=== PATIENT | male | born 1945 | race Caucasian/White ===

== ENCOUNTER 2017-10-22 19:25 | Emergency (ER) | payer OTHER ==
--- NOTE | 2017-10-22 19:44 | ER ---
Nurse's Notes [facility] Name: London Lewis Age: 72 yrs Sex: Male : 1945 Arrival Date: 10/22/2017 Time: 19:26 Bed 30 Private MD: Azar Chan R Diagnosis: Laceration without foreign body of lip-Upper Presentation: 10/22 19:37 Presenting complaint: Patient states: he ran into glass door earlier and received bb laceration to inside upper lip denies LOC. Transition of care: patient was not received from another setting of care. Complicating Factors: There are no complicating factors for this patient. Onset of symptoms was October 22, 2017. Care prior to arrival: None. 19:37 Method Of Arrival: Ambulatory bb 19:37 Acuity: ROBERT 5 bb Triage Assessment: 19:45 General: Appears in no apparent distress. rk2 19:45 General: Behavior is calm, cooperative. Pain: Complains of pain in above lip. Neuro: rk2 Level of Consciousness is alert, obeys commands, Oriented to person, place, time, situation. Respiratory: Airway is patent Respiratory effort is even, unlabored, Respiratory pattern is regular, symmetrical. Injury Description: Laceration sustained to above right side of lip. Historical: - Allergies: 19:38 PENICILLINS; bb - Home Meds: 19:38 aspirin 81 mg Oral TbEC 1 tab once daily [Active]; Fish Oil Oral [Active]; lisinopril 5 bb mg Oral tab 1 tab once daily [Active]; metoprolol tartrate 25 mg Oral tab 2 tabs 2 times per day [Active]; pantoprazole 40 mg Oral TbEC 1 tab once daily [Active]; Prilosec Oral [Active]; Xanax Oral [Active]; - PMHx: 19:38 Anxiety; GERD; Hypertension; Myocardial infarction; bb - PSHx: 19:38 Triple bypass; bb - Immunization history:: Adult Immunizations up to date, Last tetanus immunization: unknown. - Social history:: Smoking status: unknown. Screenin:45 Abuse screen: Denies threats or abuse. rk2 19:45 Nutritional screening: No deficits noted. Tuberculosis screening: No symptoms or risk rk2 factors identified. Fall Risk None identified. Assessment: 19:45 Musculoskeletal: bleeding controlled. Injury Description: Laceration is. rk2 Vital Signs: 19:38 BP 189 / 91; Pulse 91; Resp 20 S; Temp 99.1(O); Pulse Ox 97% on R/A; Weight 99.79 kg bb (R); Height 5 ft. 10 in. (177.80 cm) (R); Pain 0/10; 19:38 Body Mass Index 31.57 (99.79 kg, 177.80 cm) ED Course: 19:26 Patient arrived in ED. es 19:27 Azar Chan MD is Private Physician. es 19:29 Kale Bronson PA is PHCP. cp 19:29 Kale Thomas MD is Attending Physician. cp 19:37 Lona Samaniego RN is Primary Nurse. rk2 19:38 Triage completed. bb 19:38 Arm band placed on Patient placed in an exam room, on a stretcher, on pulse oximetry. bb Family accompanied patient. 19:45 Patient has correct armband on for positive identification. Bed in low position. rk2 19:55 No provider procedures requiring assistance completed. rk2 19:55 Patient did not have IV access during this emergency room visit. rk2 Administered Medications: No medications were administered Outcome: 19:43 Discharge ordered by MD. cp 19:55 Discharged to home ambulatory. rk2 19:55 Condition: good 19:55 Discharge instructions given to patient, Prescriptions given X 1. 20:09 Patient left the ED. rk2 Signatures: Varsha Calhoun Brenda, RN RN bb Kale Bronson PA PA cp Kidder, Rhonda, RN RN rk2
--- NOTE | 2017-10-22 19:44 | EDPHYS ---
Physician Documentation [facility] Name: London Lewis Age: 72 yrs Sex: Male : 1945 Arrival Date: 10/22/2017 Time: 19:26 Bed 30 Private MD: Azar Chan R ED Physician Kale Thomas HPI: 10/22 19:34 This 72 yrs old Male presents to ER via Unassigned with complaints of cp Laceration To Lip. 19:34 The patient has a laceration occurred at home, and there are no complicating factors. cp The laceration(s) is(are) located on the inside upper lip. Onset: The symptoms/episode began/occurred just prior to arrival. Associated signs and symptoms: Pertinent negatives: heavy bleeding, loss of consciousness. Historical: - Allergies: 19:38 PENICILLINS; bb - Home Meds: 19:38 aspirin 81 mg Oral TbEC 1 tab once daily [Active]; Fish Oil Oral [Active]; lisinopril 5 bb mg Oral tab 1 tab once daily [Active]; metoprolol tartrate 25 mg Oral tab 2 tabs 2 times per day [Active]; pantoprazole 40 mg Oral TbEC 1 tab once daily [Active]; Prilosec Oral [Active]; Xanax Oral [Active]; - PMHx: 19:38 Anxiety; GERD; Hypertension; Myocardial infarction; bb - PSHx: 19:38 Triple bypass; bb - Immunization history:: Adult Immunizations up to date, Last tetanus immunization: unknown. - Social history:: Smoking status: unknown. ROS: 19:35 Constitutional: Negative for body aches, chills, fever, poor PO intake. cp 19:35 Cardiovascular: Negative for chest pain, edema, palpitations. 19:35 Respiratory: Negative for cough, shortness of breath, wheezing. 19:35 Abdomen/GI: Negative for abdominal pain, vomiting, diarrhea, constipation. 19:35 Skin: Positive for laceration(s), of the inside upper lip, Negative for rash. 19:35 Neuro: Negative for altered mental status, loss of consciousness, weakness. 19:35 All other systems are negative. Exam: 19:37 Eyes: Pupils equal round and reactive to light, extra-ocular motions intact. Lids and cp lashes normal. Conjunctiva and sclera are non-icteric and not injected. Cornea within normal limits. Periorbital areas with no swelling, redness, or edema. 19:37 Constitutional: The patient appears in no acute distress, alert, awake, well developed, well nourished. 19:37 Head/face: Noted is swelling, that is mild, of the upper lip. 19:37 ENT: External ear(s): are unremarkable, Nose: is normal, Mouth: Lips: lacerated, approximately 1 cm(s), innner upper lip, Tongue: is normal, Posterior pharynx: Airway: no evidence of obstruction, patent, Uvula: midline, swelling, is not appreciated, erythema, is not appreciated, exudate, is not appreciated, Dental exam: fractured teeth are noted, not appreciated, missing teeth, not appreciated. 19:37 Neck: C-spine: vertebral tenderness, is not appreciated, crepitus, is not appreciated, ROM/movement: is normal, is supple, without pain, no range of motions limitations, no nuchal rigidity. 19:37 Chest/axilla: Inspection: normal. 19:37 Cardiovascular: Rate: normal. 19:37 Respiratory: the patient does not display signs of respiratory distress, Respirations: normal, no use of accessory muscles, no retractions, no splinting, no tachypnea. 19:37 Abdomen/GI: Exam negative for discomfort, distension, guarding, Inspection: abdomen appears normal. 19:37 Neuro: Orientation: to person, place \T\ time. Mentation: lucid, able to follow commands, Cerebellar function: is grossly normal, Motor: moves all fours, strength is normal, Sensation: no obvious gross deficits, Gait: is steady, at a normal pace, without difficulty. Vital Signs: 19:38 BP 189 / 91; Pulse 91; Resp 20 S; Temp 99.1(O); Pulse Ox 97% on R/A; Weight 99.79 kg bb (R); Height 5 ft. 10 in. (177.80 cm) (R); Pain 0/10; 19:38 Body Mass Index 31.57 (99.79 kg, 177.80 cm) bb MDM: 19:43 Patient medically screened. cp 19:43 Data reviewed: vital signs, nurses notes, and as a result, I will discharge patient. cp 19:43 Counseling: I had a detailed discussion with the patient and/or guardian regarding: the cp historical points, exam findings, and any diagnostic results supporting the discharge/admit diagnosis, to return to the emergency department if symptoms worsen or persist or if there are any questions or concerns that arise at home. Administered Medications: No medications were administered Disposition: 20:15 Chart complete. cp 10/23 15:54 Co-signature as Attending Physician, Kale Thomas MD I agree with the assessment and anoop plan of care. Disposition: 10/22/17 19:43 Discharged to Home. Impression: Laceration without foreign body of lip - Upper. - Condition is Stable. - Discharge Instructions: Facial Laceration. - Prescriptions for Clindamycin HCl 300 mg Oral Capsule - take 1 capsule by ORAL route every 8 hours for 7 days; 21 capsule. - Medication Reconciliation Form, Thank You Letter, Antibiotic Education, Prescription Opioid Use form. - Follow up: Private Physician; When: 1 - 2 days; Reason: Wound Recheck. - Problem is new. - Symptoms are unchanged. Signatures: Kale Thomas MD MD cha Ballard, Brenda, RN RN Kale Clay PA PA cp Kidder, Rhonda, RN RN rk2
[2017-10-22 20:14] VITALS: BP 189/91; TEMP 99.1; O2SAT 97
== END 2017-10-22 20:09 | disposition home or self-care (01) ==
LOC: ER 19:25
DX: S01.511A Laceration without foreign body of lip, initial encounter (principal); X58.XXXA Exposure to other specified factors, initial encounter; Y93.9 Activity, unspecified; Y92.009 Unspecified place in unspecified non-institutional (private) residence as the place of occurrence of the external cause; I10 Essential (primary) hypertension; F41.9 Anxiety disorder, unspecified; I25.2 Old myocardial infarction; Z79.82 Long term (current) use of aspirin; Z88.0 Allergy status to penicillin
CPT/HCPCS: 99283

== ENCOUNTER 2018-01-18 00:01 | Emergency (ER) | payer OTHER ==
[2018-01-18] MEDS ORDERED: NITROGLYCERIN 0.4 MG/TAB SL ONE (00:22)
[2018-01-18 00:54] LABS: Absolute Lymphocytes (CBC) 3.1 K/uL (0.7-4.9); Absolute Monocytes 0.8 K/uL (0.1-1.3); Absolute Neutrophil 6.1 K/uL (1.8-8.0); Basophils % 1.4 % (0-1.3); Hematocrit 46.6 % (39.6-49.0); Lymphocytes % 30.1 % (15.3-44.8); MCV 90.7 fL (80-100); MPV 8.3 fL (7.6-11.3); Monocytes % 7.6 % (3.3-12.3); RBC Red Blood Cell Count 5.14 M/uL (4.33-5.43)
[2018-01-18 01:02] LABS: Protime INR 1.02
[2018-01-18 01:10] LABS: ALT/SGPT 28 U/L (12-78); AST/SGOT 21 U/L (15-37); Albumin 3.7 g/dL (3.4-5.0); Alkaline Phosphatase 60 U/L (45-117); BUN Blood Urea Nitrogen 14 mg/dL (7-18); Bicarbonate 30 mmol/L (21-32); Bilirubin Direct < 0.1 mg/dL (0-0.2); Bilirubin Total 0.5 mg/dL (0.2-1.0); Glucose Level 138 mg/dL (74-106); Lipase 150 U/L (73-393); NT PRO-BNP 181 pg/mL (<125); Potassium 3.8 mmol/L (3.5-5.1); Protein, Total 7.9 g/dL (6.4-8.2); Sodium Level 138 mmol/L (136-145)
[2018-01-18 01:45] LABS: Urine Blood NEGATIVE (NEG); Urine Glucose NEGATIVE (NEG); Urine Protein NEGATIVE (NEG)
[2018-01-18] MEDS ORDERED: ASPIRIN 81 MG CHEWABLE TABLET ONE (02:53)
[2018-01-18] MEDS ORDERED: ENOXAPARIN 100 MG/ML SYR SQ ONE (02:53)
[2018-01-18] MEDS ORDERED: LISINOPRIL 10 MG TAB ONE (02:56)
--- NOTE | 2018-01-18 03:53 | ER ---
Nurse's Notes [facility] Name: London Lewis Age: 72 yrs Sex: Male : 1945 Arrival Date: 01/18/2018 Time: 00:03 Bed 4 Private MD: Azar Chan R Diagnosis: Chest Pain Presentation: 01/18 00:21 Presenting complaint: Patient states: Patient clutching chest, states pain to center of lp1 chest radiating to back, feeling short of breath; Hx of previous PA 3 years ago, open heart surgery. Transition of care: patient was not received from another setting of care. Onset of symptoms was January 18, 2018 at 00:00. Risk Assessment: Do you want to hurt yourself or someone else? Patient reports no desire to harm self or others. Initial Sepsis Screen: Does the patient meet any 2 criteria? No. Patient's initial sepsis screen is negative. Does the patient have a suspected source of infection? No. Patient's initial sepsis screen is negative. Care prior to arrival: None. 00:21 Method Of Arrival: Wheelchair lp1 00:21 Acuity: ROBERT 2 lp1 Historical: - Allergies: 00:20 PENICILLINS; wa - Home Meds: 00:27 aspirin 81 mg Oral TbEC 1 tab once daily [Active]; metoprolol tartrate 50 mg Oral tab 1 lp1 tab 2 times per day [Active]; pantoprazole 40 mg oral TbEC 1 tab once daily [Active]; lisinopril 5 mg Oral tab 1 tab once daily [Active]; Xanax 0.25 mg Oral tab [Active]; Flonase 50 mcg/actuation Nasal spsn [Active]; - PMHx: 00:30 Anxiety; GERD; PA; Hypertension; lp1 - PSHx: 00:30 Triple Bypass; lp1 - Immunization history:: Adult Immunizations up to date. - Family history:: not pertinent. - Social history:: Smoking status: Patient/guardian denies using tobacco. - Ebola Screening: : No symptoms or risks identified at this time. - Hospitalizations: : No recent hospitalization is reported. Screenin:22 Abuse screen: Denies threats or abuse. Nutritional screening: No deficits noted. jd3 Tuberculosis screening: No symptoms or risk factors identified. Fall Risk IV access (20 points). Ambulatory Aid- None/Bed Rest/Nurse Assist (0 pts). Gait- Normal/Bed Rest/Wheelchair (0 pts) Mental Status- Oriented to own ability (0 pts). Total Baez Fall Scale indicates No Risk (0-24 pts). Assessment: 00:30 General: Appears uncomfortable, Behavior is anxious. Pain: Complains of pain in chest lp1 Pain radiates to back Pain currently is 10 out of 10 on a pain scale. Quality of pain is described as pressure, sharp, Pain began 30 min ago. Is continuous. Neuro: Level of Consciousness is awake, alert, obeys commands, Oriented to person, place, situation. Cardiovascular: Capillary refill < 3 seconds in bilateral fingers toes Patient's skin is warm and dry. Rhythm is sinus rhythm. Respiratory: Airway is patent Respiratory effort is even, Respiratory pattern is regular, Breath sounds are clear bilaterally. GI: Abdomen is non-distended. : No signs and/or symptoms were reported regarding the genitourinary system. EENT: No signs and/or symptoms were reported regarding the EENT system. Derm: Skin is intact, Skin is dry, Skin is normal. Musculoskeletal: Circulation, motion, and sensation intact. 01:45 Reassessment: Patient appears in no apparent distress at this time. Patient is alert, lp1 oriented x 3, equal unlabored respirations, skin warm/dry/pink. Patient returned from CT at this time; assisted to bathroom via wheelchair Patient denies pain at this time. 03:00 Reassessment: Dr. Ryan at bedside to discuss results with patient and . lp1 04:01 Reassessment: Patient appears in no apparent distress at this time. Patient is alert, lp1 oriented x 3, equal unlabored respirations, skin warm/dry/pink. Patient denies pain at this time. Patient states feeling better. Vital Signs: 00:00 BP 208 / 106; Pulse 92; Resp 16; Temp 98.0(O); Pulse Ox 96% on R/A; Weight 97.52 kg; lp1 Height 5 ft. 10 in. (177.80 cm); Pain 10/10; 00:05 BP 184 / 92; Pulse 90; Resp 20; Pulse Ox 98% on R/A; lp1 00:15 BP 185 / 105; Pulse 84; Resp 20; Pulse Ox 96% on 1 lpm NC; lp1 00:30 BP 168 / 105; Pulse 82; Resp 13; Pulse Ox 93% on R/A; lp1 00:45 BP 175 / 111; Pulse 73; Resp 14; Pulse Ox 94% on R/A; lp1 01:45 BP 162 / 88; Pulse 69; Resp 18; Pulse Ox 96% ; Pain 0/10; lp1 02:13 BP 157 / 81; Pulse 67; Resp 12; Pulse Ox 97% on R/A; lp1 04:00 BP 143 / 85; Pulse 65; Resp 20 S; Pulse Ox 96% on R/A; Pain 0/10; jd3 00:00 Body Mass Index 30.85 (97.52 kg, 177.80 cm) lp1 ED Course: 00:03 Patient arrived in ED. ds1 00:08 Golden Ryan MD is Attending Physician. wa 00:12 Inserted saline lock: 20 gauge in right antecubital area, using aseptic technique. jd3 Blood collected. 00:18 Brii Dee, MARKO is Primary Nurse. lp1 00:21 Arm band placed on. EKG completed in triage. Results shown to MD. jd3 00:22 Oxygen administration via nasal cannula \T\ 1L/min. jd3 00:22 Patient has correct armband on for positive identification. Placed in gown. Bed in low jd3 position. Call light in reach. Side rails up X2. Adult w/ patient. monitoring specialist on. Pulse ox on. NIBP on. 00:23 Triage completed. lp1 00:28 X-ray completed. Portable x-ray completed in exam room. Patient tolerated procedure kw well. 01:[address] via stretcher. cw1 01:26 Azar Chan MD is Private Physician. ds1 01:37 CT completed. Patient tolerated procedure well. Patient moved back from CT. kw1 01:41 CT Aorta for Dissection In Process Unspecified. EDMS 01:53 XRAY Chest (1 view) In Process Unspecified. EDMS 03:50 Golden Beaver MD is Referral Physician. wa 03:51 Azar Chan MD is Referral Physician. wa 03:51 Juan Jose Spaulding MD is Referral Physician. wa 04:01 No provider procedures requiring assistance completed. IV discontinued, No lp1 redness/swelling at site. Pressure dressing applied. Administered Medications: 00:21 Drug: Nitroglycerin 0.4 mg Route: Sublingual; lp1 00:56 Follow up: Response: Pain is decreased lp1 03:08 Not Given (Physician Discretion): Lovenox 100 mg Sub-Q once jd3 03:09 Drug: Aspirin Chewable Tablet 324 mg Route: PO; jd3 04:02 Follow up: Response: No adverse reaction lp1 03:09 Drug: Lisinopril 10 mg Route: PO; jd3 04:03 Follow up: Response: Marked relief of symptoms lp1 Outcome: 03:52 Discharge ordered by . jessica 04:02 Discharged to home ambulatory, with significant other. lp1 04:02 Condition: stable 04:02 Discharge instructions given to patient, significant other, Instructed on discharge instructions, follow up and referral plans. Demonstrated understanding of instructions, follow-up care. 04:03 Patient left the ED. lp1 Signatures: Dispatcher [employer] EDMT Wendy Sandhu dsMiriam Leyva Kimberlee kw Pena, Laura, RN RN lp1 Golden Ryan MD MD wa Davies, Jonathon, RN RN Sarah Dukes kw1 Corrections: (The following items were deleted from the chart) 00:30 00:27 PSHx: CABG; lp1 lp1 00:47 00:38 Patient moved to [place] via wheelchair. kw1 kw1
--- NOTE | 2018-01-18 03:53 | EDPHYS ---
Physician Documentation [facility] Name: London Lewis Age: 72 yrs Sex: Male : 1945 Arrival Date: 01/18/2018 Time: 00:03 Bed 4 Private MD: Azar Chan R ED Physician Golden Ryan HPI: 01/18 00:16 This 72 yrs old Male presents to ER via Unassigned with complaints of Chest wa Pain. 00:16 The patient or guardian reports chest pain that is located primarily in the substernal wa area. Onset: 45 minute(s) ago. The pain radiates to back. Associated signs and symptoms: Pertinent positives: abdominal pain, shortness of breath, Pertinent negatives: cough, dizziness, palpitations, syncope, vomiting. The chest pain is described as aching. Duration: The patient or guardian reports a single episode, that is still ongoing, but improving. Modifying factors: The symptoms are alleviated by nothing. the symptoms are aggravated by nothing. Severity of pain: At its worst the pain was a 8 / 10 in the emergency department the pain has improved mildly, is a 6 / 10. The patient has experienced a previous episode, h/o triple bypass. The patient has not recently seen a physician, PMD Dr. Murrieta. coil former: Dr. arellano. Historical: - Allergies: 00:20 PENICILLINS; wa - Home Meds: 00:27 aspirin 81 mg Oral TbEC 1 tab once daily [Active]; metoprolol tartrate 50 mg Oral tab 1 lp1 tab 2 times per day [Active]; pantoprazole 40 mg oral TbEC 1 tab once daily [Active]; lisinopril 5 mg Oral tab 1 tab once daily [Active]; Xanax 0.25 mg Oral tab [Active]; Flonase 50 mcg/actuation Nasal spsn [Active]; - PMHx: 00:30 Anxiety; GERD; RI; Hypertension; lp1 - PSHx: 00:30 Triple Bypass; lp1 - Immunization history:: Adult Immunizations up to date. - Family history:: not pertinent. - Social history:: Smoking status: Patient/guardian denies using tobacco. - Ebola Screening: : No symptoms or risks identified at this time. - Hospitalizations: : No recent hospitalization is reported. ROS: 00:20 Constitutional: Negative for fever, chills, and weight loss, Eyes: Negative for injury, wa pain, redness, and discharge, ENT: Negative for injury, pain, and discharge, Neck: Negative for injury, pain, and swelling, Back: Negative for injury and pain, : Negative for injury, bleeding, discharge, and swelling, MS/Extremity: Negative for injury and deformity, Skin: Negative for injury, rash, and discoloration, Neuro: Negative for headache, weakness, numbness, tingling, and seizure. 00:20 Cardiovascular: Positive for chest pain, Negative for edema, orthopnea, palpitations, paroxysmal nocturnal dyspnea. 00:20 Respiratory: Positive for shortness of breath, Negative for cough, hemoptysis, wheezing. 00:20 Abdomen/GI: Positive for abdominal pain, Negative for nausea, vomiting, and diarrhea. 00:20 All other systems are negative. Exam: 00:21 Constitutional: This is a well developed, well nourished patient who is awake, alert, wa and in no acute distress. Head/Face: Normocephalic, atraumatic. Eyes: Pupils equal round and reactive to light, extra-ocular motions intact. Lids and lashes normal. Conjunctiva and sclera are non-icteric and not injected. Cornea within normal limits. Periorbital areas with no swelling, redness, or edema. ENT: Nares patent. No nasal discharge, no septal abnormalities noted. Tympanic membranes are normal and external auditory canals are clear. Oropharynx with no redness, swelling, or masses, exudates, or evidence of obstruction, uvula midline. Mucous membranes moist. Neck: Trachea midline, no thyromegaly or masses palpated, and no cervical lymphadenopathy. Supple, full range of motion without nuchal rigidity, or vertebral point tenderness. No Meningismus. Back: No spinal tenderness. No costovertebral tenderness. Full range of motion. Skin: Warm, dry with normal turgor. Normal color with no rashes, no lesions, and no evidence of cellulitis. MS/ Extremity: Pulses equal, no cyanosis. Neurovascular intact. Full, normal range of motion. Neuro: Awake and alert, GCS 15, oriented to person, place, time, and situation. Cranial nerves II-XII grossly intact. Motor strength 5/5 in all extremities. Sensory grossly intact. Cerebellar exam normal. Normal gait. Psych: Awake, alert, with orientation to person, place and time. Behavior, mood, and affect are within normal limits. 00:21 Cardiovascular: Rate: normal, Rhythm: regular, Pulses: no pulse deficits are appreciated, Heart sounds: normal, Edema: is not appreciated, JVD: is not appreciated. 00:21 Respiratory: the patient does not display signs of respiratory distress, Respirations: normal, Breath sounds: are clear throughout, Respiratory rate: nml Vital Signs: 00:00 BP 208 / 106; Pulse 92; Resp 16; Temp 98.0(O); Pulse Ox 96% on R/A; Weight 97.52 kg; lp1 Height 5 ft. 10 in. (177.80 cm); Pain 10/10; 00:05 BP 184 / 92; Pulse 90; Resp 20; Pulse Ox 98% on R/A; lp1 00:15 BP 185 / 105; Pulse 84; Resp 20; Pulse Ox 96% on 1 lpm NC; lp1 00:30 BP 168 / 105; Pulse 82; Resp 13; Pulse Ox 93% on R/A; lp1 00:45 BP 175 / 111; Pulse 73; Resp 14; Pulse Ox 94% on R/A; lp1 01:45 BP 162 / 88; Pulse 69; Resp 18; Pulse Ox 96% ; Pain 0/10; lp1 02:13 BP 157 / 81; Pulse 67; Resp 12; Pulse Ox 97% on R/A; lp1 04:00 BP 143 / 85; Pulse 65; Resp 20 S; Pulse Ox 96% on R/A; Pain 0/10; jd3 00:00 Body Mass Index 30.85 (97.52 kg, 177.80 cm) lp1 MDM: 00:08 Patient medically screened. ny 00:22 Differential diagnosis: chest pain in a man s/p CABG, drinks ETOH. pain radiated to wa back. BP elevated. r/o ACS, dissection of aorta, ruptured AAA. pancreatitis. eval, treat and reassess. 00:52 Test interpretation: by ED physician or midlevel provider: EKG: HR 90. non-specific wa ST-T changes. . 01:28 ED course: 0100 hrs: chest pain-free. ny 03:47 Data reviewed: vital signs, nurses notes, lab test result(s), EKG. Response to ny treatment: the patient's symptoms have resolved after treatment. ED course: spoke with pt's PMD. advised him would like to obs pt due to presentation with concern for ACS. advised to d/c home and will see pt today at his office as pt recently had a cardiac eval wnl. discussed with pt. pt will follow plan and see PMD at office in AM. advised return for reoccurrence of pain and or SOB. will also give f/u to see GI for gallbladder eval to r/o gallbladder colic. 01/18 00:14 Order name: Basic Metabolic Panel ny 01/18 00:14 Order name: CBC with Diff; Complete Time: ny 01/18 00:14 Order name: LFT's; Complete Time: ny 01/18 00:14 Order name: Magnesium; Complete Time: ny 01/18 00:14 Order name: PT-INR; Complete Time: ny 01/18 00:14 Order name: Ptt, Activated; Complete Time: ny 01/18 00:14 Order name: Troponin (emerg Dept Use Only); Complete Time: ny 01/18 00:14 Order name: XRAY Chest (1 view) ny 01/18 00:14 Order name: BNP; Complete Time: ny 01/18 00:14 Order name: Lipase; Complete Time: ny 01/18 00:15 Order name: Basic Metabolic Panel; Complete Time: 01:38 EDMS 01/18 00:15 Order name: CT Aorta for Dissection ny 01/18 01:33 Order name: Urine Dipstick--Ancillary (enter results) 2 01/18 00:14 Order name: EKG; Complete Time: 00:15 ny 01/18 00:14 Order name: Cardiac monitoring; Complete Time: 00:18 ny 01/18 00:14 Order name: EKG - Nurse/Tech; Complete Time: 00:18 ny 01/18 00:14 Order name: IV Saline Lock; Complete Time: 00:18 ny 01/18 00:14 Order name: Labs collected and sent; Complete Time: 00:19 ny 01/18 00:14 Order name: O2 Per Protocol; Complete Time: 00:18 ny 01/18 00:14 Order name: O2 Sat Monitoring; Complete Time: 00: ny 01/18 00:14 Order name: Urine Dipstick-Ancillary (obtain specimen); Complete Time: :28 ny Administered Medications: 00:21 Drug: Nitroglycerin 0.4 mg Route: Sublingual; lp1 00:56 Follow up: Response: Pain is decreased lp1 03:08 Not Given (Physician Discretion): Lovenox 100 mg Sub-Q once jd3 03:09 Drug: Aspirin Chewable Tablet 324 mg Route: PO; jd3 04:02 Follow up: Response: No adverse reaction lp1 03:09 Drug: Lisinopril 10 mg Route: PO; jd3 04:03 Follow up: Response: Marked relief of symptoms lp1 Disposition: 01/18/18 03:52 Discharged to Home. Impression: Chest Pain. - Condition is Stable. - Discharge Instructions: Nonspecific Chest Pain. - Medication Reconciliation Form, Thank You Letter, Antibiotic Education, Prescription Opioid Use form. - Follow up: Golden Beaver MD; Reason: see Dr. Beaver for potential gallbladder evaluation. IT needs to be checked to see if it is related to your symptoms. Follow up: Azar Chan MD; When: Today; Reason: Recheck today's complaints, Re-evaluation by your physician. Follow up: Juan Jose Spaulding MD; When: 1 - 2 days; Reason: Re-evaluation by your physician. - Notes: see your doctor today as discussed. also see Dr. Spaulding and Dr. Beaver per ourt discussion. return here immediately if symptoms occur again Signatures: Dispatcher [employer] EDMA Brii Dee RN RN lp1 Golden Ryan MD MD wa Davies, Jonathon, RN RN jd3 Corrections: (The following items were deleted from the chart) 00:30 00:27 PSHx: CABG; lp1 lp1 04:03 03:52 01/18/2018 03:52 Discharged to Home. Impression: Chest Pain. Condition is Stable. lp1 Forms are Medication Reconciliation Form, Thank You Letter, Antibiotic Education, Prescription Opioid Use. Follow up: Golden Beaver; Reason: see Dr. Beaver for potential gallbladder evaluation. IT needs to be checked to see if it is related to your symptoms. Follow up: Azar Chan; When: Today; Reason: Recheck today's complaints, Re-evaluation by your physician. Follow up: Juan Jose Spaulding; When: 1 - 2 days; Reason: Re-evaluation by your physician. jessica
[2018-01-18 04:16] VITALS: BP 143/85; O2SAT 96
--- NOTE | 2018-01-18 06:51 | EKG ---
Test Date: 2018-01-18 Test Time: 00:04:26 Sfdc Architect: LISA MEASUREMENT RESULTS: Intervals: Rate: 90 NC: 170 QRSD: 96 QT: 400 QTc: 489 [place]: P: 55 NC: 170 QRS: 47 T: 65 INTERPRETIVE STATEMENTS: Normal sinus rhythm Nonspecific ST and T wave abnormality Prolonged QT Abnormal ECG Compared to ECG 04/25/2017 09:58:09 Prolonged QT interval now present ST (T wave) deviation still present Electronically Signed On 01-18-18 06:51:11 CDT by Mark Russ
--- NOTE | 2018-01-18 08:22 | RAD REPORT ---
EXAM DESCRIPTION: CT - Angio Aorta For Dissection - 01/18/2018 2:41 am CLINICAL HISTORY: . Chest pain COMPARISON: August, TECHNIQUE: Computed tomography angiography of the chest, abdomen pelvis were obtained. 100 cc Isovue 370 was administered intravenously. Coronal and sagittal reconstruction were performed. A preliminary report was generated by [employer] and reviewed prior to this dictation MIP 3D reconstruction was performed All CT scans are performed using dose optimization technique as appropriate and may include automated exposure control or mA/KV adjustment according to patient size. FINDINGS: An aortic dissection is not seen. An aortic aneurysm is not displayed. A bovine aorta is seen. 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 The celiac, SMA and MARK are patent . A lung consolidation is not present. A pericardial effusion is not seen. A pleural effusion is not n oted. The liver,spleen, pancreas adrenals kidneys demonstrate no significant abnormality. The appendix is normal. There no evidence diverticulitis. Spondylosis involves the lumbar spine resulting in spinal stenosis. The prostate gland is mildly to moderately enlarged. Inguinal hernias contain fat. IMPRESSION: Negative for an aortic dissection. 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
--- NOTE | 2018-01-18 08:23 | RAD REPORT ---
EXAM DESCRIPTION: Eli Single View01/18/2018 1:54 am CLINICAL HISTORY: Chest pain COMPARISON: November 2017 FINDINGS: The lungs appear clear of acute infiltrate. The heart is mildly enlarged. Postsurgical changes involve the chest. IMPRESSION: No acute abnormalities displayed
== END 2018-01-18 04:03 | disposition home or self-care (01) ==
LOC: ER 00:01
DX: R07.9 Chest pain, unspecified (principal); I10 Essential (primary) hypertension; I25.2 Old myocardial infarction; F41.9 Anxiety disorder, unspecified; Z88.0 Allergy status to penicillin; Z79.82 Long term (current) use of aspirin
CPT/HCPCS: 36415; 71045; 71275; 74175; 80048; 80076; 81003; 83690; 83735; 83880; 84484; 85025; 85610; 85730; 93005; 99285; Q9967; 76700; J1650

== ENCOUNTER 2018-02-28 02:04 | Emergency (ER) | payer OTHER ==
--- OUTSIDE RECORDS SUMMARY | 2018-02-28 02:07 | XMS REPORT | Continuity of Care Document ---
:1945 Author Organization Interface Problems Problem Status Onset Classification Date Comments Source Date Reported Asthma Resolved Problem 02/04/2018 [facility] Group Glaucoma Resolved Problem 02/04/2018 Medical Group History of Resolved Problem 02/04/2018 gastroesophageal Medical reflux (<span Group ID="[id number]">C onfirmed</span>) High blood pressure Resolved Problem 02/04/2018 Medical Group Heart attack Resolved Problem 02/04/2018 Medical Group Simple obesity Active Problem 02/04/2018 Medical [facility] Medications Medication Details Route Status Patient Ordering Order Source Instructions Provider Date metoprolol 50 mg 50 mg=1 Active oral tablet, tab, PO, 018 Medical extended release BID, 0 Group Refill(s) Aspirin 81 MG 81 mg=1 Active Enteric Coated tab, PO, 018 Medical Tablet Daily, # Group 90 tab, 3 Refill(s) Alprazolam 0.25 0.25 mg=1 Active MH MG Oral Tablet tab, PO, 018 Medical [Xanax] TID, PRN Group Anxiety, # 30 tab, 0 Refill(s) Fish Oil PO, 0 Active MH Refill(s) 018 Medical Group lisinopril 5 mg 5 mg=1 Active MH oral tablet tab, PO, 018 Medical Daily, # Group 30 tab, 0 Refill(s) pantoprazole 40 40 mg=1 Active MH mg oral enteric tab, PO, 018 Medical coated tablet Daily, # Group 30 tab, 0 Refill(s) hydrocortisone 25 mg=1 Active acetate 25 MG supp, DC, 018 Medical Rectal BID, # 20 Group Suppository supp, 0 [Proctosol] Refill(s) Allergies, Adverse Reactions, Alerts Substance Category Reaction Severity Reaction Status Date Comments Source type Reported penicillins Assertion Drug Active allergy Medical Group Immunizations Immunization Date Given Site Status Last Updated Comments Source Results Order Results Value Reference Date Interpretation Comments Source Name Range Vital Signs Vital Sign Value Date Comments Source BMI Calculated 30.9 10/29/2017 Medical Group Weight 100.5 10/29/2017 Medical Group Systolic (mm Hg) 148 10/29/2017 Medical Group Diastolic (mm Hg) 81 10/29/2017 Medical Group Temperature Oral (F) 97.4 F 10/29/2017 Medical Group Heart Rate 65 10/29/2017 Medical Group Height 180.34 cm 10/29/2017 Medical Group Weight 101.773 10/09/2017 Medical Group BMI Calculated 31.29 10/09/2017 Medical Group Height 180.34 cm 10/09/2017 Medical Group Temperature Oral (F) 98.3 F 10/09/2017 Medical Group Systolic (mm Hg) 150 10/09/2017 Medical Group Diastolic (mm Hg) 89 10/09/2017 Medical Group Respitory Rate 18 10/09/2017 Medical Group Heart Rate 65 10/09/2017 Medical Group Height 180.34 cm 09/29/2017 Medical Group BMI Calculated 31.17 09/29/2017 Medical Group Weight 101.364 09/29/2017 Medical Group Temperature Oral (F) 97.7 F 09/29/2017 Medical Group Heart Rate 63 09/29/2017 Medical Group Respitory Rate 18 09/29/2017 Medical Group Systolic (mm Hg) 158 09/29/2017 Medical Group Diastolic (mm Hg) 99 09/29/2017 Medical Group BMI Calculated 31.74 09/22/2017 Medical Group Weight 103.227 09/22/2017 Medical Group Height 180.34 cm 09/22/2017 Medical Group Systolic (mm Hg) 116 09/22/2017 Medical Group Diastolic (mm Hg) 89 09/22/2017 Medical Group Respitory Rate 18 09/22/2017 Medical Group Temperature Oral (F) 98.5 F 09/22/2017 Medical Group Heart Rate 66 09/22/2017 Medical Group Systolic (mm Hg) 155 09/15/2017 Medical Group Diastolic (mm Hg) 94 09/15/2017 Medical Group Heart Rate 64 09/15/2017 Medical Group Respitory Rate 18 09/15/2017 Medical Group Temperature Oral (F) 98.4 F 09/15/2017 Medical Group Encounters Location Location Encounter Encounter Reason Attending ADM DC Status Source Details Type Number For Provider Date Date Visit Outpatient [id number] [facility] 09/15 [facility] [id number] [facility] 09/15 09/16 [facility] [place] Out[facility] [id number] [facility] 09/22 [facility] [place] [facility] [id number] [facility] 09/22 09/23 [facility] [place] Outpatient [id number] [facility] 09/29 [facility] [facility] [id number] [facility] 09/29 09[facility]30 [id number] MH General Message /2017 [facility] Phone [id number] 10/05 10/07 MH General Message /2017 [facility] [place] Outpatient [id number] [facility] 10/09 [facility] [facility] [id number] [facility] 10/09 10/10 [facility] [place] Outpatient [id number] [facility] 10/29 [facility] [id number] [facility] 10/29 10/30 [facility] [place] Outpatient [id number] [facility] 11/11 [facility] [id number] [facility] 11/11 11/11 [facility] [place] Outpatient [id number] [facility] 12/31 [facility] [id number] [facility] 12/31 01/01 [facility] [place] Outpatient [id number] [facility] 01/21 [facility] [id number] [facility] 01/21 01/21 General [facility] [place] Outpatient [id number] [facility] 02/25 [facility] [id number] [facility] 03/10 [facility] Procedures Procedure Code Date Perfomer Comments Source Anoscopy; 89016 10/29/2017 Medical diagnostic, Group including collection of specimen(s) by brushing or washing, when performed (separate procedure) Hemorrhoidectomy, 56020 09/29/2017 Medical internal, by Group rubber band ligation(s) Anoscopy; 24054 09/16/2017 Medical diagnostic, Group including collection of specimen(s) by brushing or washing, when performed (separate procedure) Open heart [id number] Medical surgery Group
--- OUTSIDE RECORDS SUMMARY | 2018-02-28 02:07 | XMS REPORT | Summary of Care ---
:1945 Author Organization [facility] General Surgery [place] Address [address] [place] [address]- Encounter HQ Encntr_alias(FIN) [id number] Date(s): 10/02/17 - 10/03/17 [facility] General Surgery [place] [address] [address] [place] [address]- [phone] Vital Signs No data available for this section Problem List Condition Effective Dates Status Health Status Informant Asthma(Confirmed) Resolved Glaucoma(Confirmed) Resolved History of gastroesophageal reflux Resolved (GERD)(Confirmed) High blood pressure(Confirmed) Resolved Heart attack(Confirmed) Resolved Simple obesity(Confirmed) Active Allergies, Adverse Reactions, Alerts Substance Reaction Severity Status penicillins Active Medications No data available for this section Results No data available for this section Immunizations No data available for this section Procedures Procedure Date Related Diagnosis Body Site Status Open heart surgery Completed Social History Social History Type Response Smoking Status Never smoker; Exposure to Tobacco Smoke None; Cigarette Smoking Last 365 Days No; Reg Smoking Cessation Counseling No entered on: 10/29/17 Assessment and Plan No data available for this section
--- OUTSIDE RECORDS SUMMARY | 2018-02-28 02:07 | XMS REPORT | Summary of Care ---
:1945 Author Organization [facility] General Surgery [place] Address [address] [place] [address]- Encounter HQ Encntr_alias(FIN) [id number] Date(s): 10/05/17 - 10/06/17 [facility] General Surgery [place] [address] [address] [place] [address]- [phone] Vital Signs No data available for this [...]
--- OUTSIDE RECORDS SUMMARY | 2018-02-28 02:07 | XMS REPORT | Summary of Care ---
:1945 Author Organization [facility] General Surgery [place] Address [address] [address] [place] [address]- Encounter HQ Encntr_alias(FIN) [id number] Date(s): 11/11/17 - 11/11/17 [facility] General Surgery [place] [address] [address] [place] [address]- [phone] Attending Physician: Chepe Aguilera MD Vital Signs No data available for this [...]
--- OUTSIDE RECORDS SUMMARY | 2018-02-28 02:07 | XMS REPORT | Summary of Care ---
:1945 Author Organization [facility] General Surgery [place] Address [address] [place] [address]- Encounter HQ Eliasr_shayla(FIN) [id number] Date(s): 09/29/17 - 09/29/17 [facility] [address] Surgery [address] [place] [address]- [phone] Discharge Disposition: Home or Self Care Attending Physician: Chepe Aguilera MD Vital Signs Most recent to oldest [Reference Range]: 1 Height 180.34 cm (09/29/17 10:07 AM) Temperature Oral [96.4-99.1 DegF] 97.7 DegF (09/29/17 10:07 AM) Blood Pressure [90-140/60-90 mmHg] 158/99 mmHg *HI* (09/29/17 10:07 AM) Respiratory Rate [14-20 BRMIN] 18 BRMIN (09/29/17 10:07 AM) Peripheral Pulse Rate [60-100 bpm] 63 bpm (09/29/17 10:07 AM) Weight 101.364 kg (09/29/17 10:07 AM) Body Mass Index 31.17 m2 (09/29/17 10:07 AM) Problem List Condition Effective Dates Status Health Status Informant Asthma(Confirmed) Resolved Glaucoma(Confirmed) Resolved History of gastroesophageal reflux Resolved (GERD)(Confirmed) High blood pressure(Confirmed) Resolved Heart attack(Confirmed) Resolved Simple obesity(Confirmed) Active Allergies, Adverse Reactions, Alerts Substance Reaction Severity Status penicillins Active Medications No Known Medications Results No data available for this section Immunizations No data available for this section Procedures Procedure Date Related Diagnosis Body Site Status Hemorrhoidectomy, internal, by rubber 09/29/17 Completed band ligation(s) Open heart surgery Completed Social History Social History Type Response Smoking Status Never smoker; Exposure to Tobacco Smoke None; Cigarette Smoking Last 365 Days No; Reg Smoking Cessation Counseling No entered on: 10/29/17 Assessment and Plan No data available for this section
--- OUTSIDE RECORDS SUMMARY | 2018-02-28 02:07 | XMS REPORT | Summary of Care ---
:1945 Author Organization [facility] General Surgery [place] Address [address] [place] [address]- Encounter HQ Encntr_alias(FIN) [id number] Date(s): 01/21/18 - 01/21/18 [facility] General Surgery [place] [address] [address] [place] [address]- [phone] Attending Physician: Chepe Aguilera MD Vital Signs [...]
--- OUTSIDE RECORDS SUMMARY | 2018-02-28 02:07 | XMS REPORT | Summary of Care ---
:1945 Author Organization [facility] General Surgery [place] Address [address] [place] [address]- Encounter HQ Encntr_alias(FIN) [id number] Date(s): 12/31/17 - 12/31/17 [facility] General Surgery [place] [address] [address] [place] [address]- [phone] Discharge Disposition: Home or Self Care Attending [...]
--- OUTSIDE RECORDS SUMMARY | 2018-02-28 02:07 | XMS REPORT | Summary of Care ---
:1945 Author Organization [facility] General Surgery [place] Address [address] [place] [address]- Encounter HQ Eliasr_shayla(FIN) [id number] Date(s): 09/29/17 - 09/29/17 [facility] General Surgery [place] [address] [address] [place] [address]- [phone] Discharge Disposition: Home or Self Care Attending [...]
--- OUTSIDE RECORDS SUMMARY | 2018-02-28 02:07 | XMS REPORT | Summary of Care ---
:1945 Author Organization [facility] General Surgery [place] Address [address] [place] [address]- Encounter HQ Felipa(FIN) [phone] Date(s): 09/15/17 - 09/15/17 [facility] General Surgery [place] [address] [place] [address]- [phone] Discharge Disposition: Home or Self Care Attending Physician: Chepe Aguilera MD Vital Signs Most recent to oldest [Reference Range]: 1 Temperature Oral [96.4-99.1 DegF] 98.4 DegF (09/15/17 10:40 AM) Blood Pressure [90-140/60-90 mmHg] 155/94 mmHg *HI* (09/15/17 10:40 AM) Respiratory Rate [14-20 BRMIN] 18 BRMIN (09/15/17 10:40 AM) Peripheral Pulse Rate [60-100 bpm] 64 bpm (09/15/17 10:40 AM) Problem List Condition Effective Dates Status Health Status Informant Asthma(Confirmed) Resolved Glaucoma(Confirmed) Resolved History of gastroesophageal reflux Resolved (GERD)(Confirmed) High blood pressure(Confirmed) Resolved Heart attack(Confirmed) Resolved Simple obesity(Confirmed) Active Allergies, Adverse Reactions, Alerts Substance Reaction Severity Status penicillins Active Medications aspirin 81 mg tablet, enteric coated 81 mg=1 tab, PO, Daily, # 90 tab, 3 Refill(s) Start Date: 09/15/17 Status: OrderedFish Oil PO, 0 Refill(s) Start Date: 09/15/17 Status: Orderedlisinopril 5 mg oral tablet 5 mg=1 tab, PO, Daily, # 30 tab, 0 Refill(s) Start Date: 09/15/17 Status: Orderedmetoprolol 50 mg oral tablet, extended release 50 mg=1 tab, PO, BID, 0 Refill(s) Start Date: 09/15/17 Status: Orderedpantoprazole 40 mg oral enteric coated tablet 40 mg=1 tab, PO, Daily, # 30 tab, 0 Refill(s) Start Date: 09/15/17 Status: OrderedProctosol-HC 25 mg rectal suppository 25 mg=1 supp, KS, BID, # 20 supp, 0 Refill(s) Start Date: 09/15/17 Stop Date: 09/25/17 Status: OrderedXanax 0.25 mg oral tablet 0.25 mg=1 tab, PO, TID, PRN Anxiety, # 30 tab, 0 Refill(s) Start Date: 09/15/17 Stop Date: 09/25/17 Status: Ordered Results No data available for this section [...]
--- OUTSIDE RECORDS SUMMARY | 2018-02-28 02:07 | XMS REPORT | Summary of Care ---
:1945 Author Organization [facility] General Surgery [place] Address [address] [place] [address]- Encounter HQ Eliasr_shayla(FIN) [phone] Date(s): 09/22/17 - 09/22/17 [facility] General Surgery [address] [place] [address]- [phone] Discharge Disposition: Home or Self Care Attending Physician: Chepe Aguilera MD Vital Signs Most recent to oldest [Reference Range]: 1 Height 180.34 cm (09/22/17 11:23 AM) Temperature Oral [96.4-99.1 DegF] 98.5 DegF (09/22/17 11:23 AM) Blood Pressure [90-140/60-90 mmHg] 116/89 mmHg (09/22/17 11:23 AM) Respiratory Rate [14-20 BRMIN] 18 BRMIN (09/22/17 11:23 AM) Peripheral Pulse Rate [60-100 bpm] 66 bpm (09/22/17 11:23 AM) Weight 103.227 kg (09/22/17 11:23 AM) Body Mass Index 31.74 m2 (09/22/17 11:23 AM) Problem List Condition Effective Dates Status [...] Procedure Date Related Diagnosis Body Site Status Anoscopy; diagnostic, including 09/15/17 Completed collection of specimen(s) by brushing or washing, when performed (separate procedure) Open heart surgery Completed Social History Social History Type Response Smoking Status Never smoker; Exposure to Tobacco Smoke None; Cigarette Smoking Last 365 Days No; Reg Smoking Cessation Counseling No entered on: 10/29/17 Assessment and Plan No data available for this section
--- OUTSIDE RECORDS SUMMARY | 2018-02-28 02:07 | XMS REPORT | Summary of Care ---
:1945 Author Organization [facility] General Surgery [place] Address [address] [place] [address]- Encounter HQ Eliasr_shayla(FIN) [phone] Date(s): 10/09/17 - 10/09/17 [facility] General Surgery [address] [place] [address]- [phone] Discharge Disposition: Home or Self Care Attending Physician: Chepe Aguilera MD Vital Signs Most recent to oldest [Reference Range]: 1 Height 180.34 cm (10/09/17 10:04 AM) Temperature Oral [96.4-99.1 DegF] 98.3 DegF (10/09/17 10:04 AM) Blood Pressure [90-140/60-90 mmHg] 150/89 mmHg *HI* (10/09/17 10:04 AM) Respiratory Rate [14-20 BRMIN] 18 BRMIN (10/09/17 10:04 AM) Peripheral Pulse Rate [60-100 bpm] 65 bpm (10/09/17 10:04 AM) Weight 101.773 kg (10/09/17 10:04 AM) Body Mass Index 31.29 m2 (10/09/17 10:04 AM) Problem List Condition Effective Dates Status [...]
--- OUTSIDE RECORDS SUMMARY | 2018-02-28 02:08 | XMS REPORT | Summary of Care ---
:1945 Author Organization [facility] General Surgery [place] Address [address] [place] [address]- Encounter HQ Catrachitontr_shayla(FIN) [phone] Date(s): 10/29/17 - 10/29/17 [facility] [address] Surgery [address] [place] [address]- [phone] Discharge Disposition: Home or Self Care Attending Physician: Chepe Aguilera MD Vital Signs Most recent to oldest [Reference Range]: 1 Height 180.34 cm (10/29/17 10:30 AM) Temperature Oral [96.4-99.1 DegF] 97.4 DegF (10/29/17 10:30 AM) Blood Pressure [90-140/60-90 mmHg] 148/81 mmHg *HI* (10/29/17 10:30 AM) Peripheral Pulse Rate [60-100 bpm] 65 bpm (10/29/17 10:30 AM) Weight 100.5 kg (10/29/17 10:30 AM) Body Mass Index 30.9 m2 (10/29/17 10:30 AM) Problem List Condition Effective Dates Status [...] Diagnosis Body Site Status Anoscopy; diagnostic, including 10/29/17 Completed collection of specimen(s) by brushing or washing, when performed (separate procedure) Open heart surgery Completed Social History Social History Type Response Smoking Status Never smoker; Exposure to Tobacco Smoke None; Cigarette Smoking Last 365 Days No; Reg Smoking Cessation Counseling No entered on: 10/29/17 Assessment and Plan No data available for this section
--- NOTE | 2018-02-28 03:14 | ER ---
Nurse's Notes [facility] Name: London Lewis Age: 73 yrs Sex: Male : 1945 Arrival Date: 02/28/2018 Time: 02:05 Bed 7 Private MD: Azar Chan R Diagnosis: Pain in left ankle and joints of left foot Presentation: 02/28 02:18 Presenting complaint: Patient states: "I have pain in my left ankle that started about jd3 0130.". Transition of care: patient was not received from another setting of care. Onset of symptoms was February 28, 2018. Risk Assessment: Do you want to hurt yourself or someone else? Patient reports no desire to harm self or others. Initial Sepsis Screen: Does the patient meet any 2 criteria? No. Patient's initial sepsis screen is negative. Does the patient have a suspected source of infection? No. Patient's initial sepsis screen is negative. Care prior to arrival: None. 02:18 Method Of Arrival: Ambulatory jd3 02:18 Acuity: ROBERT 4 jd3 Triage Assessment: 02:22 General: Appears in no apparent distress. uncomfortable, Behavior is calm, cooperative, jd3 appropriate for age. Pain: Complains of pain in left ankle Quality of pain is described as sharp. Neuro: Gait is steady. Historical: - Allergies: 02:22 PENICILLINS; jd3 - Home Meds: 02:22 aspirin 81 mg Oral TbEC 1 tab once daily [Active]; lisinopril 5 mg Oral tab 1 tab once jd3 daily [Active]; metoprolol tartrate 50 mg Oral tab 1 tab 2 times per day [Active]; pantoprazole 40 mg Oral TbEC 1 tab once daily [Active]; - PMHx: 02:22 Anxiety; GERD; Hypertension; [place]; jd3 - PSHx: 02:22 Triple Bypass; jd3 - Immunization history:: Adult Immunizations up to date. - Social history:: Smoking status: Patient/guardian denies using tobacco, the patient reports quitting approximately 40 years ago. - Ebola Screening: : Patient negative for fever greater than or equal to 101.5 degrees Fahrenheit, and additional compatible Ebola Virus Disease symptoms. - Family history:: not pertinent. - Hospitalizations: : No recent hospitalization is reported. Screenin:23 Abuse screen: Denies threats or abuse. Nutritional screening: No deficits noted. jd3 Tuberculosis screening: No symptoms or risk factors identified. Fall Risk Ambulatory Aid- None/Bed Rest/Nurse Assist (0 pts). Gait- Normal/Bed Rest/Wheelchair (0 pts) Mental Status- Oriented to own ability (0 pts). Total Baez Fall Scale indicates No Risk (0-24 pts). Assessment: 02:15 General: Appears in no apparent distress. comfortable, Behavior is calm, cooperative, aa1 appropriate for age. Pain: Complains of pain in anterior aspect of left ankle Quality of pain is described as throbbing, Pain began 1 hour ago. Neuro: Level of Consciousness is awake, alert, obeys commands, Oriented to person, place, time, situation, Moves all extremities. Full function Gait is steady. Cardiovascular: Denies chest pain, diaphoresis, fatigue, lightheadedness, nausea, palpitations, shortness of breath, Heart tones S1 S2 present Capillary refill < 3 seconds Patient's skin is warm and dry. Rhythm is regular. Respiratory: Airway is patent Respiratory effort is even, unlabored, Respiratory pattern is regular, symmetrical. GI: No signs and/or symptoms were reported involving the gastrointestinal system. : No signs and/or symptoms were reported regarding the genitourinary system. EENT: No signs and/or symptoms were reported regarding the EENT system. Derm: Skin is intact, is healthy with good turgor, Skin is pink, warm \\T\\ dry. Musculoskeletal: Circulation, motion, and sensation intact. Capillary refill < 3 seconds, Range of motion: intact in all extremities. 03:18 Reassessment: Patient appears in no apparent distress at this time. Patient is alert, aa1 oriented x 3, equal unlabored respirations, skin warm/dry/pink. Discussed d/c \\T\\ f/u instructions with pt \\T\\ spouse; denies questions or concerns at this time. Vital Signs: 02:14 BP 173 / 83; Pulse 88; Resp 18; Temp 98(TE); Pulse Ox 96% on R/A; Pain 7/10; ea 03:09 BP 130 / 74; Pulse 78; Resp 18; Pulse Ox 97% on R/A; aa1 ED Course: 02:05 Patient arrived in ED. ds1 02:06 Azar Chan MD is Private Physician. ds1 02:10 Marlon Fofana MD is Attending Physician. rn 02:20 Triage completed. jd3 02:22 Arm band placed on. jd3 02:23 Patient has correct armband on for positive identification. Bed in low position. Call jd3 light in reach. Side rails up X 1. Adult w/ patient. 02:44 XRAY Tib Fib LEFT In Process Unspecified. EDMS 03:08 Juliet Sheikh, RN is Primary Nurse. ea 03:13 Azar Chan MD is Referral Physician. rn 03:18 No provider procedures requiring assistance completed. Patient did not have IV access aa1 during this emergency room visit. Administered Medications: No medications were administered Outcome: 03:13 Discharge ordered by MD. rn 03:18 Discharged to home ambulatory. aa1 03:18 Condition: good 03:18 Discharge instructions given to patient, significant other, Instructed on discharge instructions, follow up and referral plans. Demonstrated understanding of instructions, follow-up care. 03:19 Patient left the ED. aa1 Signatures: Dispatcher [employer] EDGA Berenice Du, RN RN aa1 Wendy Sandhu ds1 Marlon Fofana MD MD rn Antunez, Elena, RN RN ea Davies, Jonathon, RN RN jd3
--- NOTE | 2018-02-28 03:14 | EDPHYS ---
Physician Documentation [facility] Name: London Lewis Age: 73 yrs Sex: Male : 1945 Arrival Date: 02/28/2018 Time: 02:05 Bed 7 Private MD: Azar Chan R ED Physician Marlon Fofana HPI: 02/28 02:25 This 73 yrs old Male presents to ER via Ambulatory with complaints of Ankle rn Pain. 02:25 The patient presents with pain. The complaints affect the left ankle. Onset: The rn symptoms/episode began/occurred just prior to arrival. Associated signs and symptoms: Pertinent positives: swelling, Pertinent negatives: calf tenderness, fever, numbness, warmth, weakness. Severity of symptoms: At their worst the symptoms were moderate, in the emergency department the symptoms have improved. The patient has not experienced similar symptoms in the past. The patient has not recently seen a physician. Reports left ankle/leg pain, got up to use bathroom, had been feeling fine, felt shooting sensation in left lower leg/ankle, intermittent, denies injury, able to walk on it, lasts for seconds, states has never happened before. Swelling not worse than normally is following bypass surgery. No fever. Demands xray be done and needs an answer.. Historical: - Allergies: 02:22 PENICILLINS; jd3 - Home Meds: 02:22 aspirin 81 mg Oral TbEC 1 tab once daily [Active]; lisinopril 5 mg Oral tab 1 tab once jd3 daily [Active]; metoprolol tartrate 50 mg Oral tab 1 tab 2 times per day [Active]; pantoprazole 40 mg Oral TbEC 1 tab once daily [Active]; - PMHx: 02:22 Anxiety; GERD; Hypertension; [place]; jd3 - PSHx: 02:22 Triple Bypass; jd3 - Immunization history:: Adult Immunizations up to date. - Social history:: Smoking status: Patient/guardian denies using tobacco, the patient reports quitting approximately 40 years ago. - Ebola Screening: : Patient negative for fever greater than or equal to 101.5 degrees Fahrenheit, and additional compatible Ebola Virus Disease symptoms. - Family history:: not pertinent. - Hospitalizations: : No recent hospitalization is reported. ROS: 02:25 Constitutional: Negative for fever, chills, and weight loss, Neck: Negative for injury, rn pain, and swelling, Cardiovascular: Negative for chest pain, palpitations Respiratory: Negative for shortness of breath, cough, wheezing, and pleuritic chest pain, Abdomen/GI: Negative for abdominal pain, nausea, vomiting, diarrhea, and constipation, MS/Extremity: Negative for injury and deformity, Skin: Negative for injury, rash, and discoloration, Neuro: Negative for headache, weakness, numbness, tingling, and seizure. Exam: 02:25 Constitutional: This is a well developed, well nourished patient who is awake, alert, rn and in no acute distress. MS/ Extremity: Pulses equal, no cyanosis. Neurovascular intact. Full, normal range of motion. Mild non-pitting edema of ankle and foot, no signs of cellulitis, + multiple fire ant bites without evidence of infection. No fluctuance. No warmth. Mild tenderness along distal anterior tibia and medial distal tibia. No crepitus. Vital Signs: 02:14 BP 173 / 83; Pulse 88; Resp 18; Temp 98(TE); Pulse Ox 96% on R/A; Pain 7/10; ea 03:09 BP 130 / 74; Pulse 78; Resp 18; Pulse Ox 97% on R/A; aa1 MDM: 02:10 Patient medically screened. rn 02:35 ED course: Pt ambulatory without difficulty to room.. ED course: I politely informed rn patient that without injury or deformity xray not likely to given answer to his pain and is more likely due to chronic swelling and neuropathic pain as is intermittent and shooting. Pt not happy with this answer, demands that an exact answer is given to him, became upset and argumentative. Pt states plans on f/u with Dr. chan, catholic, and [facility]. I told him that was a good idea.. 03:12 Differential diagnosis: sprain, arthritis, nerve pain, edema. Data reviewed: vital rn signs, nurses notes, radiologic studies, ultrasound, and as a result, I will discharge patient. Counseling: I had a detailed discussion with the patient and/or guardian regarding: the historical points, exam findings, and any diagnostic results supporting the discharge/admit diagnosis, radiology results, the need for outpatient follow up, to return to the emergency department if symptoms worsen or persist or if there are any questions or concerns that arise at home. Special discussion: I discussed with the patient/guardian in detail that at this point there is no indication for admission to the hospital. It is understood, however, that if the symptoms persist or worsen the patient needs to return immediately for re-evaluation. 02/28 02:25 Order name: OLAMIDE Garcia Fib LEFT rn Administered Medications: No medications were administered Disposition: 02/28/18 03:13 Discharged to Home. Impression: Pain in left ankle and joints of left foot. - Condition is Stable. - Discharge Instructions: Joint Pain, Musculoskeletal Pain, Pain Without a Known Cause, Ankle Pain. - Medication Reconciliation Form, Thank You Letter, Antibiotic Education, Prescription Opioid Use form. - Follow up: Azar Chan MD; When: As needed; Reason: Recheck today's complaints, Re-evaluation by your physician. - Problem is new. - Symptoms have improved. Signatures: Dispatcher [employer] EDMS Berenice Du RN RN aa1 Marlon Fofana MD MD rn Davies, Jonathon, RN RN jd3 Corrections: (The following items were deleted from the chart) 03:19 03:13 02/28/2018 03:13 Discharged to Home. Impression: Pain in left ankle and joints of aa1 left foot. Condition is Stable. Forms are Medication Reconciliation Form, Thank You Letter, Antibiotic Education, Prescription Opioid Use. Follow up: Azar Chan; When: As needed; Reason: Recheck today's complaints, Re-evaluation by your physician. Problem is new. Symptoms have improved. rn
[2018-02-28 03:26] VITALS: TEMP 98
[2018-02-28 03:28] VITALS: BP 130/74; O2SAT 97
--- NOTE | 2018-02-28 09:24 | RAD REPORT ---
EXAM DESCRIPTION: Berkley Zhu Left02/28/2018 2:43 am CLINICAL HISTORY: Left leg pain FINDINGS: No fracture is seen. Diffuse edema is present the subcutaneous tissues which could be related to venous stasis or cellulit is
== END 2018-02-28 03:19 | disposition home or self-care (01) ==
LOC: ER 02:04
DX: M25.572 Pain in left ankle and joints of left foot (principal); Z88.0 Allergy status to penicillin; I10 Essential (primary) hypertension; I25.2 Old myocardial infarction; Z87.891 Personal history of nicotine dependence
CPT/HCPCS: 99283

== ENCOUNTER 2018-06-29 02:02 | Emergency (ER) | payer OTHER ==
--- OUTSIDE RECORDS SUMMARY | 2018-06-29 02:04 | XMS REPORT | Continuity of Care Document ---
:1945 Author Organization [facility] Problems Problem Status Onset Classification Date Comments Source Date Reported Asthma Resolved Problem 02/04/2018 Medical Group Glaucoma Resolved Problem 02/04/2018 Medical Group History of Resolved Problem 02/04/2018 gastroesophageal Medical reflux (<span Group ID="[id number]">C onfirmed</span>) High blood pressure Resolved Problem 02/04/2018 Medical Group Heart attack Resolved Problem 02/04/2018 Medical Group Simple obesity Active Problem 02/04/2018 Medical [facility] Medications Medication Details Route Status [...] 25 mg=1 Active acetate 25 MG supp, AL, 018 Medical Rectal BID, # 20 Group [...] Number For Provider Date Date Visit Outpatient [id number] [facility]15 [facility] [id number] [facility] 09/15 09/16 [facility] [place] [facility] [id number] [facility] 09/22 [facility] [id number] [facility] 09/22 09/23 [facility] [place] Out[facility] [id number] [facility] 09/29 [facility] [place] [facility] [id number] [facility] 09/29 09/30 [phone] 10/04 MH General Message /2017 [facility] Phone [phone] 10/05 10/07 MH General Message /2017 [facility] [place] Outpatient [id number] [facility] 10/09 [facility] [place] [facility] [id number] [facility] 10/09 10/10 [facility] [place] Outpatient [id number] [facility] 10/29 [facility] [place] [facility] [id number] [facility] 10/29 10/30 [facility] [place] Outpatient [id number] [facility] 11/11 [facility] [id number] [facility] 11/11 11/11 General [facility] [place] Outpatient [id number] [facility] 12/31 [facility] [place] [facility] [id number] [facility] 12/31 01/01 [facility] [place] Outpatient [id number] [facility] 01/21 [facility] [place] [facility] [id number] [facility] 01/21 01/21 General [facility] [place] Outpatient [id number] [facility] 02/25 [facility] [id number] [facility] 03/10 Active [facility] Outpatient [id number] [facility] 04/21 [facility] Outpatient [id number] [facility] 04/22 Active [facility] Outpatient [id number] [facility] 10/20 [facility] [place] Procedures Procedure Code Date Perfomer Comments Source Anoscopy; 95718 10/29/2017 Medical diagnostic, Group including collection of specimen(s) by brushing or washing, when performed (separate procedure) Hemorrhoidectomy, 42997 09/29/2017 Medical internal, by Group rubber band ligation(s) Anoscopy; 87027 09/16/2017 Medical diagnostic, Group including collection of specimen(s) by brushing or washing, when performed (separate procedure) Open heart [id number] Medical surgery Group
[2018-06-29] MEDS ORDERED: ACETAMINOPHEN 500 MG TAB ONE (03:06)
--- NOTE | 2018-06-29 05:17 | EDPHYS ---
Physician Documentation [facility] Name: London Lewis Age: 73 yrs Sex: Male : 1945 Arrival Date: 06/29/2018 Time: 02:03 Bed 5 Private MD: Azar Chan R ED Physician Golden Ryan HPI: 06/29 04:05 This 73 yrs old Male presents to ER via Ambulatory with complaints of Back wa Pain. 04:05 The patient presents with pain that is acute, with no known mechanism of injury. The wa symptoms are located in the left scapular area, right scapular area, left subscapular area and right subscapular area. Onset: The symptoms/episode began/occurred just prior to arrival, states awoke with upper back pain. denies dizziness, SOB or palpitations. states pain improve since onset. denies known injury. The pain does not radiate. Associated signs and symptoms: The patient has no apparent associated signs or symptoms. The problem was sustained denies injury. Modifying factors: The patient symptoms are alleviated by nothing, the patient symptoms are aggravated by movement. Severity of symptoms: At their worst the symptoms were moderate, in the emergency department the symptoms have improved, moderately. The patient has experienced similar episodes in the past. The patient has not recently seen a physician. Historical: - Allergies: 02:21 PENICILLINS; lp1 - Home Meds: 02:21 aspirin 81 mg Oral TbEC 1 tab once daily [Active]; Flonase 50 mcg/actuation Nasal spsn lp1 [Active]; lisinopril 5 mg Oral tab 1 tab once daily [Active]; metoprolol tartrate 25 mg oral tab [Active]; metoprolol tartrate 25 mg oral tab 2 tabs nightly [Active]; pantoprazole 40 mg Oral TbEC 1 tab once daily [Active]; - PMHx: 02:21 Anxiety; GERD; Hypertension; IN; Bulging discs; lp1 - PSHx: 02:21 cataract surgery; CABG; lp1 - Immunization history:: Adult Immunizations up to date. - Social history:: Smoking status: Patient/guardian denies using tobacco. - Ebola Screening: : No symptoms or risks identified at this time. - Family history:: not pertinent. - Hospitalizations: : No recent hospitalization is reported. ROS: 04:13 Constitutional: Negative for fever, chills, and weight loss, Eyes: Negative for injury, wa pain, redness, and discharge, ENT: Negative for injury, pain, and discharge, Neck: Negative for injury, pain, and swelling, Cardiovascular: Negative for chest pain, palpitations, and edema, Respiratory: Negative for shortness of breath, cough, wheezing, and pleuritic chest pain, Abdomen/GI: Negative for abdominal pain, nausea, vomiting, diarrhea, and constipation, : Negative for injury, bleeding, discharge, and swelling, MS/Extremity: Negative for injury and deformity, Skin: Negative for injury, rash, and discoloration, Neuro: Negative for headache, weakness, numbness, tingling, and seizure, Psych: Negative for depression, anxiety, suicide ideation, homicidal ideation, and hallucinations. 04:13 Back: Positive for pain at rest, pain with movement, of the left scapular area, right scapular area, left subscapular area and right subscapular area. Exam: 04:14 Constitutional: This is a well developed, well nourished patient who is awake, alert, wa and in no acute distress. Head/Face: Normocephalic, atraumatic. Eyes: Pupils equal round and reactive to light, extra-ocular motions intact. Lids and lashes normal. Conjunctiva and sclera are non-icteric and not injected. Cornea within normal limits. Periorbital areas with no swelling, redness, or edema. ENT: Nares patent. No nasal discharge, no septal abnormalities noted. Tympanic membranes are normal and external auditory canals are clear. Oropharynx with no redness, swelling, or masses, exudates, or evidence of obstruction, uvula midline. Mucous membranes moist. Neck: Trachea midline, no thyromegaly or masses palpated, and no cervical lymphadenopathy. Supple, full range of motion without nuchal rigidity, or vertebral point tenderness. No Meningismus. Chest/axilla: Normal chest wall appearance and motion. Nontender with no deformity. No lesions are appreciated. Cardiovascular: Regular rate and rhythm with a normal S1 and S2. No gallops, murmurs, or rubs. Normal PMI, no JVD. No pulse deficits. Respiratory: Lungs have equal breath sounds bilaterally, clear to auscultation and percussion. No rales, rhonchi or wheezes noted. No increased work of breathing, no retractions or nasal flaring. Abdomen/GI: Soft, non-tender, with normal bowel sounds. No distension or tympany. No guarding or rebound. No evidence of tenderness throughout. Skin: Warm, dry with normal turgor. Normal color with no rashes, no lesions, and no evidence of cellulitis. MS/ Extremity: Pulses equal, no cyanosis. Neurovascular intact. Full, normal range of motion. Neuro: Awake and alert, GCS 15, oriented to person, place, time, and situation. Cranial nerves II-XII grossly intact. Motor strength 5/5 in all extremities. Sensory grossly intact. Cerebellar exam normal. Normal gait. Psych: Awake, alert, with orientation to person, place and time. Behavior, mood, and affect are within normal limits. 04:14 Back: pain, that is mild, of the left scapular area, right scapular area, left subscapular area and right subscapular area, ROM is normal, vertebral tenderness, is not appreciated. Vital Signs: 02:21 Temp 97.9; rr5 02:21 BP 167 / 77; Pulse 71; Resp 18; Temp 97.9(O); Pulse Ox 96% on R/A; Weight 95.25 kg; lp1 Height 5 ft. 10 in. (177.80 cm); Pain 8/10; 03:20 BP 151 / 80; Pulse 59; Resp 17; Pulse Ox 98% on R/A; rr5 03:56 BP 154 / 85; Pulse 58; Resp 18; Pulse Ox 98% on R/A; rr5 04:53 BP 144 / 75; Pulse 57; Resp 18; Pulse Ox 99% ; ea 05:30 BP 158 / 83; Pulse 60; Resp 18; Pulse Ox 98% on R/A; ea 02:21 Body Mass Index 30.13 (95.25 kg, 177.80 cm) lp1 MDM: 02:28 Patient medically screened. wa 04:14 Differential diagnosis: will check EKG due h/o CAD. CXR. tylenol po. reassess. Data ms reviewed: vital signs, nurses notes. Test interpretation: by ED physician or midlevel provider: EKG: noted within nml limits. nml CXR. Response to treatment: the patient's symptoms have markedly improved after treatment. 05:15 ED course: observed several hours. pain resolved. vitals wnl. will d/c with close f/u. ms 06/29 02:42 Order name: Chest Pa And Lat (2 Views) XRAY ms 06/29 02:42 Order name: EKG - Nurse/Tech; Complete Time: 02:49 ms Administered Medications: 03:07 Drug: Tylenol 1000 mg Route: PO; rr5 05:34 Follow up: Response: No adverse reaction; Marked relief of symptoms rr5 Disposition: 06/29/18 05:16 Discharged to Home. Impression: Back Pain. - Condition is Stable. - Discharge Instructions: Back Pain, Adult, [id number]. - Medication Reconciliation Form, Thank You Letter, Antibiotic Education, Prescription Opioid Use form. - Follow up: Azar Chan MD; When: 1 - 2 days; Reason: Recheck today's complaints. - Problem is new. - Symptoms have improved. - Notes: take tylenol for pain as needed as discussed. see your doctor within 1-2 days for further assessment but return here immediately for any further worrisome concerns Signatures: Dispatcher [employer] EDMS Brii Dee, RN RN lp1 uJliet Sheikh RN RN ea Golden Ryan MD MD wa Roque, Raymond, RN RN rr5 Corrections: (The following items were deleted from the chart) 05:35 05:16 06/29/2018 05:16 Discharged to Home. Impression: Back Pain. Condition is Stable. ea Forms are Medication Reconciliation Form, Thank You Letter, Antibiotic Education, Prescription Opioid Use. Follow up: Azar Chan; When: 1 - 2 days; Reason: Recheck today's complaints. Problem is new. Symptoms have improved. ms
--- NOTE | 2018-06-29 05:17 | ER ---
Nurse's Notes [facility] Name: London Lewis Age: 73 yrs Sex: Male : 1945 Arrival Date: 06/29/2018 Time: 02:03 Bed 5 Private MD: Azar Chan R Diagnosis: Back Pain Presentation: 06/29 02:17 Presenting complaint: Patient states: Upper back pain that woke him from sleep, x 1 lp1 hour; states increased on movement; Denies any trauma. Transition of care: patient was not received from another setting of care. Onset of symptoms was June 29, 2018 at 01:00. Risk Assessment: Do you want to hurt yourself or someone else? Patient reports no desire to harm self or others. Initial Sepsis Screen: Does the patient meet any 2 criteria? No. Patient's initial sepsis screen is negative. Does the patient have a suspected source of infection? No. Patient's initial sepsis screen is negative. Care prior to arrival: None. 02:17 Method Of Arrival: Ambulatory lp1 02:17 Acuity: ROBERT 4 lp1 Historical: - Allergies: 02:21 PENICILLINS; lp1 - Home Meds: 02:21 aspirin 81 mg Oral TbEC 1 tab once daily [Active]; Flonase 50 mcg/actuation Nasal spsn lp1 [Active]; lisinopril 5 mg Oral tab 1 tab once daily [Active]; metoprolol tartrate 25 mg oral tab [Active]; metoprolol tartrate 25 mg oral tab 2 tabs nightly [Active]; pantoprazole 40 mg Oral TbEC 1 tab once daily [Active]; - PMHx: 02:21 Anxiety; GERD; Hypertension; [place]; Bulging discs; lp1 - PSHx: 02:21 cataract surgery; CABG; lp1 - Immunization history:: Adult Immunizations up to date. - Social history:: Smoking status: Patient/guardian denies using tobacco. - Ebola Screening: : No symptoms or risks identified at this time. - Family history:: not pertinent. - Hospitalizations: : No recent hospitalization is reported. Screenin:22 Abuse screen: Denies threats or abuse. Denies injuries from another. Nutritional lp1 screening: No deficits noted. Tuberculosis screening: No symptoms or risk factors identified. Fall Risk None identified. Assessment: 02:49 General: Appears in no apparent distress. Behavior is calm, cooperative, appropriate ea for age. Pain: Complains of pain in back. Neuro: Level of Consciousness is awake, alert, obeys commands, Oriented to person, place, time, situation. Cardiovascular: Heart tones S1 S2 present Patient's skin is warm and dry. Respiratory: Airway is patent Respiratory effort is even, unlabored, Respiratory pattern is regular, symmetrical. GI: Abdomen is round non-distended. Derm: Skin is pink, warm \T\ dry. Musculoskeletal: Circulation, motion, and sensation intact. 03:58 Reassessment: Patient appears in no apparent distress at this time. Patient is alert, rr5 oriented x 3, equal unlabored respirations, skin warm/dry/pink. no complaints made. 04:50 Reassessment: Patient and/or family updated on plan of care and expected duration. Pain ea level reassessed. Patient is alert, oriented x 3, equal unlabored respirations, skin warm/dry/pink. Vital Signs: 02:21 Temp 97.9; rr5 02:21 BP 167 / 77; Pulse 71; Resp 18; Temp 97.9(O); Pulse Ox 96% on R/A; Weight 95.25 kg; lp1 Height 5 ft. 10 in. (177.80 cm); Pain 8/10; 03:20 BP 151 / 80; Pulse 59; Resp 17; Pulse Ox 98% on R/A; rr5 03:56 BP 154 / 85; Pulse 58; Resp 18; Pulse Ox 98% on R/A; rr5 04:53 BP 144 / 75; Pulse 57; Resp 18; Pulse Ox 99% ; ea 05:30 BP 158 / 83; Pulse 60; Resp 18; Pulse Ox 98% on R/A; ea 02:21 Body Mass Index 30.13 (95.25 kg, 177.80 cm) lp1 ED Course: 02:03 Patient arrived in ED. am2 02:03 Azar Chan MD is Private Physician. am2 02:18 Triage completed. lp1 02:21 Arm band placed on left wrist. lp1 02:25 Jose Gaston RN is Primary Nurse. rr5 02:28 Golden Ryan MD is Attending Physician. wa 02:49 Patient has correct armband on for positive identification. Bed in low position. Call ea light in reach. Side rails up X2. 03:00 Patient moved to radiology via wheelchair. kw 03:00 X-ray completed. Patient tolerated procedure well. kw 03:00 Patient moved back from radiology. kw 03:01 Chest Pa And Lat (2 Views) XRAY In Process Unspecified. EDMS 05:16 Azar Chan MD is Referral Physician. wa 05:31 No provider procedures requiring assistance completed. ea 05:34 Patient did not have IV access during this emergency room visit. ea Administered Medications: 03:07 Drug: Tylenol 1000 mg Route: PO; rr5 05:34 Follow up: Response: No adverse reaction; Marked relief of symptoms rr5 Outcome: 05:16 Discharge ordered by . wa 05:32 Condition: improved ea 05:33 Discharged to home ambulatory, with family. ea 05:33 Discharge instructions given to patient, Instructed on discharge instructions, follow up and referral plans. Demonstrated understanding of instructions, follow-up care. 05:35 Patient left the ED. ea Signatures: Dispatcher [employer] EDAL Leslye Salgado Laura, RN RN lp1 Sadie Zabala am2 Juliet Sheikh RN RN Golden Kraus MD MD wa Roque, Raymond, RN RN rr5 Corrections: (The following items were deleted from the chart) 02:26 02:21 BP 167 / 77; Pulse 71bpm; Resp 18bpm; Pulse Ox 96% RA; 95.25 kg; Height 5 ft. 10 lp1 in.; BMI: 30.1; Pain 8/10; lp1 04:16 02:17 Acuity: ROBERT 4 lp1 lp1 04:17 02:17 Acuity: ROBERT 3 lp1 lp1
[2018-06-29 05:40] VITALS: TEMP 97.9
[2018-06-29 05:46] VITALS: BP 158/83; O2SAT 98
--- NOTE | 2018-06-29 07:09 | RAD REPORT ---
EXAM DESCRIPTION: RAD - Chest Pa And Lat (2 Views) - 06/29/2018 3:02 am CLINICAL HISTORY: Chest pain, back pain COMPARISON: Portable December 2017, two view November 2017 TECHNIQUE: PA and lateral views of the chest were obtained. FINDINGS: The lungs are clear. Sternotomy wires are in place. Lung markings are similar to comparis on. Heart size is normal and central vasculature is within normal limits. No pleural effusion or pne umothorax seen. No acute bony finding noted. No aortic abnormality. No significant changes from co mparison. IMPRESSION: No acute cardiopulmonary process.
--- NOTE | 2018-06-29 12:01 | EKG ---
Test Date: 2018-06-29 Test Time: 02:45:18 Spd Manager: RR MEASUREMENT RESULTS: Intervals: Rate: 69 MS: 156 QRSD: 100 QT: 430 QTc: 460 [place]: P: 57 MS: 156 QRS: 40 T: 65 INTERPRETIVE STATEMENTS: Normal sinus rhythm Normal ECG Compared to ECG 01/18/2018 00:04:26 ST (T wave) deviation no longer present Prolonged QT interval no longer present Electronically Signed On 06-29-18 12:00:21 SPECIAL EFFECTS MAKEUP ARTIST by Juan Jose Spaulding
== END 2018-06-29 05:35 | disposition home or self-care (01) ==
LOC: ER 02:02
DX: M54.9 Dorsalgia, unspecified (principal); I25.10 Atherosclerotic heart disease of native coronary artery without angina pectoris; I10 Essential (primary) hypertension; I25.2 Old myocardial infarction; K21.9 Gastro-esophageal reflux disease without esophagitis; Z79.82 Long term (current) use of aspirin; Z79.899 Other long term (current) drug therapy; Z95.1 Presence of aortocoronary bypass graft
CPT/HCPCS: 71046; 93005; 99283

== ENCOUNTER 2018-09-09 10:20 | Emergency (ER) | payer OTHER ==
--- OUTSIDE RECORDS SUMMARY | 2018-09-09 10:22 | XMS REPORT | Continuity of Care Document ---
:1945 Author Organization Interface Problems Problem Status Onset Classification Date Comments Source Date Reported Asthma Resolved Problem 02/04/2018 Medical Group Glaucoma Resolved Problem 02/04/2018 Medical Group History of Resolved Problem 02/04/2018 gastroesophageal Medical reflux (<span Group ID="[id number]">C onfirmed</span>) High blood pressure Resolved Problem 02/04/2018 Medical Group Heart attack Resolved Problem 02/04/2018 Medical Group Simple obesity Active Problem 02/04/2018 Medical [facility] Medications Medication Details Route Status Patient Ordering [...] 25 mg=1 Active acetate 25 MG supp, ME, 018 Medical Rectal BID, # 20 Group [...] Number For Provider Date Date Visit Outpatient [id number] [facility] 09/15 [facility] [id number] [facility] 09/15 09/16 [facility] [place] Out[facility] [id number] [facility] 09/22 [facility] [id number] [facility] 09/22 09/23 [facility] [place] Out[facility] [id number] [facility] 09/29 [facility] [place] [facility] [id number] [facility] 09/29 09/30 [phone] 10/04 MH General Message /[address] [facility] Phone [phone] 10/05 10/07 MH General Message /2017 [facility] [place] Outpatient [id number] [facility] 10/09 [facility] [place] [facility] Outpatient [id number] [facility] 10/09 10/10 [facility] [place] Outpatient [id number] [facility]UM[facility] 10/29 [facility] [place] [facility] Out[facility] [id number] [facility] 10/29 10/30 [facility] [place] Outpatient [id number] [facility] 11/11 [facility] [id number] [facility] 11/11 11/11 General [facility] [place] Outpatient [id number] [facility] 12/31 [facility] [place] [facility] Out[facility] [id number] [facility] 12/31 01/01 [facility] [place] Outpatient [id number] [facility] 01/21 [facility] [place] [facility] Amb[facility] [id number] [facility] 01/21 01/21 General [facility] [place] Outpatient [id number] [facility] 02/25 [facility] [id number] [facility] 03/10 Active [facility] Outpatient [id number] [facility] 04/21 Active [facility] Outpatient [id number] [facility] 04/22 Active [facility] Outpatient [id number] [facility] 10/13 [facility] [place] Procedures Procedure Code Date Perfomer Comments Source Anoscopy; 12893 10/29/2017 Medical diagnostic, Group including collection of specimen(s) by brushing or washing, when performed (separate procedure) Hemorrhoidectomy, 98007 09/29/2017 Medical internal, by Group rubber band ligation(s) Anoscopy; 14322 09/16/2017 Medical diagnostic, Group including collection of specimen(s) by brushing or washing, when performed (separate procedure) Open heart [id number] Medical surgery Group
--- NOTE | 2018-09-09 11:34 | RAD REPORT ---
EXAM DESCRIPTION: CT - [id number] - 09/09/2018 11:05 am CLINICAL HISTORY: Weakness, dizziness, fall, head and neck injury, headache and neck pain COMPARISON: None. TECHNIQUE: Axial 5 mm thick images of the head were obtained. Axial 2 mm thick images of the cervic al spine were obtained with sagittal and coronal reconstruction images generated and reviewed. All CT scans are performed using dose optimization technique as appropriate and may include automated exposure control or mA/KV adjustment according to patient size. FINDINGS: No intracranial hemorrhage, mass, edema or acute intracranial finding. No suspicion for acute infarct ion. Moderate atrophy and chronic ischemic changes are present. Ventricles are in proportion to volum e loss. Arterial and physiologic calcifications are present. Mastoid air cells and paranasal sinuses are clear. No globe or orbit abnormality seen. Cervical body height and alignment are normal. C4-5, C5-6 and C6-7 disc space narrowing. No fracture or acute bony abnormality. Significant facet joint degenerative changes are present. There is bony fo raminal encroachment on the right at C3-4 and bilateral at C4-5. Bilateral C5-6 and C6-7 foraminal en croachment present. Central canal is stenotic at C4-5, C5-6 and C6-7. Disc bulge changes are evident at these 3 levels as well but central canal detail is inherently limited. No paraspinal mass or hematoma. IMPRESSION: Moderate severity atrophy and chronic ischemic change with no acute intracranial finding . Advanced cervical spine degenerative change with multilevel central spinal stenosis and foraminal indra nosis. Central canal detail is inherently limited. No fracture or acute cervical finding.
--- NOTE | 2018-09-09 11:43 | RAD REPORT ---
EXAM DESCRIPTION: RAD - Chest Single View - 09/09/2018 11:30 am CLINICAL HISTORY: Fall, chest pain COMPARISON: June 2018 TECHNIQUE: AP portable chest image was obtained 1111 hours . FINDINGS: Lungs are slightly underinflated. Right lung field is clear. Mid and upper left lung field is clear. Retrocardiac left base is more limited in detail but not clearly different from the compar rose. No acute failure or volume overload. Heart size is larger than June 2018 but no vascular en gorgement. Sternotomy wires are in place. No measurable pleural effusion and no pneumothorax. No acut e bony abnormality seen. No acute aortic findings suspected. IMPRESSION: No acute lung parenchymal process seen. Retrocardiac left base is limited. Cardiac silhouette has enlarged since June 2018. No vascular engorgement or other findings for fa ilure/ volume overload.
[2018-09-09 11:48] LABS: Absolute Lymphocytes (CBC) 1.7 K/uL (0.7-4.9); Absolute Monocytes 0.9 K/uL (0.1-1.3); Absolute Neutrophil 5.8 K/uL (1.8-8.0); Basophils % 0.8 % (0-1.3); Eosinophils % 1.5 % (0-4.4); Hematocrit 43.8 % (39.6-49.0); Lymphocytes % 20.1 % (15.3-44.8); MPV 7.7 fL (7.6-11.3); Monocytes % 10.2 % (3.3-12.3); RBC Red Blood Cell Count 4.87 M/uL (4.33-5.43)
[2018-09-09 11:49] LABS: Protime INR 1.04
--- NOTE | 2018-09-09 11:49 | RAD REPORT ---
EXAM DESCRIPTION: RAD - Elbow Left 3 View - 09/09/2018 11:30 am CLINICAL HISTORY: Left elbow pain status post trauma FINDINGS: Several bony densities lie adjacent to the medial aspect of the left humerus which are all likely chronic. Osteoarthritis involves the elbow. No dislocation noted. No fracture is suspected. If patient continues have symptoms to suggest an occult fracture follow-up x-ray in 7 days would be recommended
[2018-09-09 12:11] LABS: ALT/SGPT 27 U/L (12-78); AST/SGOT 16 U/L (15-37); Albumin 3.5 g/dL (3.4-5.0); Alkaline Phosphatase 56 U/L (45-117); BUN Blood Urea Nitrogen 20 mg/dL (7-18); Bicarbonate 31 mmol/L (21-32); Bilirubin Direct < 0.1 mg/dL (0-0.2); Bilirubin Total 0.5 mg/dL (0.2-1.0); Glucose Level 119 mg/dL (74-106); Magnesium 2.1 mg/dL (1.8-2.4); NT PRO-BNP 109 pg/mL (<450); Potassium 4.3 mmol/L (3.5-5.1); Protein, Total 7.1 g/dL (6.4-8.2); Sodium Level 139 mmol/L (136-145); Troponin (Emerg Dept Use Only) < 0.02 ng/mL (0.0-0.045)
--- NOTE | 2018-09-09 12:36 | EKG ---
Test Date: 2018-09-09 Test Time: 11:28:16 Tile Picker: HEIKE MEASUREMENT RESULTS: Intervals: Rate: 64 WA: 164 QRSD: 106 QT: 416 QTc: 429 [place]: P: 36 WA: 164 QRS: 39 T: 59 INTERPRETIVE STATEMENTS: Normal sinus rhythm ST abnormality, possible digitalis effect Abnormal ECG Compared to ECG 06/29/2018 02:45:18 ST (T wave) deviation now present Electronically Signed On 09-09-18 12:35:[address] LIGHT by Mark Russ
[2018-09-09] MEDS ORDERED: MECLIZINE HCL 12.5 MG TAB ONE (13:51)
--- NOTE | 2018-09-09 15:34 | RAD REPORT ---
EXAM DESCRIPTION: Mayra Angio09/09/2018 3:17 pm CLINICAL HISTORY: Syncope / ataxia COMPARISON: None TECHNIQUE: 50 cc Isovue 370 was administered intravenously. 3D MIP reconstruction performed All CT scans are performed using dose optimization technique as appropriate and may include automated exposure control or mA/KV adjustment according to patient size. FINDINGS: Mild to moderate calcified plaque is present within the distal left common carotid artery . Mild calcified plaque is present within the left carotid bulb. Mild to moderate plaque is present within the distal left common carotid artery. Mild calcified plaqu e is present within the left carotid bulb. External carotid arteries are unremarkable The vertebral arteries are codominant without visualization of an abnormality. IMPRESSION: Mild to moderate calcified plaque within the common carotid arteries. Mild plaque within the carotid bulbs NASCET criteria used. Mild 0-49% stenosis Moderate 50-69% stenosis Severe 70-99% stenosis
--- NOTE | 2018-09-09 15:42 | RAD REPORT ---
EXAM DESCRIPTION: CTHead angio09/09/2018 3:14 pm CLINICAL HISTORY: Syncope and ataxia COMPARISON: None TECHNIQUE: CT angiogram of the head was obtained. 3D MIPS reconstruction performed. All CT scans are performed using dose optimization technique as appropriate and may include automated exposure control or mA/KV adjustment according to patient size. FINDINGS: The basilar, internal carotid, anterior cerebral, middle cerebral and posterior cerebral a rteries are normal caliber. An aneurysm is not seen. A significant stenosis is not noted. IMPRESSION: Unremarkable CT angiogram head.
--- NOTE | 2018-09-09 15:56 | ER ---
Nurse's Notes [facility] Name: London Lewis Age: 73 yrs Sex: Male : 1945 Arrival Date: 09/09/2018 Time: 10:29 Bed 7 Private MD: Diagnosis: Dizziness and giddiness Presentation: 09/09 10:35 Presenting complaint: EMS states: Pt c/o dizziness that began this morning, states that ph he lost his balance and fell against bed, denies syncope, c/o pain to L elbow and back of R side of head, VSS, orthostatics normal, BGL 217. Transition of care: patient was not received from another setting of care. Onset of symptoms was September 09, 2018. Risk Assessment: Do you want to hurt yourself or someone else? Patient reports no desire to harm self or others. Initial Sepsis Screen: Does the patient meet any 2 criteria? No. Patient's initial sepsis screen is negative. Does the patient have a suspected source of infection? No. Patient's initial sepsis screen is negative. Care prior to arrival: IV initiated. 22 GA, in the right forearm, Glucose check: 217. 10:35 Method Of Arrival: EMS: [facility] ph 10:35 Acuity: ROBERT 3 ph Historical: - Allergies: 10:41 PENICILLINS; ph - Home Meds: 10:41 aspirin 81 mg Oral TbEC 1 tab once daily (Last Dose: 09/09/2018 07:30) [Active]; ph Flonase 50 mcg/actuation Nasal spsn [Active]; lisinopril 5 mg Oral tab 1 tab once daily (Last Dose: 09/09/2018 07:30) [Active]; metoprolol tartrate 50 mg oral tab 1 tab 2 times per day [Active]; pantoprazole 40 mg Oral TbEC 1 tab once daily (Last Dose: 09/09/2018 07:30) [Active]; Xanax 0.25 mg Oral tab as needed (Last Dose: 09/09/2018 07:30) [Active]; - PMHx: 10:41 Anxiety; bulging discs; GERD; Hypertension; MS; ph - PSHx: 10:41 cataract surgery; CABG; ph - Immunization history:: Adult Immunizations unknown. - Social history:: Smoking status: Patient/guardian denies using tobacco. - Ebola Screening: : No symptoms or risks identified at this time. Screenin:41 Abuse screen: Denies threats or abuse. Denies injuries from another. Nutritional ph screening: No deficits noted. Tuberculosis screening: No symptoms or risk factors identified. Fall Risk None identified. Assessment: 10:40 General: Appears in no apparent distress. comfortable, well groomed, well developed, sg well nourished, Behavior is calm, cooperative, appropriate for age. Pain: Denies pain. Neuro: Level of Consciousness is awake, alert, obeys commands, Oriented to person, place, time, situation, Teleprinter are equal bilaterally Moves all extremities. 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 Cardiovascular: Capillary refill is brisk in bilateral fingers Patient's skin is warm and dry. Chest pain is denied. Respiratory: Airway is patent Respiratory effort is even, unlabored, Respiratory pattern is regular, symmetrical, Breath sounds are clear. GI: Abdomen is round non-distended. : No signs and/or symptoms were reported regarding the genitourinary system. EENT: No signs and/or symptoms were reported regarding the EENT system. Derm: Skin is pink, warm \T\ dry. Musculoskeletal: No signs and/or symptoms reported regarding the musculoskeletal system. 12:00 Reassessment: Patient appears in no apparent distress at this time. Patient and/or ph family updated on plan of care and expected duration. Pain level reassessed. Patient is alert, oriented x 3, equal unlabored respirations, skin warm/dry/pink. 13:22 Reassessment: Patient appears in no apparent distress at this time. Patient and/or ph family updated on plan of care and expected duration. Pain level reassessed. Patient is alert, oriented x 3, equal unlabored respirations, skin warm/dry/pink. Pt resting quietly, awaiting MRI, VSS. Vital Signs: 10:37 BP 159 / 79; Pulse 68; Resp 18; Temp 97.8; Pulse Ox 96% on R/A; Weight 98.43 kg; Height ph 5 ft. 10 in. (177.80 cm); 11:30 BP 143 / 79; Pulse 68; Resp 16; Pulse Ox 95% on R/A; ph 12:30 BP 147 / 85; Pulse 62; Resp 18; Pulse Ox 95% on R/A; ph 13:28 BP 144 / 77; Pulse 61; Resp 16; Pulse Ox 96% on R/A; ph 15:00 BP 137 / 85; Pulse 62; Resp 18; Pulse Ox 96% on R/A; ph 16:30 BP 142 / 76; Pulse 64; Resp 18; Temp 97.5; Pulse Ox 95% on R/A; ph 10:37 Body Mass Index 31.14 (98.43 kg, 177.80 cm) ph ED Course: 10:29 Patient arrived in ED. em1 10:33 Anthony Alfred PA is PHCP. jmm 10:33 Philippe Bella MD is Attending Physician. jmm 10:37 Triage completed. ph 10:41 Arm band placed on. ph 10:42 Patient has correct armband on for positive identification. Placed in gown. Bed in low ph position. Call light in reach. Side rails up X2. quality assurance monitor chassis on. Pulse ox on. NIBP on. Door closed. Noise minimized. Warm blanket given. 10:55 Mitchell Adame, MARKO is Primary Nurse. sg 11:05 CT completed. Patient tolerated procedure well. Patient moved to CT via stretcher. sj Patient moved to radiology Patient moved back from CT. 11:07 CT Head C Spine In Process Unspecified. EDMS 11:32 XRAY Chest (1 view) In Process Unspecified. EDMS 11:32 Elbow Left 3 View XRAY In Process Unspecified. EDMS 11:35 Patient moved back from radiology. jb2 11:54 EKG done, by chief ophthalmic technician. reviewed by Anthony LEE. at1 15:01 MRI Stroke Protocol In Process Unspecified. EDMS 15:[address] In Process Unspecified. EDMS 15:[address] In Process Unspecified. EDMS 15:55 Azar Chan MD is Referral Physician. jmm 16:49 No provider procedures requiring assistance completed. IV discontinued, intact, ph bleeding controlled, No redness/swelling at site. Pressure dressing applied. Administered Medications: 14:23 Drug: Meclizine 25 mg Route: PO; ph 16:50 Follow up: Response: No adverse reaction ph Outcome: 15:55 Discharge ordered by MD. jmm 16:50 Discharged to home ambulatory, with significant other. ph 16:50 Condition: good 16:50 Discharge instructions given to patient, significant other, Instructed on discharge instructions, follow up and referral plans. Demonstrated understanding of instructions, follow-up care. 16:52 Patient left the ED. 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 Full function Facial symmetry appears normal, Pupils are PERRLA, sg
--- NOTE | 2018-09-09 15:57 | EDPHYS ---
Physician Documentation [facility] Name: London Lewis Age: 73 yrs Sex: Male : 1945 Arrival Date: 09/09/2018 Time: 10:29 Bed 7 Private MD: ED Physician Philippe Bella HPI: 09/09 10:53 This 73 yrs old Male presents to ER via EMS with complaints of Dizziness, jmm fall. 10:53 The patient presents with dizziness. Onset: The symptoms/episode began/occurred jmm acutely, at 09:00. Associated signs and symptoms: Pertinent positives: headache. This is a 73 year old male with a history of anxiety, CAD, HTN, DM that presents to the ED after a fall which occurred after getting out of bed this morning. Patient states he fell. Patient complains of neck pain Symptoms were relieved after he layed back in bed. Patient denies chest pain or shortness of breath. . Historical: - Allergies: 10:41 PENICILLINS; ph - Home Meds: 10:41 aspirin 81 mg Oral TbEC 1 tab once daily (Last Dose: 09/09/2018 07:30) [Active]; ph Flonase 50 mcg/actuation Nasal spsn [Active]; lisinopril 5 mg Oral tab 1 tab once daily (Last Dose: 09/09/2018 07:30) [Active]; metoprolol tartrate 50 mg oral tab 1 tab 2 times per day [Active]; pantoprazole 40 mg Oral TbEC 1 tab once daily (Last Dose: 09/09/2018 07:30) [Active]; Xanax 0.25 mg Oral tab as needed (Last Dose: 09/09/2018 07:30) [Active]; - PMHx: 10:41 Anxiety; bulging discs; GERD; Hypertension; NV; ph - PSHx: 10:41 cataract surgery; CABG; ph - Immunization history:: Adult Immunizations unknown. - Social history:: Smoking status: Patient/guardian denies using tobacco. - Ebola Screening: : No symptoms or risks identified at this time. ROS: 10:53 Constitutional: Negative for fever, chills, and weight loss, Cardiovascular: Negative jm for chest pain, palpitations, and edema, Respiratory: Negative for shortness of breath, cough, wheezing, and pleuritic chest pain. 10:53 Neck: Positive for pain with movement, pain at rest. 10:53 Neuro: Positive for headache. 10:53 All other systems are negative. Exam: 10:53 Constitutional: This is a well developed, well nourished patient who is awake, alert, jmm and in no acute distress. Head/Face: atraumatic. Eyes: EOMI, no conjunctival erythema appreciated ENT: Moist Mucus Membranes Neck: Trachea midline, Supple Chest/axilla: Normal chest wall appearance and motion. Cardiovascular: Regular rate and rhythm. No edema appreciated Respiratory: Normal respirations, no respiratory distress appreciated Abdomen/GI: Non distended, soft Back: Normal ROM Skin: General appearance color normal MS/ Extremity: Moves all extremities, no obvious deformities appreciated, no edema noted to the lower extremities 10:53 Neck: right sided neck pain on palpation. 10:53 Neuro: Orientation: is normal, Mentation: is normal, Memory: is normal, Cerebellar function: normal finger to nose testing, heel to asif testing is normal, Motor: is normal, strength is 5/5 in all extremities, Sensation: is normal. 10:53 Psych: Behavior/mood is pleasant, cooperative. Vital Signs: 10:37 BP 159 / 79; Pulse 68; Resp 18; Temp 97.8; Pulse Ox 96% on R/A; Weight 98.43 kg; Height ph 5 ft. 10 in. (177.80 cm); 11:30 BP 143 / 79; Pulse 68; Resp 16; Pulse Ox 95% on R/A; ph 12:30 BP 147 / 85; Pulse 62; Resp 18; Pulse Ox 95% on R/A; ph 13:28 BP 144 / 77; Pulse 61; Resp 16; Pulse Ox 96% on R/A; ph 15:00 BP 137 / 85; Pulse 62; Resp 18; Pulse Ox 96% on R/A; ph 16:30 BP 142 / 76; Pulse 64; Resp 18; Temp 97.5; Pulse Ox 95% on R/A; ph 10:37 Body Mass Index 31.14 (98.43 kg, 177.80 cm) ph MDM: 10:38 Patient medically screened. [facility] 15:47 Data reviewed: vital signs, nurses notes. Counseling: I had a detailed discussion with sarahi the patient and/or guardian regarding: the historical points, exam findings, and any diagnostic results supporting the discharge/admit diagnosis, radiology results, the need for outpatient follow up, to return to the emergency department if symptoms worsen or persist or if there are any questions or concerns that arise at home. Refusal of service: The patient/guardian displays adequate decision making capability and despite a detailed discussion of alternatives, benefits, risks, and consequences refuses: MRI. 15:54 ED course: Patient is able to ambulate without difficulty in ED. Normal cerebellar jmm exam. I discussed the patient with Dr. Chan whom will see patient in clinic tomorrow. . 09/09 10:51 Order name: Basic Metabolic Panel; Complete Time: 12:23 [facility] 09/09 10:51 Order name: CBC with Diff; Complete Time: 11:53 09/09 10:51 Order name: LFT's; Complete Time: 12: [facility] 09/09 10:51 Order name: Magnesium; Complete Time: 12:23 09/09 10:51 Order name: NT PRO-BNP; Complete Time: 12:23 [facility] 09/09 10:51 Order name: PT-INR; Complete Time: 12: 09/09 10:51 Order name: Troponin (emerg Dept Use Only); Complete Time: 12:23 [facility] 09/09 10:51 Order name: XRAY Chest (1 view); Complete Time: :09/09 10:51 Order name: CT Head C Spine; Complete Time: 11:37 09/09 11:12 Order name: Elbow Left 3 View XRAY; Complete Time: 12: 09/09 14:57 Order name: Head Angio CT; Complete Time: 15:45 09/09 15:01 Order name: Neck Angio CT; Complete Time: 15:36 09/09 10:51 Order name: EKG; Complete Time: 10:53 09/09 10:51 Order name: Cardiac monitoring; Complete Time: 11: 09/09 10:51 Order name: EKG - Nurse/Tech; Complete Time: 11:37 09/09 10:51 Order name: IV Saline Lock; Complete Time: 11:37 09/09 10:51 Order name: Labs collected and sent; Complete Time: 11: 09/09 10:51 Order name: O2 Per Protocol; Complete Time: 11:37 [facility] 09/09 10:51 Order name: O2 Sat Monitoring; Complete Time: 11:37 [facility] Administered Medications: 14:23 Drug: Meclizine 25 mg Route: PO; ph 16:50 Follow up: Response: No adverse reaction ph Disposition: 09/10 07:11 Co-signature as Attending Physician, Philippe Bella MD I agree with the assessment and kdr plan of care. Disposition: 09/09/18 15:55 Discharged to Home. Impression: Dizziness and giddiness. - Condition is Stable. - Discharge Instructions: Dizziness. - Medication Reconciliation Form, Thank You Letter, Antibiotic Education, Prescription Opioid Use form. - Follow up: Azar Chan MD; When: Tomorrow; Reason: Recheck today's complaints, Continuance of care, Re-evaluation by your physician. Signatures: Dispatcher [employer] EDMS Philippe Bella MD MD kdr Mickail, Joel, PA PA [facility] Judith Toure RN RN ph Corrections: (The following items were deleted from the chart) 09/09 16:52 15:55 09/09/2018 15:55 Discharged to Home. Impression: Dizziness and giddiness. ph Condition is Stable. Forms are Medication Reconciliation Form, Thank You Letter, Antibiotic Education, Prescription Opioid Use. Follow up: Azar Chan; When: Tomorrow; Reason: Recheck today's complaints, Continuance of care, Re-evaluation by your physician. [facility]
[2018-09-09 17:45] VITALS: BP 142/76; TEMP 97.5; O2SAT 95
== END 2018-09-09 16:52 | disposition home or self-care (01) ==
LOC: ER 10:20
DX: R42 Dizziness and giddiness (principal); R51 Headache; W06.XXXA Fall from bed, initial encounter; Y93.89 Activity, other specified; Y92.003 Bedroom of unspecified non-institutional (private) residence as the place of occurrence of the external cause; Z88.0 Allergy status to penicillin; Z79.82 Long term (current) use of aspirin; Z95.1 Presence of aortocoronary bypass graft; I10 Essential (primary) hypertension; F41.9 Anxiety disorder, unspecified; K21.9 Gastro-esophageal reflux disease without esophagitis
CPT/HCPCS: 36415; 70450; 70496; 70498; 70544; 70549; 70553; 71045; 72125; 80048; 80076; 83735; 83880; 84484; 85025; 85610; 93005; 99285; Q9967

== ENCOUNTER 2019-05-04 07:11 | Emergency (ER) | payer OTHER ==
[2019-05-04] MEDS ORDERED: dexAMETHasone 10 MG/ML VIAL ONE (08:02)
[2019-05-04] MEDS ORDERED: ONDANSETRON 4 MG/2 ML VIAL ONE (08:03)
[2019-05-04] MEDS ORDERED: NA CHLORIDE 0.9% 500 ML ONE (08:03)
[2019-05-04] MEDS ORDERED: MECLIZINE HCL 12.5 MG TAB ONE (08:03)
[2019-05-04] MEDS ORDERED: FOLIC ACID 5 MG/ML VIAL ONE (08:04)
[2019-05-04 08:22] LABS: Absolute Lymphocytes (CBC) 1.6 K/uL (0.7-4.9); Basophils % 0.9 % (0-1.3); Hematocrit 43.7 % (39.6-49.0); Lymphocytes % 19.7 % (15.3-44.8); MPV 7.9 fL (7.6-11.3); RBC Red Blood Cell Count 4.67 M/uL (4.33-5.43)
[2019-05-04 08:30] LABS: ALT/SGPT 22 U/L (12-78); AST/SGOT 14 U/L (15-37); Albumin 3.3 g/dL (3.4-5.0); Alkaline Phosphatase 58 U/L (45-117); BUN Blood Urea Nitrogen 16 mg/dL (7-18); Bicarbonate 28 mmol/L (21-32); Bilirubin Direct 0.1 mg/dL (0-0.2); Bilirubin Total 0.4 mg/dL (0.2-1.0); Glucose Level 155 mg/dL (74-106); Magnesium 2.1 mg/dL (1.8-2.4); NT PRO-BNP 102 pg/mL (<450); Potassium 4.2 mmol/L (3.5-5.1); Sodium Level 139 mmol/L (136-145); Troponin (Emerg Dept Use Only) < 0.02 ng/mL (0.0-0.045)
--- NOTE | 2019-05-04 08:55 | RAD REPORT ---
EXAM DESCRIPTION: RAD - Chest Single View - 05/04/2019 8:35 am CLINICAL HISTORY: COUGH Chest pain. COMPARISON: <Comparisons> FINDINGS: Portable technique limits examination quality. The lungs are grossly clear. The heart is upper limit of normal in size. Sternotomy wires present. IMPRESSION: No acute intrathoracic process suspected.
--- NOTE | 2019-05-04 09:31 | EKG ---
Test Date: 2019-05-04 Test Time: 08:26:17 Laboratory Engineer: HEIKE MEASUREMENT RESULTS: Intervals: Rate: 62 DC: 178 QRSD: 98 QT: 432 QTc: 438 Albert Le[place]: P: 36 DC: 178 QRS: 52 T: 70 INTERPRETIVE STATEMENTS: Normal sinus rhythm Normal ECG Compared to ECG 09/09/2018 11:28:16 ST (T wave) deviation no longer present Electronically Signed On 05-04-19 09:30:15 CDT by Mark Russ
--- NOTE | 2019-05-04 09:39 | EDPHYS ---
Physician Documentation [facility] Name: London Lewis Age: 74 yrs Sex: Male : 1945 Arrival Date: 05/04/2019 Time: 07:12 Bed 20 Private MD: Azar Chan R ED Physician Kale Thomas HPI: 05/04 07:55 This 74 yrs old Male presents to ER via Ambulatory with complaints of anoop Dizziness, Back Pain. 07:55 The patient presents with dizziness, lightheadedness. Onset: The symptoms/episode anoop began/occurred 2 day(s) ago. Context: occurred at home. Modifying factors: The symptoms are alleviated by closing eyes, holding head still, the symptoms are aggravated by movement of head, standing up, changing position. Associated signs and symptoms: The patient has no apparent associated signs or symptoms. Patient's baseline: Neuro: alert and fully oriented. The patient has not experienced similar symptoms in the past. Historical: - Allergies: 07:27 PENICILLINS; ss - Home Meds: 07:27 aspirin 81 mg Oral TbEC 1 tab once daily [Active]; metoprolol tartrate 50 mg Oral tab 1 ss tab 2 times per day [Active]; Xanax 0.25 mg Oral tab as needed [Active]; lisinopril 5 mg Oral tab 1 tab once daily [Active]; pantoprazole 40 mg Oral TbEC 1 tab once daily [Active]; Flonase 50 mcg/actuation Nasal spsn [Active]; - PMHx: 07:27 Anxiety; GERD; Hypertension; [place]; bulging discs; ss - PSHx: 07:27 CABG; cataract surgery; ss - Immunization history:: Adult Immunizations up to date. - Social history:: Smoking status: Patient/guardian denies using tobacco. - Ebola Screening: : Patient denies exposure to infectious person Patient denies travel to an Ebola-affected area in the 21 days before illness onset. - Family history:: not pertinent. ROS: 07:55 Constitutional: Negative for fever, chills, and weight loss, Eyes: Negative for injury, anoop pain, redness, and discharge, ENT: Negative for injury, pain, and discharge, Neck: Negative for injury, pain, and swelling, Cardiovascular: Negative for chest pain, palpitations, and edema, Respiratory: Negative for shortness of breath, cough, wheezing, and pleuritic chest pain, Abdomen/GI: Negative for abdominal pain, nausea, vomiting, diarrhea, and constipation, : Negative for injury, bleeding, discharge, and swelling, MS/Extremity: Negative for injury and deformity, Skin: Negative for injury, rash, and discoloration, Neuro: Negative for headache, weakness, numbness, tingling, and seizure, Psych: Negative for depression, anxiety, suicide ideation, homicidal ideation, and hallucinations, Allergy/Immunology: Negative for hives, rash, and allergies, Endocrine: Negative for neck swelling, polydipsia, polyuria, polyphagia, and marked weight changes, Hematologic/Lymphatic: Negative for swollen nodes, abnormal bleeding, and unusual bruising. 07:55 Back: Positive for pain at rest, of the posterior cervical area, left trapezius, right trapezius and thoracic area. Exam: 07:55 Constitutional: This is a well developed, well nourished patient who is awake, alert, anoop and in no acute distress. Head/Face: Normocephalic, atraumatic. ENT: Nares patent. No nasal discharge, no septal abnormalities noted. Tympanic membranes are normal and external auditory canals are clear. Oropharynx with no redness, swelling, or masses, exudates, or evidence of obstruction, uvula midline. Mucous membranes moist. Neck: Trachea midline, no thyromegaly or masses palpated, and no cervical lymphadenopathy. Supple, full range of motion without nuchal rigidity, or vertebral point tenderness. No Meningismus. Chest/axilla: Normal chest wall appearance and motion. Nontender with no deformity. No lesions are appreciated. Cardiovascular: Regular rate and rhythm with a normal S1 and S2. No gallops, murmurs, or rubs. Normal PMI, no JVD. No pulse deficits. Respiratory: Lungs have equal breath sounds bilaterally, clear to auscultation and percussion. No rales, rhonchi or wheezes noted. No increased work of breathing, no retractions or nasal flaring. Abdomen/GI: Soft, non-tender, with normal bowel sounds. No distension or tympany. No guarding or rebound. No evidence of tenderness throughout. Back: No spinal tenderness. No costovertebral tenderness. Full range of motion. Male : Normal genitalia with no discharge or lesions. Skin: Warm, dry with normal turgor. Normal color with no rashes, no lesions, and no evidence of cellulitis. MS/ Extremity: Pulses equal, no cyanosis. Neurovascular intact. Full, normal range of motion. Neuro: Awake and alert, GCS 15, oriented to person, place, time, and situation. Cranial nerves II-XII grossly intact. Motor strength 5/5 in all extremities. Sensory grossly intact. Cerebellar exam normal. Normal gait. Psych: Awake, alert, with orientation to person, place and time. Behavior, mood, and affect are within normal limits. 07:55 Eyes: Pupils: no acute changes, equal, round, and reactive to light and accomodation, Extraocular movements: no acute changes, Conjunctiva: normal, no acute changes, Corneas: are normal, no acute changes, Sclera: no appreciated abnormality, no acute changes, Anterior chamber: normal, no acute changes, Nystagmus: nystagmus with fast component noted, bilaterally. Vital Signs: 07:27 BP 174 / 83; Pulse 75; Resp 16; Temp 98.8(O); Pulse Ox 96% on R/A; Weight 100.7 kg; ss Height 5 ft. 10 in. (177.80 cm); Pain 0/10; 08:10 BP 171 / 87 LA; Pulse 61; Resp 18 S; Pulse Ox 95% on R/A; aa5 08:12 BP 164 / 82 RA; aa5 09:05 BP 161 / 72; Pulse 64; Resp 16 S; Pulse Ox 99% on R/A; aa5 07:27 Body Mass Index 31.85 (100.70 kg, 177.80 cm) MDM: 07:20 Patient medically screened. [facility] 07:57 Data reviewed: vital signs, nurses notes, lab test result(s), EKG, radiologic studies, [facility] CT scan, plain films. 05/04 07:54 Order name: NT PRO-BNP; Complete Time: 09:36 [facility] 05/04 07:54 Order name: Basic Metabolic Panel; Complete Time: 09:36 [facility] 05/04 07:54 Order name: CBC with Diff; Complete Time: 09:36 [facility] 05/04 07:54 Order name: LFT's; Complete Time: 09:36 [facility] 05/04 07:54 Order name: Magnesium; Complete Time: 09:36 [facility] 05/04 07:54 Order name: Troponin (emerg Dept Use Only); Complete Time: 09:36 [facility] 05/04 07:54 Order name: XRAY Chest (1 view); Complete Time: 09:36 [facility] 05/04 07:58 Order name: US Carotid Artery Bilateral; Complete Time: 10:18 [facility] 05/04 09:07 Order name: CT Head Brain wo Cont; Complete Time: 10:18 [facility] 05/04 07:54 Order name: EKG; Complete Time: 07:55 [facility] 05/04 07:54 Order name: Cardiac monitoring; Complete Time: 08:01 [facility] 05/04 07:54 Order name: EKG - Nurse/Tech; Complete Time: 08:32 [facility] 05/04 07:54 Order name: IV Saline Lock; Complete Time: 08:01 [facility] 05/04 07:54 Order name: Labs collected and sent; Complete Time: 08:01 [facility] 05/04 07:54 Order name: O2 Per Protocol; Complete Time: 08:01 [facility] 05/04 07:54 Order name: O2 Sat Monitoring; Complete Time: 08:01 [facility] 05/04 07:54 Order name: Bilateral blood pressure; Complete Time: 08:31 [facility] Administered Medications: 08:13 Drug: NS 0.9% 500 ml Route: IV; Rate: bolus; Site: right forearm; aa5 09:00 Follow up: IV Status: Completed infusion; IV Intake: 500ml aa5 08:13 Drug: foLIC Acid 1 mg Route: IVPB; Site: right forearm; aa5 08:14 Drug: Meclizine 50 mg Route: PO; aa5 09:00 Follow up: Response: No adverse reaction; No adverse reaction. Pt reports dizziness has aa5 improved. 08:15 Drug: Decadron - Dexamethasone 10 mg Route: IVP; Site: right forearm; aa5 08:25 Follow up: Response: No adverse reaction aa5 08:32 CANCELLED (Patient Refused): Zofran 4 mg IVP once; over 2 minutes aa5 Disposition: 05/04/19 09:38 Discharged to Home. Impression: Vertiginous syndromes in diseases classified elsewhere, unspecified ear, Dizziness and giddiness - right carotid disease, Essential (primary) hypertension. - Condition is Stable. - Discharge Instructions: Allergies, Adult, Benign Positional Vertigo, Dizziness, Vertigo, Vertigo, Onrt-ov-[id number], Aspirin and Your Heart, Dizziness, [id number]. - Prescriptions for Meclizine 25 mg Oral Tablet - take 1 tablet by ORAL route every 8 hours As needed; 30 tablet. Medrol (Eduardo) 4 mg Oral Tablets, Dose Pack - take 1 tablet by ORAL route as directed - follow package instructions; 1 packet. Lipitor 10 mg Oral Tablet - take 1 tablet by ORAL route once daily; 30 tablet. - Medication Reconciliation Form, Thank You Letter, Antibiotic Education, Prescription Opioid Use form. - Follow up: Azarash Chan; When: 1 - 2 days; Reason: Recheck today's complaints, Continuance of care, Re-evaluation by your physician. - Problem is new. - Symptoms have improved. Signatures: Dispatcher [employer] [facility] Alicia Weaver RN RN aj1 Kale Thomas MD MD cha Calderon, Audri RN RN aa5 Fatou Carreno RN RN ss Corrections: (The following items were deleted from the chart) 08:32 07:54 Zofran 4 mg IVP once; over 2 minutes ordered. [place] [id number] 09:23 07:59 MR STROKE PROTOCOL+MRI.RAD.BRZ ordered. [facility] [place] 09:52 09:38 05/04/2019 09:38 Discharged to Home. Impression: Vertiginous syndromes in anoop diseases classified elsewhere, unspecified ear; Dizziness and giddiness; Essential (primary) hypertension. Condition is Stable. Discharge Instructions: Allergies, Adult, Benign Positional Vertigo, Dizziness, Vertigo, Vertigo, [id number], Aspirin and Your Heart, Dizziness, [id number]. Prescriptions for Meclizine 25 mg Oral Tablet - take 1 tablet by ORAL route every 8 hours As needed; 30 tablet, Medrol (Eduardo) 4 mg Oral Tablets, Dose Pack - take 1 tablet by ORAL route as directed - follow package instructions; 1 packet. and Forms are Medication Reconciliation Form, Thank You Letter, Antibiotic Education, Prescription Opioid Use. Follow up: Azar Chan; When: 1 - 2 days; Reason: Recheck today's complaints, Continuance of care, Re-evaluation by your physician. Problem is new. Symptoms have improved. [facility] 10:43 09:52 05/04/2019 09:38 Discharged to Home. Impression: Vertiginous syndromes in aj1 diseases classified elsewhere, unspecified ear; Dizziness and giddiness - right carotid disease; Essential (primary) hypertension. Condition is Stable. Discharge Instructions: Allergies, Adult, Benign Positional Vertigo, Dizziness, Vertigo, Vertigo, Fqxc-[id number], Aspirin and Your Heart, Dizziness, [id number]. Prescriptions for Meclizine 25 mg Oral Tablet - take 1 tablet by ORAL route every 8 hours As needed; 30 tablet, Medrol (Eduardo) 4 mg Oral Tablets, Dose Pack - take 1 tablet by ORAL route as directed - follow package instructions; 1 packet. and Forms are Medication Reconciliation Form, Thank You Letter, Antibiotic Education, Prescription Opioid Use. Follow up: Azar Chan; When: 1 - 2 days; Reason: Recheck today's complaints, Continuance of care, Re-evaluation by your physician. Problem is new. Symptoms have improved. anoop
--- NOTE | 2019-05-04 09:39 | ER ---
Nurse's Notes [facility] Name: London Lewis Age: 74 yrs Sex: Male : 1945 Arrival Date: 05/04/2019 Time: 07:12 Bed 20 Private MD: Azar Chan R Diagnosis: Vertiginous syndromes in diseases classified elsewhere, unspecified ear;Dizziness and giddiness-right carotid disease;Essential (primary) hypertension Presentation: 05/04 07:23 Presenting complaint: Patient states: "I've had off and on dizziness since Thursday. I ss saw Dr. Chan, but that's not really what I'm here for. I've got this pain in my mid-upper back that began this morning. It comes and goes too, and I'm just worried.". Transition of care: patient was not received from another setting of care. Onset of symptoms is unknown. Risk Assessment: Do you want to hurt yourself or someone else? Patient reports no desire to harm self or others. Initial Sepsis Screen: Does the patient meet any 2 criteria? No. Patient's initial sepsis screen is negative. Does the patient have a suspected source of infection? No. Patient's initial sepsis screen is negative. Care prior to arrival: None. 07:23 Method Of Arrival: Ambulatory ss 07:23 Acuity: ROBERT 3 ss Historical: - Allergies: 07:27 PENICILLINS; ss - Home Meds: 07:27 aspirin 81 mg Oral TbEC 1 tab once daily [Active]; metoprolol tartrate 50 mg Oral tab 1 ss tab 2 times per day [Active]; Xanax 0.25 mg Oral tab as needed [Active]; lisinopril 5 mg Oral tab 1 tab once daily [Active]; pantoprazole 40 mg Oral TbEC 1 tab once daily [Active]; Flonase 50 mcg/actuation Nasal spsn [Active]; - PMHx: 07:27 Anxiety; GERD; Hypertension; [place]; bulging discs; ss - PSHx: 07:27 CABG; cataract surgery; ss - Immunization history:: Adult Immunizations up to date. - Social history:: Smoking status: Patient/guardian denies using tobacco. - Ebola Screening: : Patient denies exposure to infectious person Patient denies travel to an Ebola-affected area in the 21 days before illness onset. - Family history:: not pertinent. Screenin:00 Abuse screen: Denies threats or abuse. Nutritional screening: No deficits noted. aa5 Tuberculosis screening: No symptoms or risk factors identified. Fall Risk Secondary diagnosis (15 points) Dizziness. . IV access (20 points). Total Baez Fall Scale indicates Low Risk Score (25-44 pts). Fall prevention measures have been instituted. Side Rails Up X 2 Placed close to Nursing Station. Assessment: 07:45 General: Appears comfortable, Behavior is calm, cooperative. Pain: Complains of pain in aa5 posterior cervical area, left trapezius, right trapezius and thoracic area Pain does not radiate. Pain currently is 0 out of 10 on a pain scale. Quality of pain is described as aching, Pain began 2-3 days ago. Is intermittent. Neuro: Level of Consciousness is awake, alert, obeys commands, Oriented to person, place, time, situation, Pairer are equal bilaterally Moves all extremities. Speech is normal, Facial symmetry appears normal, Pupils are PERRLA, Reports intermittent dizziness since August 2018. Pt states "sometimes I won't get the dizziness for months and I am already seeing Dr. Chan for it and he told me to go see Dr. Guillen (ENT) and Dr. Dhaliwal (Neurology) and I already did". . Cardiovascular: Heart tones S1 S2 present Rhythm is regular. Respiratory: Airway is patent Respiratory effort is even, unlabored, Respiratory pattern is regular, symmetrical, Breath sounds are clear bilaterally. GI: Abdomen is round Bowel sounds present X 4 quads. Abd is non tender X 4 quads Reports intermittent nausea. Patient currently denies vomiting. : No signs and/or symptoms were reported regarding the genitourinary system. EENT: No signs and/or symptoms were reported regarding the EENT system. Derm: Skin is pink, warm \\T\\ dry. Musculoskeletal: Range of motion: intact in all extremities. 08:45 Reassessment: Patient refused MRI. MD at bedside speaking with patient. . aa5 09:00 Reassessment: Pt ambulatory to restroom with steady gait, pt voided x 1. Pt back in aa5 bed. Sitting up in bed, awaiting US, pt notified of wait time. . 09:05 Reassessment: Patient is alert, oriented x 3, equal unlabored respirations, skin aa5 warm/dry/pink. 09:06 Reassessment: Pt to US via wheelchair. . aa5 09:55 Reassessment: Discharge pending Dr. Thomas talking with patient. aj1 10:30 Reassessment: Dr. Thomas at bedside. aj1 Vital Signs: 07:27 BP 174 / 83; Pulse 75; Resp 16; Temp 98.8(O); Pulse Ox 96% on R/A; Weight 100.7 kg; ss Height 5 ft. 10 in. (177.80 cm); Pain 0/10; 08:10 BP 171 / 87 LA; Pulse 61; Resp 18 S; Pulse Ox 95% on R/A; aa5 08:12 BP 164 / 82 RA; aa5 09:05 BP 161 / 72; Pulse 64; Resp 16 S; Pulse Ox 99% on R/A; aa5 07:27 Body Mass Index 31.85 (100.70 kg, 177.80 cm) ss ED Course: 07:12 Patient arrived in ED. as 07:12 Azar Chan MD is Private Physician. as 07:20 Kale Thomas MD is Attending Physician. anoop 07:24 Delma Cooley RN is Primary Nurse. aa5 07:26 Triage completed. ss 07:27 Arm band placed on right wrist. ss 07:45 Patient has correct armband on for positive identification. Placed in gown. Bed in low aa5 position. Call light in reach. Side rails up X2. it architect on. Pulse ox on. NIBP on. 07:58 Initial lab(s) drawn, by al, sent to lab. Inserted saline lock: 20 gauge in right aa5 forearm, using aseptic technique. Blood collected. 08:36 XRAY Chest (1 view) In Process Unspecified. EDMS 08:38 EKG done, by facilities operations technician. reviewed by Kale Thomas MD. at1 09:20 US Carotid Artery Bilateral In Process Unspecified. EDMS 09:36 CT Head Brain wo Cont In Process Unspecified. EDMS 09:38 Azar Chan MD is Referral Physician. anoop 10:00 Report given to Alicia Weaver RN. aa5 10:42 No provider procedures requiring assistance completed. IV discontinued, intact, aj1 bleeding controlled, No redness/swelling at site. Pressure dressing applied. Administered Medications: 08:13 Drug: NS 0.9% 500 ml Route: IV; Rate: bolus; Site: right forearm; aa5 09:00 Follow up: IV Status: Completed infusion; IV Intake: 500ml aa5 08:13 Drug: foLIC Acid 1 mg Route: IVPB; Site: right forearm; aa5 08:14 Drug: Meclizine 50 mg Route: PO; aa5 09:00 Follow up: Response: No adverse reaction; No adverse reaction. Pt reports dizziness has aa5 improved. 08:15 Drug: Decadron - Dexamethasone 10 mg Route: IVP; Site: right forearm; aa5 08:25 Follow up: Response: No adverse reaction aa5 08:32 CANCELLED (Patient Refused): Zofran 4 mg IVP once; over 2 minutes aa5 Intake: 09:00 IV: 500ml; Total: 500ml. aa5 Outcome: 09:38 Discharge ordered by . anoop 10:42 Discharged to home ambulatory. aj1 10:42 Condition: good 10:42 Discharge instructions given to patient, Instructed on discharge instructions, follow up and referral plans. medication usage, Demonstrated understanding of instructions, follow-up care, medications, Prescriptions given X 2. 10:43 Patient left the ED. aj1 Signatures: Dispatcher [employer] EDMS Alicia Weaver RN RN aj1 Kale Thomas MD MD cha Martinez, Amelia as Calderon, Audri, RN RN aa5 Fatou Carreno RN RN ss Gonzales, Amanda, senior air director EKG Tat1 Heriberto Tucker RN RN jl7 Corrections: (The following items were deleted from the chart) 08:18 08:10 BP 171 / 87; Pulse 61bpm; Resp 18bpm; Spontaneous; Pulse Ox 95% RA; jl7 aa5 16:33 09:15 BP 161 / 72; Pulse 64bpm; Resp 16bpm; Spontaneous; Pulse Ox 99% RA; aa5 aa5
--- NOTE | 2019-05-04 09:41 | RAD REPORT ---
EXAM DESCRIPTION: CT - Head Brain Wo Cont - 05/04/2019 9:35 am CLINICAL HISTORY: DIZZINESS Headache, drowsiness COMPARISON: Head angio dated 09/09/2018; HEAD BRAIN W O CONTRAST dated 02/24/2015 TECHNIQUE: All CT scans are performed using dose optimization technique as appropriate and may inclu de automated exposure control or mA/KV adjustment according to patient size. FINDINGS: No intracranial hemorrhage, hydrocephalus or extra-axial fluid collection.Brain atrophy, m ild, is noted.No areas of brain edema or evidence of midline shift. The paranasal sinuses and mastoids are clear. The calvarium is intact. IMPRESSION: No acute intracranial abnormality.
--- NOTE | 2019-05-04 09:57 | RAD REPORT ---
EXAM DESCRIPTION: US - CP - 05/04/2019 9:33 am CLINICAL HISTORY: DIZZINESS Headache, drowsiness COMPARISON: Neck Angio dated 09/09/2018; Head Brain Wo Cont dated 05/04/2019; Head C Spine Mpr Wo Con dated 09/09/2018 TECHNIQUE: Real-time sonographic evaluation of both carotid systems was performed. Doppler interroga tion was performed with waveform tracing bilaterally. FINDINGS: Normal high resistance waveforms are noted in both external carotid arteries. The common c arotid arteries and internal carotid arteries show normal low resistance waveforms. Moderate hard plaquing is seen in both carotid bulbs, slightly greater on the right. Peak systolic an d end diastolic velocity values and the ICA/CCA ratios are in the non-hemodynamically significant ran ge. Antegrade flow seen in both vertebral arteries. IMPRESSION: Moderate hard plaquing is seen in both carotid bulbs, slightly worse on the right. No evidence of a hemodynamically significant stenosis.
[2019-05-04 10:48] VITALS: TEMP 98.8
[2019-05-04 10:51] VITALS: BP 161/72; O2SAT 99
== END 2019-05-04 10:43 | disposition home or self-care (01) ==
LOC: ER 07:11
DX: H82.9 Vertiginous syndromes in diseases classified elsewhere, unspecified ear (principal); I65.23 Occlusion and stenosis of bilateral carotid arteries; I10 Essential (primary) hypertension; K21.9 Gastro-esophageal reflux disease without esophagitis; I25.2 Old myocardial infarction; Z95.1 Presence of aortocoronary bypass graft
CPT/HCPCS: 96361; 93005; 85025; 80048; 36415; 83735; 80076; 84484; 83880; 70450; 71045; 93880; 96375; 96374; 99284; J1100; J7040; J2405; J8597

== ENCOUNTER 2019-07-23 13:53 | Emergency (ER) | payer OTHER ==
--- OUTSIDE RECORDS SUMMARY | 2019-07-23 13:56 | XMS REPORT ---
:1945 [facility] Organization [facility] Address [address] [place] [address] Care Team Providers Name Role Phone Unavailable Unavailable Unavailable Payers Payer Name Policy Type Policy Number Effective Date Expiration Date Problems This patient has no known problems. Allergies, Adverse Reactions, Alerts Allergy Name Allergy Status Severity Reaction(s) Onset Inactive Treating Comments Type Date Date Clinician Penicillins DA Active 2018-11 00:00:0 0 Penicillins DA Active 2018-10 00:00:0 0 Penicillins DA Active 2018-10 00:00:0 0 Medications This patient has no known medications. Results Test Description Test Time Test Comments Text Results Atomic Results Result Comments - XR FLUORO NDL 2018-11-25 11:55:00 Patient Name: DOM JUÁREZ Unit No: [id number] EXAMS: CPT CODE: [id number] XR FLUORO NDL 31645 FLUOROSCOPICALLY GUIDED RIGHT PLANTAR FASCIA STEROID INJECTION COMMENT: After informed consent was obtained a 25-gauge needle is inserted into the right plantar fascia under fluoroscopic control using sterile technique 1.5 mL of Kenalog 40 mg/ml and 2 mL of Lidocaine are instilled into the proximal plantar fascia. The patient tolerated the procedure well. 0.5 minutes of fluoroscopy time was used on this exam. FLUOROSCOPICALLY GUIDED LEFT PLANTAR FASCIA STEROID INJECTION COMMENT: After informed consent was obtained a 25-gauge needle is inserted into the left plantar fascia under fluoroscopic control using sterile technique. 2 mL of Kenalog 40 mg/ml and 2 mL of Lidocaine are instilled into the proximal plantar fascia. The patient tolerated the procedure well. 0.5 minutes of fluoroscopy time was used on this exam. at 1157 Reported and signed by: Broderick Robb MD CC: Gold Blevins MD; Azar Donovan MD Technologist: SUZANNE DUGAN RT(R); RT Maikol.(R) Transcribed D/ (8736) tKENNEDYGVG [facility] NAME: DOM JUÁREZ [address] [facility] PHYS: Gold Esposito Luis Miguel : 1945 AGE: 73 SEX: M [place] [address] LOC: Y.RAD PHONE #: [phone] EXAM DATE: 11/24/2018 STATUS: DEP CLI FAX #: [phone] RAD #: D/C DT PAGE 1 Signed Report Patient Name: DOM JUÁREZ Unit No: [id number] EXAMS: CPT CODE: [id number] XR FLUORO NDL 88848 <Continued> Orig Print D/T: S: 11/25/2018 (5094) [facility] NAME: DOM JUÁREZ [address] [facility] PHYS: Gold Esposito : 1945 AGE: 73 SEX: M [place] [address] LOC: Y.RAD PHONE #: [phone] EXAM DATE: 11/24/2018 STATUS: DEP CLI FAX #: [phone] RAD #: D/C DT PAGE 2 Signed Report - XR FLUORO NDL 2018-11-25 11:55:00 Patient Name: DOM JUÁREZ Unit No: [id number] EXAMS: CPT CODE: [id number] XR FLUORO NDL 50574 FLUOROSCOPICALLY GUIDED RIGHT PLANTAR FASCIA STEROID INJECTION COMMENT: After informed consent was obtained a 25-gauge needle is inserted into the right plantar fascia under fluoroscopic control using sterile technique 1.5 mL of Kenalog 40 mg/ml and 2 mL of Lidocaine are instilled into the proximal plantar fascia. The patient tolerated the procedure well. 0.5 minutes of fluoroscopy time was used on this exam. FLUOROSCOPICALLY GUIDED LEFT PLANTAR FASCIA STEROID INJECTION COMMENT: After informed consent was obtained a 25-gauge needle is inserted into the left plantar fascia under fluoroscopic control using sterile technique. 2 mL of Kenalog 40 mg/ml and 2 mL of Lidocaine are instilled into the proximal plantar fascia. The patient tolerated the procedure well. 0.5 minutes of fluoroscopy time was used on this exam. at 1155 Reported and signed by: Broderick Robb MD CC: Gold Blevins MD; Azar Donovan MD Technologist: SUZANNE DUGAN RT(R); RT Maikol.(R) Transcribed D/ (0433) MicheleGVG [facility] NAME: DOM JUÁREZ [address] [facility] PHYS: Gold Esposito : 1945 AGE: 73 SEX: M [place] [address] LOC: Y.RAD PHONE #: [phone] EXAM DATE: 11/24/2018 STATUS: DEP CLI FAX #: [phone] RAD #: D/C DT PAGE 1 Signed Report Patient Name: DOM JUÁREZ Unit No: [id number] EXAMS: CPT CODE: [id number] XR FLUORO NDL [id number] <Continued> Orig Print D/T: S: 11/25/2018 (8343) [facility] NAME: DOM JUÁREZ [address] [facility] PHYS: VERONICA Mendoza Gold Blevins : 1945 AGE: 73 SEX: M [place] [address] LOC: Y.RAD PHONE #: [phone] EXAM DATE: 11/24/2018 STATUS: DEP CLI FAX #: [phone] RAD #: D/C DT PAGE 2 Signed Report URINALYSIS COMPLETE 2018-11-16 12:43:00 Test Item Value Reference Range Comments UA COLOR (test code=COLU) YELLOW YELLOW UA APPEARANCE (test code=APPU) CLEAR CLEAR UA GLUCOSE DIPSTICK (test code=DGLUU) NEGATIVE NEGATIVE UA BILIRUBIN DIPSTICK (test code=BILU) NEGATIVE NEGATIVE UA KETONE DIPSTICK (test code=KETU) NEGATIVE mg/dL NEGATIVE UA SPECIFIC GRAVITY (test code=SGU) 1.010 1.003-1.035 UA BLOOD DIPSTICK (test code=YVETTE) NEGATIVE NEGATIVE UA PH DIPSTICK (test code=SHAMA) 5.5 >6.5 UA PROTEIN DIPSTICK (test code=PROU) NEGATIVE mg/dL NEG UA UROBILINIOGEN DIPSTICK (test code=URO) 0.2 mg/dL NORM UA NITRITE DIPSTICK (test code=WINSTON) NEGATIVE NEG UA LEUKOCYTE ESTERASE DIPSTICK (test code=LEUU) NEGATIVE NEGATIVE UA WBC (test code=WBCU) <5.0 /HPF 0-2 UA RBC (test code=RBCU) NONE SEEN /HPF 0-2 UA EPITHELIAL CELLS (test code=EPIU) NONE SEEN /HPF 0-2 UA BACTERIA (test code=BACU) RARE /HPF NONE PROTHROMBIN [id number] 12:38:00 Test Item Value Reference Range Comments PROTHROMBIN TIME PATIENT 12.0 secs 10.1-12.5 (test code=PTP) INTERNATIONAL NORMAL RATIO 1.06 <2.0 RECOMMENDED THERAPEUTIC RANGE (test code=INR) FOR ORAL ANTICOAGULANTTREATMENT: CONDITION INRProphylaxis of venous thrombosis in 2.0 - 3.0 high-risk medical or surgical patientsTreatment of venous thrombosis 2.0 - 3.0Prevention of embolism 2.0 - 3.0Prevention of recurrent embolism, or 3.0 - 4.5 patients with mechanical prosthetic intravascular valves IS PATIENT ON ANTICOAGULANTS ? YLIST ANTICOAGULANT/ANTI PLT MEDICATION : AspirinHas Lab been notified if Patient is on Heparin Drip? NOIf Yes, order CBC , OCCULT BLOOD, PT every other day NTHROMBOPLASTIN TIME [id number] 12:38: 00 Test Item Value Reference Range Comments PTT ACTIVATED (test code=APTT) 30.6 secs 24.9-37.0 IS PATIENT ON ANTICOAGULANTS ? YLIST ANTICOAGULANT/ANTI PLT MEDICATION : AspirinHas Lab been notified if Patient is on Heparin Drip? NOIf Yes, order CBC , OCCULT BLOOD, PT every other day NCOMPREHENSIVE METABOLIC [id number] 12: 29:00 Test Item Value Reference Range Comments SODIUM (test code=NA) 139 mmol/L 136-145 POTASSIUM (test code=K) 4.8 mmol/L 3.5-5.1 CHLORIDE (test code=CL) 101.0 mmol/L 98-107 CARBON DIOXIDE (test code=CO2) 28.6 mmol/L 21-32 GLUCOSE (test code=GLU) 107 mg/dL 70-110 BLOOD UREA NITROGEN (test 18 mg/dL 7-18 code=BUN) GLOMERULAR FILTRATION RATE 65.3 >60 Unit of measure: (test code=GFR) mL/min/1.73 [id number] Range:Healthy Adults >90 mL/min/1.73 m2 For Chronic Kidney Disease: Stage II Mild Decrease in GFR 60-90 Stage III Moderate Decrease in GFR 30-59 Stage IV Severe Decrease in GFR 15-29 Stage V Kidney Failure <15 CREATININE (test code=CREAT) 1.10 mg/dL 0.55-1.30 TOTAL PROTEIN (test code=PROT) 6.8 g/dL 6.4-8.2 ALBUMIN (test code=ALB) 3.5 g/dL 3.4-5.0 GLOBULIN (test code=GLOB) 3.3 g/dL 2.2-4.2 ALBUMIN/GLOBULIN RATIO (test 1.1 0.7-2.0 code=A/G) CALCIUM (test code=CA) 8.7 mg/dL 8.2-10.1 BILIRUBIN TOTAL (test 0.44 mg/dL 0.2-1.00 code=BILT) SGOT/AST (test code=AST) 18.0 U/L 15-37 SGPT/ALT (test code=ALT) 23.0 U/L 12-78 Please note new normal range. ALKALINE PHOSPHATASE TOTAL 57 U/L 46-116 (test code=ALKP) CBC W/AUTO [id number] 11:57:00 Test Item Value Reference Range Comments WHITE BLOOD CELL (test code=WBC) 8.7 K/mm3 5.7-10.5 RED BLOOD CELL (test code=RBC) 4.73 M/mm3 4.2-5.4 HEMOGLOBIN (test code=HGB) 14.6 g/dL 12-16 HEMATOCRIT (test code=HCT) 43.5 % 37-47 MEAN CELL VOLUME (test code=MCV) 92 fL 80-98 MEAN CELL HGB (test code=MCH) 30.9 pg 27-34 MEAN CELL HGB CONCENTRATION (test code=MCHC) 33.6 g/dL 30.8-34.1 RED CELL DISTRIBUTION WIDTH (test code=RDW) 13.6 % 11-16 PLT (test code=PLT) 260 K/mm3 130-400 MEAN PLATELET VOLUME (test code=MPV) 9.6 fL 8.9-12.1 NEUTROPHIL % (test code=NT%) 59.1 % 45-70 LYMPHOCYTE % (test code=LY%) 25.6 % 20-40 MONOCYTE % (test code=MO%) 12.0 % 3-10 EOSINOPHIL % (test code=EO%) 2.4 % 1-5 BASOPHIL % (test code=BA%) 0.6 % 0.0-1.1 NEUTROPHIL # (test code=NT#) 5.13 K/mm3 2.00-7.50 LYMPHOCYTE # (test code=LY#) 2.22 K/mm3 1.50-4.00 MONOCYTE # (test code=MO#) 1.04 K/mm3 0.2-0.8 EOSINOPHIL # (test code=EO#) 0.21 K/mm3 0.04-0.4 BASOPHIL # (test code=BA#) 0.05 K/mm3 0.02-0.10 MANUAL DIFF REQUIRED (test code=MDIFF) NO MANUAL DIFF PLATELET MORPHOLOGY REQUIRED (test code=PLTMR) NORMAL COMPREHENSIVE METABOLIC [id number] 11:30:00 Test Item Value Reference Range Comments SODIUM (test code=NA) 137 mmol/L 136-145 POTASSIUM (test code=K) 4.6 mmol/L 3.5-5.1 CHLORIDE (test code=CL) 99.0 mmol/L 98-107 CARBON DIOXIDE (test code=CO2) 32.4 mmol/L 21-32 GLUCOSE (test code=GLU) 112 mg/dL 70-110 BLOOD UREA NITROGEN (test 16 mg/dL 7-18 code=BUN) GLOMERULAR FILTRATION RATE 71.2 >60 Unit of measure: (test code=GFR) mL/min/1.73 [id number] Range:Healthy Adults >90 mL/min/1.73 m2 For Chronic Kidney Disease: Stage II Mild Decrease in GFR 60-90 Stage III Moderate Decrease in GFR 30-59 Stage IV Severe Decrease in GFR 15-29 Stage V Kidney Failure <15 CREATININE (test code=CREAT) 1.02 mg/dL 0.55-1.30 TOTAL PROTEIN (test code=PROT) 7.0 g/dL 6.4-8.2 ALBUMIN (test code=ALB) 3.6 g/dL 3.4-5.0 GLOBULIN (test code=GLOB) 3.4 g/dL 2.2-4.2 ALBUMIN/GLOBULIN RATIO (test 1.1 0.7-2.0 code=A/G) CALCIUM (test code=CA) 9.0 mg/dL 8.2-10.1 BILIRUBIN TOTAL (test 0.45 mg/dL 0.2-1.00 code=BILT) SGOT/AST (test code=AST) 19.0 U/L 15-37 SGPT/ALT (test code=ALT) 26.0 U/L 12-78 Please note new normal range. ALKALINE PHOSPHATASE TOTAL 62 U/L 46-116 (test code=ALKP) PROTHROMBIN [id number] 11:23:00 Test Item Value Reference Range Comments PROTHROMBIN TIME PATIENT 12.0 secs 10.1-12.5 (test code=PTP) INTERNATIONAL NORMAL RATIO 1.06 <2.0 RECOMMENDED THERAPEUTIC RANGE (test code=INR) FOR ORAL ANTICOAGULANTTREATMENT: CONDITION INRProphylaxis of venous thrombosis in 2.0 - 3.0 high-risk medical or surgical patientsTreatment of venous thrombosis 2.0 - 3.0Prevention of embolism 2.0 - 3.0Prevention of recurrent embolism, or 3.0 - 4.5 patients with mechanical prosthetic intravascular valves IS PATIENT ON ANTICOAGULANTS ? YLIST ANTICOAGULANT/ANTI PLT MEDICATION : AspirinHas Lab been notified if Patient is on Heparin Drip? NOIf Yes, order CBC , OCCULT BLOOD, PT every other day NTHROMBOPLASTIN TIME [id number] 11:23: 00 Test Item Value Reference Range Comments PTT ACTIVATED (test code=APTT) 30.9 secs 24.9-37.0 IS PATIENT ON ANTICOAGULANTS ? YLIST ANTICOAGULANT/ANTI PLT MEDICATION : AspirinHas Lab been notified if Patient is on Heparin Drip? NOIf Yes, order CBC , OCCULT BLOOD, PT every other day NURINALYSIS [id number] 11:19:00 Test Item Value Reference Range Comments UA COLOR (test code=COLU) YELLOW YELLOW UA APPEARANCE (test code=APPU) CLEAR CLEAR UA GLUCOSE DIPSTICK (test code=DGLUU) NEGATIVE NEGATIVE UA BILIRUBIN DIPSTICK (test code=BILU) NEGATIVE NEGATIVE UA KETONE DIPSTICK (test code=KETU) NEGATIVE mg/dL NEGATIVE UA SPECIFIC GRAVITY (test code=SGU) <=1.005 1.003-1.035 UA BLOOD DIPSTICK (test code=YVETTE) NEGATIVE NEGATIVE UA PH DIPSTICK (test code=SHAMA) 6.5 >6.5 UA PROTEIN DIPSTICK (test code=PROU) NEGATIVE mg/dL NEG UA UROBILINIOGEN DIPSTICK (test code=URO) 0.2 mg/dL NORM UA NITRITE DIPSTICK (test code=WINSTON) NEGATIVE NEG UA LEUKOCYTE ESTERASE DIPSTICK (test NEGATIVE NEGATIVE code=LEUU) UA WBC (test code=WBCU) NONE SEEN /HPF 0-2 UA RBC (test code=RBCU) NONE SEEN /HPF 0-2 UA EPITHELIAL CELLS (test code=EPIU) NONE SEEN /HPF 0-2 UA BACTERIA (test code=BACU) NONE /HPF NONE CBC W/AUTO [id number] 11:06:00 Test Item Value Reference Range Comments WHITE BLOOD CELL (test code=WBC) 9.7 K/mm3 5.7-10.5 RED BLOOD CELL (test code=RBC) 4.74 M/mm3 4.2-5.4 HEMOGLOBIN (test code=HGB) 14.6 g/dL 12-16 HEMATOCRIT (test code=HCT) 43.8 % 37-47 MEAN CELL VOLUME (test code=MCV) 92 fL 80-98 MEAN CELL HGB (test code=MCH) 30.8 pg 27-34 MEAN CELL HGB CONCENTRATION (test code=MCHC) 33.3 g/dL 30.8-34.1 RED CELL DISTRIBUTION WIDTH (test code=RDW) 14.4 % 11-16 PLT (test code=PLT) 242 K/mm3 130-400 MEAN PLATELET VOLUME (test code=MPV) 9.4 fL 8.9-12.1 NEUTROPHIL % (test code=NT%) 64.9 % 45-70 LYMPHOCYTE % (test code=LY%) 19.9 % 20-40 MONOCYTE % (test code=MO%) 10.7 % 3-10 EOSINOPHIL % (test code=EO%) 3.6 % 1-5 BASOPHIL % (test code=BA%) 0.7 % 0.0-1.1 NEUTROPHIL # (test code=NT#) 6.28 K/mm3 2.00-7.50 LYMPHOCYTE # (test code=LY#) 1.93 K/mm3 1.50-4.00 MONOCYTE # (test code=MO#) 1.04 K/mm3 0.2-0.8 EOSINOPHIL # (test code=EO#) 0.35 K/mm3 0.04-0.4 BASOPHIL # (test code=BA#) 0.07 K/mm3 0.02-0.10 MANUAL DIFF REQUIRED (test code=MDIFF) NO MANUAL DIFF NUCLEATED RED BLOOD CELL (test code=NRBC) 0 % 0-0
--- NOTE | 2019-07-23 17:15 | ER ---
Nurse's Notes [facility] Name: London Lewis Age: 74 yrs Sex: Male : 1945 Arrival Date: 07/23/2019 Time: 13:55 Bed 15 Private MD: Azar Chan R Diagnosis: Pain in left leg Presentation: 07/23 14:30 Presenting complaint: Patient states: Was sent to rule out a blood clot in the left rb1 leg. C/o aching 2/10. Transition of care: patient was not received from another setting of care. Onset of symptoms is unknown. Risk Assessment: Do you want to hurt yourself or someone else? Patient reports no desire to harm self or others. Initial Sepsis Screen: Does the patient meet any 2 criteria? No. Patient's initial sepsis screen is negative. Does the patient have a suspected source of infection? No. Patient's initial sepsis screen is negative. Care prior to arrival: None. 14:30 Method Of Arrival: Ambulatory rb1 14:30 Acuity: ROBERT 3 rb1 Triage Assessment: 14:30 General: Appears in no apparent distress. comfortable, Behavior is calm, cooperative. rb1 Pain: Complains of pain in left leg Pain currently is 2 out of 10 on a pain scale. Quality of pain is described as aching. Neuro: Level of Consciousness is awake, alert, obeys commands, Oriented to person, place, time, situation. Cardiovascular: Capillary refill < 3 seconds in left leg. Cardiovascular: Denies chest pain, shortness of breath. Respiratory: Airway is patent Respiratory effort is even, unlabored, Respiratory pattern is regular, symmetrical. GI: No signs and/or symptoms were reported involving the gastrointestinal system. : No signs and/or symptoms were reported regarding the genitourinary system. Derm: Skin is dusky, on bilateral lower extremities. Musculoskeletal: Swelling present in left leg Pt. 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 Historical: - Allergies: 14:30 PENICILLINS; rb1 14:30 unknown antibiotics; rb1 - Home Meds: 14:30 aspirin 81 mg Oral TbEC 1 tab once daily [Active]; lisinopril 5 mg Oral tab 1 tab once rb1 daily [Active]; metoprolol tartrate 50 mg Oral tab 1 tab 2 times per day [Active]; pantoprazole 40 mg Oral TbEC 1 tab once daily [Active]; - PMHx: 14:30 Anxiety; bulging discs; GERD; Hypertension; HI; rb1 - PSHx: 14:30 CABG; cataract surgery; rb1 - Immunization history:: Flu vaccine is not up to date. - Social history:: Smoking status: Patient/guardian denies using tobacco. - Ebola Screening: : Patient negative for fever greater than or equal to 101.5 degrees Fahrenheit, and additional compatible Ebola Virus Disease symptoms. - Family history:: not pertinent. Screenin:30 Abuse screen: Denies threats or abuse. Nutritional screening: No deficits noted. rb1 Tuberculosis screening: No symptoms or risk factors identified. Fall Risk None identified. Assessment: 14:30 General: See triage assessment. rb1 15:30 Reassessment: Patient appears in no apparent distress at this time. No changes from rb1 previously documented assessment. 16:24 Reassessment: Patient appears in no apparent distress at this time. Patient and/or rb1 family updated on plan of care and expected duration. Pain level reassessed. Patient is alert, oriented x 3, equal unlabored respirations, skin warm/dry/pink. US is at the pt. bedside. 17:22 Reassessment: Patient appears in no apparent distress at this time. No changes from rb1 previously documented assessment. Pt. requested to speak with Dr. Thomas; provider notified. 17:40 Reassessment: Discharge pending due to pt. wanting to talk to the provider. rb1 17:55 Reassessment: Provider at bedside discussing results and plan of care. ae4 Vital Signs: 14:30 BP 157 / 90; Pulse 71; Resp 19; Temp 98.9(O); Pulse Ox 96% on R/A; Weight 95.25 kg (R); rb1 Height 5 ft. 10 in. (177.80 cm) (R); Pain 2/10; 15:30 BP 142 / 82; Pulse 71; Resp 18; Pulse Ox 96% on R/A; rb1 16:25 BP 154 / 70; Pulse 64; Resp 17; Pulse Ox 97% on R/A; Pain 2/10; rb1 17:25 BP 157 / 72; Pulse 63; Resp 18; Pulse Ox 95% on R/A; Pain 0/10; rb1 14:30 Body Mass Index 30.13 (95.25 kg, 177.80 cm) rb1 ED Course: 13:55 Patient arrived in ED. as 13:55 Juan Jose Spaulding MD is Private Physician. as 13:55 Azar Chan MD is Private Physician. as 14:25 Kale Thomas MD is Attending Physician. anoop 14:30 Arm band placed on right wrist. rb1 14:30 Patient has correct armband on for positive identification. Bed in low position. Call rb1 light in reach. Side rails up X 1. Pulse ox on. NIBP on. 14:38 Rosemarie Allen, RN is Primary Nurse. rb1 14:51 Triage completed. rb1 17:12 Azar Chan MD is Referral Physician. anoop 17:28 US Extremity Venous W Compression Isaiah In Process Unspecified. EDMS 18:05 No provider procedures requiring assistance completed. Patient did not have IV access ae4 during this emergency room visit. Administered Medications: No medications were administered Point of Care Testing: Blood Glucose: 16:05 Blood Glucose: 119 mg/dL; [facility] Ranges: Outcome: 17:13 Discharge ordered by . anoop 18:05 Discharged to home ambulatory. ae4 18:05 Condition: stable 18:05 Discharge instructions given to patient, Instructed on discharge instructions, follow up and referral plans. Demonstrated understanding of instructions. 18:06 Patient left the ED. ae4 Signatures: Dispatcher [employer] EDMN Kale Thomas MD MD cha Martinez, Amelia as Rosemarie Allen, RN RN rb1 Patrick Newton RN RN ae4
--- NOTE | 2019-07-23 17:15 | EDPHYS ---
Physician Documentation [facility] Name: London Lewis Age: 74 yrs Sex: Male : 1945 Arrival Date: 07/23/2019 Time: 13:55 Bed 15 Private MD: Azar Chan R ED Physician Kale Thomas HPI: 07/23 15:38 This 74 yrs old Male presents to ER via Ambulatory with complaints of Sent by anoop Chan to r/o clot. 15:38 The patient presents with pain, swelling. The complaints affect the medial aspect of anoop left thigh, medial aspect of left calf, left quadriceps and left asif. Context: The problem was sustained at an unknown site. Onset: The symptoms/episode began/occurred 1 week(s) ago. Modifying factors: The symptoms are alleviated by nothing. the symptoms are aggravated by nothing. Associated signs and symptoms: Pertinent positives: swelling. Severity of symptoms: At their worst the symptoms were mild. Historical: - Allergies: 14:30 PENICILLINS; rb1 14:30 unknown antibiotics; rb1 - Home Meds: 14:30 aspirin 81 mg Oral TbEC 1 tab once daily [Active]; lisinopril 5 mg Oral tab 1 tab once rb1 daily [Active]; metoprolol tartrate 50 mg Oral tab 1 tab 2 times per day [Active]; pantoprazole 40 mg Oral TbEC 1 tab once daily [Active]; - PMHx: 14:30 Anxiety; bulging discs; GERD; Hypertension; MA; rb1 - PSHx: 14:30 CABG; cataract surgery; rb1 - Immunization history:: Flu vaccine is not up to date. - Social history:: Smoking status: Patient/guardian denies using tobacco. - Ebola Screening: : Patient negative for fever greater than or equal to 101.5 degrees Fahrenheit, and additional compatible Ebola Virus Disease symptoms. - Family history:: not pertinent. ROS: 15:38 Constitutional: Negative for fever, chills, and weight loss, Eyes: Negative for injury, anoop pain, redness, and discharge, ENT: Negative for injury, pain, and discharge, Neck: Negative for injury, pain, and swelling, Cardiovascular: Negative for chest pain, palpitations, and edema, Respiratory: Negative for shortness of breath, cough, wheezing, and pleuritic chest pain, Abdomen/GI: Negative for abdominal pain, nausea, vomiting, diarrhea, and constipation, Back: Negative for injury and pain, : Negative for injury, bleeding, discharge, and swelling, Skin: Negative for injury, rash, and discoloration, Neuro: Negative for headache, weakness, numbness, tingling, and seizure, Psych: Negative for depression, anxiety, suicide ideation, homicidal ideation, and hallucinations, Allergy/Immunology: Negative for hives, rash, and allergies, Endocrine: Negative for neck swelling, polydipsia, polyuria, polyphagia, and marked weight changes, Hematologic/Lymphatic: Negative for swollen nodes, abnormal bleeding, and unusual bruising. 15:38 MS/extremity: Positive for pain, of the left leg. Exam: 15:38 Constitutional: This is a well developed, well nourished patient who is awake, alert, anoop and in no acute distress. Head/Face: Normocephalic, atraumatic. Eyes: Pupils equal round and reactive to light, extra-ocular motions intact. Lids and lashes normal. Conjunctiva and sclera are non-icteric and not injected. Cornea within normal limits. Periorbital areas with no swelling, redness, or edema. ENT: Nares patent. No nasal discharge, no septal abnormalities noted. Tympanic membranes are normal and external auditory canals are clear. Oropharynx with no redness, swelling, or masses, exudates, or evidence of obstruction, uvula midline. Mucous membranes moist. Neck: Trachea midline, no thyromegaly or masses palpated, and no cervical lymphadenopathy. Supple, full range of motion without nuchal rigidity, or vertebral point tenderness. No Meningismus. Chest/axilla: Normal chest wall appearance and motion. Nontender with no deformity. No lesions are appreciated. Cardiovascular: Regular rate and rhythm with a normal S1 and S2. No gallops, murmurs, or rubs. Normal PMI, no JVD. No pulse deficits. Respiratory: Lungs have equal breath sounds bilaterally, clear to auscultation and percussion. No rales, rhonchi or wheezes noted. No increased work of breathing, no retractions or nasal flaring. Abdomen/GI: Soft, non-tender, with normal bowel sounds. No distension or tympany. No guarding or rebound. No evidence of tenderness throughout. Back: No spinal tenderness. No costovertebral tenderness. Full range of motion. Male : Normal genitalia with no discharge or lesions. Skin: Warm, dry with normal turgor. Normal color with no rashes, no lesions, and no evidence of cellulitis. MS/ Extremity: Pulses equal, no cyanosis. Neurovascular intact. Full, normal range of motion. Neuro: Awake and alert, GCS 15, oriented to person, place, time, and situation. Cranial nerves II-XII grossly intact. Motor strength 5/5 in all extremities. Sensory grossly intact. Cerebellar exam normal. Normal gait. Psych: Awake, alert, with orientation to person, place and time. Behavior, mood, and affect are within normal limits. Vital Signs: 14:30 BP 157 / 90; Pulse 71; Resp 19; Temp 98.9(O); Pulse Ox 96% on R/A; Weight 95.25 kg (R); rb1 Height 5 ft. 10 in. (177.80 cm) (R); Pain 2/10; 15:30 BP 142 / 82; Pulse 71; Resp 18; Pulse Ox 96% on R/A; rb1 16:25 BP 154 / 70; Pulse 64; Resp 17; Pulse Ox 97% on R/A; Pain 2/10; rb1 17:25 BP 157 / 72; Pulse 63; Resp 18; Pulse Ox 95% on R/A; Pain 0/10; rb1 14:30 Body Mass Index 30.13 (95.25 kg, 177.80 cm) rb1 MDM: 14:25 Patient medically screened. [facility] 15:40 Data reviewed: vital signs, nurses notes, lab test result(s), radiologic studies, [facility] doppler. 07/23 16:18 Order name: Glucose, Ancillary Testing; Complete Time: 17:12 EDSD 07/23 14:36 Order name: US Extremity Venous W Compression Isaiah anoop 07/23 15:37 Order name: Blood Glucose Level; Complete Time: 16:06 anoop 07/23 15:37 Order name: Vital Signs; Complete Time: 16:01 [facility] Administered Medications: No medications were administered Point of Care Testing: Blood Glucose: 16:05 Blood Glucose: 119 mg/dL; rb1 Ranges: Critical Glucose Levels:Adult <50 mg/dl or >400 mg/dl <40 mg/dl or >180 mg/dl Disposition: 07/23/19 17:13 Discharged to Home. Impression: Pain in left leg. - Condition is Stable. - Discharge Instructions: Musculoskeletal Pain, Generalized Anxiety Disorder. - Medication Reconciliation Form, Thank You Letter, Antibiotic Education, Prescription Opioid Use form. - Follow up: Azar Chan; When: 2 - 3 days; Reason: Recheck today's complaints, Continuance of care, Re-evaluation by your physician. - Problem is new. - Symptoms have improved. Signatures: Dispatcher [employer] EDSD Kale Thomas MD MD cha Barber, Rebecca, RN RN rb1 Elliott, Andrea, RN RN ae4 Corrections: (The following items were deleted from the chart) 18:06 17:13 07/23/2019 17:13 Discharged to Home. Impression: Pain in left leg. Condition is ae4 Stable. Discharge Instructions: Musculoskeletal Pain, Generalized Anxiety Disorder. Forms are Medication Reconciliation Form, Thank You Letter, Antibiotic Education, Prescription Opioid Use. Follow up: Azar Chan; When: 2 - 3 days; Reason: Recheck today's complaints, Continuance of care, Re-evaluation by your physician. Problem is new. Symptoms have improved. anoop
--- NOTE | 2019-07-23 17:51 | RAD REPORT ---
EXAM DESCRIPTION: US - Extrem Venous W Compress Isaiah - 07/23/2019 5:27 pm CLINICAL HISTORY: Bilateral leg pain COMPARISON: None. TECHNIQUE: Real-time sonographic evaluation of the bilateral lower extremity common femoral, superfi cial femoral, popliteal and posterior tibial veins was performed. FINDINGS: Normal compressibility, flow augmentation, phasic flow and spontaneous flow are identified in the left and right lower extremity common femoral, superficial femoral, popliteal and posterior t ibial veins. No intraluminal filling defects seen. IMPRESSION: No DVT in either lower extremity.
[2019-07-23 18:24] VITALS: TEMP 98.9
[2019-07-23 18:26] VITALS: BP 154/70; O2SAT 97
== END 2019-07-23 18:06 | disposition home or self-care (01) ==
LOC: ER 13:53
DX: M79.605 Pain in left leg (principal); I10 Essential (primary) hypertension; F41.9 Anxiety disorder, unspecified; I25.2 Old myocardial infarction; Z95.1 Presence of aortocoronary bypass graft; Z79.82 Long term (current) use of aspirin; Z88.0 Allergy status to penicillin; Z88.1 Allergy status to other antibiotic agents
CPT/HCPCS: 82947; 93970; 99283

== ENCOUNTER 2020-07-17 17:57 | Inpatient (IN) | payer OTHER ==
--- OUTSIDE RECORDS SUMMARY | 2020-07-17 18:00 | XMS REPORT | Continuity of Care Document ---
:1945 Author Organization [facility] t Address [address] [place] [address] Care Team Providers Name Role Phone Yvrose Aguilera Attending Clinician Payers Payer Name Policy Type Policy Number Effective Date Expiration Date S ource Problems Condition Condition Condition Status Onset Resolution Last Treating Co mments Source Name Details Category Date Date Treatment Clinician Date Asthma Problem Resolve 2019-07-03 [place] silvia (disorder) d 01:00:54 l Asthma [facility] (disorder) Resolved Problem 07/03/2019 [facility] Glaucoma Problem Resolve 2019-07-03 Me moria (disorder) d 01:00:54 l Glaucoma Basil n (disorder) Resolved Problem 07/03/2019 [facility] History of Problem Resolve 2019-07-03 Memoria gastroesop d 01:00:54 l hageal History [facility] reflux of disease gastroesop (situation hageal ) reflux disease (situation ) Resolved Problem 07/03/2019 [facility] Hypertensi Problem Resolve 2019-07-03 Memoria ve d 01:00:54 l disorder, [place] systemic Hypertensi arterial ve (disorder) disorder, systemic arterial (disorder) Resolved Problem 07/03/2019 [facility] Myocardial Problem Resolve 2019-07-03 Memoria infarction d 01:00:54 l (disorder) Basil n Myocardial infarction (disorder) Resolved Problem 07/03/2019 [facility] Simple Problem Active 2019-07-03 Memor ia obesity 01:00:54 l (disorder) Simple Herm peggy obesity (disorder) Active Problem 07/03/2019 [facility] Allergies, Adverse Reactions, Alerts Allergy Allergy Status Severity Reaction(s) Onset Inactive Treating Comm ents Source Name Type Date Date Clinician Penicill DA Active [facility] [place] 00[facility] Penic[facility] DA Active [facility] 11-16 [place] 00:[facility] Penicill DA Active [facility] [place] penicill penicill Active [facility] Social History Smoking Status Start Date Stop Date Source Social History [facility] Medications Ordered Filled Start Stop Current Ordering Indication Dosage Frequency Signature Comments Components Source Medication Medication Date Date Medication? Clinician (SIG) Name Name metoprolol Yes 50 mg = 1 Me moria 50 mg oral 2-20 tab, PO, l tablet, 16:54: BID, 0 [facility] extended 00 Refill(s) release Aspirin 81 Yes 81 mg = 1 Me moria MG Enteric 2-20 tab, PO, l Coated 16:54: Daily, # [place] Tablet 00 90 tab, 3 Refill(s) Alprazolam Yes 0.25 mg = Me moria 0.25 MG 2-20 1 tab, PO, l Oral Tablet 16:54: TID, PRN He rmann [Xanax] 00 Anxiety, # 30 tab, 0 Refill(s) Fish Oil 20180 Yes PO, 0 Memoria 2-20 Refill(s) l 16:54: [place] 00 lisinopril Yes 5 mg = 1 Mem oria 5 mg oral 2-20 tab, PO, l tablet 16:54: Daily, # [place] 00 30 tab, 0 Refill(s) pantoprazol Yes 40 mg = 1 M emoria e 40 mg 2-20 tab, PO, l oral 16:54: Daily, # [facility] enteric 00 30 tab, 0 coated Refill(s) tablet hydrocortis Yes 25 mg = 1 M emoria one acetate 2-20 supp, RI, l 25 MG 16:54: BID, # 20 [place] Rectal 00 supp, 0 Suppository Refill(s) [Proctosol] Vital Signs Vital Name Observation Time Observation Value Comments Source Systolic (mm Hg) 2019-06-30 16:08:00 [place] rial [facility] Diastolic (mm Hg) 2019-06-30 16:08:00 Mem orial [place] Heart Rate 2019-06-30 16:08:00 [facility] Temperature Oral (F) 2019-06-30 16:08:00 98.4 F [facility] [place] Height 2019-06-30 16:08:00 177.8 cm [facility] Weight 2019-06-30 16:08:00 [facility] [place] BMI Calculated 2019-06-30 16:08:00 [facility] BMI Calculated 2018-10-13 14:06:00 [facility] Weight 2018-10-13 14:06:00 [facility] Height 2018-10-13 14:06:00 177.8 cm [facility] [place] Temperature Oral (F) 2018-10-13 14:06:00 97.6 F [facility] [place] Systolic (mm Hg) 2018-10-13 14:06:00 [place] rial [facility] Diastolic (mm Hg) 2018-10-13 14:06:00 [facility] Heart Rate 2018-10-13 14:06:00 [facility] [place] BMI Calculated 2018-04-22 15:21:00 Mem[facility] al [place] Height 2018-04-22 15:21:00 180.34 cm [facility] Weight 2018-04-22 15:21:00 [facility] [place] Temperature Oral (F) 2018-04-22 15:21:00 97.9 F [facility] Heart Rate 2018-04-22 15:21:00 [facility] [place] Systolic (mm Hg) 2018-04-22 15:21:00 [place] rial [place] Diastolic (mm Hg) 2018-04-22 15:21:00 [facility] BMI Calculated 2018-03-10 15:30:00 [facility] Weight 2018-03-10 15:30:00 [facility] [place] Height 2018-03-10 15:30:00 177.8 cm [facility] Systolic (mm Hg) 2018-03-10 15:30:00 [place] rial [facility] Diastolic (mm Hg) 2018-03-10 15:30:00 [facility] Temperature Oral (F) 2018-03-10 15:30:00 97.4 F [facility] [place] Heart Rate 2018-03-10 15:30:00 [facility] Height 2018-02-25 14:45:00 177.8 cm [facility] [place] Weight 2018-02-25 14:45:00 [facility] [place] BMI Calculated 2018-02-25 14:45:00 [facility] Systolic (mm Hg) 2018-02-25 14:45:00 [place] rial [place] Diastolic (mm Hg) 2018-02-25 14:45:00 [facility] Temperature Oral (F) 2018-02-25 14:45:00 97.6 F [facility] Heart Rate 2018-02-25 14:45:00 [facility] BMI Calculated 2017-10-29 15:30:00 [facility] Weight 2017-10-29 15:30:00 [facility] Systolic (mm Hg) 2017-10-29 15:30:00 [place] rial [place] Diastolic (mm Hg) 2017-10-29 15:30:00 Mem orial [place] Temperature Oral (F) 2017-10-29 15:30:00 97.4 F [facility] Heart Rate 2017-10-29 15:30:00 [facility] Height 2017-10-29 15:30:00 180.34 cm [facility] [place] Weight 2017-10-09 15:04:00 [facility] BMI Calculated 2017-10-09 15:04:00 [facility] Height 2017-10-09 15:04:00 180.34 cm [facility] [place] Temperature Oral (F) 2017-10-09 15:04:00 98.3 F [facility] Systolic (mm Hg) 2017-10-09 15:04:00 [place]ton rial [place] Diastolic (mm Hg) 2017-10-09 15:04:00 [facility] Respitory Rate 2017-10-09 15:04:00 [facility]ori al [place] Heart Rate 2017-10-09 15:04:00 [facility] [place] Height 2017-09-29 16:07:00 180.34 cm [facility] [place] BMI Calculated 2017-09-29 16:07:00 [facility] Weight 2017-09-29 16:07:00 [facility] Temperature Oral (F) 2017-09-29 16:07:00 97.7 F [facility] [place] Heart Rate 2017-09-29 16:07:00 [facility] Respitory Rate 2017-09-29 16:07:00 [facility] Systolic (mm Hg) 2017-09-29 16:07:00 [place] rial [facility] Diastolic (mm Hg) 2017-09-29 16:07:00 Mem orial [place] BMI Calculated 2017-09-22 17:23:00 [facility] al [place] Weight 2017-09-22 17:23:00 [facility] [place] Height 2017-09-22 17:23:00 180.34 cm [facility] Systolic (mm Hg) 2017-09-22 17:23:00 [place] rial [place] Diastolic (mm Hg) 2017-09-22 17:23:00 [facility] Respitory Rate 2017-09-22 17:23:00 [facility] Temperature Oral (F) 2017-09-22 17:23:00 98.5 F [facility] [place] Heart Rate 2017-09-22 17:23:00 [facility] [place] Systolic (mm Hg) 2017-09-15 16:40:00 [place] rial [place] Diastolic (mm Hg) 2017-09-15 16:40:00 [facility] Heart Rate 2017-09-15 16:40:00 [facility] Respitory Rate 2017-09-15 16:40:00 [facility] Temperature Oral (F) 2017-09-15 16:40:00 98.4 F [facility] [place] Procedures Procedure Date / Time Performed Performing Clinician [facility] e Anoscopy; diagnostic, 2018-04-22 19:01:00 Memori al [place] including collection of specimen(s) by brushing or washing, when performed (separate procedure) Hemorrhoidectomy, 2018-02-25 14:54:[address] [facility] H ermann internal, by rubber band ligation(s) Open heart surgery [facility] Herm peggy Encounters Start End Encounter Admission Attending Care Care Encounter Source Date/Time Date/Time Type Type Clinicians Facility Department ID 2019-06-30 2019-06-30 Outpatient CHRISTINE Aguilera [facility] [id number] 10:30:00 23:59:59 Mohshea Frances 2019-05-05 2019-05-05 Outpatient CHRISTINE Aguilera [facility] [id number] 10:45:00 10:45:00 Mohumdaniel Frances 2018-10-13 2018-10-13 Outpatient Khani, [facility] [id number] 09:30:00 23:59:59 Mohummed 12 [facility] 2018-04-22 2018-04-22 Outpatient Khani, [facility] [id number] 11:00:00 23:59:59 Mohummed 10 [facility] 2018-04-21 2018-04-21 Outpatient Khani, [facility] [id number] 09:30:00 09:30:00 [facility] 2018-03-10 2018-03-10 Outpatient Khani, [facility] [id number] 10:30:00 23:59:59 Mohummed 09 [facility] 2018-03-01 2018-03-02 Outpatient [facility] [id number] 13:30:00 23:59:59 2018-02-25 2018-02-25 Outpatient Khani, [facility] [id number] 11:00:00 23:59:59 [facility] 2018-01-21 2018-01-21 Outpatient Silviaani, [facility] [id number] 10:45:00 10:45:[address] [place] [address] 2017-12-31 2017-12-31 Outpatient Silviaani, [facility] [id number] 11:00:00 23:59:59 [facility] 05 [facility] 2017-11-11 2017-11-11 Outpatient Silviaani, [facility] [id number] 15:30:00 15:30:00 [facility] 2017-10-29 2017-10-29 Outpatient Khani, [facility] [id number] 10:45:00 23:59:59 [facility] 2017-10-09 2017-10-09 Outpatient Khani, [facility] [id number] 10:00:00 23:59:59 Mohummed 04 [facility] 2017-10-05 2017-10-06 Outpatient [facility] [id number] 09:43:00 23:59:59 2017-10-02 2017-10-03 Outpatient [facility] [id number] 15:31:00 23:59:59 2017-09-29 2017-09-29 Outpatient Khani, [facility] [id number] 11:00:00 23:59:59 Mohummed 01 Radwan 2017-09-29 2017-09-29 Outpatient Ale [facility] [id number] 11:00:00 23:59:59 Mohummed 01 Radwan 2017-09-22 2017-09-22 Outpatient lAe [facility] [id number] 11:30:00 23:59:59 Mohummed 02 Radwan 2017-09-15 2017-09-15 Outpatient Ale [facility] [id number] 10:30:00 23:59:59 Mohummed 00 Radwan Results Test Description Test Time Test Comments Results Result Sourc e Comments - XR FLUORO NDL 2018-11-25 Patient Name: 11:55:00 DOM JUÁREZ Unit No: [id number] EXAMS: CPT CODE: [id number] XR FLUORO NDL [id number] FLUOROSCOPICALLY GUIDED RIGHT PLANTAR FASCIA STEROID INJECTION [...] Blevins MD; Azar Donovan MD Technologist: SUZANNE GARCIA(R); RT. Maikol(R) Transcribed D/ (5430) MicheleGVG [facility] NAME: DOM JUÁREZ [address] [facility] PHYS: Gold Esposito : 1945 AGE: 73 SEX: M [place], [place] [address] LOC: Y.RAD PHONE #: [phone] EXAM DATE: 11/24/2018 STATUS: DEP CLI FAX #: [phone] RAD #: D/C DT PAGE 1 Signed Report Patient Name: DOM JUÁREZ Unit No: [id number] EXAMS: CPT CODE: [id number] XR FLUORO NDL 68953 <Continued> Orig Print D/T: S: 11/25/2018 (1686) [facility] NAME: DOM JUÁREZ [address] [facility] PHYS: Gold Esposito : 1945 AGE: 73 SEX: M [place], [place] [address] LOC: Y.RAD PHONE #: [phone] EXAM DATE: 11/24/2018 STATUS: DEP CLI FAX #: [phone] RAD #: D/C DT PAGE 2 Signed Report - XR FLUORO NDL 2018-11-25 Patient Name: 11:55:00 DOM JUÁREZ Unit No: [id number] EXAMS: CPT CODE: [id number] XR FLUORO NDL 66546 FLUOROSCOPICALLY GUIDED RIGHT PLANTAR FASCIA STEROID INJECTION [...] time was used on this exam. at 1152 Reported and signed by: Broderick Rbob MD CC: Gold Blevins MD; Azar Donovan MD Technologist: SUZANNE DUGAN RT(R); Renetta Petit RT.(R) Transcribed D/ (0179) Abraham.GVG [facility] NAME: DOM JUÁREZ [address] [facility] PHYS: Gold Esposito : 1945 AGE: 73 SEX: M [place] [address] LOC: Y.RAD PHONE #: [phone] EXAM DATE: 11/24/2018 STATUS: DEP CLI FAX #: [phone] RAD #: D/C DT PAGE 1 Signed Report Patient Name: DOM JUÁREZ Unit No: [id number] EXAMS: CPT CODE: [id number] XR FLUORO NDL 82063 <Continued> Orig Print D/T: S: 11/25/2018 (7300) [facility] NAME: DOM JUÁREZ [address] [facility] PHYS: Gold Esposito : 1945 AGE: 73 SEX: M [place] [address] LOC: Y.RAD PHONE #: [phone] EXAM DATE: 11/24/2018 STATUS: DEP CLI FAX #: [phone] RAD #: D/C DT PAGE 2 Signed Report URINALYSIS COMPLETE 2018-11-16 12:43:00 Test Item Value Reference Range Interpretation Comme nts UA COLOR (test code = COLU) YELLOW YELLOW UA APPEARANCE (test code = APPU) CLEAR CLEAR UA GLUCOSE DIPSTICK (test code = DGLUU) NEGATIVE NEGATIVE UA BILIRUBIN DIPSTICK (test code = BILU) NEGATIVE NEGATIVE UA KETONE DIPSTICK (test code = KETU) NEGATIVE mg/dL NEGATIVE UA SPECIFIC GRAVITY (test code = SGU) 1.010 1.003-1.035 UA BLOOD DIPSTICK (test code = YVETTE) NEGATIVE NEGATIVE UA PH DIPSTICK (test code = SHAMA) 5.5 >6.5 UA PROTEIN DIPSTICK (test code = PROU) NEGATIVE mg/dL NEG UA UROBILINIOGEN DIPSTICK (test code = URO) 0.2 mg/dL NORM UA NITRITE DIPSTICK (test code = WINSTON) NEGATIVE NEG UA LEUKOCYTE ESTERASE DIPSTICK (test code = LEUU) NEGATIVE NEGA TIVE UA WBC (test code = WBCU) <5.0 /HPF 0-2 UA RBC (test code = RBCU) NONE SEEN /HPF 0-2 UA EPITHELIAL CELLS (test code = EPIU) NONE SEEN /HPF 0-2 UA BACTERIA (test code = BACU) RARE /HPF NONE PROTHROMBIN [id number] 12:38:00 Test Item Value Reference Range Interpretation Comments PROTHROMBIN TIME 12.0 secs 10.1-12.5 N PATIENT (test code = PTP) INTERNATIONAL NORMAL 1.06 <2.0 RECOMME NDED THERAPEUTIC RATIO (test code = RANGE FOR ORAL INR) ANTICOAGULANTTR EATMENT: CONDI TION INRProphylaxis of venous thrombos is in 2.0 - 3.0 high-risk medic al or surgical patientsTreatme nt of venous thrombos is 2.0 - 3.0Prevention o f embolism 2.0 - 3.0Prevention o f recurrent embol ism, or 3.0 - 4. 5 patients with mechanical pros thetic intravascular v trujillo IS PATIENT ON ANTICOAGULANTS ? YLIST ANTICOAGULANT/ANTI PLT MEDICATION : AspirinHas Lab been notified if Patient is on Heparin Drip? NOIf Yes, order CBC, OCCULT BLOOD, PT every other day NTHROMBOPLASTIN TIME [id number] 12:38:00 Test Item Value Reference Range Interpretation Comments PTT ACTIVATED (test code = APTT) 30.6 secs 24.9-37.0 N IS PATIENT ON ANTICOAGULANTS ? YLIST ANTICOAGULANT/ANTI PLT MEDICATION : AspirinHas Lab been notified if Patient is on Heparin Drip? NOIf Yes, order CBC, OCCULT BLOOD, PT every other day NCOMPREHENSIVE METABOLIC [id number] 12:29:00 Test Item Value Reference Range Interpretation Comments SODIUM (test code = 139 mmol/L 136-145 N NA) POTASSIUM (test code = 4.8 mmol/L 3.5-5.1 N K) CHLORIDE (test code = 101.0 mmol/L 98-107 N CL) CARBON DIOXIDE (test 28.6 mmol/L 21-32 N code = CO2) GLUCOSE (test code = 107 mg/dL 70-110 N GLU) BLOOD UREA NITROGEN 18 mg/dL 7-18 N (test code = BUN) GLOMERULAR FILTRATION 65.3 >60 Unit o f measure: RATE (test code = GFR) mL/mi n/1.73 [id number] Range:Healthy Adults >90 mL/min/1.73 m2 For Chronic Kidney Disease: St age II Mild Decrease in GFR 60-90 St age III Moderate Decrease in GFR 30-59 Stage IV Severe Decre ase in GFR 15- 29 Stage V Kidney Failure <15 CREATININE (test code 1.10 mg/dL 0.55-1.30 N = CREAT) TOTAL PROTEIN (test 6.8 g/dL 6.4-8.2 N code = PROT) ALBUMIN (test code = 3.5 g/dL 3.4-5.0 N ALB) GLOBULIN (test code = 3.3 g/dL 2.2-4.2 N GLOB) ALBUMIN/GLOBULIN RATIO 1.1 0.7-2.0 N (test code = A/G) CALCIUM (test code = 8.7 mg/dL 8.2-10.1 N CA) BILIRUBIN TOTAL (test 0.44 mg/dL 0.2-1.00 N code = BILT) SGOT/AST (test code = 18.0 U/L 15-37 N AST) SGPT/ALT (test code = 23.0 U/L 12-78 N Please note new ALT) normal range. ALKALINE PHOSPHATASE 57 U/L 46-116 N TOTAL (test code = ALKP) CBC W/AUTO [id number] 11:57:00 Test Item Value Reference Range Interpretation Comments WHITE BLOOD CELL (test code = WBC) 8.7 K/mm3 5.7-10.5 N RED BLOOD CELL (test code = RBC) 4.73 M/mm3 4.2-5.4 N HEMOGLOBIN (test code = HGB) 14.6 g/dL 12-16 N HEMATOCRIT (test code = HCT) 43.5 % 37-47 N MEAN CELL VOLUME (test code = MCV) 92 fL 80-98 N MEAN CELL HGB (test code = MCH) 30.9 pg 27-34 N MEAN CELL HGB CONCENTRATION (test 33.6 g/dL 30.8-34.1 N code = MCHC) RED CELL DISTRIBUTION WIDTH (test 13.6 % 11-16 N code = RDW) PLT (test code = PLT) 260 K/mm3 130-400 N MEAN PLATELET VOLUME (test code = 9.6 fL 8.9-12.1 N MPV) NEUTROPHIL % (test code = NT%) 59.1 % 45-70 N LYMPHOCYTE % (test code = LY%) 25.6 % 20-40 N MONOCYTE % (test code = MO%) 12.0 % 3-10 H EOSINOPHIL % (test code = EO%) 2.4 % 1-5 N BASOPHIL % (test code = BA%) 0.6 % 0.0-1.1 N NEUTROPHIL # (test code = NT#) 5.13 K/mm3 2.00-7.50 N LYMPHOCYTE # (test code = LY#) 2.22 K/mm3 1.50-4.00 N MONOCYTE # (test code = MO#) 1.04 K/mm3 0.2-0.8 H EOSINOPHIL # (test code = EO#) 0.21 K/mm3 0.04-0.4 N BASOPHIL # (test code = BA#) 0.05 K/mm3 0.02-0.10 N MANUAL DIFF REQUIRED (test code = NO MANUAL DIFF MDIFF) PLATELET MORPHOLOGY REQUIRED (test NORMAL code = PLTMR) COMPREHENSIVE METABOLIC [id number] 11:30:00 Test Item Value Reference Range Interpretation Comments SODIUM (test code = NA) 137 mmol/L 136-145 N POTASSIUM (test code = 4.6 mmol/L 3.5-5.1 N K) CHLORIDE (test code = 99.0 mmol/L 98-107 N CL) CARBON DIOXIDE (test 32.4 mmol/L 21-32 H code = CO2) GLUCOSE (test code = 112 mg/dL 70-110 H GLU) BLOOD UREA NITROGEN 16 mg/dL 7-18 N (test code = BUN) GLOMERULAR FILTRATION 71.2 >60 Unit o f measure: RATE (test code = GFR) mL/mi n/1.73 [id number] Range:Healthy Adults >90 mL/min/1.73 m2 For Chronic Kidney Disease: St age II Mild Decrease in GFR 60-90 St age III Moderate Decrease in GFR 30-59 Stage IV Severe Decre ase in GFR 15- 29 Stage V Kidney Failure <15 CREATININE (test code = 1.02 mg/dL 0.55-1.30 N CREAT) TOTAL PROTEIN (test 7.0 g/dL 6.4-8.2 N code = PROT) ALBUMIN (test code = 3.6 g/dL 3.4-5.0 N ALB) GLOBULIN (test code = 3.4 g/dL 2.2-4.2 N GLOB) ALBUMIN/GLOBULIN RATIO 1.1 0.7-2.0 N (test code = A/G) CALCIUM (test code = 9.0 mg/dL 8.2-10.1 N CA) BILIRUBIN TOTAL (test 0.45 mg/dL 0.2-1.00 N code = BILT) SGOT/AST (test code = 19.0 U/L 15-37 N AST) SGPT/ALT (test code = 26.0 U/L 12-78 N Please note new ALT) normal range. ALKALINE PHOSPHATASE 62 U/L 46-116 N TOTAL (test code = ALKP) PROTHROMBIN [id number] 11:23:00 Test Item Value Reference Range Interpretation Comments PROTHROMBIN TIME 12.0 secs 10.1-12.5 N PATIENT (test code = PTP) INTERNATIONAL NORMAL 1.06 <2.0 RECOMME NDED THERAPEUTIC RATIO (test code = RANGE FOR ORAL INR) ANTICOAGULANTTR EATMENT: CONDI TION INRProphylaxis of venous thrombos is in 2.0 - 3.0 high-risk medic al or surgical patientsTreatme nt of venous thrombos is 2.0 - 3.0Prevention o f embolism 2.0 - 3.0Prevention o f recurrent embol ism, or 3.0 - 4. 5 patients with mechanical pros thetic intravascular v trujillo IS PATIENT ON ANTICOAGULANTS ? YLIST ANTICOAGULANT/ANTI PLT MEDICATION : AspirinHas Lab been notified if Patient is on Heparin Drip? NOIf Yes, order CBC, OCCULT BLOOD, PT every other day NTHROMBOPLASTIN TIME [id number] 11:23:00 Test Item Value Reference Range Interpretation Comments PTT ACTIVATED (test code = APTT) 30.9 secs 24.9-37.0 N IS PATIENT ON ANTICOAGULANTS ? YLIST ANTICOAGULANT/ANTI PLT MEDICATION : AspirinHas Lab been notified if Patient is on Heparin Drip? NOIf Yes, order CBC, OCCULT BLOOD, PT every other day NURINALYSIS [id number] 11:19:00 Test Item Value Reference Range Interpretation Comments UA COLOR (test code = COLU) YELLOW YELLOW UA APPEARANCE (test code = CLEAR CLEAR APPU) UA GLUCOSE DIPSTICK (test code NEGATIVE NEGATIVE = DGLUU) UA BILIRUBIN DIPSTICK (test NEGATIVE NEGATIVE code = BILU) UA KETONE DIPSTICK (test code NEGATIVE mg/dL NEGATIVE = KETU) UA SPECIFIC GRAVITY (test code <=1.005 1.003-1.035 = SGU) UA BLOOD DIPSTICK (test code = NEGATIVE NEGATIVE YVETTE) UA PH DIPSTICK (test code = 6.5 >6.5 SHAMA) UA PROTEIN DIPSTICK (test code NEGATIVE mg/dL NEG = PROU) UA UROBILINIOGEN DIPSTICK 0.2 mg/dL NORM (test code = URO) UA NITRITE DIPSTICK (test code NEGATIVE NEG = WINSTON) UA LEUKOCYTE ESTERASE DIPSTICK NEGATIVE NEGATIVE (test code = LEUU) UA WBC (test code = WBCU) NONE SEEN /HPF 0-2 UA RBC (test code = RBCU) NONE SEEN /HPF 0-2 UA EPITHELIAL CELLS (test code NONE SEEN /HPF 0-2 = EPIU) UA BACTERIA (test code = BACU) NONE /HPF NONE CBC W/AUTO [id number] 11:06:00 Test Item Value Reference Range Interpretation Comments WHITE BLOOD CELL (test code = WBC) 9.7 K/mm3 5.7-10.5 N RED BLOOD CELL (test code = RBC) 4.74 M/mm3 4.2-5.4 N HEMOGLOBIN (test code = HGB) 14.6 g/dL 12-16 N HEMATOCRIT (test code = HCT) 43.8 % 37-47 N MEAN CELL VOLUME (test code = MCV) 92 fL 80-98 N MEAN CELL HGB (test code = MCH) 30.8 pg 27-34 N MEAN CELL HGB CONCENTRATION (test 33.3 g/dL 30.8-34.1 N code = MCHC) RED CELL DISTRIBUTION WIDTH (test 14.4 % 11-16 N code = RDW) PLT (test code = PLT) 242 K/mm3 130-400 N MEAN PLATELET VOLUME (test code = 9.4 fL 8.9-12.1 N MPV) NEUTROPHIL % (test code = NT%) 64.9 % 45-70 N LYMPHOCYTE % (test code = LY%) 19.9 % 20-40 L MONOCYTE % (test code = MO%) 10.7 % 3-10 H EOSINOPHIL % (test code = EO%) 3.6 % 1-5 N BASOPHIL % (test code = BA%) 0.7 % 0.0-1.1 N NEUTROPHIL # (test code = NT#) 6.28 K/mm3 2.00-7.50 N LYMPHOCYTE # (test code = LY#) 1.93 K/mm3 1.50-4.00 N MONOCYTE # (test code = MO#) 1.04 K/mm3 0.2-0.8 H EOSINOPHIL # (test code = EO#) 0.35 K/mm3 0.04-0.4 N BASOPHIL # (test code = BA#) 0.07 K/mm3 0.02-0.10 N MANUAL DIFF REQUIRED (test code = NO MANUAL DIFF MDIFF) NUCLEATED RED BLOOD CELL (test 0 % 0-0 N code = NRBC)
--- OUTSIDE RECORDS SUMMARY | 2020-07-17 18:00 | XMS REPORT | Continuity of Care Document ---
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 Medical (disorder) Group Simple obesity Active Problem 07/03/2019 [facility] (disorder) [facility] Medications Medication Details Route Status Patient Ordering Order Source Instructions Provider Date metoprolol 50 mg 50 mg = 1 Active [facility] oral tablet, tab, PO, 018 Medical extended release BID, 0 Group Refill(s) Aspirin 81 MG 81 mg = 1 Active [facility] Enteric Coated tab, PO, 018 Medical Tablet Daily, # Group 90 tab, 3 Refill(s) Alprazolam 0.25 0.25 mg = Active [facility] MG Oral Tablet 1 tab, PO, 018 Medica l [Xanax] TID, PRN Group Anxiety, # 30 tab, 0 Refill(s) Fish Oil PO, 0 Active [facility] Refill(s) 018 Medical Group lisinopril 5 mg 5 mg = 1 Active [facility] oral tablet tab, PO, 018 Medical Daily, # Group 30 tab, 0 Refill(s) pantoprazole 40 40 mg = 1 Active [facility] mg oral enteric tab, PO, 018 Medical coated tablet Daily, # Group 30 tab, 0 Refill(s) hydrocortisone 25 mg = 1 Active [facility] acetate 25 MG supp, OR, 018 Medical Rectal BID, # 20 Group Suppository supp, 0 [Proctosol] Refill(s) Allergies, Adverse Reactions, Alerts Substance Category Reaction Severity Reaction Status Date Comments S ource type Reported penicillins Assertion Drug Active allergy [facility] Group Immunizations No Data Provided for This Section Results No Data Provided for This Section Pathology Reports No Data Provided for This Section Diagnostic Reports No Data Provided for This Section Consultation Notes No Data Provided for This Section Discharge Summaries No Data Provided for This Section History and Physicals No Data Provided for This Section Vital Signs Vital Sign Value Date Comments Source Systolic (mm Hg) 157 06/30/2019 [facility] Diastolic (mm Hg) 91 06/30/2019 [facility] Heart Rate 65 06/30/2019 [facility] p Temperature Oral (F) 98.4 F 06/30/2019 [facility] Height 177.8 cm 06/30/2019 [facility] p Weight 100.636 06/30/2019 [facility] BMI Calculated 31.83 06/30/2019 [facility] Gr oup BMI Calculated 32.41 10/13/2018 [facility] Weight 102.455 10/13/2018 [facility] p Height 177.8 cm 10/13/2018 [facility] p Temperature Oral (F) 97.6 F 10/13/2018 [facility] Systolic (mm Hg) 168 10/13/2018 [facility] Group Diastolic (mm Hg) 91 10/13/2018 [facility] Group Heart Rate 66 10/13/2018 [facility] p BMI Calculated 31.18 04/22/2018 [facility] Gr oup Height 180.34 cm 04/22/2018 [facility] Gr[facility] p Weight 101.42 04/22/2018 [facility] Gr[facility] p Temperature Oral (F) 97.9 F 04/22/2018 [facility] Heart Rate 64 04/22/2018 [facility] p Systolic (mm Hg) 185 04/22/2018 [facility] Diastolic (mm Hg) 90 04/22/2018 [facility] BMI Calculated 32.06 03/10/2018 [facility] Gr oup Weight 101.364 03/10/2018 [facility] p Height 177.8 cm 03/10/2018 [facility] p Systolic (mm Hg) 143 03/10/2018 [facility] Group Diastolic (mm Hg) 90 03/10/2018 [facility] Temperature Oral (F) 97.4 F 03/10/2018 [facility] Heart Rate 62 03/10/2018 [facility] Gr[facility] p Height 177.8 cm 02/25/2018 [facility] Gr[facility] p Weight 100.136 02/25/2018 [facility] Gr[facility] p BMI Calculated 31.68 02/25/2018 [facility] Gr oup Systolic (mm Hg) 159 02/25/2018 [facility] Group Diastolic (mm Hg) 83 02/25/2018 [facility] Group Temperature Oral (F) 97.6 F 02/25/2018 [facility] Heart Rate 67 02/25/2018 Medical Grou p BMI Calculated 30.9 10/29/2017 Medical Gr oup Weight 100.5 10/29/2017 Medical Grou p Systolic (mm Hg) 148 10/29/2017 [facility] Group Diastolic (mm Hg) 81 10/29/2017 [facility] Group Temperature Oral (F) 97.4 F 10/29/2017 [facility] Heart Rate 65 10/29/2017 Medical Grou p Height 180.34 cm 10/29/2017 Medical Grou p Weight 101.773 10/09/2017 [facility] Gr[facility] p BMI Calculated 31.29 10/09/2017 Medical Gr oup Height 180.34 cm 10/09/2017 Medical Grou p Temperature Oral (F) 98.3 F 10/09/2017 [facility] Systolic (mm Hg) 150 10/09/2017 [facility] Group Diastolic (mm Hg) 89 10/09/2017 [facility] Group Respitory Rate 18 10/09/2017 Medical Gr oup Heart Rate 65 10/09/2017 Medical Grou p Height 180.34 cm 09/29/2017 [facility] p BMI Calculated 31.17 09/29/2017 Medical Gr oup Weight 101.364 09/29/2017 Medical Grou p Temperature Oral (F) 97.7 F 09/29/2017 [facility] Heart Rate 63 09/29/2017 Medical Grou p Respitory Rate 18 09/29/2017 [facility] Gr oup Systolic (mm Hg) 158 09/29/2017 [facility] Group Diastolic (mm Hg) 99 09/29/2017 [facility] Group BMI Calculated 31.74 09/22/2017 Medical Gr oup Weight 103.227 09/22/2017 Medical Grou p Height 180.34 cm 09/22/2017 [facility] Grou p Systolic (mm Hg) 116 09/22/2017 Medical Group Diastolic (mm Hg) 89 09/22/2017 [facility] Group Respitory Rate 18 09/22/2017 Medical Gr oup Temperature Oral (F) 98.5 F 09/22/2017 [facility] Heart Rate 66 09/22/2017 Medical Grou p Systolic (mm Hg) 155 09/15/2017 [facility] Group Diastolic (mm Hg) 94 09/15/2017 [facility] Group Heart Rate 64 09/15/2017 Medical Grou p Respitory Rate 18 09/15/2017 Medical Gr oup Temperature Oral (F) 98.4 F 09/15/2017 [facility] Encounters Location Location Encounter Encounter Reason Attending ADM NE Stat us Source Details Type Number For Provider Date Date Visit Outpatient [id number] [facility] Outpatient [id number] [facility] 09/15 09/16 [facility] [place] [facility] [id number] [facility] 09/22 [facility] Outpatient [id number] [facility] 09/22 09/23 [facility] [place] Out[facility] [id number] [facility] 09/29 [facility] Outpatient [id number] [facility] 09/29 09/30 [facility] Phone [phone] 10/02 10/04 General [facility] Phone [phone] 10/05 10/07 [facility] [place] Outpatient [id number] [facility] 10/09 [facility] Outpatient [id number] [facility] 10/09 10/10 [facility] [place] Outpatient [id number] [facility] 10/29 [facility] Outpatient [id number] [facility] 10/29 10/30 [facility] [place] Outpatient [id number] [facility] 11/11 [facility] Ambulatory [id number] [facility] 11/11 11/11 General Pre-Reg [facility] [place] Outpatient [id number] [facility] 12/31 [facility] [id number] [facility] 12/31 01/01 MH General [facility] [place] Outpatient [id number] [facility] 01/21 [facility] [place] [facility] [id number] [facility] 01/21 01/21 MH General Pre-Reg [facility] [place] Outpatient [id number] [facility] 02/25 [facility] [place] [facility] Outpatient [id number] [facility] 02/25 02/26 MH Specialty [facility] Phone [phone] 03/01 03/03 MH Specialty Message [facility] Outpatient [id number] [facility] 03/10 [facility] [id number] [facility] 03/10 03/11 MH Specialty [facility] Outpatient [id number] [facility] 04/21 [facility] [id number] [facility] 04/21 04/21 MH Specialty Pre-Reg [facility] Outpatient [id number] [facility] 04/22 [facility] [id number] [facility] 04/22 04/23 MH Specialty [facility] Outpatient [id number] [facility] 10/13 [facility] Outpatient [id number] [facility] 10/13 10/14 MH Specialty [facility] Outpatient [id number] [facility] 04/14 [facility] [place] [facility] Ambulatory [id number] [facility] 05/05 05/05 MH Specialty Pre-Reg [facility] [place] [facility] Outpatient [id number] [facility] 06/30 [facility] [place] [facility] Outpatient [id number] [facility] 06/30 07/01 Specialty [facility] [place] [facility] Procedures Procedure Code Date Perfomer Comments Source Anoscopy; 63132 04/22/2018 Medical diagnostic, Group including collection of specimen(s) by brushing or washing, when performed (separate procedure) Hemorrhoidectomy, 37106 02/25/2018 [facility] internal, by Group rubber band ligation(s) Open heart [id number] Medical surgery Group Assessment and Plan No Data Provided for This Section Plan of Care No Data Provided for This Section Social History Social History Date Source Social History TypeResponse 06/30/2019 [facility]oup Smoking Status Never smoker; Exposure to Tobacco Smoke None; Cigarette Smoking Last 365 Days No; Reg Smoking Cessation Counseling No entered on: 06/30/19 Family History No Data Provided for This Section Advance Directives No Data Provided for This Section Functional Status No Data Provided for This Section
--- NOTE | 2020-07-17 18:40 | RAD REPORT ---
EXAM DESCRIPTION: RAD - Chest Single View - 07/17/2020 6:32 pm CLINICAL HISTORY: FEVER, weakness, dysuria COMPARISON: Two view chest August 2019 TECHNIQUE: AP portable chest image was obtained 07/17/2020 6:32 pm . FINDINGS: Lungs are clear. Heart and vasculature are normal. No measurable pleural effusion and no p neumothorax. No acute bony abnormality seen. No acute aortic findings suspected. IMPRESSION: No acute cardiopulmonary process. No significant change from comparison study.
[2020-07-17 18:43] LABS: Urine Blood NEGATIVE (NEG); Urine Glucose NEGATIVE (NEG); Urine Protein NEGATIVE (NEG); Urine Specific Gravity 1.025 (1.005-1.030)
[2020-07-17 18:47] LABS: Absolute Lymphocytes (CBC) 0.7 K/uL (0.7-4.9); Basophils % 0.5 % (0-1.3); Hematocrit 42.3 % (39.6-49.0); Lymphocytes % 8.7 % (15.3-44.8); MPV 7.9 fL (7.6-11.3); RBC Red Blood Cell Count 4.87 M/uL (4.33-5.43)
[2020-07-17 18:50] LABS: Protime INR 1.11
[2020-07-17] MEDS ORDERED: NA CHLORIDE 0.9% 3,000 ML ONE (18:55)
[2020-07-17 19:07] LABS: ALT/SGPT 154 U/L (12-78); AST/SGOT 203 U/L (15-37); Albumin 3.4 g/dL (3.4-5.0); Alkaline Phosphatase 122 U/L (45-117); BUN Blood Urea Nitrogen 19 mg/dL (7-18); Bicarbonate 27 mmol/L (21-32); Bilirubin Direct 0.5 mg/dL (0-0.2); Bilirubin Total 0.9 mg/dL (0.2-1.0); Glucose Level 146 mg/dL (74-106); NT PRO-BNP 173 pg/mL (<450); Potassium 3.9 mmol/L (3.5-5.1); Protein, Total 7.4 g/dL (6.4-8.2); Sodium Level 137 mmol/L (136-145); Troponin (Emerg Dept Use Only) < 0.02 ng/mL (0.0-0.045)
[2020-07-17 19:10] LABS: Urine Bacteria <20 /HPF (NONE SEEN); Urine RBC <5 /HPF (NONE SEEN)
[2020-07-17 19:48] LABS: Blood Morphology Comment NOT SEEN (NOT SEEN); Platelet Estimate DECR; White Blood Cell Scan OK (OK)
[2020-07-17] MEDS ORDERED: CEFEPIME/SWI 1gm 10 ML ONE (20:13)
--- NOTE | 2020-07-17 20:24 | RAD REPORT ---
EXAM DESCRIPTION: CT - Abdomen Pelvis W Contrast - 07/17/2020 8:03 pm CLINICAL HISTORY: elevated liver enzymes, fever COMPARISON: CT ABD PELVIS W CONTRAST dated 08/17/2015 TECHNIQUE: Biphasic, helical CT imaging of the abdomen and pelvis was performed following 100 ml non -ionic IV contrast. No oral contrast given. All CT scans are performed using dose optimization technique as appropriate and may include automated exposure control or mA/KV adjustment according to patient size. FINDINGS: No acute lung base finding. No pericardial thickening or effusion. Minimal hiatal hernia i s seen. Mild fatty infiltration of the liver is present with no focal liver lesion. No portal vein abnormalit y. Spleen and pancreas show no suspicious findings. Gallbladder and biliary tree are also without edith picious finding. Symmetric renal function is seen with no hydronephrosis or suspicious renal mass. No pyelonephritis o r acute parenchymal process. No bladder abnormalities. No adrenal abnormalities. No dilated bowel loops or bowel wall thickening. No free air, free fluid or inflammatory stranding. No mass or bulky lymphadenopathy. Patient has bilateral fat filled inguinal hernias. Disc and bony degenerative changes are present with advanced lower lumbar facet joint degenerative ch jeniffer. L4-5 central spinal stenosis is present. Less significant spinal stenosis present at L3-4. No p athologic bone process. IMPRESSION: Contrast enhanced CT abdomen and pelvis showing no acute or emergent finding. Nonacute findings detailed in the body of the report.
[2020-07-17] MEDS ORDERED: METOPROLOL XL 50 MG TAB PO ONE (20:26)
--- NOTE | 2020-07-17 20:37 | EDPHYS ---
Physician Documentation [facility] Name: London Lewis Age: 75 yrs Sex: Male : 1945 Arrival Date: 07/17/2020 Time: 18:09 Bed 5 Private MD: ED Physician Kale Thomas HPI: 07/17 18:15 This 75 yrs old Male presents to ER via EMS with complaints of Fever, Urinary cp Frequency, General Weakness. 18:15 The patient reports fever, that was measured at 106 degrees Fahrenheit. Onset: The cp symptoms/episode began/occurred today. Associated signs and symptoms: Pertinent positives: weakness of legs, Pertinent negatives: abdominal pain, chest pain, cough, diarrhea, headache, vomiting. Severity of symptoms: in the emergency department the symptoms have improved mildly. Historical: - Allergies: 18:24 PENICILLINS; jl7 - Home Meds: 18:24 aspirin 81 mg Oral TbEC 1 tab once daily [Active]; Flonase 50 mcg/actuation Nasal spsn jl7 [Active]; metoprolol tartrate 50 mg Oral tab 1 tab 2 times per day [Active]; pantoprazole 40 mg Oral TbEC 1 tab once daily [Active]; - PMHx: 18:24 Anxiety; bulging discs; GERD; Hypertension; UT; jl7 - PSHx: 18:24 CABG; cataract surgery; jl7 - Immunization history:: Adult Immunizations not up to date. - Social history:: Smoking status: Patient denies any tobacco usage or history of. ROS: 18:20 Constitutional: Positive for fever, Negative for body aches, poor PO intake. cp 18:20 Eyes: Negative for injury, pain, redness, and discharge. cp 18:20 ENT: Negative for ear pain, sore throat, difficulty swallowing, difficulty handling secretions. 18:20 Neck: Negative for pain with movement, pain at rest, stiffness. 18:20 Cardiovascular: Negative for chest pain, edema. 18:20 Respiratory: Negative for cough, shortness of breath, wheezing. 18:20 Abdomen/GI: Negative for abdominal pain, nausea, vomiting, and diarrhea. 18:20 Skin: Negative for rash. 18:20 Neuro: Negative for altered mental status, headache, syncope, weakness. 18:20 All other systems are negative. Exam: 18:25 Constitutional: The patient appears in no acute distress, alert, awake, cp non-diaphoretic, non-toxic, well developed, well nourished. 18:25 Head/Face: Normocephalic, atraumatic. cp 18:25 Eyes: Periorbital structures: appear normal, Conjunctiva: normal, no exudate, no injection, Lids and lashes: appear normal, bilaterally. 18:25 ENT: External ear(s): are unremarkable, Nose: is normal, Mouth: Lips: moist, Oral mucosa: moist, Posterior pharynx: Airway: no evidence of obstruction, patent, erythema, is not appreciated, exudate, is not appreciated. 18:25 Neck: ROM/movement: is normal, is supple, no meningismus, no nuchal rigidity. 18:25 Chest/axilla: Inspection: normal, Palpation: is normal, no crepitus, no tenderness. 18:25 Cardiovascular: Rate: tachycardic, Rhythm: regular, Edema: is not appreciated, JVD: is not appreciated. 18:25 Respiratory: the patient does not display signs of respiratory distress, Respirations: normal, no use of accessory muscles, no retractions, labored breathing, is not present, Breath sounds: are clear throughout, no decreased breath sounds, no stridor, no wheezing. 18:25 Abdomen/GI: Inspection: abdomen appears normal, Bowel sounds: active, all quadrants, Palpation: abdomen is soft and non-tender, in all quadrants. 18:25 Back: pain, is absent, ROM is normal. 18:25 Skin: no rash present. 18:25 Neuro: Orientation: to person, place \T\ time. Mentation: is normal, Motor: moves all fours, strength is normal. 18:55 ECG was reviewed by the Attending Physician. cp Vital Signs: 18:22 BP 183 / 84; Pulse 98; Resp 20; Temp 102; Pulse Ox 93% ; jl7 18:32 Weight 98.43 kg; jl7 18:55 BP 144 / 80; Pulse 95; Resp 23; Pulse Ox 93% ; Pain 0/10; jl7 19:30 BP 160 / 94; Pulse 100; Resp 20; Pulse Ox 96% on R/A; rv 20:00 BP 155 / 86; Pulse 99; Resp 18; Pulse Ox 96% on R/A; rv 20:21 Temp 99.5; ea 21:00 BP 160 / 81; Pulse 101; Resp 19; Pulse Ox 97% on R/A; rv 22:00 BP 173 / 101; Pulse 115; Resp 23; Pulse Ox 95% on R/A; rv 22:53 BP 161 / 81; Pulse 105; Resp 22; Pulse Ox 96% ; ea MDM: 18:13 Patient medically screened. cp 19:00 Differential diagnosis: viral Infection, bacterial infection, pneumonia UTI, cp meningitis, sepsis. 20:40 Data reviewed: vital signs, nurses notes, lab test result(s), EKG, radiologic studies, cp CT scan, and as a result, I will admit patient. 20:40 Physician consultation: Vinh QUINN was contacted at 20:35, regarding admission, cp to the medical/surgical unit. patient's condition. 07/17 18:12 Order name: Basic Metabolic Panel; Complete Time: 21:12 07/17 19:29 Interpretation: Normal except: GLUC 146; BUN 19; GFR 62. 07/17 18:12 Order name: CBC with Diff; Complete Time: 20:12 07/17 19:04 Interpretation: Normal except: MCV 87.0; PLT 49; SUN% 83.7; LYM% 8.7. 07/17 18:12 Order name: LFT's; Complete Time: 21:12 07/17 20:12 Interpretation: Normal except: AST 203; ALT 154; ALK 122; BILID 0.5; GLOB 4.0; A/G 0.9. 07/17 18:12 Order name: Magnesium; Complete Time: 21:12 07/17 18:12 Order name: NT PRO-BNP; Complete Time: 21:12 07/17 18:12 Order name: PT-INR; Complete Time: 19:03 07/17 18:12 Order name: Troponin (emerg Dept Use Only); Complete Time: 21:12 07/17 18:12 Order name: Procalcitonin; Complete Time: 19:29 07/17 18:12 Order name: Lactate; Complete Time: 19:29 07/17 18:12 Order name: Urine Microscopic Only; Complete Time: 19:29 07/17 18:12 Order name: Blood Culture Adult (2) 07/17 18:12 Order name: Influenza Screen (a \T\ B); Complete Time: 19:29 cp 07/17 18:34 Order name: Urine Dipstick--Ancillary (enter results); Complete Time: 19:03 bd 07/17 18:12 Order name: XRAY Chest (1 view); Complete Time: 19:03 cp 07/17 18:12 Order name: EKG; Complete Time: 18:14 cp 07/17 18:12 Order name: Cardiac monitoring; Complete Time: 18:55 cp 07/17 18:12 Order name: EKG - Nurse/Tech; Complete Time: 18:55 cp 07/17 18:12 Order name: IV Saline Lock; Complete Time: 18:55 cp 07/17 18:12 Order name: Labs collected and sent; Complete Time: 18:55 cp 07/17 19:31 Order name: US Abdomen Limited; Complete Time: 21:23 cp 07/17 19:35 Order name: CT Abd/Pelvis - IV Contrast Only; Complete Time: 20:32 cp 07/17 19:48 Order name: CBC Smear Scan; Complete Time: 20:12 EDMS 07/17 19:57 Order name: SARS-COV-2 RT PCR; Complete Time: 20:12 EDMS 07/17 20:40 Order name: Lipase; Complete Time: 21:04 EDMS 07/17 18:12 Order name: O2 Per Protocol; Complete Time: 18:55 cp 07/17 18:12 Order name: O2 Sat Monitoring; Complete Time: 18:55 cp 07/17 18:12 Order name: Urine Dipstick-Ancillary (obtain specimen); Complete Time: 18:39 cp EC:55 Rate is 94 beats/min. Rhythm is regular. IL interval is normal. QRS interval is normal. cp QT interval is normal. Interpreted by me. Reviewed by me. Administered Medications: 18:50 Drug: NS 0.9% (30 ml/kg) 30 ml/kg Route: IV; Rate: bolus; Site: right hand; jl7 22:55 Follow up: Response: No adverse reaction; IV Status: Completed infusion; IV Intake: ea 3000ml 20:20 Drug: Cefepime 1 grams Route: IVPB; Rate: 200 ml/hr; Infused Over: 30 mins; Site: right ea hand; 21:00 Follow up: Response: No adverse reaction; IV Status: Completed infusion ea 20:22 Drug: ToPROL XL (metoprolol SUCCINATE XL) 50 mg Route: PO; rv 22:55 Follow up: Response: No adverse reaction ea 21:00 Drug: vancoMYCIN 1 grams Route: IVPB; Infused Over: 2 hrs; Site: right hand; rv Disposition: 07/18 06:18 Co-signature as Attending Physician, Kale GRAHAM I agree with the assessment and anoop plan of care. Disposition: 07/17/20 20:36 Hospitalization ordered by Apollo Fernandes for Inpatient Admission. Preliminary diagnosis is Other specified sepsis. - Bed requested for Telemetry/MedSurg (Inpatient). - Status is Inpatient Admission. rv - Condition is Stable. - Problem is new. - Symptoms have improved. Signatures: Dispatcher [employer] EDMS Mandie Martin RN RN dw Anderson, Corey, MD MD cha Attema, Lee, MANAGER ADVERTISING-C MANAGER ADVERTISING-Cla1 Kale Bronson PA PA cp Leal, Jahala, MARKO ZHU jl7 Juliet Sheikh RN Phillip Pierce ea RN Charo Arreola ar5 Corrections: (The following items were deleted from the chart) 07/17 19:10 18:14 CORONAVIRUS+MR.LAB.BRZ ordered. EDMS EDMS 20:39 20:38 LIPASE+C.LAB.BRZ ordered. EDMI EDMS 22:22 20:36 Hospitalization Ordered by Apollo Fernandes DO for Inpatient Admission. Preliminary dw diagnosis is Other specified sepsis. Bed requested for Telemetry/MedSurg (Inpatient). Status is Inpatient Admission. Condition is Stable. Problem is new. Symptoms have improved. cp 22:55 22:22 07/17/2020 20:36 Hospitalization Ordered by Apollo Fernandes DO for Inpatient ar5 Admission. Preliminary diagnosis is Other specified sepsis. Bed requested for Telemetry/MedSurg (Inpatient). Status is Inpatient Admission. Condition is Stable. Problem is new. Symptoms have improved. dw 22:58 22:55 07/17/2020 20:36 Hospitalization Ordered by Apollo Fernandes DO for Inpatient rv Admission. Preliminary diagnosis is Other specified sepsis. Bed requested for Telemetry/MedSurg (Inpatient). Status is Inpatient Admission. Condition is Stable. Problem is new. Symptoms have improved. ar5
--- NOTE | 2020-07-17 20:37 | ER ---
Nurse's Notes [facility] [place] Name: London Lewis Age: 75 yrs Sex: Male : 1945 Arrival Date: 07/17/2020 Time: 18:09 Bed 5 Private MD: Diagnosis: Other specified sepsis Presentation: 07/17 18:22 Chief complaint: EMS states: Weak in the knees, fever of 106 temporal on arrival to [facility] pt's house, administered 1G Ofirmev IV in route, temp down to 102.6 just [employer]. Coronavirus screen: Client denies travel out of the [place] in the last 14 days. fever, Client presents with at least one sign or symptom that may indicate coronavirus-19. Standard/surgical mask placed on the client. Provider contacted for isolation considerations. Ebola Screen: No symptoms or risks identified at this time. Initial Sepsis Screen: Does the patient meet any 2 criteria? RR > 20 per min. Temp <36.0*C (96.8*F)) or > 38.3*C (100.9*F). HR > 90 bpm. Yes Does the patient have a suspected source of infection? Yes: Dysuria/Frequency/Urgency/UTI. Risk Assessment: Do you want to hurt yourself or someone else? Patient reports no desire to harm self or others. Onset of symptoms was July 17, 2020. Care prior to arrival: Medication(s) given: 1 G Ofirmev IV IV initiated. 20 GA, in the left hand, Glucose check: 179. Transition of care: patient was not received from another setting of care. 18:22 Method Of Arrival: EMS: [place] [id number] 18:22 Acuity: ROBERT 2 jl Triage Assessment: 18:24 General: Appears in no apparent distress. uncomfortable, Behavior is cooperative, jl7 appropriate for age, anxious. Pain: Denies pain. Neuro: Level of Consciousness is awake, alert, obeys commands, Oriented to person, place, time, situation. Cardiovascular: Patient's skin is warm and dry. Respiratory: Airway is patent Respiratory effort is even, unlabored, Respiratory pattern is regular, symmetrical. GI: Abdomen is round non-distended. : Reports urinary frequency. Derm: Skin is pink, warm \T\ dry. Historical: - Allergies: 18:24 PENICILLINS; jl7 - Home Meds: 18:24 aspirin 81 mg Oral TbEC 1 tab once daily [Active]; Flonase 50 mcg/actuation Nasal spsn jl7 [Active]; metoprolol tartrate 50 mg Oral tab 1 tab 2 times per day [Active]; pantoprazole 40 mg Oral TbEC 1 tab once daily [Active]; - PMHx: 18:24 Anxiety; bulging discs; GERD; Hypertension; FL; jl7 - PSHx: 18:24 CABG; cataract surgery; jl7 - Immunization history:: Adult Immunizations not up to date. - Social history:: Smoking status: Patient denies any tobacco usage or history of. Screenin:30 Abuse screen: Denies threats or abuse. Denies injuries from another. Nutritional jl7 screening: No deficits noted. Tuberculosis screening: No symptoms or risk factors identified. Fall Risk IV access (20 points). Gait- Weak (10 pts.). Mental Status- Oriented to own ability (0 pts). Total Baez Fall Scale indicates Low Risk Score (25-44 pts). Fall prevention measures have been instituted. Side Rails Up X 2 Placed close to Nursing Station Frequent Obs/Assesments occuring Family Present and informed to notify staff if they need to leave bedside As available Patient and Family Educated on Fall Prevention Program and strategies. Assessment: 18:30 General: See triage assessment. jl7 19:00 General: Appears in no apparent distress. Behavior is appropriate for age. Neuro: Level ea of Consciousness is awake, alert, obeys commands, Oriented to person, place, time, situation. Respiratory: Airway is patent Respiratory effort is even, unlabored. Derm: Skin is pale, Skin temperature is warm. 19:57 Reassessment: patient to CT scan via stretcher. rv 20:38 Reassessment: Patient and/or family updated on plan of care and expected duration. Pain ea level reassessed. Patient is alert, oriented x 3, equal unlabored respirations, skin warm/dry/pink. 21:50 Reassessment: Patient and/or family updated on plan of care and expected duration. Pain ea level reassessed. Patient is alert, oriented x 3, equal unlabored respirations, skin warm/dry/pink. Awaiting on covid results. 22:53 Reassessment: Patient and/or family updated on plan of care and expected duration. Pain ea level reassessed. Patient is alert, oriented x 3, equal unlabored respirations, skin warm/dry/pink. Vital Signs: 18:22 BP 183 / 84; Pulse 98; Resp 20; Temp 102; Pulse Ox 93% ; jl7 18:32 Weight 98.43 kg; jl7 18:55 BP 144 / 80; Pulse 95; Resp 23; Pulse Ox 93% ; Pain 0/10; jl7 19:30 BP 160 / 94; Pulse 100; Resp 20; Pulse Ox 96% on R/A; rv 20:00 BP 155 / 86; Pulse 99; Resp 18; Pulse Ox 96% on R/A; rv 20:21 Temp 99.5; ea 21:00 BP 160 / 81; Pulse 101; Resp 19; Pulse Ox 97% on R/A; rv 22:00 BP 173 / 101; Pulse 115; Resp 23; Pulse Ox 95% on R/A; rv 22:53 BP 161 / 81; Pulse 105; Resp 22; Pulse Ox 96% ; ea ED Course: 18:09 Patient arrived in ED. jl7 18:10 Kale Bronson PA is PHCP. cp 18:10 Philippe Bella MD is Attending Physician. cp 18:22 Triage completed. jl7 18:24 Arm band placed on right wrist. jl7 18:25 Heriberto Tucker RN is Primary Nurse. jl7 18:30 Patient has correct armband on for positive identification. Placed in gown. Bed in low jl7 position. Call light in reach. Side rails up X2. 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 Pulse ox on. NIBP on. 18:30 Urine collected: clean catch specimen, clear. jl7 18:32 XRAY Chest (1 view) In Process Unspecified. EDMS 18:57 Report given to MARKO Oconnor. jl7 18:57 EKG done, by ED staff, reviewed by Kale LEE. jl7 20:04 CT Abd/Pelvis - IV Contrast Only In Process Unspecified. EDMS 20:36 Apollo Fernandes DO is Hospitalizing Provider. cp 20:41 Primary Nurse role handed off by Heriberto Tucker, MARKO ar5 20:45 US Abdomen Limited In Process Unspecified. EDMS 21:04 Kale Thomas MD is Attending Physician. cp 21:16 Juliet Sheikh, RN is Primary Nurse. ea 22:52 No provider procedures requiring assistance completed. Patient admitted, IV remains in ea place. Administered Medications: 18:50 Drug: NS 0.9% (30 ml/kg) 30 ml/kg Route: IV; Rate: bolus; Site: right hand; jl7 22:55 Follow up: Response: No adverse reaction; IV Status: Completed infusion; IV Intake: ea 3000ml 20:20 Drug: Cefepime 1 grams Route: IVPB; Rate: 200 ml/hr; Infused Over: 30 mins; Site: right ea hand; 21:00 Follow up: Response: No adverse reaction; IV Status: Completed infusion ea 20:22 Drug: ToPROL XL (metoprolol SUCCINATE XL) 50 mg Route: PO; rv 22:55 Follow up: Response: No adverse reaction ea 21:00 Drug: vancoMYCIN 1 grams Route: IVPB; Infused Over: 2 hrs; Site: right hand; rv Intake: 22:55 IV: 3000ml; Total: 3000ml. ea Outcome: 20:36 Decision to Hospitalize by Provider. cp 22:52 Instructed on the need for admit, Demonstrated understanding of instructions. ea 22:58 Admitted to Med/surg accompanied by nurse, via stretcher, room 219, Other sbar, ekg, rv sepsis form Report called to SOLIS ZHU 22:58 Condition: good 22:58 Patient left the ED. rv Signatures: Dispatcher [employer] EDMS Kale Bronson PA PA cp Leal, Jahala, RN RN jlJuliet Irwin, Phillip Pierce RN, ea RN RN Charo Barney banner
[2020-07-17 20:45] LABS: Lipase 92 U/L (73-393)
[2020-07-17] MEDS ORDERED: NA CHLORIDE 0.9% 250 ML ONE (20:58)
[2020-07-17] MEDS ORDERED: VANCOMYCIN 1 GM/VIAL ONE (20:58)
--- NOTE | 2020-07-17 21:13 | RAD REPORT ---
EXAM DESCRIPTION: US - Abdomen Exam Limited - 07/17/2020 8:45 pm CLINICAL HISTORY: fever, elevated liver enzymes COMPARISON: Abdomen Pelvis W Contrast dated 07/17/2020Abdomen Pelvis W Contrast dated 07/17/2020 FINDINGS: No gallstones, sludge or other abnormalities within the gallbladder lumen. Wall thickness is upper normal. No pericholecystic fluid. No common duct stone or biliary tree dilatation identified. IMPRESSION: No gallstones or sludge confirmed. No acute gallbladder finding identified. No duct stone or biliary tree dilatation.
--- NOTE | 2020-07-17 22:03 | P.HP ---
Certification for Inpatient Patient admitted to: Observation With expected LOS: <2 Midnights Patient will require the following post-hospital care: None Practitioner: I am a practitioner with admitting privileges, knowledge of patient current condition, hospital course, and medical plan of care. Services: Services provided to patient in accordance with Admission requirements found in Title 42 Section 412.3 of the Code of Federal Regulations <Vinh Avalos - Last Filed: 07/17/20 21:59> Patient admitted to: Observation <Apollo Fernandes - Last Filed: 07/18/20 08:55> Patient History Date of Service: 07/17/20 Primary Care Provider: Dr. Chan Reason for admission: Sepsis History of Present Illness: 75-year-old male with history of hypertension, CAD, GERD presents the emergency department for fever. Patient reports that he noted fever today at home and fell weak so had his called EMS. Fever was reported to be 102.6 by EMS, patient reports that he did not notice any symptoms prior to having chills and fever but when he urinated in the urinal in the emergency department he did have some mild burning. Patient's workup in the emergency department revealed white blood cell count 8.3, mild elevation to glucose 146, lactic acid 2.2, elevated AST 203 ALT 154, alk-phos 122, pro calcitonin 0.3. Patient had CT abdomen pelvis with IV contrast that was not remarkable for any acute findings but did mention fatty liver, ultrasound gallbladder negative for any acute findings. Chest x-ray clean. Fluid and COVID test negative. I was consulted for admission under observation for sepsis. When I saw the patient in the ER he was awake, alert, oriented x3. Patient was mildly tachycardic with a rate around 105 after receiving sepsis fluids. No source of infection was found, thorough examination was performed if patient, abdomen soft and nontender, no signs of rash or skin lesions, neck is supple patient is without headache. Lungs are clear to auscultation. Will admit patient under observation for further evaluation and management. Repeat chest x-ray in the morning. - Past Medical/Surgical History Diabetic: No -: GERD -: HTN -: GLAUCOMA -: ARTHRITIS -: CO -: Anxiety -: Triple bypass Psychosocial/ Personal History: Patient lives at home with his - Family History Mother -: Heart disease, Cancer Father -: Heart disease Brother -: Heart disease Sister -: Heart disease - Social History Smoking Status: Never smoker Alcohol use: Yes CD- Drugs: No Caffeine use: Yes Place of Residence: Home <JunieashVinh - Last Filed: 07/17/20 21:59> Date of Service: 07/18/20 Home medications list reviewed: Yes <Apollo Fernandes - Last Filed: 07/18/20 08:55> Allergies Penicillins Allergy (Intermediate, Verified 02/24/15 17:08) Hives Home Medications: Aspirin [Ld Chewable] 81 mg PO DAILY 09/19/16 Metoprolol Tartrate [Lopressor] 50 mg PO BID 09/19/16 Pantoprazole [Protonix Tab] 40 mg PO DAILY 09/19/16 ALPRAZolam [Xanax] 0.25 mg PO DAILY PRN 07/18/20 Fluticasone [Flonase 50mcg Nasal [place]] 2 sprays NS DAILY 07/18/20 Polyethylene Glycol 3350 [Miralax] 17 gm PO DAILY PRN 07/18/20 Review of Systems 10-point ROS is otherwise unremarkable General: Fever, Chills, Weakness, Malaise <Vinh Avalos - Last Filed: 07/17/20 21:59> Physical Examination - Physical Exam General: Alert, In no apparent distress HEENT: Atraumatic, PERRLA, Mucous membr. moist/pink, EOMI, Sclerae nonicteric Neck: Supple, 2+ carotid pulse no bruit, No LAD, Without JVD or thyroid abnormality Respiratory: Clear to auscultation bilaterally, Normal air movement Cardiovascular: Regular rate/rhythm, Normal S1 S2 Gastrointestinal: Normal bowel sounds, No tenderness Musculoskeletal: No tenderness Integumentary: No rashes Neurological: Normal gait, Normal speech, Normal strength at 5/5 x4 extr, Normal tone, Normal affect - Studies Laboratory Data (last 24 hrs) 07/17/20 20:38: Lipase Cancelled 07/17/20 18:32: PT 13.1 H, INR 1.11 07/17/20 18:32: WBC 8.3, Hgb 14.1, Hct 42.3, Plt Count 49 L* 07/17/20 18:32: Sodium 137, Potassium 3.9, BUN 19 H, Creatinine 1.15, Glucose 146 H, Magnesium 2.0, Total Bilirubin 0.9, AST 203 H, ALT 154 H, Alkaline Phosph atase 122 H, Lipase 92 Microbiology Data (last 24 hrs): 07/17/20 18:32 Nasopharnyx Influenza Type A Antigen Screen - Final 07/17/20 18:32 Nasopharnyx Influenza Type B Antigen Screen - Final <Vinh Avalos - Last Filed: 07/17/20 21:59> - Studies Laboratory Data (last 24 hrs) 07/17/20 20:38: Lipase Cancelled 07/17/20 18:32: PT 13.1 H, INR 1.11 07/17/20 18:32: WBC 8.3, Hgb 14.1, Hct 42.3, Plt Count 49 L* 07/17/20 18:32: Sodium 137, Potassium 3.9, BUN 19 H, Creatinine 1.15, Glucose 146 H, Magnesium 2.0, Total Bilirubin 0.9, AST 203 H, ALT 154 H, Alkaline Phosphatase 122 H, Lipase 92 Microbiology Data (last 24 hrs): 07/17/20 18:32 Nasopharnyx Influenza Type A Antigen Screen - Final 07/17/20 18:32 Nasopharnyx Influenza Type B Antigen Screen - Final <Apollo Fernandes - Last Filed: 07/18/20 08:55> Assessment and Plan - Plan Assessment Fever, sepsis of unknown origin without severe sepsis or septic shock Hypertension GERD CAD S/P three-vessel CABG 2015 Fatty liver Plan Fever, sepsis of unknown origin without severe sepsis or septic shock: Continue with antibiotics overnight, repeat labs in the morning, repeat chest x-ray in the morning. Vital signs stable aside from mild tachycardia at this time. Patient receive sepsis fluids in the ED, a repeat lactate pending. Patient in no distress. DVT prophylaxis Lovenox 40 mg subcutaneous once daily. Hypertension: Continue metoprolol 50 mg p.o. b.i.d. GERD: Continue Protonix CAD S/P three-vessel CABG 2015: Continue aspirin Fatty liver: Recommend dietary changes. Discharge Plan: Home Plan to discharge in: 24 Hours - Advance Directives Does patient have a Living Will: No Does patient have a Durable POA for Healthcare: No - Code Status/Comfort Care Code Status Assessed: Yes Critical Care: No Time Spent Managing Pts Care (In Minutes): 55 <Vinh Avalos - Last Filed: 07/17/20 21:59> - Plan Case discussed in detail with nurse practitioner. Agree with plan of care. Patient without fever this morning. Chest x-ray shows possible right middle lobe pneumonia. Continue antibiotic therapy. Will continue monitor closely. Doubt sepsis at this time. <Apollo Fernandes - Last Filed: 07/18/20 08:55>
[2020-07-17] MEDS: NA CHLORIDE 0.9% 1,000 ML IV SCH (23:18)
[2020-07-17] MEDS ORDERED: ONDANSETRON 4 MG/2 ML VIAL IV PRN (23:18)
[2020-07-17] MEDS ORDERED: MELATONIN 5 MG TABLET PO PRN (23:18)
[2020-07-17 23:21] VITALS: BMI 32.3
[2020-07-18] MEDS: ACETAMINOPHEN 325 MG TABLET PO PRN ×3 (00:02→20:09)
[2020-07-18] MEDS ORDERED: NA CHLORIDE 0.9% 500 ML IV ONE (04:54)
--- NOTE | 2020-07-18 04:56 | P.INFCA ---
Sepsis Focused Assessment - Focused Assessment Complete? Sepsis Focused Assessment Completed?: Yes - Sepsis Screen Result Severe Sepsis: Negative Septic Shock: Negative - Evaluation Current stage of sepsis: Ruled out Reason for ruling out sepsis: Normal BP - Vital Signs Reviewed: Yes Temperature: 99.5 F - Examination Date exam was performed: 07/18/20 Time exam was performed: 01:00 Heart: Regular rate/rhythm, S1, S2 Lungs: Clear bilaterally Peripheral pulses: 3+ Normal Peripheral pulse location: Radial Capillary refill: <2 Seconds Skin examination: Normal turgor
[2020-07-18] MEDS: PANTOPRAZOLE 40MG TABLET PO SCH (05:23)
[2020-07-18 06:08] LABS: Absolute Lymphocytes (CBC) 0.6 K/uL (0.7-4.9); Basophils % 0.5 % (0-1.3); MPV 7.5 fL (7.6-11.3); RBC Red Blood Cell Count 4.51 M/uL (4.33-5.43)
[2020-07-18 06:31] LABS: Albumin 2.7 g/dL (3.4-5.0); Bilirubin Total 0.8 mg/dL (0.2-1.0); Protein, Total 5.9 g/dL (6.4-8.2)
--- NOTE | 2020-07-18 07:01 | RAD REPORT ---
EXAM DESCRIPTION: RAD - Chest Pa And Lat (2 Views) - 07/18/2020 6:23 am CLINICAL HISTORY: R/O pneumonia COMPARISON: Portable July 17 TECHNIQUE: Frontal and lateral views of the chest were obtained. FINDINGS: The lungs are normal volume. Patchy opacification is present in the medial right lung base superimposed on the right heart border. This is new or more prominent from the prior study. Atelect asis is favored but this can be monitored for developing pneumonia. Sternotomy wires are in place. Heart size is normal and central vasculature is within normal limits. No pleural effusion or pneumothorax seen. No acute bony finding noted. No aortic abnormality. IMPRESSION: Medial right base opacification new from prior imaging. This could be atelectasis or ear ly pneumonia. No failure or volume overload.
[2020-07-18 08:51] LABS: Blood Morphology Comment NOT SEEN (NOT SEEN); Platelet Estimate ADEQ
[2020-07-18] MEDS ORDERED: CEFEPIME/SWI 1gm 10 ML IV SCH (09:00)
[2020-07-18] MEDS ORDERED: CEFEPIME 1 GM/VIAL IV SCH (09:00)
--- NOTE | 2020-07-18 09:00 | P.PN ---
Subjective Date of Service: 07/18/20 Primary Care Provider: Dr. Chan Chief Complaint: Sepsis Subjective: Improving, Doing well Physical Examination - Vital Signs Temperature: 99.5 F Blood Pressure: 135/62 Pulse: 80 Respirations: 20 Pulse Ox (%): 92 - Physical Exam General: Alert, In no apparent distress, Oriented x3, Cooperative HEENT: Atraumatic Neck: Supple Respiratory: Diminished (To the right base) Cardiovascular: Normal pulses Gastrointestinal: Normal bowel sounds Neurological: Normal speech, Normal strength at 5/5 x4 extr, Normal tone, Normal affect - Studies Laboratory Data (last 24 hrs) 07/17/20 20:38: Lipase Cancelled 07/17/20 18:32: PT 13.1 H, INR 1.11 07/17/20 18:32: WBC 8.3, Hgb 14.1, Hct 42.3, Plt Count 49 L* 07/17/20 18:32: Sodium 137, Potassium 3.9, BUN 19 H, Creatinine 1.15, Glucose 146 H, Magnesium 2.0, Total Bilirubin 0.9, AST 203 H, ALT 154 H, Alkaline Phosphatase 122 H, Lipase 92 Microbiology Data (last 24 hrs): 07/17/20 18:32 Nasopharnyx Influenza Type A Antigen Screen - Final 07/17/20 18:32 Nasopharnyx Influenza Type B Antigen Screen - Final Medications List Reviewed: Yes Assessment & Plan Discharge Plan: Home Physician Review Additional Text: Impression: Fever secondary to right lobe pneumonia no sepsis Hypertension CAD with prior CABG Fatty liver with elevated liver function GERD Plan: Fever secondary to right lobe pneumonia no sepsis: Change IV antibiotic therapy to oral Levaquin.. Patient not requiring any oxygen. Will ambulate. Repeat chest x-ray shows possible early pneumonia. If the patient does well later today will consider discharge. Will reassess later to determine possible discharge Hypertension: Continue home medication CAD with prior CABG: Continue home medication Fatty liver with elevated liver function: Overall improved peer will monitor closely. This can be further evaluated as an outpatient. GERD: Continue medication Time Spent Managing Pts Care (In Minutes): 55
[2020-07-18] MEDS: ASPIRIN EC 81 MG TAB PO SCH (09:46)
[2020-07-18] MEDS: METOPROLOL TAR 50 MG TAB PO SCH ×2 (09:46→20:34)
[2020-07-18] MEDS: ENOXAPARIN 40 MG/0.4 ML SQ SCH (09:52)
[2020-07-18] MEDS: levoFLOXacin 500 MG TAB PO SCH (09:52)
[2020-07-18] MEDS: NA CHLORIDE 0.9% 1,000 ML IV SCH (09:52)
--- NOTE | 2020-07-18 12:05 | ECHO ---
HEIGHT: 5 ft 10 in WEIGHT: 225 lb 0 oz DATE OF STUDY: 07/18/[address]: Apollo Fernandes DO 2-DIMENSIONAL: YES M.MODE: YES DOPPLER: YES COLOR FLOW: YES TDS: YES PORTABLE: NO DEFINITY: NO BUBBLE STUDY: NO DIAGNOSIS: FEVER, HYPERTENSION CARDIAC HISTORY: CATHERIZATION: SURGERY: PROSTHETIC VALVE: PACEMAKER: MEASUREMENTS (cm) DIASTOLIC (NORMALS) SYSTOLIC (NORMALS) IVSd 1.0 (0.6-1.2) LA Diam (1.9-4.0) LVEF 76% LVIDd 4.7 (3.5-5.7) LVIDs 2.6 (2.0-3.5) %FS 44% LVPWd 1.2 (0.6-1.2) Ao Diam 3.4 (2.0-3.7) 2 DIMENSIONAL ASSESSMENT: RIGHT ATRIUM: NORMAL LEFT ATRIUM: NORMAL RIGHT VENTRICLE: NORMAL LEFT VENTRICLE: NORMAL TRICUSPID VALVE: NORMAL MITRAL VALVE: NORMAL PULMONIC VALVE: NORMAL AORTIC VALVE: NORMAL PERICARDIAL EFFUSION: NONE AORTIC ROOT: NORMAL LEFT VENTRICULAR WALL MOTION: NORMAL DOPPLER/COLOR FLOW: NORMAL COMMENTS: NORMAL 2D ECHOCARDIOGRAM WITH DOPPLER. NO WALL MOTION ABNORMALITY. NO EFFUSION. TECHNOLOGIST: Carey SCOTT
[2020-07-18] MEDS ORDERED: VANCOMYCIN 2.5 GM in NA CHLORIDE 0.9% 500 ML IVPB SCH (14:00)
[2020-07-18] MEDS: NACHLORIDE 0.45% 1,000 ML IV SCH ×2 (18:31→20:34)
[2020-07-19] MEDS: NACHLORIDE 0.45% 1,000 ML IV SCH ×3 (02:00→22:00)
[2020-07-19] MEDS: PANTOPRAZOLE 40MG TABLET PO SCH ×2 (06:39→20:38)
[2020-07-19 06:43] LABS: Absolute Lymphocytes (CBC) 0.9 K/uL (0.7-4.9); Basophils % 0.4 % (0-1.3); Lymphocytes % 13.7 % (15.3-44.8); MPV 7.8 fL (7.6-11.3); RBC Red Blood Cell Count 4.79 M/uL (4.33-5.43)
[2020-07-19 06:52] LABS: Albumin 2.7 g/dL (3.4-5.0); Bilirubin Total 0.7 mg/dL (0.2-1.0); Protein, Total 6.5 g/dL (6.4-8.2)
[2020-07-19] MEDS: ENOXAPARIN 40 MG/0.4 ML SQ SCH (10:41)
[2020-07-19] MEDS: ASPIRIN EC 81 MG TAB PO SCH (10:42)
[2020-07-19] MEDS: METOPROLOL TAR 50 MG TAB PO SCH ×2 (10:42→20:38)
[2020-07-19] MEDS: levoFLOXacin 500 MG TAB PO SCH (10:42)
--- NOTE | 2020-07-19 13:11 | P.PN ---
Subjective Date of Service: 07/19/20 Primary Care Provider: Dr. Chan Chief Complaint: Sepsis Subjective: Improving, Doing well (T-max 101.5) Physical Examination - Vital Signs Temperature: 97.7 F Blood Pressure: 160/77 Pulse: 75 Respirations: 17 Pulse Ox (%): 96 - Physical Exam General: Alert, In no apparent distress, Oriented x3, Cooperative HEENT: Atraumatic Neck: Supple Respiratory: Clear to auscultation bilaterally, Normal air movement Cardiovascular: Normal pulses, Regular rate/rhythm Gastrointestinal: Normal bowel sounds, No tenderness, No masses, No rebound, No guarding Neurological: Normal speech, Normal strength at 5/5 x4 extr, Normal tone, Normal affect - Studies Medications List Reviewed: Yes Assessment & Plan Discharge Plan: Home Plan to discharge in: 24 Hours Physician Review Additional Text: Impression: Fever secondary to right lobe pneumonia no sepsis with bacteremia Hypertension CAD with prior CABG Fatty liver with elevated liver function GERD Plan: Fever secondary to right lobe pneumonia no sepsis with back drain: Patient on oral Levaquin. Patient also on IV vancomycin as blood cultures were positive. Await final results. Patient not requiring oxygen. Continue monitor closely. Will have physical therapy ambulate. Patient still feels fatigued. T-max 101.5. Anticipate improvement over the next 24 hr. Hypertension: Continue home medication CAD with prior CABG: Continue home medication Fatty liver with elevated liver function: Overall improved. will monitor closely. This can be further evaluated as an outpatient. GERD: Continue medication Time Spent Managing Pts Care (In Minutes): 55
[2020-07-19] MEDS: VANCOMYCIN 1.75 GM in NA CHLORIDE 0.9% 500 ML IVPB SCH (14:25)
[2020-07-20] MEDS: METOPROLOL TAR 50 MG TAB PO SCH ×2 (05:04→21:27)
[2020-07-20 06:13] LABS: Absolute Lymphocytes (CBC) 1.4 K/uL (0.7-4.9); Basophils % 0.7 % (0-1.3); Hematocrit 40.7 % (39.6-49.0); Lymphocytes % 21.9 % (15.3-44.8); MPV 8.4 fL (7.6-11.3); RBC Red Blood Cell Count 4.68 M/uL (4.33-5.43)
[2020-07-20 06:23] LABS: Magnesium 2.1 mg/dL (1.8-2.4); Potassium 3.7 mmol/L (3.5-5.1)
[2020-07-20] MEDS ORDERED: lisinopriL 10 MG TAB PO SCH (09:00)
[2020-07-20] MEDS: ASPIRIN EC 81 MG TAB PO SCH (09:05)
[2020-07-20] MEDS: ENOXAPARIN 40 MG/0.4 ML SQ SCH (09:06)
--- NOTE | 2020-07-20 10:27 | P.PN ---
Subjective Date of Service: 07/20/20 Primary Care Provider: Dr. Chan Chief Complaint: Sepsis Subjective: Improving, Doing well Physical Examination - Vital Signs Temperature: 97.3 F Blood Pressure: 182/80 Pulse: 65 Respirations: 14 Pulse Ox (%): 93 - Physical Exam General: Alert, Cooperative HEENT: Atraumatic Neck: Supple Respiratory: Clear to auscultation bilaterally, Normal air movement Cardiovascular: Normal pulses, Regular rate/rhythm Gastrointestinal: Normal bowel sounds, Soft and benign, Non-distended, No tenderness, No masses, No rebound, No guarding Neurological: Normal speech, Normal strength at 5/5 x4 extr, Normal tone, Normal affect - Studies Microbiology Data (last 24 hrs): 07/17/20 18:52 Blood - Blood Aerobic Blood Culture - Final Enterococcus Faecium 07/17/20 18:52 Blood - Blood Blood Culture Gram Stain - Final 07/17/20 18:52 Blood - Blood Anaerobic Blood Culture - Final Enterococcus Faecium 07/17/20 18:52 Blood - Blood Gram Stain - Final Medications List Reviewed: Yes Assessment & Plan Discharge Plan: Home Plan to discharge in: 72 Hours Physician Review Additional Text: Impression: Fever secondary to right lobe pneumonia with bacteremia-blood culture positive for Enterococcus Hypertension CAD with prior CABG Fatty liver with elevated liver function GERD Chronic knee pain Obesity, BMI 32.3 Plan: Fever secondary to right lobe pneumonia with bacteremia-blood culture positive for Enterococcus: Patient currently on oral Levaquin for pneumonia. Will recheck chest x-ray. Will continue with Levaquin for a total of 7 days. He is on day 2. White count within normal range. Pro calcitonin improved. No fever in 24 hr. Blood culture positive for Enterococcus. Spoke with infectious disease. This is likely GI related. Patient reports a history of hemorrhoids. He has not had a colonoscopy in the past. Patient will require PICC line and 2 weeks of IV antibiotic therapy-vancomycin. Discuss options of care including home with home antibiotics or skilled placement to continue antibiotics. He said it would be too difficult to do this at home. Therefore will consult social group worker to pursue skilled placement for IV antibiotic therapy. I was able to speak to his PCP Dr. Chan. Patient apparently called his PCP as well. He told his PCP that he would Re think about home with IV antibiotic therapy. Will Re discuss with patient later but anticipate skilled placement IV antibiotic therapy. This would also help with his mobility issues due to his chronic arthritis of the knees. Physical therapy to reassess. Repeat blood cultures obtained. Will consult infectious disease for further recommendation. Echocardiogram unremarkable. I will turn the service over to the hospitalist team tomorrow. I will go over the plan of care with him. Hypertension: Blood pressure is elevated. Continue metoprolol. Additional medication-lisinopril added. He has taken this in the past. CAD with prior CABG: Continue home medication Fatty liver with elevated liver function: Overall improved. will monitor closely. This can be further evaluated as an outpatient. GERD: Continue medication Chronic knee pain: Continue medication for pain to have surgery as an outpatient. Continue physical therapy. Obesity, BMI 32.3: Continue lifestyle modification education. Time Spent Managing Pts Care (In Minutes): 55
--- NOTE | 2020-07-20 11:39 | RAD REPORT ---
EXAM DESCRIPTION: RAD - Chest Pa And Lat (2 Views) - 07/20/2020 7:23 am CLINICAL HISTORY: follow up pneumonia Chest pain. COMPARISON: Chest Pa And Lat (2 Views) dated 07/18/2020; Chest Single View dated 07/17/2020; Chest P a And Lat (2 Views) dated 09/20/2019; Chest Single View dated 05/04/2019 FINDINGS: Mild reticular opacities in both lungs suggest atypical pneumonia. Findings appear mildly improved since prior study. The heart is normal in size. Sternotomy wires are present. IMPRESSION: Mild improvement in lung aeration is seen since comparative examination.
[2020-07-20] MEDS: VANCOMYCIN 1.75 GM in NA CHLORIDE 0.9% 500 ML IVPB SCH (13:41)
[2020-07-20] MEDS: LACTOBACILLUS/ACIDOPHILUS TAB PO SCH ×2 (15:47→21:26)
--- NOTE | 2020-07-20 15:58 | RAD REPORT ---
EXAM DESCRIPTION: US - Extrem Venous W Compress Isaiah - 07/20/2020 3:44 pm CLINICAL HISTORY: LLE swelling Bilateral leg edema and swelling. COMPARISON: Extrem Venous W Compress Isaiah dated 07/23/2019 TECHNIQUE: Real-time sonographic interrogation of the left and right lower extremity deep venous sys tems was performed. FINDINGS: Normal compressibility, flow augmentation, phasic flow and spontaneous flow is identified in both the left and right lower extremity deep venous systems. IMPRESSION: No sonographic evidence of left or right lower extremity deep venous thrombosis.
[2020-07-20] MEDS ORDERED: POTASSIUM CL SA 10 MEQ TAB PO ONE (16:54)
[2020-07-20] MEDS: lisinopriL 10 MG TAB PO SCH (21:28)
[2020-07-21] MEDS: METOPROLOL TAR 50 MG TAB PO SCH ×2 (04:15→20:43)
[2020-07-21] MEDS ORDERED: ALPRAZOLAM 0.25 MG TABLET PO PRN (05:23)
[2020-07-21] MEDS: PANTOPRAZOLE 40MG TABLET PO SCH (05:52)
[2020-07-21 07:28] LABS: Absolute Lymphocytes (CBC) 1.6 K/uL (0.7-4.9); Basophils % 0.4 % (0-1.3); Hematocrit 43.5 % (39.6-49.0); Lymphocytes % 21.4 % (15.3-44.8); MPV 8.5 fL (7.6-11.3); RBC Red Blood Cell Count 5.01 M/uL (4.33-5.43)
[2020-07-21 07:35] LABS: Potassium 4.2 mmol/L (3.5-5.1)
[2020-07-21] MEDS: ENOXAPARIN 40 MG/0.4 ML SQ SCH (10:49)
[2020-07-21] MEDS: levoFLOXacin 500 MG TAB PO SCH (10:49)
[2020-07-21] MEDS: ASPIRIN EC 81 MG TAB PO SCH (10:50)
[2020-07-21] MEDS: LACTOBACILLUS/ACIDOPHILUS TAB PO SCH ×3 (10:50→20:42)
[2020-07-21] MEDS: lisinopriL 10 MG TAB PO SCH ×2 (10:50→20:43)
[2020-07-21] MEDS ORDERED: HYDRALAZINE HCL 20 MG/ML VIAL IV PRN (11:12)
--- NOTE | 2020-07-21 11:30 | P.PN ---
Subjective Date of Service: 07/21/20 Primary Care Provider: Dr. Chan Chief Complaint: Sepsis Subjective: Improving (feeling better, with some anxiety. elevated BP overnight, pt attributes to anxiety regarding PICC line otherwise no acute events) Review of Systems 10-point ROS is otherwise unremarkable Physical Examination - Vital Signs Temperature: 97.9 F Blood Pressure: 184/94 Pulse: 60 Respirations: 20 Pulse Ox (%): 92 - Physical Exam General: Alert, In no apparent distress HEENT: Sclerae nonicteric Respiratory: Clear to auscultation bilaterally Cardiovascular: Regular rate/rhythm, Edema (1+) Gastrointestinal: Soft and benign, No tenderness Integumentary: No significant lesion Neurological: Normal speech, Normal affect - Studies Microbiology Data (last 24 hrs): 07/17/20 18:32 Blood - Blood Aerobic Blood Culture - Final Enterococcus Faecium 07/17/20 18:32 Blood - Blood Blood Culture Gram Stain - Final 07/17/20 18:32 Blood - Blood Anaerobic Blood Culture - Final Enterococcus Faecium 07/17/20 18:32 Blood - Blood Gram Stain - Final 07/17/20 18:52 Blood - Blood Aerobic Blood Culture - Final Enterococcus Faecium 07/17/20 18:52 Blood - Blood Blood Culture Gram Stain - Final 07/17/20 18:52 Blood - Blood Anaerobic Blood Culture - Final Enterococcus Faecium 07/17/20 18:52 Blood - Blood Gram Stain - Final Medications List Reviewed: Yes Assessment & Plan Physician Review Additional Text: Impression: Fever secondary to right lobe pneumonia with bacteremia-blood culture positive for Enterococcus Hypertension CAD with prior CABG Fatty liver with elevated liver function GERD Chronic knee pain Obesity, BMI 32.3 Plan: Fever secondary to right lobe pneumonia with bacteremia-blood culture positive for Enterococcus: continue levaquin for 7 days for possible R lobe pneumonia Blood Cx growing enterococcus, sensitivities reviewed with ID - needs 2 weeks of IV Vancomycin, pt with penicillin allergy. doxy is bacteriostatic, prefer Vanc Echo unremarkable PICC line to be placed today possible home health vs SNF, pt states he would prefer SNF if possible, do not feel safe going home to manage PICC / IV antibiotics PT/OT consulted repeat blood Cx (07/20) negative so far Hypertension: BP labile, on home metoprolol, lisinopril added on 07/20 (taken in past) may need 3rd agent CAD with prior CABG: Continue home medication Fatty liver with elevated liver function: Overall improved. will monitor closely. This can be further evaluated as an outpatient. GERD: Continue medication Chronic knee pain: Continue medication for pain to have surgery as an outpatient. Continue physical therapy. Obesity, BMI 32.3: Continue lifestyle modification education. Dispo: likely SNF on discharge, will need 14 days total of IV Vanc, (Day 1: 07/20) Time Spent Managing Pts Care (In Minutes): 35
[2020-07-21] MEDS: VANCOMYCIN 1.75 GM in NA CHLORIDE 0.9% 500 ML IVPB SCH (13:35)
[2020-07-22 05:45] LABS: Magnesium 2.2 mg/dL (1.8-2.4); Potassium 3.9 mmol/L (3.5-5.1)
[2020-07-22] MEDS: METOPROLOL TAR 50 MG TAB PO SCH ×2 (05:53→21:07)
[2020-07-22] MEDS: PANTOPRAZOLE 40MG TABLET PO SCH (05:54)
[2020-07-22] MEDS ORDERED: POTASSIUM CL SA 10 MEQ TAB PO ONE ×2 (08:34→09:00)
[2020-07-22] MEDS: AMLODIPINE 5 MG TAB PO SCH (09:00)
[2020-07-22] MEDS: ENOXAPARIN 40 MG/0.4 ML SQ SCH (09:06)
[2020-07-22] MEDS: LACTOBACILLUS/ACIDOPHILUS TAB PO SCH ×3 (09:07→21:07)
[2020-07-22] MEDS: lisinopriL 10 MG TAB PO SCH ×2 (09:08→21:08)
[2020-07-22] MEDS: levoFLOXacin 500 MG TAB PO SCH (09:09)
[2020-07-22] MEDS: ASPIRIN EC 81 MG TAB PO SCH (09:09)
--- NOTE | 2020-07-22 12:56 | P.PN ---
Subjective Date of Service: 07/22/20 Primary Care Provider: Dr. Chan Chief Complaint: Sepsis Subjective: No new changes (overall feeling well, however upset that hasn't had PICC line placed yet, also with anxiety and elevated blood pressure) Review of Systems 10-point ROS is otherwise unremarkable Physical Examination - Vital Signs Temperature: 97.3 F Blood Pressure: 130/80 Pulse: 54 Respirations: 18 Pulse Ox (%): 95 - Physical Exam General: Alert, In no apparent distress HEENT: Sclerae nonicteric Respiratory: Clear to auscultation bilaterally, Normal air movement Cardiovascular: Regular rate/rhythm, Edema (trace to left ankle) Gastrointestinal: Soft and benign, Non-distended, No tenderness Musculoskeletal: No tenderness Integumentary: No rashes Neurological: Normal speech, Normal affect - Studies Medications List Reviewed: Yes Assessment & Plan Physician Review Additional Text: Impression: Fever secondary to right lobe pneumonia with bacteremia-blood culture positive for Enterococcus Hypertension CAD with prior CABG Fatty liver with elevated liver function GERD Chronic knee pain Obesity, BMI 32.3 Plan: Fever secondary to right lobe pneumonia with bacteremia-blood culture positive for Enterococcus: continue levaquin for 7 days total for possible R lobe pneumonia Blood Cx growing enterococcus, sensitivities reviewed with ID - needs 2 weeks of IV Vancomycin, pt with penicillin allergy. doxy is bacteriostatic, prefer Vanc Echo unremarkable PICC line to be placed discussed home health vs SNF. pt prefers SNF, does not feel comfortable being discharged home with IV Abx PT/OT consulted repeat blood Cx (07/20) negative so far Hypertension: BP labile, on home metoprolol, lisinopril added on 07/20 (taken in past) added norvasc today CAD with prior CABG: Continue home medication Fatty liver with elevated liver function: Overall improved. will monitor closely. This can be further evaluated as an outpatient. GERD: Continue medication Chronic knee pain: Continue medication for pain to have surgery as an outpatient. Continue physical therapy. Obesity, BMI 32.3: Continue lifestyle modification Dispo: ideally SNF on discharge, will need 14 days total of IV Vanc, (Day 1: 07/20). SW/CM consulted Time Spent Managing Pts Care (In Minutes): 45
[2020-07-22] MEDS: VANCOMYCIN 2 GM in NA CHLORIDE 0.9% 500 ML IVPB SCH (14:33)
--- NOTE | 2020-07-22 16:38 | RAD REPORT ---
EXAM DESCRIPTION: RAD - Chest Single View - 07/22/2020 4:32 pm CLINICAL HISTORY: PICC line placement COMPARISON: August 20 FINDINGS: Portable chest was obtained following placement of a right upper extremity PICC line. PICC line follows the right subclavian vein and than extends across the midline into the brachiocepha lic vein rather than the SVC.
--- NOTE | 2020-07-22 17:58 | RAD REPORT ---
EXAM DESCRIPTION: RAD - Chest Single View - 07/22/2020 5:37 pm CLINICAL HISTORY: PICC line placement COMPARISON: July 22 FINDINGS: Portable chest was obtained following placement of a right upper extremity PICC line. The catheter tip is in the mid SVC.
[2020-07-23 06:00] LABS: Magnesium 2.1 mg/dL (1.8-2.4); Potassium 3.8 mmol/L (3.5-5.1)
[2020-07-23] MEDS: PANTOPRAZOLE 40MG TABLET PO SCH (06:03)
[2020-07-23] MEDS ORDERED: POTASSIUM CL SA 10 MEQ TAB PO ONE (09:00)
[2020-07-23] MEDS: LACTOBACILLUS/ACIDOPHILUS TAB PO SCH ×3 (09:19→21:17)
[2020-07-23] MEDS: lisinopriL 10 MG TAB PO SCH ×2 (09:19→21:16)
[2020-07-23] MEDS: ENOXAPARIN 40 MG/0.4 ML SQ SCH (09:19)
[2020-07-23] MEDS: ASPIRIN EC 81 MG TAB PO SCH (09:19)
[2020-07-23] MEDS: METOPROLOL TAR 50 MG TAB PO SCH ×2 (09:19→21:17)
[2020-07-23] MEDS: AMLODIPINE 5 MG TAB PO SCH (09:20)
[2020-07-23] MEDS: levoFLOXacin 500 MG TAB PO SCH (09:20)
[2020-07-23] MEDS: VANCOMYCIN 2 GM in NA CHLORIDE 0.9% 500 ML IVPB SCH (13:53)
[2020-07-24 00:22] VITALS: O2SAT 95
[2020-07-24] MEDS: PANTOPRAZOLE 40MG TABLET PO SCH (05:41)
[2020-07-24 06:11] LABS: Potassium 3.9 mmol/L (3.5-5.1)
[2020-07-24] MEDS: LACTOBACILLUS/ACIDOPHILUS TAB PO SCH ×2 (08:28→14:19)
[2020-07-24] MEDS: ASPIRIN EC 81 MG TAB PO SCH (08:28)
[2020-07-24] MEDS: AMLODIPINE 5 MG TAB PO SCH (08:29)
[2020-07-24] MEDS: METOPROLOL TAR 50 MG TAB PO SCH (08:29)
[2020-07-24] MEDS: lisinopriL 10 MG TAB PO SCH (08:31)
[2020-07-24] MEDS: levoFLOXacin 500 MG TAB PO SCH (08:31)
[2020-07-24] MEDS: ENOXAPARIN 40 MG/0.4 ML SQ SCH (08:32)
[2020-07-24 08:37] VITALS: BP 118/60
[2020-07-24] MEDS ORDERED: POTASSIUM CL SA 10 MEQ TAB PO ONE (09:00)
[2020-07-24 09:47] VITALS: TEMP 97.1
--- NOTE | 2020-07-24 12:22 | P.PN ---
Subjective Date of Service: 07/23/20 Subjective: No new changes, No C/O voiced, Improving Review of Systems 10-point ROS is otherwise unremarkable Physical Examination - Vital Signs Temperature: 97.1 F Blood Pressure: 118/60 Pulse: 66 Respirations: 18 Pulse Ox (%): 95 - Physical Exam General: Alert, In no apparent distress, Oriented x3 Respiratory: Clear to auscultation bilaterally, Normal air movement Cardiovascular: Regular rate/rhythm, Normal S1 S2, No murmurs Gastrointestinal: Normal bowel sounds, Soft and benign, Non-distended, No tenderness Musculoskeletal: No clubbing, No swelling, No tenderness Neurological: Sensation intact, Cranial nerves 3-12 intact Lymphatics: No axilla or inguinal lymphadenopathy - Studies Medications List Reviewed: Yes Assessment & Plan - Problems (Diagnosis) (1) Enterococcus as the cause of diseases classified elsewhere Current Visit: Yes Status: Acute (2) Bacteremia Current Visit: Yes Status: Acute (3) HTN (hypertension) Current Visit: Yes Status: Acute (4) CAD (coronary artery disease) Current Visit: Yes Status: Acute - Advance Directives Does patient have a Living Will: No Does patient have a Durable POA for Healthcare: No
--- NOTE | 2020-07-24 12:23 | P.DS ---
Discharge Date: 07/24/20 Primary Care Provider: Dr. Chan Disposition: ROUTINE DISCHARGE Discharge Condition: GOOD Reason for Admission: Sepsis - Problems (1) Enterococcus as the cause of diseases classified elsewhere Current Visit: Yes Status: Acute (2) Bacteremia Current Visit: Yes Status: Acute (3) HTN (hypertension) Current Visit: Yes Status: Acute (4) CAD (coronary artery disease) Current Visit: Yes Status: Acute Brief History of Present Illness: Pt is a 75-year-old male with history of hypertension, CAD, GERD presents the emergency department for fever. Patient reports that he noted fever today at home and fell weak so had his called EMS. Fever was reported to be 102.6 by EMS, patient reports that he did not notice any symptoms prior to having chills and fever but when he urinated in the urinal in the emergency department he did have some mild burning. Patient's workup in the emergency department revealed white blood cell count 8.3, mild elevation to glucose 146, lactic acid 2.2, elevated AST 203 ALT 154, alk-phos 122, pro calcitonin 0.3. Patient had CT abdomen pelvis with IV contrast that was not remarkable for any acute findings but did mention fatty liver, ultrasound gallbladder negative for any acute findings. Chest x-ray clean. Fluid and COVID test negative. I was consulted for admission under observation for sepsis. When I saw the patient in the ER he was awake, alert, oriented x3. Patient was mildly tachycardic with a rate around 105 after receiving sepsis fluids. No source of infection was found, thorough examination was performed if patient, abdomen soft and nontender, no signs of rash or skin lesions, neck is supple patient is without headache. Lungs are clear to auscultation. Will admit patient under observation for further evaluation and management. Repeat chest x-ray in the morning. Vital Signs/Physical Exam: Temp Pulse Resp BP Pulse Ox 97.1 F 66 18 118/60 95 07/24/20 12:21 07/24/20 12:21 07/24/20 12:21 07/24/20 12:21 07/24/20 12:21 General: Alert, In no apparent distress, Oriented x3 Laboratory Data at Discharge: WBC 7.4 K/uL (4.3-10.9) D 07/21/20 05:59 Hgb 14.6 g/dL (13.6-17.9) 07/21/20 05:59 Hct 43.5 % (39.6-49.0) 07/21/20 05:59 Plt Count 165 K/uL (152-406) 07/21/20 05:59 PT 13.1 SECONDS (9.5-12.5) H 07/17/20 18:32 INR 1.11 07/17/20 18:32 Sodium 140 mmol/L (136-145) 07/24/20 05:37 Potassium 3.9 mmol/L (3.5-5.1) 07/24/20 05:37 BUN 15 mg/dL (7-18) 07/24/20 05:37 Creatinine 1.02 mg/dL (0.55-1.3) 07/24/20 05:37 Glucose 110 mg/dL (74-106) H 07/24/20 05:37 Magnesium 2.1 mg/dL (1.8-2.4) 07/23/20 05:26 Total Bilirubin 0.7 mg/dL (0.2-1.0) 07/19/20 06:26 AST 125 U/L (15-37) H 07/19/20 06:26 ALT 144 U/L (12-78) H 07/19/20 06:26 Alkaline Phosphatase 83 U/L (45-117) 07/19/20 06:26 Lipase Cancelled 07/17/20 20:38 Home Medications: Aspirin [Ld Chewable Aspirin] 81 mg PO DAILY 09/19/16 Metoprolol Tartrate [Lopressor*] 50 mg PO BID 09/19/16 Pantoprazole [Protonix Tab*] 40 mg PO DAILY 09/19/16 ALPRAZolam [Xanax*] 0.25 mg PO DAILY PRN 07/18/20 Fluticasone [Flonase 50MCG Nasal [place]*] 2 sprays NS DAILY 07/18/20 Polyethylene Glycol 3350 [Miralax] 17 gm PO DAILY PRN 07/18/20 lisinopriL [Prinivil*] 10 mg PO BID #90 tab 07/24/20 New Medications: lisinopriL [Prinivil*] 10 mg PO BID #90 tab Patient Discharge Instructions: OK TO DC IV AND DC HOME. FOLLOW-UP WITH PCP IN 1-2 WEEKS. CALL ME AT [phone] IF ANY QUESTIONS REGARDING HOSPITAL STAY. RETURN TO THE ER IF ADDITIONAL SYMPTOMS WORSENS. FOLLOW-UP WITH DR. CHAN IN 1- 2 WEEKS Diet: AHA Activity: Fall precautions Followup: Azar Chan MD [Primary Care Provider] -
[2020-07-24] MEDS: VANCOMYCIN 2 GM in NA CHLORIDE 0.9% 500 ML IVPB SCH (14:19)
== END 2020-07-24 16:57 | DRG 194 ==
LOC: ER 17:57 → ERHOLD 21:52 → 2ND 22:53 → OBSVTOIN 07-18 13:31
PROVIDERS: ADMIT Hospitalist; ATTEND Hospitalist
PROC: 02HV33Z Insertion of Infusion Device into Superior Vena Cava, Percutaneous Approach (ICD-10-PCS; principal; 2020-07-22)
DX: J18.9 Pneumonia, unspecified organism (principal); R78.81 Bacteremia; K21.9 Gastro-esophageal reflux disease without esophagitis; K76.0 Fatty (change of) liver, not elsewhere classified; I10 Essential (primary) hypertension; G89.29 Other chronic pain; M25.569 Pain in unspecified knee; F41.9 Anxiety disorder, unspecified; I25.10 Atherosclerotic heart disease of native coronary artery without angina pectoris; E66.9 Obesity, unspecified; I25.2 Old myocardial infarction; B95.2 Enterococcus as the cause of diseases classified elsewhere; R79.89 Other specified abnormal findings of blood chemistry; Z68.32 Body mass index [BMI] 32.0-32.9, adult; Z79.82 Long term (current) use of aspirin; Z79.899 Other long term (current) drug therapy; Z95.1 Presence of aortocoronary bypass graft; Z88.0 Allergy status to penicillin; Z20.828 Contact with and (suspected) exposure to other viral communicable diseases
CPT/HCPCS: 36415; 36569; 71045; 71046; 74177; 76705; 80048; 80053; 80076; 80202; 81003; 81015; 83605; 83690; 83735; 83880; 84145; 84439; 84443; 84484; 85025; 85610; 87040; 87077; 87186; 87205; 87804; 93005; 93306; 93970; 96365; 96366; 96375; 97116; 97161; 97164; 99285; J0360; J0692; J1650; J3370; J7030; J7040; J7050; Q9967; U0003

== ENCOUNTER 2021-08-27 04:03 | Emergency (ER) | payer OTHER ==
--- OUTSIDE RECORDS SUMMARY | 2021-08-27 04:07 | XMS REPORT | Continuity of Care Document ---
:1945 Author Organization [facility] t Address [address] [place] [address] Care Team Providers Name Role Phone Unavailable Unavailable Unavailable Problems Condition Condition Condition Status Onset Resolution Last Treating Co mments Source Name Details Category Date Date Treatment Clinician Date Glaucoma Problem Resolve 2019-07-03 Me moria (disorder) d 01:00:54 l Glaucoma Basil n (disorder) Resolved Problem 07/03/2019 [facility] History of Problem Resolve 2019-07-03 Memoria gastroesop d 01:00:54 l hageal History Reubens reflux of disease gastroesop (situation hageal ) reflux disease (situation ) Resolved Problem 07/03/2019 [facility] Hypertensi Problem Resolve 2019-07-03 Memoria ve d 01:00:54 l disorder, Reubens systemic Hypertensi arterial ve (disorder) disorder, systemic arterial (disorder) Resolved Problem 07/03/2019 [facility] Myocardial Problem Resolve 2019-07-03 Memoria infarction d 01:00:54 l (disorder) Basil n Myocardial infarction (disorder) Resolved Problem 07/03/2019 [facility] Simple Problem Active 2019-07-03 Memor ia obesity 01:00:54 l (disorder) Simple Herm peggy obesity (disorder) Active Problem 07/03/2019 [facility] Asthma Problem Resolve 2019-07-03 Wilton silvia (disorder) d 01:00:54 l Asthma [facility] (disorder) Resolved Problem 07/03/2019 [facility] Allergies, Adverse Reactions, Alerts Allergy Allergy Status Severity Reaction(s) Onset Inactive Treating Comm ents Source Name Type Date Date Clinician penicill penicill Active Memori a ins ins l Reubens Social History Smoking Status Start Date Stop Date Source Social History [facility] Medications Ordered Filled Start Stop Current Ordering Indication Dosage Frequency Signature Comments Components Source Medication Medication Date Date Medication? Clinician (SIG) Name Name metoprolol 2018-0 Yes 50 mg = 1 Me moria 50 mg oral 2-20 tab, PO, l tablet, 16:54: BID, 0 Reubens extended 00 Refill(s) release Aspirin 81 2018-0 Yes 81 mg = 1 Me moria MG Enteric 2-20 tab, PO, l Coated 16:54: Daily, # [facility] Tablet 00 90 tab, 3 Refill(s) Alprazolam 2018-0 Yes 0.25 mg = Me moria 0.25 MG 2-20 1 tab, PO, l Oral Tablet 16:54: TID, PRN He rmann [Xanax] 00 Anxiety, # 30 tab, 0 Refill(s) Fish Oil 2018-0 Yes PO, 0 Memoria 2-20 Refill(s) l 16:54: [facility] 00 lisinopril 2018-0 Yes 5 mg = 1 Mem oria 5 mg oral 2-20 tab, PO, l tablet 16:54: Daily, # [facility] 00 30 tab, 0 Refill(s) pantoprazol 20180 Yes 40 mg = 1 M emoria e 40 mg 2-20 tab, PO, l oral 16:54: Daily, # [facility] enteric 00 30 tab, 0 coated Refill(s) tablet hydrocortis 20180 Yes 25 mg = 1 M emoria one acetate 2-20 supp, MA, l 25 MG 16:54: BID, # 20 Reubens Rectal 00 supp, 0 Suppository Refill(s) [Proctosol] Vital Signs Vital Name Observation Time Observation Value Comments Source Systolic (mm Hg) 2019-06-30 16:08:00 Wilton Saab Diastolic (mm Hg) 2019-06-30 16:08:00 [facility] etta Reubens Heart Rate 2019-06-30 16:08:00 [facility] Temperature Oral (F) 2019-06-30 16:08:00 98.4 F [facility] Height 2019-06-30 16:08:00 177.8 cm [facility] Weight 2019-06-30 16:08:00 [facility] BMI Calculated 2019-06-30 16:08:00 Elvira Garcia BMI Calculated 2018-10-13 14:06:00 Elvira Garcia Weight 2018-10-13 14:06:00 [facility] Height 2018-10-13 14:06:00 177.8 cm [facility] Temperature Oral (F) 2018-10-13 14:06:00 97.6 F [facility] Systolic (mm Hg) 2018-10-13 14:06:00 Wil[place] rial Reubens Diastolic (mm Hg) 2018-10-13 14:06:00 Mem [facility] Heart Rate 2018-10-13 14:06:00 [facility] BMI Calculated 2018-04-22 15:21:00 Memori al [facility] Height 2018-04-22 15:21:00 180.34 cm [facility] Weight 2018-04-22 15:21:00 [facility] Temperature Oral (F) 2018-04-22 15:21:00 97.9 F [facility] Heart Rate 2018-04-22 15:21:00 [facility] Systolic (mm Hg) 2018-04-22 15:21:00 Wil[place] rial Reubens Diastolic (mm Hg) 2018-04-22 15:21:00 Mem orial Reubens BMI Calculated 2018-03-10 15:30:00 Memori al [facility] Weight 2018-03-10 15:30:00 [facility] Height 2018-03-10 15:30:00 177.8 cm [facility] Systolic (mm Hg) 2018-03-10 15:30:00 [place] rial [facility] Diastolic (mm Hg) 2018-03-10 15:30:00 Mem [facility]rial [facility] Temperature Oral (F) 2018-03-10 15:30:00 97.4 F [facility] Heart Rate 2018-03-10 15:30:00 [facility] Height 2018-02-25 14:45:00 177.8 cm [facility] Weight 2018-02-25 14:45:00 [facility] BMI Calculated 2018-02-25 14:45:00 Memori al Reubens Systolic (mm Hg) 2018-02-25 14:45:00 [place] rial [facility] Diastolic (mm Hg) 2018-02-25 14:45:00 Mem orial [facility] Temperature Oral (F) 2018-02-25 14:45:00 97.6 F [facility] Heart Rate 2018-02-25 14:45:00 [facility] BMI Calculated 2017-10-29 15:30:00 Mem[facility] Weight 2017-10-29 15:30:00 [facility] Systolic (mm Hg) 2017-10-29 15:30:00 [place] rial [facility] Diastolic (mm Hg) 2017-10-29 15:30:00 Mem orial [facility] Temperature Oral (F) 2017-10-29 15:30:00 97.4 F [facility] Heart Rate 2017-10-29 15:30:00 [facility] Height 2017-10-29 15:30:00 180.34 cm [facility] Weight 2017-10-09 15:04:00 [facility] BMI Calculated 2017-10-09 15:04:00 Memori al [facility] Height 2017-10-09 15:04:00 180.34 cm [facility] Temperature Oral (F) 2017-10-09 15:04:00 98.3 F [facility] Systolic (mm Hg) 2017-10-09 15:04:00 [place] rial Reubens Diastolic (mm Hg) 2017-10-09 15:04:00 Mem orial [facility] Respitory Rate 2017-10-09 15:04:00 Memori al Re[facility] Heart Rate 2017-10-09 15:04:00 [facility] Height 2017-09-29 16:07:00 180.34 cm [facility] BMI Calculated 2017-09-29 16:07:00 [facility] Weight 2017-09-29 16:07:00 [facility] Temperature Oral (F) 2017-09-29 16:07:00 97.7 F [facility] Heart Rate 2017-09-29 16:07:00 [facility] Respitory Rate 2017-09-29 16:07:00 Memori [facility] Systolic (mm Hg) 2017-09-29 16:07:00 [place] rial [facility] Diastolic (mm Hg) 2017-09-29 16:07:00 Mem orial [facility] BMI Calculated 2017-09-22 17:23:00 [facility] Weight 2017-09-22 17:23:00 [facility] Height 2017-09-22 17:23:00 180.34 cm [facility] Systolic (mm Hg) 2017-09-22 17:23:00 Wilton rial Reubens Diastolic (mm Hg) 2017-09-22 17:23:00 Mem orial [facility] Respitory Rate 2017-09-22 17:23:00 Memori al Reubens Temperature Oral (F) 2017-09-22 17:23:00 98.5 F [facility] Re[facility] Heart Rate 2017-09-22 17:23:00 [facility] Systolic (mm Hg) 2017-09-15 16:40:00 [place] rial [facility] Diastolic (mm Hg) 2017-09-15 16:40:00 Mem orial [facility] Heart Rate 2017-09-15 16:40:00 [facility] Respitory Rate 2017-09-15 16:40:00 [place] al Reubens Temperature Oral (F) 2017-09-15 16:40:00 98.4 F [facility] Procedures Procedure Date / Time Performed Performing Clinician Sourc e Anoscopy; diagnostic, 2018-04-22 19:01:00 Memnamrata al [facility] including collection of specimen(s) by brushing or washing, when performed (separate procedure) Hemorrhoidectomy, 2018-02-25 14:54:00 Sandra Dumont ermpeggy internal, by rubber band ligation(s) Open heart surgery [facility] peggy Encounters Start End Encounter Admission Attending Care Care Encounter Source Date/Time Date/Time Type Type Clinicians Facility Department ID 2019-06-30 2019-07-01 Outpatient [facility]Flavo [facility] [id number] Memoria 16:30:00 05:59:59 r Specialty 14 l [facility] 2019-05-05 2019-05-05 Ambulatory nullFlavo [facility] [id number] Memoria 15:45:00 15:45:00 Pre-Reg r Specialty 13 l [facility] 2018-10-13 2018-10-14 Outpatient nullFlavo [facility] 55 [id number] Memoria 14:30:00 04:59:59 r Specialty 12 l [facility] 2018-04-22 2018-04-23 Outpatient nullFlavo [facility] 55 [id number] Memoria 16:00:00 04:59:59 r Specialty 10 l [facility] 2018-04-21 2018-04-21 Ambulatory nullFlavo [facility] 55 [id number] Memoria 14:30:00 14:30:00 Pre-Reg r Specialty 11 l [facility] 2018-03-10 2018-03-11 Outpatient nullFlavo [facility] 55 [id number] Memoria 15:30:00 04:59:59 r Specialty 09 l [facility] 2018-03-01 2018-03-03 Phone nullFlavo [facility] [id number] Memoria 18:30:00 04:59:59 Message r Specialty 02 l [facility] 2018-02-25 2018 Outpatient nullFlavo [facility] 55 [id number] Memoria 16:00:00 04:59:59 r Specialty 08 l [facility] 2018-01-21 2018-01-21 [place] [id number] Memoria 15:45:00 15:45:00 Pre-Reg r General 07 l [facility] 2017-12-31 2018-01-01 [place] [id number] Memoria 16:00:00 04:59:59 r General 05 l [facility] 2017-11-11 2017-11-11 [place] [id number] Memoria 20:30:00 20:30:00 Pre-Reg r General 06 l [facility] 2017-10-29 2017-10-30 [place] [id number] Memoria 15:45:00 04:59:59 r General 03 l [facility] 2017-10-09 2017-10-10 [place] [id number] Memoria 15:00:00 04:59:59 r General 04 l [facility] 2017-10-05 2017-10-07 Phone nullFlavo MG [id number] Memoria 14:43:00 04:59:59 Message r General 01 l [facility] 2017-10-02 2017-10-04 Phone nullFlavo MG [id number] Memoria 21:31:00 05:59:59 Message r General 00 l [facility] 2017-09-29 2017-09-30 [place] [id number] Memoria 17:00:00 05:59:59 r General 01 l [facility] 2017-09-22 2017-09-23 [place] [id number] Memoria 17:30:00 05:59:59 r General 02 l [facility] 2017-09-15 2017-09-16 [place] [id number] Memoria 16:30:00 05:59:59 r General 00 [facility] Results This patient has no known results.
[2021-08-27] MEDS ORDERED: MORPHINE 2 MG/ML SYR ONE (04:43)
[2021-08-27] MEDS ORDERED: ONDANSETRON 4 MG/2 ML VIAL ONE (04:43)
[2021-08-27] MEDS ORDERED: NA CHLORIDE 0.9% 1,000 ML ONE (04:44)
[2021-08-27] MEDS ORDERED: PANTOPRAZOLE 40 MG INJ ONE (04:44)
[2021-08-27] MEDS ORDERED: NA CHLORIDE 0.9% 500 ML ONE (04:44)
[2021-08-27 05:25] LABS: Urine Blood Negative (Negative); Urine Glucose Negative (Negative); Urine Protein Negative (Negative)
[2021-08-27 06:31] LABS: Absolute Lymphocytes (CBC) 1.7 K/uL (0.7-4.9); Hematocrit 42.8 % (39.6-49.0); Lymphocytes % 18.8 % (15.3-44.8); MPV 7.3 fL (7.6-11.3)
[2021-08-27 06:32] LABS: Protime INR 1.02
--- NOTE | 2021-08-27 07:31 | RAD REPORT ---
EXAM DESCRIPTION: RAD - Chest Single View - 08/27/2021 5:30 am CLINICAL HISTORY: Abdominal distention;Pain COMPARISON: Chest Pa And Lat (2 Views) dated 08/08/2020; Chest Single View dated 07/22/2020; Chest Si ngle View dated 07/22/2020; Chest Pa And Lat (2 Views) dated 07/20/2020 FINDINGS: Lines: None. Lungs: No evidence of edema or pneumonia. Pleural: No significant pleural effusions or pneumothorax. Cardiac: The heart size is within normal limits. Bones: No acute fractures. Other: Sternotomy. IMPRESSION: No acute cardiopulmonary disease.
--- NOTE | 2021-08-27 07:37 | RAD REPORT ---
EXAM DESCRIPTION: US - Abdomen Exam Limited - 08/27/2021 5:08 am CLINICAL HISTORY: ABD PAIN COMPARISON: Abdomen Exam Limited dated 07/17/2020 FINDINGS: The gallbladder demonstrates no gallstones. No pericholecystic fluid or gallbladder wall t hickening. The common bile duct is normal measuring 4 mm. The liver demonstrates no findings of intrahepatic biliary dilatation. IMPRESSION: Negative for cholelithiasis, acute cholecystitis, or biliary ductal dilatation.
--- NOTE | 2021-08-27 08:14 | EKG ---
Test Date: 2021-08-27 Test Time: 05:12:26 Fur Remodeler: MEASUREMENT RESULTS: Intervals: Rate: 75 IN: 160 QRSD: 98 QT: 418 QTc: 466 [place]: P: 66 IN: 160 QRS: 51 T: 64 INTERPRETIVE STATEMENTS: Normal sinus rhythm Nonspecific ST abnormality Abnormal ECG Compared to ECG 07/17/2020 18:50:55 ST (T wave) deviation now present Prolonged QT interval no longer present Electronically Signed On 08-27-21 08:13:32 [employer] by Juan Jose Spaulding
[2021-08-27 08:31] LABS: Bilirubin Direct 0.1 mg/dL (0-0.2); Bilirubin Total 0.4 mg/dL (0.2-1.0); Potassium 4.3 mmol/L (3.5-5.1); Troponin High Sensitivity 10.3 pg/mL (<58.9)
--- NOTE | 2021-08-27 09:04 | RAD REPORT ---
EXAM DESCRIPTION: CTAbdomen Pelvis Wo Contrast - 08/27/2021 8:52 am CLINICAL HISTORY: ABD PAIN COMPARISON: Abdomen Pelvis W Contrast dated 07/17/2020; CT ABD PELVIS W CONTRAST dated 08/17/2015 TECHNIQUE: CT of the abdomen and pelvis was performed. All CT scans are performed using dose optimization technique as appropriate and may include automated exposure control or mA/KV adjustment according to patient size. FINDINGS: Lower chest: Mild circumferential thickened distal esophagus. This could reflect reflux es ophagitis. Liver: No acute abnormality or suspicious lesions. Biliary: No biliary ductal dilatation. Stomach: No significant focal abnormality. Duodenum: No significant focal abnormality. Pancreas: No significant abnormality. Spleen: No significant abnormality. Adrenal: No suspicious lesions. Kidney/ureter: No hydronephrosis. No renal calculi. Retroperitoneum: No retroperitoneal adenopathy. Vascular: No aneurysm. Bowel: No significant focal abnormality. Normal appendix. Diverticulosis without diverticulitis. Peritoneum: No ascites or free air. Small fat containing inguinal hernias. Bladder: Grossly unremarkable. Reproductive: No adnexal masses. Mild prostatomegaly. Bones: No acute fracture. Multilevel degenerative changes are present in the spine. Other: n/a IMPRESSION: No acute intra-abdominal or pelvic finding. A few incidental findings as noted above.
--- NOTE | 2021-08-27 09:40 | ER ---
Nurse's Notes [facility] Name: London Lewis Age: 76 yrs Sex: Male : 1945 Arrival Date: 08/27/2021 Time: 04:06 Bed 20 Private MD: Azar Chan R Diagnosis: Epigastric pain Presentation: 08/27 04:12 Chief complaint: Patient states: woke up sick to stomach. pain in the umbilicus area lg3 and to the back. reports lots of burping. Coronavirus screen: Vaccine status: Patient reports receiving the 2nd dose of the covid vaccine. moderna x3 Client denies travel out of the [place] in the last 14 days. At this time, the client does not indicate any symptoms associated with coronavirus-19. Ebola Screen: No symptoms or risks identified at this time. Initial Sepsis Screen: Does the patient meet any 2 criteria? No. Patient's initial sepsis screen is negative. Does the patient have a suspected source of infection? No. Patient's initial sepsis screen is negative. Risk Assessment: Do you want to hurt yourself or someone else? Patient reports no desire to harm self or others. Onset of symptoms was August 27, 2021 at 03:20. 04:12 Method Of Arrival: Ambulatory lg3 04:12 Acuity: ROBERT 3 lg3 Triage Assessment: 04:15 General: Appears in no apparent distress. comfortable, Behavior is calm, cooperative. lg3 Pain: Complains of pain in umbilical area Pain radiates to lumbar area, left mid back and right mid back Pain currently is 4 out of 10 on a pain scale. at worst was 10 out of 10 on a pain scale. Neuro: Level of Consciousness is awake, alert, obeys commands, Oriented to person, place, time, situation. Cardiovascular: Patient's skin is warm and dry. Respiratory: Airway is patent Trachea midline Respiratory effort is even, unlabored, Respiratory pattern is regular, symmetrical. GI: Abdomen is round non-distended, Last BM was August 26, 2021. : No signs and/or symptoms were reported regarding the genitourinary system. Derm: No signs and/or symptoms reported regarding the dermatologic system. Historical: - Allergies: 04:15 PENICILLINS; lg3 - Home Meds: 04:15 aspirin 81 mg Oral TbEC 1 tab once daily [Active]; Flonase 50 mcg/actuation Nasal spsn lg3 [Active]; lisinopril 2.5 mg oral tab once daily [Active]; metoprolol tartrate 50 mg Oral tab 1 tab 2 times per day [Active]; pantoprazole 40 mg Oral TbEC 1 tab once daily [Active]; Xanax 0.25 mg Oral tab as needed [Active]; - PMHx: 04:15 Anxiety; bulging discs; GERD; Hypertension; NV; lg3 - PSHx: 04:15 triple bipass; left knee replacement; lg3 - Immunization history:: Adult Immunizations up to date, Client reports receiving the 2nd dose of the Covid vaccine, moderna x3. - Social history:: Smoking status: Patient denies any tobacco usage or history of. Screenin:20 Abuse screen: Denies threats or abuse. Nutritional screening: No deficits noted. lg3 Tuberculosis screening: No symptoms or risk factors identified. 04:54 Fall Risk None identified. sf1 Assessment: 04:54 GI: Bowel sounds present X 4 quads. Abd is soft Abdomen is tender to palpation in sf1 epigastric area. 07:00 Reassessment: RECD REPORT FROM [facility]. 76YO WM P/W ABDOMINAL PAIN. ALL CURRENT bp ORDERS COMPLETED. 09:00 Reassessment: No changes from previously documented assessment. Patient and/or family bp updated on plan of care and expected duration. Pain level reassessed. 10:07 Reassessment: PT D/C HOME AMBULATORY WITH FAMILY, DX WITH EPIGASTRIC PAIN Patient bp denies pain at this time. Vital Signs: 04:12 BP 158 / 88; Pulse 86; Resp 17 S; Temp 97.7(O); Pulse Ox 98% on R/A; Weight 101.6 kg lg3 (R); Height 5 ft. 10 in. (177.80 cm) (R); Pain 4/10; 05:31 BP 156 / 83; Pulse 80; Resp 18; Pulse Ox 97% on R/A; sf1 07:00 BP 145 / 63; Pulse 78; Resp 26; Pulse Ox 95% ; bp 08:00 BP 143 / 65; Pulse 75; Resp 19; Pulse Ox 96% ; bp 10:07 BP 160 / 81; Pulse 83; Resp 16; Pulse Ox 94% ; bp 04:12 Body Mass Index 32.14 (101.60 kg, 177.80 cm) lg3 Vitals: 05:31 Cardiac Rhythm Assessment Regular Sinus rhythm. sf1 ED Course: 04:06 Patient arrived in ED. es 04:06 Azar Chan MD is Private Physician. es 04:15 Triage completed. lg3 04:15 Arm band placed on right wrist. lg3 04:21 Kale Thomas MD is Attending Physician. anoop 04:37 Radu Pham, RN is Primary Nurse. sf1 04:37 Inserted saline lock: 20 gauge in right antecubital area, using aseptic technique. sf1 Blood collected. 04:38 Basic Metabolic Panel Sent. sf1 04:38 CBC with Diff Sent. sf1 04:38 LFT's Sent. sf1 04:38 Magnesium Sent. sf1 04:38 NT PRO-BNP Sent. sf1 04:38 PT-INR Sent. sf1 04:38 Troponin HS Sent. sf1 04:38 Lipase Sent. sf1 04:54 Patient has correct armband on for positive identification. Bed in low position. Call sf1 light in reach. 05:08 US Abdomen Limited In Process Unspecified. EDMS 05:18 Urine Culture Sent. sf1 05:30 XRAY Chest (1 view) In Process Unspecified. EDMS 05:31 Warm blanket given. Pillow given. sf1 06:57 Kale Bronson PA is PHCP. cp 07:04 Primary Nurse role handed off by Radu Pham, RN bp 07:04 Richard Arcos, RN is Primary Nurse. bp 08:52 Abdomen In Process Unspecified. EDMS 09:38 Golden Beaver MD is Referral Physician. cp 10:08 No provider procedures requiring assistance completed. IV discontinued, intact, bp bleeding controlled, No redness/swelling at site. Pressure dressing applied. Administered Medications: 04:53 Drug: ProTONIX (pantoprazole) 40 mg Route: IVP; Site: right antecubital; sf1 10:07 Follow up: Response: No adverse reaction bp 04:53 Not Given (Patient Refused): morphine 2 mg IVP once; (PAIN>8) RASS on ADMN: Combtv4, sf1 Very Agttd3, Agttd2, Rstlss1, AlertClm0, Drwsy-1, LtSdtn-2, ModSdtn-3, DpSdtn-4, UnArsble-5 x2 04:53 Not Given (Patient Refused): Zofran (Ondansetron) 4 mg IVP once; over 2 minutes sf1 04:54 Drug: NS 0.9% 500 ml Route: IV; Rate: bolus; Site: right antecubital; sf1 06:13 Drug: NS 0.9% 1000 ml Route: IV; Rate: 125 ml/hr; Site: right antecubital; sf1 Outcome: 09:39 Discharge ordered by MD. cp 10:08 Discharged to home ambulatory, with family. bp 10:08 Condition: stable 10:08 Discharge instructions given to patient, family, Instructed on discharge instructions, follow up and referral plans. medication usage, Demonstrated understanding of instructions, follow-up care, medications, Prescriptions given X 2. 10:09 Patient left the ED. bp Signatures: Dispatcher [employer] Kale Garcia MD MD cha Salyer, Edna es Page, Corey, PA PA cp Richard Arcos, RN RN bp Ro Gan RN RN lg3 Fillers, MARKO Nazario RN sf1 Corrections: (The following items were deleted from the chart) 08:08 07:00 Reassessment: bp bp
--- NOTE | 2021-08-27 09:40 | EDPHYS ---
Physician Documentation [facility] Name: London Lewis Age: 76 yrs Sex: Male : 1945 Arrival Date: 08/27/2021 Time: 04:06 Bed 20 Private MD: Azar Chan R ED Physician Kale Thomas HPI: 08/27 04:31 This 76 yrs old Male presents to ER via Ambulatory with complaints of anoop Abdominal Pain, Back Pain. 04:31 This 76 yrs old Male presents to ER via Ambulatory with complaints of anoop Abdominal Pain, Back Pain. 04:31 This 76 yrs old Male presents to ER via Ambulatory with complaints of Abdominal Pain, anoop Back Pain. 04:35 The patient presents with pain that is acute. The symptoms are located in the lumbar anoop area. Onset: The symptoms/episode began/occurred this morning, today. Historical: - Allergies: 04:15 PENICILLINS; lg3 - Home Meds: 04:15 aspirin 81 mg Oral TbEC 1 tab once daily [Active]; Flonase 50 mcg/actuation Nasal spsn lg3 [Active]; lisinopril 2.5 mg oral tab once daily [Active]; metoprolol tartrate 50 mg Oral tab 1 tab 2 times per day [Active]; pantoprazole 40 mg Oral TbEC 1 tab once daily [Active]; Xanax 0.25 mg Oral tab as needed [Active]; - PMHx: 04:15 Anxiety; bulging discs; GERD; Hypertension; NV; lg3 - PSHx: 04:15 triple bipass; left knee replacement; lg3 - Immunization history:: Adult Immunizations up to date, Client reports receiving the 2nd dose of the Covid vaccine, moderna x3. - Social history:: Smoking status: Patient denies any tobacco usage or history of. ROS: 04:36 Constitutional: Negative for fever, chills, and weight loss, Eyes: Negative for injury, anoop pain, redness, and discharge, ENT: Negative for injury, pain, and discharge, Neck: Negative for injury, pain, and swelling, Cardiovascular: Negative for chest pain, palpitations, and edema, Respiratory: Negative for shortness of breath, cough, wheezing, and pleuritic chest pain, Back: Negative for injury and pain, : Negative for injury, bleeding, discharge, and swelling, MS/Extremity: Negative for injury and deformity, Skin: Negative for injury, rash, and discoloration, Neuro: Negative for headache, weakness, numbness, tingling, and seizure, Psych: Negative for depression, anxiety, suicide ideation, homicidal ideation, and hallucinations, Allergy/Immunology: Negative for hives, rash, and allergies, Endocrine: Negative for neck swelling, polydipsia, polyuria, polyphagia, and marked weight changes, Hematologic/Lymphatic: Negative for swollen nodes, abnormal bleeding, and unusual bruising. 04:36 Abdomen/GI: Positive for abdominal pain, of the epigastric area, right upper quadrant and left upper quadrant. Exam: 04:36 Constitutional: This is a well developed, well nourished patient who is awake, alert, anoop and in no acute distress. Head/Face: Normocephalic, atraumatic. Eyes: Pupils equal round and reactive to light, extra-ocular motions intact. Lids and lashes normal. Conjunctiva and sclera are non-icteric and not injected. Cornea within normal limits. Periorbital areas with no swelling, redness, or edema. ENT: Nares patent. No nasal discharge, no septal abnormalities noted. Tympanic membranes are normal and external auditory canals are clear. Oropharynx with no redness, swelling, or masses, exudates, or evidence of obstruction, uvula midline. Mucous membranes moist. Neck: Trachea midline, no thyromegaly or masses palpated, and no cervical lymphadenopathy. Supple, full range of motion without nuchal rigidity, or vertebral point tenderness. No Meningismus. Chest/axilla: Normal chest wall appearance and motion. Nontender with no deformity. No lesions are appreciated. Cardiovascular: Regular rate and rhythm with a normal S1 and S2. No gallops, murmurs, or rubs. Normal PMI, no JVD. No pulse deficits. Respiratory: Lungs have equal breath sounds bilaterally, clear to auscultation and percussion. No rales, rhonchi or wheezes noted. No increased work of breathing, no retractions or nasal flaring. Back: No spinal tenderness. No costovertebral tenderness. Full range of motion. Male : Normal genitalia with no discharge or lesions. Skin: Warm, dry with normal turgor. Normal color with no rashes, no lesions, and no evidence of cellulitis. MS/ Extremity: Pulses equal, no cyanosis. Neurovascular intact. Full, normal range of motion. Neuro: Awake and alert, GCS 15, oriented to person, place, time, and situation. Cranial nerves II-XII grossly intact. Motor strength 5/5 in all extremities. Sensory grossly intact. Cerebellar exam normal. Normal gait. Psych: Awake, alert, with orientation to person, place and time. Behavior, mood, and affect are within normal limits. 04:36 Abdomen/GI: Inspection: abdomen appears normal, Bowel sounds: normal, Palpation: mild abdominal tenderness, moderate abdominal tenderness, in the epigastric area, right upper quadrant and left upper quadrant, Liver: no appreciated palpable abnormalities, Hernia: not appreciated. Vital Signs: 04:12 BP 158 / 88; Pulse 86; Resp 17 S; Temp 97.7(O); Pulse Ox 98% on R/A; Weight 101.6 kg lg3 (R); Height 5 ft. 10 in. (177.80 cm) (R); Pain 4/10; 05:31 BP 156 / 83; Pulse 80; Resp 18; Pulse Ox 97% on R/A; sf1 07:00 BP 145 / 63; Pulse 78; Resp 26; Pulse Ox 95% ; bp 08:00 BP 143 / 65; Pulse 75; Resp 19; Pulse Ox 96% ; bp 10:07 BP 160 / 81; Pulse 83; Resp 16; Pulse Ox 94% ; bp 04:12 Body Mass Index 32.14 (101.60 kg, 177.80 cm) lg3 MDM: 04:21 Patient medically screened. anoop 04:37 Differential diagnosis: Abdominal Aortic Aneurysm Cholelithiasis chronic back pain, anoop Hydronephrosis Obesity Osteoarthritis Peptic Ulcer Pyelonephritis diverticulitis, pancreatitis, urinary tract infection, vertebral fracture. Data reviewed: vital signs, nurses notes, lab test result(s), EKG, radiologic studies, CT scan, plain films, ultrasound. Data interpreted: desk monitor: rate is 86 beats/min, rhythm is regular, Pulse oximetry: on room air is 98 %. Test interpretation: by ED physician or midlevel provider: ECG, plain radiologic studies. Counseling: I had a detailed discussion with the patient and/or guardian regarding: the historical points, exam findings, and any diagnostic results supporting the discharge/admit diagnosis, lab results, radiology results, the need for outpatient follow up. 08/27 04:31 Order name: Basic Metabolic Panel [facility] 08/27 08:37 Interpretation: Normal except: GLUC 150; BUN 21; GFR 56. cp 08/27 04:31 Order name: CBC with Diff; Complete Time: 06:38 [facility] 08/27 04:31 Order name: LFT's [facility] 08/27 04:31 Order name: Magnesium [facility] 08/27 04:31 Order name: NT PRO-BNP [facility] 08/27 04:31 Order name: PT-INR; Complete Time: 06:38 [facility] 08/27 04:31 Order name: Troponin HS [facility] 08/27 04:31 Order name: XRAY Chest (1 view); Complete Time: 08:25 [facility] 08/27 04:31 Order name: Lipase [facility] 08/27 04:31 Order name: US Abdomen Limited; Complete Time: 08:25 [facility] 08/27 04:31 Order name: Urine Culture [facility] 08/27 05:25 Order name: Urine Dipstick-Ancillary; Complete Time: 05:50 EDMS 08/27 04:31 Order name: EKG; Complete Time: 04:32 [facility] 08/27 04:31 Order name: Cardiac monitoring; Complete Time: 04:54 [facility] 08/27 04:31 Order name: EKG - Nurse/Tech; Complete Time: 05:18 [facility] 08/27 04:31 Order name: IV Saline Lock; Complete Time: 04:38 [facility] 08/27 04:31 Order name: Labs collected and sent; Complete Time: 04:38 [facility] 08/27 04:31 Order name: O2 Per Protocol; Complete Time: 04:38 [facility] 08/27 04:31 Order name: O2 Sat Monitoring; Complete Time: 04:38 [facility] 08/27 04:31 Order name: Urine Dipstick-Ancillary (obtain specimen); Complete Time: 05:18 [facility] 08/27 08:48 Order name: Abdomen ; Complete Time: 09:13 EDMS Administered Medications: 04:53 Drug: ProTONIX (pantoprazole) 40 mg Route: IVP; Site: right antecubital; sf1 10:07 Follow up: Response: No adverse reaction bp 04:53 Not Given (Patient Refused): morphine 2 mg IVP once; (PAIN>8) RASS on ADMN: Combtv4, sf1 Very Agttd3, Agttd2, Rstlss1, AlertClm0, Drwsy-1, LtSdtn-2, ModSdtn-3, DpSdtn-4, UnArsble-5 x2 04:53 Not Given (Patient Refused): Zofran (Ondansetron) 4 mg IVP once; over 2 minutes sf1 04:54 Drug: NS 0.9% 500 ml Route: IV; Rate: bolus; Site: right antecubital; sf1 06:13 Drug: NS 0.9% 1000 ml Route: IV; Rate: 125 ml/hr; Site: right antecubital; sf1 Disposition Summary: 08/27/21 09:39 Discharge Ordered Location: Home cp Problem: new cp Symptoms: have improved cp Condition: Stable cp Diagnosis - Epigastric pain cp Followup: cp - With: Golden Beaver MD - When: 2 - 3 days - Reason: Recheck today's complaints Discharge Instructions: - Discharge Summary Sheet cp - Abdominal Pain, Adult cp - Esophagitis cp Forms: - Medication Reconciliation Form cp - Thank You Letter cp - Antibiotic Education cp - Prescription Opioid Use cp Prescriptions: - Protonix 40 mg Oral tablet,delayed release (DR/EC) - take 1 tablet by ORAL route every 12 hours; 60 tablet; Refills: 0, Product cp Selection Permitted - Zofran 4 mg Oral Tablet - take 1 tablet by ORAL route every 12 hours As needed; 20 tablet; Refills: 0, cp Product Selection Permitted Signatures: Dispatcher [employer] EDMS Kale Thomas MD MD cha Page, Corey PA PA cp Ro Gan RN RN lg3 Mansi Pham RN RN sf1 Richard Arcos RN bp Corrections: (The following items were deleted from the chart) 08:48 08:42 Abdomen Pelvis W Con+CT.RAD.BRZ ordered. EDMS EDMS 08:51 04:32 Abdomen Pelvis W Con+CT.RAD.BRZ ordered. EDMS EDMS
[2021-08-27 10:38] VITALS: TEMP 97.7
[2021-08-27 10:43] VITALS: BP 160/81; O2SAT 94
[2021-08-27 12:53] LABS: Magnesium 1.8
== END 2021-08-27 10:09 | disposition home or self-care (01) ==
LOC: ER 04:03
DX: R10.13 Epigastric pain (principal); K21.9 Gastro-esophageal reflux disease without esophagitis; F41.9 Anxiety disorder, unspecified; I10 Essential (primary) hypertension; Z79.82 Long term (current) use of aspirin; Z88.0 Allergy status to penicillin; Z95.1 Presence of aortocoronary bypass graft
CPT/HCPCS: 93005; 87088; 85025; 87086; 80048; 36415; 83735; 85610; 80076; 81003; 84484; 83690; 83880; 74176; 71045; 76705; 96374; 99284; C9113; J2270; J7040; J7030; J2405

== ENCOUNTER 2023-01-23 13:43 | Emergency (ER) | payer OTHER ==
--- OUTSIDE RECORDS SUMMARY | 2023-01-23 13:47 | XMS REPORT | Continuity of Care Document ---
:[address] [facility] t Address [address] [place] [address] Care Team Providers Name Role Phone Wendy Attending Clinician Unavailable Brian Leo Attending Clinician [phone] Brian Leo Attending Clinician Unavailable Chepe Aguilera Attending Clinician Wendy Admitting Clinician Unavailable Brian Leo Admitting Clinician Unavailable Payers Payer Name Policy Type Policy Number Effective Date Expiration Date Glenn morales MEDICARE [place]: [id number] 2008 [place] 00:00:00 [employer] [id number] INS[employer]ANCE [employer] (MEDICARE SUPPLEMENT) Problems Condition Condition Condition Status Onset Resolution Last Treating Co mments Source Name Details Category Date Date Treatment Clinician Date 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 6-13 Orthope knee Knee 00:00: dic 00 Sports Medicin e 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 8-31 Or thope knee joint Knee Joint 00:00: di c 00 Sports Medicin e Pain of Pain of Problem Active Kayla left ankle Left Ankle 8-13 Or thope joint Joint 00:00: dic 00 Sports Medicin e 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 3-18 Orthope Achilles Achilles 00:00: dic tendon Tendon 00 Sports Medicin e Plantar Plantar Problem Active Kayla fasciitis Fasciitis 3-18 Orth ope 00:00: dic 00 Sports Medicin e 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 1-26 Orthop e of lumbar of Lumbar 00:00: dic region Region 00 Sports Medicin e 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 8-14 Orthope osteoarthr Osteoarthr 00:00: di c itis itis 00 Sports Medicin e Myocardial Myocardial Problem Active A zalea infarction Infarction 1-18 Or thope 00:00: dic 00 Sports Medicin e Asthma Asthma Problem Active Kayla 1-18 Orthope 00:00: dic 00 Sports Medicin e 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 Osteoarthr 1-18 Or thope itis itis 00:00: dic 00 Sports Medicin e Glaucoma Glaucoma Problem Resolve 2019-07-03 Memoria (disorder) (disorder) d 01:00:54 l Resolved [facility] Problem 07/03/2019 [facility] History of History Problem Resolve 2019-07-03 Memoria gastroesop of d 01:00:54 l hageal gastroesop Basil n reflux hageal disease reflux (situation disease ) (situation ) Resolved Problem 07/03/2019 Medical Group Hypertensi Hypertens Problem Resolve 2019-07-03 Memoria ve martine d 01:00:54 l disorder, disorder, Herm peggy systemic systemic arterial arterial (disorder) (disorder) Resolved Problem 07/03/2019 Medical Group Simple Simple Problem Active 2019-07-03 [place] silvia obesity obesity 01:00:54 l (disorder) (disorder) He rmann Active Problem 07/03/2019 Medical Group Allergies, Adverse Reactions, Alerts Allergy Allergy Status Severity Reaction(s) Onset Inactive Treating Comm ents Source Name Type Date Date Clinician NSAIDS DA Active U [facility] (Non-Rl 03-26 [place] roidal 00:00: Orthope Anti-Inf 00 [facility] Penicill DA Active SV [facility] ins 03-26 00:00: Orthope 00 dic Hospita l NSAIDS DA Active U DECREASED [facility] (Non-Rl KIDNEY 03-26 [place] roidal FUNCTION 00:00: Orthope Anti-Inf 00 dic [facility] Penicill DA Active SV RASHES/KNOTS [facility] A ins 03-26 [place] 00:00: Orthope 00 dic Hospita [facility] Penicill DA Active SV [facility] ins 11-24 Clear 00:00: Thomas 00 [facility] Penicill DA Active SV [facility]ASHES/KNOTS HC A ins 11-24 Clear 00:00: Thomas 00 [facility] Penicill DA Active SV [facility] ins 11-16 00:00: Orthope 00 dic Hospita l Penicill DA Active SV [facility] ins 10-26 [facility] [place] PENICILL Allergy Active Kayla IN to Orthope substanc dic e Sports Medicin e penicill penicill Active Memori a ins ins l [place] Social History Smoking Status Start Date Stop Date Source Social History [facility] Medications Ordered Filled Start Stop Current Ordering Indication Dosage Frequency Signature Comments Components Source Medication Medication Date Date Medication? Clinician (SIG) Name Name Flonascass Flonase No Flonase Azal ea Allergy Allergy 11-24 Allergy Orthop e Relief 50 Relief 50 00:00: Relief 50 dic mcg/actuati mcg/actuati 00 mcg/actuat Sports on nasal on nasal ion nasal Me dicin spray,suspe spray,suspe spray,susp e nsion RX by nsion RX by ension RX other MD lopez MD by other lisinopril lisinopril No lisinopril Kayla 5 mg tablet 5 mg tablet 5-01 5 mg O rthope RX by other RX by other 00:00: tablet RX belia GRAHAM MD 00 by other Sports MD Jaci bowers Xanax 0.25 Xanax 0.25 No Xanax 0.25 Kayla mg tablet mg tablet 5-01 mg tablet Orthope RX by other RX by other 00:00: RX by belia Tena Voltaren 1 Voltaren 1 No Voltaren 1 Kayla % topical % topical 2-05 % topical Orthope gel apply gel apply 00:00: gel apply dic 4g to 4g to 00 4g to Sports affected affected affected Med icin area 4 area 4 area 4 e times a day times a day times a as needed as needed day as for pain for pain needed for pain metoprolol Yes 50 mg = 1 Me moria 50 mg oral 2-20 tab, PO, l tablet, 16:54: BID, 0 [facility] extended 00 Refill(s) release Aspirin 81 2018 Yes 81 mg = 1 Me moria MG Enteric 2-20 tab, PO, l Coated 16:54: Daily, # [place] Tablet 00 90 tab, 3 Refill(s) Alprazolam Yes 0.25 mg = Me moria 0.25 MG 2-20 1 tab, PO, l Oral Tablet 16:54: TID, PRN He rmann [Xanax] 00 Anxiety, # 30 tab, 0 Refill(s) Fish Oil 20180 Yes PO, 0 Memoria 2-20 Refill(s) l 16:54: [place] 00 lisinopril 20180 Yes 5 mg = 1 Mem oria 5 mg oral 2-20 tab, PO, l tablet 16:54: Daily, # [place] 00 30 tab, 0 Refill(s) pantoprazol Yes 40 mg = 1 M emoria e 40 mg 2-20 tab, PO, l oral 16:54: Daily, # [place] enteric 00 30 tab, 0 coated Refill(s) tablet hydrocortis Yes 25 mg = 1 M emoria one acetate 2-20 supp, VT, l 25 MG 16:54: BID, # 20 [facility] Rectal 00 supp, 0 Suppository Refill(s) [Proctosol] metoprolol Yes 50 mg = 1 Me moria 50 mg oral 2-20 tab, PO, l tablet, 16:54: BID, 0 [place] extended 00 Refill(s) release Aspirin 81 2018 Yes 81 mg = 1 Me moria MG Enteric 2-20 tab, PO, l Coated 16:54: Daily, # [place] Tablet 00 90 tab, 3 Refill(s) Alprazolam 0 Yes 0.25 mg = Me moria 0.25 MG 2-20 1 tab, PO, l Oral Tablet 16:54: TID, PRN He rmann [Xanax] 00 Anxiety, # 30 tab, 0 Refill(s) Fish Oil 2018-0 Yes PO, 0 Memoria 2-20 Refill(s) l 16:54: [place] 00 lisinopril 2018- Yes 5 mg = 1 Mem oria 5 mg oral 2-20 tab, PO, l tablet 16:54: Daily, # [place] 00 30 tab, 0 Refill(s) pantoprazol Yes 40 mg = 1 M emoria e 40 mg 2-20 tab, PO, l oral 16:54: Daily, # [place] enteric 00 30 tab, 0 coated Refill(s) tablet hydrocortis Yes 25 mg = 1 M emoria one acetate 2-20 supp, VT, l 25 MG 16:54: BID, # 20 [place] Rectal 00 supp, 0 Suppository Refill(s) [Proctosol] Aspir-Low Aspir-Low No Aspir-Low Kayla 81 mg 81 mg 81 mg Orthope tablet,kia tablet,kia tablet,del dic yed release yed release ayed S ports RX by other RX by other release RX Jaci GRAHAM MD by other cass GRAHAM doxycycline doxycycline No 1 BID doxycyclin Kayla hyclate 100 hyclate 100 e hyclate Orthope mg tablet mg tablet 100 mg dic Take 1 Take 1 tablet Sports tablet tablet Take 1 Medicin twice a day twice a day tablet e by oral by oral twice a route. TAKE route. TAKE day by 24HOUR 24HOUR oral PRIOR TO PRIOR TO route. DENTAL DENTAL TAKE PROCEDURE PROCEDURE 24HOUR PRIOR TO DENTAL PROCEDURE Fish Oil Fish Oil No Fish Oil Aza yeni 300 300 300 Orthope mg-1,000 mg mg-1,000 mg mg-1,000 dic capsule,del capsule,del mg S ports ayed ayed capsule,de Medicin release RX release RX layed e by other MD by jessica MD release RX by jessica GRAHAM metoprolol metoprolol No metoprolol Kayla tartrate 25 tartrate 25 tartrate Orthope mg tablet mg tablet 25 mg dic RX by other RX by other tablet RX Nicole GRAHAM MD by jessica bowers pantoprazol pantoprazol No pantoprazo Kayla e 40 mg e 40 mg le 40 mg Ortho pe tablet,kia tablet,kia tablet,del dic yed release yed release ayed S ports RX by other RX by other release RX Jaci MD GRAHAM by other cass GRAHAM Plavix 75 Plavix 75 No Plavix 75 Kayla mg tablet mg tablet mg tablet Orthope RX by other RX by other RX by dic MD GRAHAM other MD Nicole bowers Vital Signs Vital Name Observation Time Observation Value Comments Source Systolic (mm Hg) 2019-06-30 16:08:00 [place] rial [facility] Diastolic (mm Hg) 2019-06-30 16:08:00 Mem orial [place] Heart Rate 2019-06-30 16:08:00 [facility] Temperature Oral (F) 2019-06-30 16:08:00 98.4 F [facility] Height 2019-06-30 16:08:00 177.8 cm [facility] [place] Weight 2019-06-30 16:08:00 [facility] [place] BMI Calculated 2019-06-30 16:08:00 Memori al [facility] BMI Calculated 2018-10-13 14:06:00 Kanwalori al [facility] Weight 2018-10-13 14:06:00 [facility] [place] Height 2018-10-13 14:06:00 177.8 cm [facility] [place] Temperature Oral (F) 2018-10-13 14:06:00 97.6 F [facility] Systolic (mm Hg) 2018-10-13 14:06:00 [place] rial [facility] Diastolic (mm Hg) 2018-10-13 14:06:00 Mem orial [place] Heart Rate 2018-10-13 14:06:00 [facility] [place] BMI Calculated 2018-04-22 15:21:00 Memori al [facility] Height 2018-04-22 15:21:00 180.34 cm [facility] [place] Weight 2018-04-22 15:21:00 [facility] Temperature Oral (F) 2018-04-22 15:21:00 97.9 F [facility] Heart Rate 2018-04-22 15:21:00 [facility] [place] Systolic (mm Hg) 2018-04-22 15:21:00 [place] rial [place] Diastolic (mm Hg) 2018-04-22 15:21:00 Mem orial [place] BMI Calculated 2018-03-10 15:30:00 Kanwalori al [facility] Weight 2018-03-10 15:30:00 [facility] [place] Height 2018-03-10 15:30:00 177.8 cm [facility] Systolic (mm Hg) 2018-03-10 15:30:00 [place] rial [place] Diastolic (mm Hg) 2018-03-10 15:30:00 Mem orial [facility] Temperature Oral (F) 2018-03-10 15:30:00 97.4 F [facility] [place] Heart Rate 2018-03-10 15:30:00 [facility] [place] Height 2018-02-25 14:45:00 177.8 cm [facility] Weight 2018-02-25 14:45:00 [facility] BMI Calculated 2018-02-25 14:45:00 Memori al [facility] Systolic (mm Hg) 2018-02-25 14:45:00 [place] rial [place] Diastolic (mm Hg) 2018-02-25 14:45:00 Mem orial [facility] Temperature Oral (F) 2018-02-25 14:45:00 97.6 F [facility] Heart Rate 2018-02-25 14:45:00 [facility] [place] BMI Calculated 2017-10-29 15:30:00 Memori al [facility] Weight 2017-10-29 15:30:00 [facility] Systolic (mm Hg) 2017-10-29 15:30:00 [place] rial [facility] Diastolic (mm Hg) 2017-10-29 15:30:00 Mem orial [facility] Temperature Oral (F) 2017-10-29 15:30:00 97.4 F [facility] [place] Heart Rate 2017-10-29 15:30:00 [facility] Height 2017-10-29 15:30:00 180.34 cm [facility] Weight 2017-10-09 15:04:00 [facility] [place] BMI Calculated 2017-10-09 15:04:00 Memori al [facility] Height 2017-10-09 15:04:00 180.34 cm [facility] [place] Temperature Oral (F) 2017-10-09 15:04:00 98.3 F [facility] [place] Systolic (mm Hg) 2017-10-09 15:04:00 [place] rial [place] Diastolic (mm Hg) 2017-10-09 15:04:00 Mem orial [place] Respitory Rate 2017-10-09 15:04:00 Memori al [facility] Heart Rate 2017-10-09 15:04:00 [facility] Height 2017-09-29 16:07:00 180.34 cm [facility] [place] BMI Calculated 2017-09-29 16:07:00 Memori al [place] Weight 2017-09-29 16:07:00 [facility] Temperature Oral (F) 2017-09-29 16:07:00 97.7 F [facility] [place] Heart Rate 2017-09-29 16:07:00 [facility] Respitory Rate 2017-09-29 16:07:00 Memori al [facility] Systolic (mm Hg) 2017-09-29 16:07:00 [place] rial [facility] Diastolic (mm Hg) 2017-09-29 16:07:00 Mem orial [place] BMI Calculated 2017-09-22 17:23:00 Memori al [place] Weight 2017-09-22 17:23:00 [facility] [place] Height 2017-09-22 17:23:00 180.34 cm [facility] [place] Systolic (mm Hg) 2017-09-22 17:23:00 [place] rial [place] Diastolic (mm Hg) 2017-09-22 17:23:00 Mem orial [facility] Respitory Rate 2017-09-22 17:23:00 Memori al [facility] Temperature Oral (F) 2017-09-22 17:23:00 98.5 F [facility] [place] Heart Rate 2017-09-22 17:23:00 [facility] [place] Systolic (mm Hg) 2017-09-15 16:40:00 [place] rial [facility] Diastolic (mm Hg) 2017-09-15 16:40:00 Mem orial [place] Heart Rate 2017-09-15 16:40:00 [facility] Respitory Rate 2017-09-15 16:40:00 Memori al [facility] Temperature Oral (F) 2017-09-15 16:40:00 98.4 F [facility] Procedures Procedure Date / Time Performed Performing Clinician [facility] e [id number] 2021-03-26 00:00:00 GOYRO [facility] [id number] 2021-03-26 00:00:00 [facility] Anoscopy; diagnostic, 2018-04-22 19:01:00 Elvira al [place] including collection of specimen(s) by brushing or washing, when performed (separate procedure) Hemorrhoidectomy, 2018-02-25 14:54:00 [facility] ermann internal, by rubber band ligation(s) Open heart surgery [facility] peggy Encounters Start End Encounter Admission Attending Care Care Encounter Source Date/Time Date/Time Type Type Clinicians Facility Department ID 2022-01-10 2022-01-10 Outpatient FOG_Goytia_ AOSM AOSM [id number] Kayla 03:57:00 03:57:00 Tala [id number] Ortho pe dic Sports Medicin e 2022-01-06 2022-01-06 Outpatient FOG_Goytia_ AOSM AOSM [id number] Kayla 01:03:00 01:03:00 Tala [id number] Ortho pe dic Sports Medicin e 2022-01-06 2022-01-06 Brian Neely AOSM [place] - Ortho [id number] Kayla 00:00:00 00:00:00 Linn Leo MD: [id number] FOG_Telemed dic [facility] iciva Sports Main, [place] [address] , Ph. 2022-01-06 2022-01-06 Outpatient Felipa, AOSM AOSM [id number] 00:00:00 00:00:00 Brian Neely [id number] 2021-12-31 2021-12-31 Outpatient FOG_Goytia_ AOSM AOSM [id number] Kayla 12:06:00 12:06:00 Tala [id number] Ortho pe dic Sports Medicin e 2021-12-31 2021-12-31 Outpatient FOG_Goytia_ AOSM AOSM [id number] Kayla 12:06:00 12:06:00 Tala [id number] Ortho pe dic Sports Medicin e 2021-03-26 2021-03-27 Inpatient EL Felipa, HCATO SURG [id number] [facility] 08:03:00 13:41:00 Brian [id number] [place] [facility] 2021-03-01 2021-03-01 Outpatient EL Felipa, HCATO 3DAY [id number] [facility] 09:00:00 23:00:00 Brian [id number] [place] [facility] 2021-03-01 2021-03-01 Outpatient Felipa, HCACL LABO [id number] [facility] 18:16:00 18:16:00 Brian 99 [facility] 2021-03-01 2021-03-01 Outpatient RADHA Leo REFE [id number] [facility] 15:29:00 15:29:00 Brian 20 [facility] 2019-06-30 2019-07-01 Outpatient nullFlavo [facility] Multi 55 [id number] Memoria 16:30:00 05:59:59 r Specialty 14 l [facility] 2019-06-30 2019-07-01 Outpatient nullFlavo [facility] Multi 55 [id number] Memoria 16:30:00 05:59:59 r Specialty 14 l [facility] 2019-06-30 2019-06-30 Outpatient Ale MG MG [id number] 10:30:00 23:59:59 [facility] 2019-[facility] 2019-06-30 Outpatient MHIE MHIE [id number] Memoria 10:30:00 10:30:00 14 [facility] [place] 2019-05-05 2019-05-05 Ambulatory nullFlavo [facility] Multi 55 [id number] Memoria 15:45:00 15:45:00 Pre-Reg r Specialty 13 luke [facility] 2019-05-05 2019-05-05 Ambulatory nullFlavo [facility] Multi 55 [id number] Memoria 15:45:00 15:45:00 Pre-Reg r Specialty 13 luke [facility] 2019-05-05 2019-05-05 Outpatient Ale MG MG [id number] 10:45:00 10:45:00 [facility]ummed [facility] 2019-04-14 2019-04-14 Outpatient MHIE MHIE [id number] Memoria 10:30:00 10:30:00 13 [facility] 2018-10-13 2018-10-14 Outpatient nullFlavo [facility] Multi 55 [id number] Memoria 14:30:00 04:59:59 r Specialty 12 l [facility] 2018-10-13 2018-10-14 Outpatient nullFlavo [facility] Multi 55 [id number] Memoria 14:30:00 04:59:59 r Specialty 12 l [facility] 2018-10-13 2018-10-13 Outpatient Silviadede, MG MG [id number] 09:30:00 23:59:59 Mohummed Tosin [facility] 2018-10-13 2018-10-13 Outpatient MHIE MHIE [id number] Memoria 09:30:00 09:30:00 12 [facility] [place] 2018-04-22 2018-04-23 Outpatient nullFlavo [facility] Multi 55 [id number] Memoria 16:00:00 04:59:59 r Specialty 10 l [facility] 2018-04-22 2018-04-23 Outpatient nullFlavo [facility] Multi 55 [id number] Memoria 16:00:00 04:59:59 r Specialty 10 l [facility] 2018-04-22 2018-04-22 Outpatient Ale, MG MG [id number] 11:00:00 23:59:59 Mohummed Emilie [facility] 2018-04-22 2018-04-22 Outpatient MHIE MHIE [id number] Memoria 11:00:00 11:00:00 10 [facility] [place] 2018-04-21 2018-04-21 Ambulatory nullFlavo [facility] Multi 55 [id number] Memoria 14:30:00 14:30:00 Pre-Reg r Specialty 11 l [facility] 2018-04-21 2018-04-21 Ambulatory nullFlavo [facility] Multi 55 [id number] Memoria 14:30:00 14:30:00 Pre-Reg r Specialty 11 l [facility] 2018-04-21 2018-04-21 Outpatient MHIE MHIE [id number] Memoria 09:30:00 09:30:00 11 [facility] [place] 2018-04-21 2018-04-21 Outpatient Ale, MG MG [id number] 09:30:00 09:30:00 [facility]ummed [facility] 2018-03-10 2018-03-11 Outpatient nullFlavo [facility] Multi 55 [id number] Memoria 15:30:00 04:59:59 r Specialty 09 l [facility] 2018-03-10 2018-03-11 Outpatient nullFlavo [facility] Multi 55 [id number] Memoria 15:30:00 04:59:59 r Specialty 09 l [facility] 2018-03-10 2018-03-10 Outpatient Ale, MG MG [id number] 10:30:00 23:59:59 Mohummed Tucker [facility] 2018-03-10 2018-03-10 Outpatient MHIE MHIE [id number] Memoria 10:30:00 10:30:00 09 [facility] [place] 2018-03-01 2018-03-03 Phone nullFlavo [facility] Multi [id number] Memoria 18:30:00 04:59:59 Message r Specialty 02 l [facility] 2018-03-01 2018-03-03 Phone nullFlavo [facility] Multi [id number] Memoria 18:30:00 04:59:59 Message r Specialty 02 l [facility] 2018-03-01 2018-03-02 Outpatient MHMG MHMG [id number] 13:30:00 23:59:59 02 2018-02-25 2018 Outpatient nullFlavo [facility] Multi 55 [id number] Memoria 16:00:00 04:59:59 r Specialty 08 l [facility] 2018-02-25 2018 Outpatient nullFlavo [facility] Multi 55 [id number] Memoria 16:00:00 04:59:59 r Specialty 08 luke [facility] 2018-02-25 2018-02-25 Outpatient Ale, MG MG [id number] 11:00:00 23:59:[address] [place] [address] 2018-02-25 2018-02-25 Outpatient MHIE MHIE [id number] Memoria 11:00:00 11:00:00 08 [facility] [place] 2018-01-21 2018-01-21 Ambulatory nullFlavo MHMG [id number] Memoria 15:45:00 15:45:00 Pre-Reg r General 07 l [facility] 2018-01-21 2018-01-21 Ambulatory nullFlavo MHMG [id number] Memoria 15:45:00 15:45:00 Pre-Reg r General 07 l [facility] 2018-01-21 2018-01-21 Outpatient MHIE MHIE [id number] Memoria 10:45:00 10:45:00 07 [facility] 2018-01-21 2018-01-21 Outpatient Khani, MHMG MHMG [id number] 10:45:00 10:45:[address] [place] [address] 2017-12-31 2018-01-01 Outpatient nullFlavo MHMG [id number] Memoria 16:00:00 04:59:59 r General 05 l Surgery [facility] 2017-12-31 2018-01-01 [place] [id number] Memoria 16:00:00 04:59:59 r General 05 l Surgery [facility] 2017-12-31 2017-12-31 Outpatient Khani, MHMG MG [id number] 11:00:00 23:59:59 Mohummed Gustavo [facility] 2017-12-31 2017-12-31 Outpatient MHIE MHIE [id number] Memoria 11:00:00 11:00:00 05 l [place] 2017-11-11 2017-11-11 [place] [id number] Memoria 20:30:00 20:30:00 Pre-Reg r General 06 l Surgery [facility] 2017-11-11 2017-11-11 [place] [id number] Memoria 20:30:00 20:30:00 Pre-Reg r General 06 l [facility] 2017-11-11 2017-11-11 Outpatient MHIE IE [id number] Memoria 15:30:00 15:30:00 06 l [place] 2017-11-11 2017-11-11 Outpatient Silviaani, MG MG [id number] 15:30:00 15:30:00 Mohummed Joseph [facility] 2017-10-29 2017-10-30 [place] [id number] Memoria 15:45:00 04:59:59 r General 03 l [facility] 2017-10-29 2017-10-30 [place] [id number] Memoria 15:45:00 04:59:59 r General 03 l [facility] 2017-10-29 2017-10-29 Outpatient Khani, MG MG [id number] 10:45:00 23:59:59 Mohummed Fidencio [facility] 2017-10-29 2017-10-29 Outpatient MHIE MHIE [id number] Memoria 10:45:00 10:45:00 03 l [place] 2017-10-09 2017-10-10 [place] [id number] Memoria 15:00:00 04:59:59 r General 04 l [facility] 2017-10-09 2017-10-10 [place] [id number] Memoria 15:00:00 04:59:59 r General 04 l Surgery [facility] 2017-10-09 2017-10-09 Outpatient Ale, MG MG [id number] 10:00:00 23:59:59 Mohummed 04 [facility] 2017-10-09 2017-10-09 Outpatient MHIE MHIE [id number] Memoria 10:00:00 10:00:00 04 l [place] 2017-10-05 2017-10-07 Phone nullFlavo MHMG [id number] Memoria 14:43:00 04:59:59 Message r General 01 l Surgery [facility] 2017-10-05 2017-10-07 Phone nullFlavo MHMG [id number] Memoria 14:43:00 04:59:59 Message r General 01 l Surgery [facility] 2017-10-05 2017-10-06 Outpatient MHMG MG [id number] 09:43:00 23:59:59 2017-10-02 2017-10-04 Phone nullFlavo MG [id number] Memoria 21:31:00 05:59:59 Message r General 00 l Surgery [facility] 2017-10-02 2017-10-04 Phone nullFlavo MG [id number] Memoria 21:31:00 05:59:59 Message r General 00 l Surgery [facility] 2017-10-02 2017-10-03 Outpatient MG MG [id number] 15:31:00 23:59:59 2017-09-29 2017-09-30 [place] [id number] Memoria 17:00:00 05:59:59 r General 01 l Surgery [facility] 2017-09-29 2017-09-30 [place] [id number] Memoria 17:00:00 05:59:59 r General 01 l Surgery [facility] 2017-09-29 2017-09-29 Outpatient Ale, MG MG [id number] 11:00:00 23:59:59 Mohummed [facility] 2017-09-29 2017-09-29 Outpatient Ale, MG MG [id number] 11:00:00 23:59:59 Mohummed [facility] 2017-09-29 2017-09-29 Outpatient TOSHA DOMINGA [id number] Memoria 11:00:00 11:00:00 01 [facility] 2017-09-22 2017-09-23 Outpatient nullFlavo [id number] Memoria 17:30:00 05:59:59 r General 02 l [facility] 2017-09-22 2017-09-23 Outpatient nullFlavo [id number] Memoria 17:30:00 05:59:59 r General 02 l [facility] 2017-09-22 2017-09-22 Outpatient Ale [facility] [id number] 11:30:00 23:59:59 Mohummed [facility] 2017-09-22 2017-09-22 Outpatient TOSHA GIVENS [id number] Memoria 11:30:00 11:30:00 02 [facility] 2017-09-15 2017-09-16 Outpatient nullFlavo [id number] Memoria 16:30:00 05:59:59 r General 00 l [facility] 2017-09-15 2017-09-16 Outpatient nullFlavo [facility] [id number] Memoria 16:30:00 05:59:59 r General 00 l [facility] 2017-09-15 2017-09-15 Outpatient Ale [facility] [id number] 10:30:00 23:59:59 Mohummed [facility] 2017-09-15 2017-09-15 Outpatient TOSHA DOMINGA [id number] Memoria 10:30:00 10:30:00 00 [facility] Results Test Description Test Time Test Comments Results Result Comments Source GLUBED 2021-03-28 09:59:00 Test Item Value Reference Range Interpretation Comme nts GLUBED (test code = GLUBED) 200 mg/dL 60-125 H BASIC METABOLIC [id number] 06:54:00 Test Item Value Reference Range Interpretation Comments SODIUM (test code = 142 mmol/L 136-145 N NA) POTASSIUM (test code = 4.5 mmol/L 3.5-5.1 N K) CHLORIDE (test code = 103.0 mmol/L 98-107 N CL) CARBON DIOXIDE (test 29.7 mmol/L 21-32 N code = CO2) GLUCOSE (test code = 161 mg/dL 70-110 H GLU) BLOOD UREA NITROGEN 21 mg/dL 7-18 H (test code = BUN) GLOMERULAR FILTRATION 51.1 >60 Unit o f measure: RATE (test code = GFR) mL/mi n/1.73 [id number] Range:Healthy Adults >90 mL/min/1.73 m2 For Chronic Kidney Disease: Stage II Mild Decrease i n GFR 60-90 Stage III Moderate Decre ase in GFR 30-59 St age IV Severe Decre ase in GFR 15-29 St age V Kidney Failur e <15 CREATININE (test code 1.35 mg/dL 0.55-1.30 H = CREAT) CALCIUM (test code = 8.5 mg/dL 8.2-10.1 N CA) HGB [id number] 06:10:00 Test Item Value Reference Range Interpretation Comments HEMOGLOBIN (test code = HGB) 13.0 g/dL 12-16 N HEMATOCRIT (test code = HCT) 39.2 % 37-47 N SPECIMEN COMMENT: POD #[id number] 06:04:00 Test Item Value Reference Range Interpretation Comments GLUBED (test code = GLUBED) 146 mg/dL 60-125 H [id number] 16:37:00 Test Item Value Reference Range Interpretation Comments GLUBED (test code = GLUBED) 213 mg/dL 60-125 H GLYCOSYLATED HEMOGLOBIN (HA1C)2021-03-01 18:49:00 Test Item Value Reference Range Interpretation Comments GLYCOSYLATED 6.7 % 4.8-5.9 H Any condition t hat shortens HEMOGLOBIN (HA1C) erythocyte survival or (test code = GLYHGB) decreas esmean erythrocyte age (e.g., tammie very from acute blood los s,hemolytic anemai) will fa lsely lower HGBA1c resultsr egardless of the method used . HGBA1c results frompat ients with HbSS, HbCC and HbSc must be interpreted wit hcaution given the patho logical processes, incl uding anemia,increase d red cell turnover, trans fusion requirements, t hatadversely impact HGBA1c a s a marker of long-term glycemiccontrol . Alternative for ms of testing such as fructosaminesho uld be considered for these patients.Any co ndition that shortens erytho cyte survival or dec reasesmean erythrocyte age (e.g., recovery from a cute blood loss,hemolytic anemia) will falsely lower H GBA1c resultsregardle ss of the method used. HG BA1c results from patientswi th HbSS, HbCC, and HbSc must be interpreted wit h cautiongiven th e pathological pr ocesses, including anemi a,increased red cell turnov er, transfusion req uirements, thatadversely i mpact HGBA1c as a marker of long-term glycemiccontrol . Alternative for ms of testing such as fructosaminesho uld be considered for these patients.DONE A T: [facility] [address] [facility] [place], [place] [address] GLYCOSYLATED HEMOGLOBIN (HA1C)2021-03-01 18:48:00 Test Item Value Reference Range Interpretation Comments GLYCOSYLATED 6.7 % 4.8-5.9 H Any condition t hat shortens HEMOGLOBIN (HA1C) erythocyte survival or (test code = GLYHGB) decreas esmean erythrocyte age (e.g., tammie very from acute blood los s,hemolytic anemia) will fa lsely lower HGBA1c resultsr egardless of the method used . HGBA1c results from edgar oneal HbSS, HbCC, and HbSc must be interpreted with cautiongiven th e pathological pr ocesses, including anemi a,increased red cell turnov er, transfusion req uirements, thatadversely i mpact HGBA1c as a marker of long-term glycemiccontrol . Alternative for ms of testing such as fructosaminesho uld be considered for these patients. COMPREHENSIVE METABOLIC [id number] 16:19:00 Test Item Value Reference Range Interpretation Comments SODIUM (test code = 141 mmol/L 136-145 N NA) POTASSIUM (test code = 4.9 mmol/L 3.5-5.1 N K) CHLORIDE (test code = 104.0 mmol/L 98-107 N CL) CARBON DIOXIDE (test 30.5 mmol/L 21-32 N code = CO2) GLUCOSE (test code = 126 mg/dL 70-110 H GLU) BLOOD UREA NITROGEN 19 mg/dL 7-18 H (test code = BUN) GLOMERULAR FILTRATION 62.1 >60 Unit o f measure: RATE (test code = GFR) mL/mi n/1.73 [id number] Range:Healthy Adults >90 mL/min/1.73 m2 For Chronic Kidney Disease: Stage II Mild Decrease i n GFR 60-90 Stage III Moderate Decrea se in GFR 30-59 St age IV Severe Decre ase in GFR 15-29 St age V Kidney Failur e <15 CREATININE (test code 1.14 mg/dL 0.55-1.30 N = CREAT) TOTAL PROTEIN (test 7.1 g/dL 6.4-8.2 N code = PROT) ALBUMIN (test code = 3.4 g/dL 3.4-5.0 N ALB) GLOBULIN (test code = 3.7 g/dL 2.2-4.2 N GLOB) ALBUMIN/GLOBULIN RATIO 0.9 0.7-2.0 N (test code = A/G) CALCIUM (test code = 8.9 mg/dL 8.2-10.1 N CA) BILIRUBIN TOTAL (test 0.30 mg/dL 0.2-1.00 N code = BILT) SGOT/AST (test code = 19.0 U/L 15-37 N AST) SGPT/ALT (test code = 23.0 U/L 12-78 N Please note new ALT) normal range. ALKALINE PHOSPHATASE 71 U/L 46-116 N TOTAL (test code = ALKP) CBC W/AUTO [id number] 15:25:00 Test Item Value Reference Range Interpretation Comments WHITE BLOOD CELL (test code = WBC) 8.9 K/mm3 5.7-10.5 N RED BLOOD CELL (test code = RBC) 5.01 M/mm3 4.2-5.4 N HEMOGLOBIN (test code = HGB) 15.1 g/dL 12-16 N HEMATOCRIT (test code = HCT) 45.2 % 37-47 N MEAN CELL VOLUME (test code = MCV) 90 fL 80-98 N MEAN CELL HGB (test code = MCH) 30.1 pg 27-34 N MEAN CELL HGB CONCENTRATION (test 33.4 g/dL 30.8-34.1 N code = MCHC) RED CELL DISTRIBUTION WIDTH (test 14.4 % 11-16 N code = RDW) PLT (test code = PLT) 235 K/mm3 130-400 N MEAN PLATELET VOLUME (test code = 10.2 fL 8.9-12.1 N MPV) NEUTROPHIL % (test code = NT%) 59.6 % 45-70 N LYMPHOCYTE % (test code = LY%) 23.6 % 20-40 N MONOCYTE % (test code = MO%) 10.2 % 3-10 H EOSINOPHIL % (test code = EO%) 5.6 % 1-5 H BASOPHIL % (test code = BA%) 0.8 % 0.0-1.1 N NEUTROPHIL # (test code = NT#) 5.33 K/mm3 2.00-7.50 N LYMPHOCYTE # (test code = LY#) 2.11 K/mm3 1.50-4.00 N MONOCYTE # (test code = MO#) 0.91 K/mm3 0.2-0.8 H EOSINOPHIL # (test code = EO#) 0.50 K/mm3 0.04-0.4 H BASOPHIL # (test code = BA#) 0.07 K/mm3 0.02-0.10 N MANUAL DIFF REQUIRED (test code = NO MANUAL DIFF MDIFF) NUCLEATED RED BLOOD CELL (test 0 % 0-0 N code = NRBC) PROTHROMBIN [id number] 15:24:00 Test Item Value Reference Range Interpretation Comments PROTHROMBIN TIME 11.7 secs 10.1-12.5 N PATIENT (test code = PTP) INTERNATIONAL NORMAL 1.03 <2.0 RECOMME NDED THERAPEUTIC RATIO (test code = RANGE FOR ORAL INR) ANTICOAGULANTTR EATMENT: CONDITION INRPr ophylaxis of venous throm bosis in 2.0 - 3.0 high- risk medical or surg ical patientsTreatme nt of venous thrombos is 2.0 - 3.0Prevention o f embolism 2.0 - 3.0Prevention o f recurrent embol ism, or 3.0 - 4.5 patie nts with mechanical pros thetic intravascular v trujillo IS PATIENT ON ANTICOAGULANTS ? YLIST ANTICOAGULANT/ANTI PLT MEDICATION : AspirinHas Lab been notified if Patient is on Heparin Drip? NOTHROMBOPLASTIN TIME [id number] 15:24:00 Test Item Value Reference Range Interpretation Comments PTT ACTIVATED (test code = APTT) 31.5 secs 24.9-37.0 N IS PATIENT ON ANTICOAGULANTS ? YLIST ANTICOAGULANT/ANTI PLT MEDICATION : AspirinHas Lab been notified if Patient is on Heparin Drip? NO- XR FLUORO NDL 2018-11-25 11:55:00 Patient Name: DOM LEWIS Unit No: [id number] EXAMS: CPT CODE: [id number] XR FLUORO NDL 14586 FLUOROSCOPICALLY GUIDED RIGHT PLANTAR FASCIA STEROID INJECTION COMMENT: After informed consent was obtained a 25-gauge needle is inserted into the right plantar fascia under fluoroscopic control using sterile technique 1.5 mL of Kenalog 40 mg/ml and 2 mL of Lidocaine are instilled into the proximal plantar fascia. The patient tolerated the procedure well. 0.5 minutes of fluoroscopy time was used on thisexam. FLUOROSCOPICALLY GUIDED LEFT PLANTAR FASCIA STEROID INJECTION [...] exam. at 1155 Reported and signed by: Vilma Robb MD CC: Gold Blevins MD; Azar Donovan MD Technologist: SUZANNE DUGAN RT(R); RT Maikol.(R) Transcribed D/ (0251) MicheleGVG [facility] NAME: DOM LEWIS [address] [facility] PHYS: Gold Esposito : 1945 AGE: 73 SEX: M [place], [place] [address] LOC: Y.RAD PHONE #: [phone] EXAM DATE: 11/24/2018 STATUS: DEP CLI FAX #: [phone] RAD #: D/C DT PAGE 1 Signed Report Patient Name: DOM LEWIS Unit No: [id number] EXAMS: CPT CODE: [id number] XR FLUORO NDL 28496 (Continued) Orig Print D/T: S: 11/25/2018 (2613) [facility] NAME: DOM LEWIS [address] [facility] PHYS: Gold Atkins : 1945 AGE: 73 SEX: M [place], [place] [address] LOC: Y.RAD PHONE #: [phone] EXAM DATE: 11/24/2018 STATUS: DEP CLI FAX #: [phone] RAD #: D/CDT PAGE 2 Signed Report- XR FLUORO [id number] 11:55:00 Patient Name: DOM LEWIS Unit No: [id number] EXAMS: CPT CODE: [id number] XR FLUORO NDL 22970 FLUOROSCOPICALLY GUIDED RIGHT PLANTAR FASCIA STEROID INJECTION COMMENT: After informed consent was obtained a 25-gauge needle is inserted into the right plantar fascia under fluoroscopic control using sterile technique 1.5 mL of Kenalog 40 mg/ml and 2 mL of Lidocaine are instilled into the proximal plantar fascia. The patient tolerated the procedure well. 0.5 minutes of fluoroscopy time was used on thisexam. FLUOROSCOPICALLY GUIDED LEFT PLANTAR FASCIA STEROID INJECTION COMMENT: After informed consent was obtained a 25-gauge needle is inserted into the left plantar fascia under fluoroscopic control using sterile technique. 2 mL of Kenalog 40 mg/ml and 2 mL of Lidocaine are instilled into the proximalplantar fascia. The patient tolerated the procedure well. 0.5 minutes of fluoroscopy time was used on this exam. at 1155 Reported and signed by: Vilma Robb MD CC: Gold Blevins MD; Azar Donovan MD Technologist: SUZANNE DUGAN RT(R); Renetta ePtit RT.(R) Transcribed D/ (1155) t.SDR.GVG [facility] NAME: DOM LEWIS [address] PHYS: Gold Esposito : 1945 AGE: 73 SEX: M [place] [address] LOC: Y.RAD PHONE #: [phone] EXAM DATE: 11/24/2018 STATUS: DEP CLI FAX #: [phone] RAD #: D/C DT PAGE 1 Signed Report Patient Name: DOM LEWIS Unit No: [id number] EXAMS: CPT CODE: [id number] XR FLUORO NDL 21479 (Continued) Orig Print D/T: S: 11/25/2018 (1159) [facility] NAME: DOM LEWIS [address] PHYS: Gold Esposito : 1945 AGE: 73 SEX: M [place], [place] [address] LOC: Y.RAD PHONE #: [phone] EXAM DATE: 11/24/2018 STATUS: DEP CLI FAX #: [phone] RAD #: D/CDT PAGE 2 Signed ReportURINALYSIS COMPLETE 2018-11-16 12:43:00 Test Item Value Reference Range Interpretation Comments UA COLOR (test code = COLU) YELLOW YELLOW UA APPEARANCE (test code = CLEAR CLEAR APPU) UA GLUCOSE DIPSTICK (test code NEGATIVE NEGATIVE = DGLUU) UA BILIRUBIN DIPSTICK (test NEGATIVE NEGATIVE code = BILU) UA KETONE DIPSTICK (test code NEGATIVE mg/dL NEGATIVE = KETU) UA SPECIFIC GRAVITY (test code 1.010 1.003-1.035 = SGU) UA BLOOD DIPSTICK (test code = NEGATIVE NEGATIVE YVETTE) UA PH DIPSTICK (test code = 5.5 >6.5 SHAMA) UA PROTEIN DIPSTICK (test code NEGATIVE mg/dL NEG = PROU) UA UROBILINIOGEN DIPSTICK 0.2 mg/dL NORM (test code = URO) UA NITRITE DIPSTICK (test code NEGATIVE NEG = WINSTON) UA LEUKOCYTE ESTERASE DIPSTICK NEGATIVE NEGATIVE (test code = LEUU) UA WBC (test code = WBCU) <5.0 /HPF 0-2 UA RBC (test code = RBCU) NONE SEEN /HPF 0-2 UA EPITHELIAL CELLS (test code NONE SEEN /HPF 0-2 = EPIU) UA BACTERIA (test code = BACU) RARE /HPF NONE PROTHROMBIN [id number] 12:38:00 Test Item Value Reference Range Interpretation Comments PROTHROMBIN TIME 12.0 secs 10.1-12.5 N PATIENT (test code = PTP) INTERNATIONAL NORMAL 1.06 <2.0 RECOMME NDED THERAPEUTIC RATIO (test code = RANGE FOR ORAL INR) ANTICOAGULANTTR EATMENT: CONDITION INRPr ophylaxis of venous throm bosis in 2.0 - 3.0 high- risk medical or surg ical patientsTreatme nt of venous thrombos is 2.0 - 3.0Prevention o f embolism 2.0 - 3.0Prevention o f recurrent embol ism, or 3.0 - 4.5 patie nts with mechanical pros thetic intravascular v trujillo IS PATIENT ON ANTICOAGULANTS ? YLIST ANTICOAGULANT/ANTI PLT MEDICATION : AspirinHas Lab been notified if Patient is on Heparin Drip? NOIf Yes, order CBC, OCCULT BLOOD, PT every other day NTHROMBOPLASTIN TIME [id number] 12:38:00 Test Item Value Reference Range Interpretation Comments PTT ACTIVATED (test code = APTT) 30.6 secs 24.9-37.0 N IS PATIENT ON ANTICOAGULANTS ? YLIST ANTICOAGULANT/ANTI PLT MEDICATION : AspirinHas Lab been notified if Patient is on Heparin Drip? NOIf Yes, order CBC, OCCULT BLOOD, PT every other day NCOMPREHENSIVE METABOLIC [id number] 12:29:00 Test Item Value Reference Range Interpretation [...] RATE (test code = GFR) mL/mi n/1.73 [id number] Range:Healthy Adults >90 mL/min/1.73 m2 For Chronic Kidney Disease: Stage II Mild Decrease i n GFR 60-90 Stage III Moderate Decrea se in GFR 30-59 St age IV Severe Decre ase in GFR 15-29 St age V Kidney Failur e <15 CREATININE (test code 1.10 mg/dL 0.55-1.30 [...] TOTAL (test code = ALKP) CBC W/AUTO [id number] 11:57:00 Test Item Value Reference Range Interpretation [...] (test NORMAL code = PLTMR) COMPREHENSIVE METABOLIC [id number] 11:30:00 Test Item Value Reference Range Interpretation [...] RATE (test code = GFR) mL/mi n/1.73 [id number] Range:Healthy Adults >90 mL/min/1.73 m2 For Chronic Kidney Disease: Stage II Mild Decrease i n GFR 60-90 Stage III Moderate Decrea se in GFR 30-59 St age IV Severe Decre ase in GFR 15-29 St age V Kidney Failur e <15 CREATININE (test code = 1.02 mg/dL [...] N TOTAL (test code = ALKP) PROTHROMBIN [id number] 11:23:00 Test Item Value Reference Range Interpretation Comments PROTHROMBIN TIME 12.0 secs 10.1-12.5 N PATIENT (test code = PTP) INTERNATIONAL NORMAL 1.06 <2.0 RECOMME NDED THERAPEUTIC RATIO (test code = RANGE FOR ORAL INR) ANTICOAGULANTTR EATMENT: CONDITION INRPr ophylaxis of venous throm bosis in 2.0 - 3.0 high- risk medical or surg ical patientsTreatme nt of venous thrombos is 2.0 - 3.0Prevention o f embolism 2.0 - 3.0Prevention o f recurrent embol ism, or 3.0 - 4.5 patie nts with mechanical pros thetic intravascular v trujillo IS PATIENT ON ANTICOAGULANTS ? YLIST ANTICOAGULANT/ANTI PLT MEDICATION : AspirinHas Lab been notified if Patient is on Heparin Drip? NOIf Yes, order CBC, OCCULT BLOOD, PT every other day NTHROMBOPLASTIN TIME [id number] 11:23:00 Test Item Value Reference Range Interpretation Comments PTT ACTIVATED (test code = APTT) 30.9 secs 24.9-37.0 N IS PATIENT ON ANTICOAGULANTS ? YLIST ANTICOAGULANT/ANTI PLT MEDICATION : AspirinHas Lab been notified if Patient is on Heparin Drip? NOIf Yes, order CBC, OCCULT BLOOD, PT every other day NURINALYSIS [id number] 11:19:00 Test Item Value Reference Range Interpretation [...] = BACU) NONE /HPF NONE CBC W/AUTO [id number] 11:06:00 Test Item Value Reference Range Interpretation [...] 0 % 0-0 N code = NRBC) Notes Date/Time Note Provider Source 2021-03-27 09:59:00-00:00 [facility] ([facility]) Clinical Note REPORT#:[id number] REPORT STATUS: Signed DATE:03/27/21 TIME: 958 PATIENT: DOM LEWIS UNIT #: [id number] ROOM/BED: [address] : [birth year] AGE: 76 SEX: M ATTEND: Cornell Leo MD ADM AUTHOR: Patrick La MD * ALL edits or amendments must be made on the [employer]/computer document * Clinical Note Note: [facility] Patrick murcia M.D. (cell text [phone]) Assessment/Plan 1.) Anemia of acute blood loss- .Hgb 13.0, asymp tomatic. 2.) S/p Left TKA Right Knee injection- .acute mu lti-modal pain control and followup. Anticoagulation as per Dr. Leo. 3.) Hypertension Paroxysmal Atrial fibrillation CAD- .follow BP and hold Rxs if SBP<120. Watch heart rate. 4.) Diabetes2(diet controlled) OsteoArth ritis Hyperlipidemia- .continue on Rx. * OK for DISCHARGE per Internal Medicine. Prior Events/Overnight: Uneventful. Chief Complaint: No significant complaints. Objective Vital Signs: Date Time Temp Pulse Resp B/P B/P Pulse O2 O2 F low FiO2 Mean Ox Delivery Rate 03/27 0712 96.8 61 18 162/88 113.0 95 Room air 03/27 0610 96.4 66 20 149/72 103 96 Room air 03/27 0425 97.0 70 20 175/83 119 96 Room air 03/27 0204 97.0 75 16 160/81 03/26 2259 97.5 78 18 174/87 96 Room air 03/26 2220 Nasal 3 cannula 03/26 195 97.2 80 18 175/79 119 94 Nasal cannula 03/26 1700 98 Nasal 3 32 cannula 03/26 1539 97.3 76 18 166/84 111.4 94 Nasal cannula 03/26 1535 Nasal 3 cannula 03/26 1310 99 Nasal 3 32 cannula 03/26 1308 97.9 60 14 185/96 125.4 100 Nasal 3 cannula 03/26 1240 53 18 148/66 99 Nasal 3 cannula 03/26 1225 52 16 148/66 100 Nasal 3 cannula 03/26 1210 52 16 142/72 100 Nasal 3 cannula 03/26 1155 57 16 131/64 100 Nasal 3 cannula 03/26 1142 97.6 59 17 145/63 97 Simple 6 mask Gen: Alert, oriented, in mild discomfort Neck: No Masses, No Thyromegaly- CV: Regular Rate Rhythm / Edema- no significant Resp: Clear To Ascultation / Normal Respiratory Effort ABD: NonTender / NonDistended MS/Skin: No sign of compartment syndrome / +ankl e DF/PF Other: Labs/X-ray: Laboratory Tests: 03/27 03/27 03/26 0551 0435 1625 Chemistry Sodium (136 - 145 mmol/L) 142 Potassium (3.5 - 5.1 mmol/L) 4.5 Chloride (98 - 107 mmol/L) 103.0 Carbon Dioxide (21 - 32 mmol/L) 29.7 BUN (7 - 18 mg/dL) 21 H Creatinine (0.55 - 1.30 mg/dL) 1.35 H Glomerular Filtr Rate (>60) 51.1 Glucose (70 - 110 mg/dL) 161 H POC Glucose (60 - 125 mg/dL) 146 H 213 H Calcium (8.2 - 10.1 mg/dL) 8.5 Hematology Hgb (12 - 16 g/dL) 13.0 Hct (37 - 47 %) 39.2 Patrick Luevano M.D. at 1237 RPT #:[id number] END OF REPORT 2021-03-27 08:47:00-00:00 [facility] ([facility]) Clinical Note REPORT#:[id number] REPORT STATUS: Signed DATE:03/27/21 TIME: 08 PATIENT: DOM LEWIS UNIT #: [id number] ROOM/BED: [address] : 43 AGE: 76 SEX: M ATTEND: Cornell Leo MD ADM AUTHOR: Brian Leo MD * ALL edits or amendments must be made on the [employer] document * Clinical Note Note: POD# 1 left knee Joint Arthroplasty Patient well, reports pain is mild-moderate AF VSS Exam: dressing dry/intact Moves toes DF/PF Sensory unchanged A/P: Mobilize with physical Therapy DVT prophylaxis ongoing Following labs Remove coverlet, do not recover, patient may juancho wer Discharge planning Electronically Signed by Brian Leo MD on at 0847 RPT #:[id number] END OF REPORT 2021-03-27 08:45:00-00:00 [facility] ([facility]) Discharge Summary REPORT#:[id number] REPORT STATUS: Signed DATE:03/27/21 TIME: 0845 PATIENT: DOM LEWIS UNIT #: [id number] ROOM/BED: [address] : 43 AGE: 76 SEX: M ATTEND: Cornell Leo MD ADM AUTHOR: Brian Leo MD * ALL edits or amendments must be made on the [employer] document * General Information Discharge date: 03/27/21 Hospital course: Discharge Diagnosis: Left Knee Degenerative Dise ase Procedure: Left Knee Arthroplasty Hospital Course and Findings The patient underwent the pr ocedure without incident. Findings were significant for degenerative disease of the knee. The patien t was hemodynamically and medically monitored during the postoperative per iod. Anticoagulation was instituted for postoperative DVT prophylaxis. Th e patient was progressively able to tolerate PO pain med ications and the appropriate diet. Physical therapy was instituted, with a progressive ability to am bulate and perform exercises. The patient was eventually deemed stable and saf e for discharge. Despite factors which projected a longer hospita l stay, the patient fulfilled criteria for earlier than expected disch arge, including control of pain, early mobilization with therapy, and a stable hemodyna chnag status. At discharge, the patient was comfortabl e, with a controlled pain level. There were no chest or abdominal symptoms present. Dis charge physical examination demonstrated stable vital signs and no acute dis tress. The patient had an intact wound with no signifi cant drainage, and no calf tenderness and a negative Juan's sign bilaterally. There were no neurolog ic or vascular deficits or changes from the preoperative state. Disposition: Discharged to home Discharge Condition: Stable Instructions: Instruction sheet given to patient Activity: Ambulate with assistance, with weight- bearing as instructed in the hospital. Diet: As per preoperatively Prescriptions 1. Pain Medications: As per discharge prescription, with progressive weaning as pain decreases 2. Anticoagulation: As per discharge prescription, or PreOp anticoa gulant, as discussed with patient 3. Physical Therapy: Will undergo PT for gait training, mobilization , dlgbg-[id number]-qeejaa, and strengthening. Patient was i nformed to that they need to arrange for therapy as quickly as possible. The imp ortance of early advancement of dfihb-qa-qatufd with home exercises, and physical therapy was stresse d to the patient. Follow-up Appointment: Patient instructe d to arrange appointment for an office visit in 2 weeks Med Rec Med Rec Discharge meds: Stop taking the following medications: ASPIRIN (ASPIRIN) 81 MG TAB.CHEW 81 MILLIGRAM ORAL DAILY. Continue taking these medications: PANTOPRAZOLE DR (PROTONIX) 40 MG TAB.DR 40 MILLIGRAM ORAL DAILY. LISINOPRIL (ZESTRIL) 5 MG TAB 5 MILLIGRAM ORAL DAILY. ALPRAZolam (XANAX) 0.25 MG TAB 0.25 MILLIGRAM ORAL TWICE DAILY NEEDED. as n eeded for NEEDED FOR ANXIETY METOPROLOL SUCC XL (TOPROL XL) 50 MG TAB.SA 50 MILLIGRAM ORAL TWICE DAILY. Comments: TAKEN 729 AND 1929 Start taking the following new medications: ASPIRIN EC (ECOTRIN) 81 MG TAB.EC 81 MILLIGRAM ORAL TWICE DAILY WITH MEALS. Qty = 60 No Refills DOXYCYCLINE HYCLATE (VIBRAMYCIN) 100 MG CAP 100 MILLIGRAM ORAL TWICE DAILY. Days = 7 Qty = 14 No Refills POLYETHYLENE GLYCOL 3350 (MIRALAX) 17 GM POWDER 17 GRAM ORAL BEDTIME. Days = 30 Qty = 30 No Refills Instructions: please take daily for constipation prevention HYDROcodone/APAP (NORCO 10/325) 10 MG-325 MG TAB 1 TABLET ORAL EVERY SIX HOURS NEEDED as need ed for prn break through pain Qty = 28 No Refills Instructions: one tab every 6 hours only for breakthrough jorge alberto n methocarbamoL (ROBAXIN) 500 MG TAB 500 MILLIGRAM ORAL THREE TIMES DAILY NEEDED. as needed for muscle spasm Qty = 28 No Refills traMADol (ULTRAM) 50 MG TAB 50 MILLIGRAM ORAL EVERY 4 HOURS NEEDED. as n eeded for pain Days = 7 Qty = 28 No Refills Discharge Instructions PCP )( Discharge to: Home/Self Care Discharge Instructions Additional Discharge Routines: Attending Follow- Up )( Diet: Regular )( Activity: As Tolerated, Crutches/Walker, No D riving Follow-up Appointments Attending Physician: Attending Physician: Brian Leo MD Attending physician follow up timeframe: In 1-2 weeks Special instructions: PLEASE CALL MAKE FOLLOW UP APPOINTMENT Electronically Signed by Brian Leo MD on at 0846 RPT #:[id number] END OF REPORT 2021-03-27 07:36:00-00:00 [facility] ([facility]) Pain Management Progress Note REPORT#:[id number] REPORT STATUS: Signed DATE:03/27/21 TIME: 735 PATIENT: DOM LEWIS UNIT #: [id number] ROOM/BED: [address] : 43 AGE: 76 SEX: M ATTEND: Cornell Leo MD ADM AUTHOR: Jocelyne Lai * ALL edits or amendments must be made on the [employer]/computer document * Subjective Chief Complaint: L KNEE PAIN S/P TKA Comments: Last Documented: Result Date Time Pulse Ox 95 03/27 712 B/P 162/88 03/27 712 B/P Mean 113.0 03/27 07 O2 Delivery Room air 03/27 07 Temp 36.0 03/27 07 Pulse 61 03/27 07 Resp 18 03/27 07 O2 Flow Rate 3 03/26 2220 FiO2 32 03/26 1700 History: PMH: GERD, CAD-MO, STENTS x 3, EX-SMOKER POD: 1 MD who placed block: DR. HUFF Type of block: AC S/S Activity status: PT SITTING UP IN BED WATCHING TV. Pain: STATES PAIN IS TOLERABLE. Physical Exam: VAS: 5 LOS: 1 Resp Quality: 1 Side Effects: NONE PT APPEARS COMFORTABLE AT THIS TIME. MOTOR MVMT AND STRENGTH INTACT TO LLE. Plan: BLOCK FOLLOW UP at 0737 RPT #:[id number] END OF REPORT 2021-03-26 18:00:00-00:00 [facility] ([facility]) Clinical Note REPORT#:[id number] REPORT STATUS: Signed DATE:03/26/21 TIME: 1800 PATIENT: DOM LEWIS UNIT #: [id number] ROOM/BED: [address] : 43 AGE: 76 SEX: M ATTEND: Cornell Leo MD ADM AUTHOR: Patrick La MD * ALL edits or amendments must be made on the [employer]/computer document * Clinical Note Note: [facility] Patrick murcia MD (cell text [phone]) Internal Medicine Consult at request of : Dr Laura in [facility] Chief Complaint: left knee pain HPI: 76yo M is now s/p Left Total Knee Arthropla sty (TKA) with right knee steroid injection by Dr. Naren cortés. Mr. Lewis relates years of progressive bilateral knee pain, L>R (recently severe), worse with act ivity, and popping crunchy with restricted motion at times in quality. He h as failed conservative management. Comorbidities: see below. PmHx: .Type 2 diabetes (diet controlled), hypert ension, paroxysmal atrial fibrillation in 2014, huerta ry artery disease (s/p MO/CABG x 3 in 2014), carotid artery disease, anxiety, childhood asthma, osteo arthritis ALLERGY: Allergies: Penicillins (Coded, Severe, RASHES/KNOTS, ) NSAIDS (Non-Steroidal Anti-I nflamma (Coded, DECREASED KIDNEY FUNCTION, 03/26/21) Home Medications: Home Medications: ASPIRIN 81 MG PO DAILY PANTOPRAZOLE DR (PROTONIX) 40 MG PO DAILY LISINOPRIL (ZESTRIL) 5 MG PO DAILY ALPRAZolam (XANAX) 0.25 MG PO BID PRN PRN NEE DED FOR ANXIETY METOPROLOL SUCC XL (TOPROL XL) 50 MG PO BID SgHx: .CABG, cataracts SHx: Tob: 1 ppd x 20 yrs. Quit 1975 FHx: .No si gnificant hx of DVT/PE. Alcohol: few beers daily Drugs: none Lives: with spouse Vitals: Vital Signs: Date Time Temp Pulse Resp B/P B/P Pulse O2 O2 Flow FiO2 Mean Ox Delivery Rate 03/26 1700 98 Nasal 3 32 cannula 03/26 1539 97.3 76 18 166/84 111.4 94 Nasal cannula 03/26 1535 Nasal 3 cannula 03/26 1310 99 Nasal 3 32 cannula 03/26 1308 97.9 60 14 185/96 125.4 100 Nasal 3 cannula 03/26 1240 53 18 148/66 99 Nasal 3 cannula 03/26 1225 52 16 148/66 100 Nasal 3 cannula 03/26 1210 52 16 142/72 100 Nasal 3 cannula 03/26 1155 57 16 131/64 100 Nasal 3 cannula 03/26 1142 97.6 59 17 145/63 97 Simple 6 mask 03/26 0952 62 20 155/77 97 Simple 6 mask 03/26 0825 97.9 67 16 219/97 96 Room air Gen: Alert, in mild discomfort, nl nutrition. EYE: Nl lids conjunctiva. ENT: Nl ears Nose, nl lips,. Neck: Supple, nl thyroid, No masses. CV: Regular Rate Rhythm, no heave or significant murmur. Edema- none RESP: Clear to Auscultation, normal Respiratory effort. ABD: Soft, NonDistended,. LYM: No significant cervical Lymphadenopathy. MS: No sign of compartment syndrome, Knee is wra pped, NEURO: Nonfocal, grossly normal sensation of LE, +Ankle DF/PF PSY: Normal insight, Normal mood, oriented, . Preop Labs (03/01/2021): CBC:. Hgb 15.1, Plt 235, CHEM: Na 141, K 4.9, Cr 1.14 (eGFR 62.1%), Hgb A1C 6.7%. (medium to high risk of complications or morbidi ty) (major surgery) (IV sedative, meds) Assessment Plan 1.) Anemia of Acute Blood Loss- .will recheck to gael. 2.) S/p Left TKA Riht Knee injection- .acute mul ti-modal pain control and followup. Anticoagulation as per Dr. Leo. 3.) Hypertension Paroxysmal Atrial fibrillation CAD- .follow BP and hold Rxs if SBP<120. Watch heart rate. 4.) Diabetes2(diet controlled) OsteoArth ritis Hyperlipidemia- .continue on Rx. Patrick Luevano M.D. Thanks! G8427 - current medications obtained and reviewe rod G8730 - pain assessment with tool and followup p dee [id number] - offered discussion o n advanced care plan and patient declined to address issue at this time. at 2051 RPT #:[id number] END OF REPORT 2021-03-26 11:09:00-00:00 [facility] ([facility]) Operative Note - Full REPORT#:[id number] REPORT STATUS: Signed DATE:03/26/21 TIME: 1109 PATIENT: DOM LEWIS UNIT #: [id number] ROOM/BED: [place] [id number] : 43 AGE: 76 SEX: M ATTEND: Cornell Leo MD ADM AUTHOR: Brian Leo MD * ALL edits or amendments must be made on the [employer]/computer document * Operative Report Start date: 03/26/21 Start time: 0000 Pre-procedure diagnosis: L KNEE OA, R KNEE OA Post-procedure diagnosis: SAME Procedures performed: L TKA, R KNEE CORTISONE INJECTION Technique/Procedure: R KNEE Cortisone injection OPERATIVE PROCEDURE IN DETAIL The patient was identified in the [facility] area, and all questions and concerns were answered. The patient verbally conf irmed the site and side of the surgery and marking of the site was done. The patient was brought to [facility] operating room and, after adequate anesthesia was obtained was moved to the OR table in th e supine position. A surgical time-out was performed to identify correct patient, surgi kirti site and surgery. The affected joint was visualized. The standard anterolateral recess at the joint line was palpated. The area was prepped wi th anti-septic prep. Under sterile technique 1 mL of catalog and 9 mL of 1% lidocaine was injected using standard technique into the joint. The needle was removed; pressure was applied to the area with a sterile 4 x 4. The area was cleaned with an alcohol swab and a sterile Band-Aid was applied. Patient tolerate d procedure well. L Total Knee Replacement (Arthroplasty) OPERATIVE PROCEDURE IN DETAIL A pneumatic tourniquet was placed around the operative upper thigh. The leg was then prepped and draped in usual sterile fashion . A surgical timeout was performed to identify correct patient, surgical site and surgery. The preoperative antibiotic intravenous drip was completed. The leg was then elevated and exsanguinated with the use of an el astic bandage, and the tourniquet was then inflated. A midline incision, beginning proximal to the toro perior pole of the patella to the tibial tubercle was then performed with a sc alpel through the skin. Meticulous hemostasis was obtained with electroc autery. Dissection was taken down through the same line to the level of the quadriceps tendon, the patellar periosteum, as well as the patellar tendon. We elevated skin flaps to ex pose the medial and lateral retinacula, and a medial arthrotomy was then performe d with electrocautery from Vastus Medialis, through the medial border of the patella, and do wn to the level medial to the patellar tendon. Proximal medial periosteal e levation off the proximal tibia was then performed, and the patella was then retracted laterally and flexed( but not everted). Retractors were placed into the medial and lateral gutters of the knee with soft tissue debridement of the cr uciate ligament and the meniscal bodies, which were then sharply resected and removed. Attention was shifted to the femur. A step drill was placed anterior to the insertion of the anterior cruciate ligament, and a drill hole was then placed into this area, connecting with the intermedulla ry canal. An intermedullary alignment guide was then placed at 5 deg jo-ann of valgus for the knee and driven up into place. An appropriate amount of rotation was then determined, and the jig was then pinned in place into the di stal femur. The intramedullary yoshi was then removed. The distal cutting jig was used an d the appropriate amount of medial and lateral condyles were removed. Then t Zubka femoral sizer was used to measure the size of the dist al femur. The femoral component rotation was set to 3 degrees of external rotati on and it was verified using a t-handle to match the mechanical axis of the tibia with the knee in fl exion. The cutting block was pinned in place and used to make the anterior, posterior, and chamfer cuts with an oscillating saw. The cutting block was remove d. A notch-cutting guide was then placed on the dis neeraj femoral surface. Once its medial/lateral position was verified it was pinned in place. The notch was then cut and removed using a reciprocating saw. We then directed our attention to the proximal t ibia. Retractors were placed around the proximal tibia. An external t ibial alignment cutting guide was then placed around the leg. The guide was pinned with the appropriate amount of external rotation. Then the highest point of the unaffected articular surface was then chosen with a stylus to remove an appro priate amount of bone. The cutting jig was then fixed to the anterior surfa ce of the proximal tibia with transfixion pins. The oscillating saw was used to resect approximately 10 mm of proximal bone. The jig and pins were then removed. The rest of the soft tissue of the proximal tibia and menisci were removed as well. A spacer block was placed to asses adequate liga mentous tension both in 90 degrees of flexion and full extension. Varus/valgus stress was applied and soft tissue adjustments were made as needed. Overall alignment of the leg was also verified. A tibial sizing tray was then placed onto the cu t tibial surface and its rotation was aligned with the medial 1/3 of the tibial tubercle. It provided excellent bony coverage, and there was n o overhang. A bone plug from the tibia was used to plug the hole in the femoral canal. Then the rest of the proximal tibia was prepared. A trial tibia was left in pl joel. The trial prosthesis was the n placed on the femur, and adequate seating with all the cuts was noted. The trial polyethyle ne was then inserted, and snapped into the tibial tray. A trial reduction was p erformed. Adequate ligamentous tension throughout the range of motion was noted. Attention was then shifted to the patella. Debri katia around the patellar surface was performed. The m easurement of the depth of the patella was made and the appropriate of bone was removed using an oscillating saw. Three drill holes were then placed in the bone. A trial bu tton was placed on the bone. Reduction was then performed, and adequate tracking was no ricky as well. All trial components were removed, and irrigation was performed. The periarticular tissues were injected with local num reji medication. Two packages of methyl methacrylate were mixed. The components w ere then cemented starting with the tibial tray and then the femur. All extruded bone cement was removed. A trial tibial spacer was placed in and the knee broug ht into extension. The patellar button was inserted and clamped into position. Adequate alignment wa s noted at this point. A compressive bandage was applied to the leg while the cement cured. Once the cement was hard the tourniquet was deflated. Aft er further debridement of any loose and/or extruded cement we checked for blee ding and controlled it with electrocautery. Irrigation with pulse lavage with normal saline with bacitracin was used, and the joint dried. The final posterior-stabilized tibial po ly insert was then seated. Closure was then performed . The retinac ulum and quadriceps mechanism were repaired with #2 Quill and #1 Vicryl. The subcutaneous layer was closed meticulously with deep layer of #1 Vicryl, superfic ial layer of 2-0 Vicryl, and the skin with Dermabond mesh. A sterile compressive dressing was applied . INDICATIONS FOR PLASTIC FRAME INSERTER The presence of a skilled toro rgical medical receptionist medical assistant was medically necessary to aid for the entire procedure. Their responsibilities inc lude patient positioning, retraction of soft tissues for wide exposure so that the surgeon can use both hands to perform the surgery, as well as stabili zing the limb for surgical instrumentation throughout the case. Ret raction for exposure/visualization, as well as stabilization of the extremity is vital to the procedure and not possible without an medical receptionist medical assistant. In addition marianain vilma an medical receptionist medical assistant shortens operative times which decrea ses expenses and improves outcomes. I am not part of any residency or fellowship training programs and therefore require the help of the medical receptionist medical assistant listed above for this surgery. IMPLANTS Depuy Sigma 5 Fem, 4Tib, 10mm ALTRX, 41 mm Oval patella Primary Surgeon: FELIPA Supervisor Paper Testing(s): SHEELA PAC Anesthesia: regional anesthesia, spinal anesthet ic Operative findings: OA Complications: none Estimated blood loss in ml's: 50 Specimens removed/altered: none Implant(s): DEPUY Electronically Signed by Brian Leo MD on at [address] [place] [address] #:[id number] END OF REPORT
[2023-01-23] MEDS ORDERED: MAGNES/ALUMIN/SIMET 30ML UCUP ONE (14:35)
--- NOTE | 2023-01-23 14:57 | EDPHYS ---
Physician Documentation [facility] Name: London Lewis Age: 77 yrs Sex: Male : 1945 Arrival Date: 01/23/2023 Time: 13:43 Bed 15 Private MD: Hollie Pinto ED Physician Romario Agudelo HPI: 01/23 14:30 This 77 yrs old Male presents to ER via Ambulatory with complaints of Throat, tongue ms3 problem. 14:30 77-year-old male with past medical history of anxiety, bulging disc, GERD, ms3 hypertension, myocardial infarction, geographic tongue presents for throat and tongue pain. Patient states this morning he had a bad taste in his mouth and gargle salt water which caused him to have mouth and throat pain. Patient states his pain is a 5/10. Patient denies alleviating or inciting factors. Historical: - Allergies: 13:57 PENICILLINS; bp - Home Meds: 13:57 aspirin 81 mg Oral TbEC 1 tab once daily [Active]; Flonase 50 mcg/actuation Nasal spsn bp [Active]; lisinopril 2.5 mg Oral tab once daily [Active]; Xanax 0.25 mg Oral tab as needed [Active]; pantoprazole 40 mg Oral TbEC 1 tab once daily [Active]; metoprolol tartrate 50 mg Oral tab 1 tab 2 times per day [Active]; - PMHx: 13:57 Anxiety; bulging discs; GERD; Hypertension; PA; GEOGRAPHIC TONGUE; bp - PSHx: 13:57 Left knee replacement; triple bipass; bp - Immunization history:: Adult Immunizations up to date. - Social history:: Smoking status: Patient denies any tobacco usage or history of. ROS: 14:30 Constitutional: Negative for fever, and chills. Neck: Negative for injury, pain, and ms3 swelling, Cardiovascular: Negative for chest pain, and palpitations. Respiratory: Negative for shortness of breath, cough, wheezing, and pleuritic chest pain, Abdomen/GI: Negative for abdominal pain, nausea, vomiting, diarrhea, and constipation. 14:30 Skin: Negative for injury, rash, and discoloration. 14:30 ENT: Positive for sore throat. 14:30 All other systems are negative. Exam: 14:30 Constitutional: This is a well developed, well nourished patient who is awake, alert, ms3 and in no acute distress. Head/Face: Normocephalic, atraumatic. Neck: Trachea midline, no cervical lymphadenopathy. Supple, full range of motion without nuchal rigidity, or vertebral point tenderness. No Meningismus. Chest/axilla: Normal chest wall appearance and motion. Nontender with no deformity. Cardiovascular: Regular rate and rhythm with a normal S1 and S2. No gallops, murmurs, or rubs. Normal PMI, no JVD. No pulse deficits. Respiratory: Lungs have equal breath sounds bilaterally, clear to auscultation and percussion. No rales, rhonchi or wheezes noted. No increased work of breathing, no retractions or nasal flaring. Abdomen/GI: Soft, non-tender, with normal bowel sounds. No distension or tympany. No guarding or rebound. No evidence of tenderness throughout. Skin: Warm, dry with normal turgor. Normal color with no rashes, no lesions, and no evidence of cellulitis. MS/ Extremity: Pulses equal, no cyanosis. Neurovascular intact. Full, normal range of motion. 14:30 ENT: Posterior pharynx: Uvula: normal, midline, peritonsillar mass, is not appreciated, pooling of secretions, is not appreciated. Vital Signs: 13:59 BP 215 / 98; Pulse 66; Resp 16; Temp 97.5; Pulse Ox 98% ; bp MDM: 14:05 Patient medically screened. ms3 14:30 Differential diagnosis: upper respiratory infection, viral syndrome PND. ms3 14:57 Data reviewed: vital signs, nurses notes, and as a result, I will discharge patient. I ms3 considered the following discharge prescriptions or medication management in the emergency department Medications were administered in the Emergency Department. See MAR. Historians other than the Patient: Spouse/Significant Other: Daughter. Counseling: I had a detailed discussion with the patient and/or guardian regarding: the historical points, exam findings, and any diagnostic results supporting the discharge/admit diagnosis, the need for outpatient follow up, to return to the emergency department if symptoms worsen or persist or if there are any questions or concerns that arise at home. Response to treatment: the patient's symptoms have markedly improved after treatment, and as a result, I will discharge patient. Special discussion: I discussed with the patient/guardian in detail that at this point there is no indication for admission to the hospital. It is understood, however, that if the symptoms persist or worsen the patient needs to return immediately for re-evaluation. Administered Medications: 14:30 Drug: GI Cocktail with - (Phenobarbital-Belladonna PO 10 ml, Maalox PO os Suspension 30 ml, Lidocaine Mucous Membrane Liquid 2 % 20 ml) Route: PO; 15:27 Follow up: Response: No adverse reaction os Disposition Summary: 01/23/23 14:57 Discharge Ordered Location: Home ms3 Condition: Stable ms3 Diagnosis - Pain in throat ms3 - Geographic Tongue ms3 Followup: ms3 - With: Hollie Pinto DO - When: 2 - 3 days - Reason: Recheck today's complaints Discharge Instructions: - Discharge Summary Sheet ms3 - Sore Throat ms3 - Sore Throat, Nteo-wx-Meiv ms3 Forms: - Medication Reconciliation Form ms3 - Thank You Letter ms3 - Antibiotic Education ms3 - Prescription Opioid Use ms3 - [email or web address] ms3 Prescriptions: - Flonase Allergy Relief 50 mcg/actuation Nasal spray, suspension - spray 2 spray by INTRANASAL route daily administer into each nostril; 1 unit; ms3 Refills: 0, Product Selection Permitted - Claritin 10 mg Oral Tablet - take 1 tablet by ORAL route once daily As needed; 30 tablet; Refills: 0, ms3 Product Selection Permitted Signatures: Richard Arcos RN RN Romario Azevedo DO DO ms3 Guillermo Shipman RN RN os Corrections: (The following items were deleted from the chart) 14:33 14:30 ENT: Posterior pharynx: Tonsils: bilaterally enlarged, with erythema, Uvula: ms3 normal, midline, peritonsillar mass, is not appreciated, pooling of secretions, is not appreciated, ms3
--- NOTE | 2023-01-23 14:57 | ER ---
Nurse's Notes [facility] Name: London Lewis Age: 77 yrs Sex: Male : 1945 Arrival Date: 01/23/2023 Time: 13:43 Bed 15 Private MD: Hollie Pinto Diagnosis: Pain in throat;Geographic Tongue Presentation: 01/23 13:59 Chief complaint: Patient states: TONGUE AND MOUTH PAIN SINCE THIS MORNING. Coronavirus bp screen: At this time, the client does not indicate any symptoms associated with coronavirus-19. Ebola Screen: No symptoms or risks identified at this time. Initial Sepsis Screen: Does the patient meet any 2 criteria? No. Patient's initial sepsis screen is negative. Does the patient have a suspected source of infection? No. Patient's initial sepsis screen is negative. Risk Assessment: Do you want to hurt yourself or someone else? Patient reports no desire to harm self or others. Onset of symptoms was January 23, 2023. 13:59 Method Of Arrival: Ambulatory bp 13:59 Acuity: ROBERT 3 bp Triage Assessment: 13:57 General: Appears uncomfortable, Behavior is cooperative, appropriate for age, anxious. bp Pain: Complains of pain in mouth. EENT: Reports pain in mouth. Neuro: No deficits noted. Cardiovascular: No deficits noted. Respiratory: No deficits noted. GI: No signs and/or symptoms were reported involving the gastrointestinal system. : No signs and/or symptoms were reported regarding the genitourinary system. Derm: No deficits noted. Musculoskeletal: No deficits noted. Historical: - Allergies: 13:57 PENICILLINS; bp - Home Meds: 13:57 aspirin 81 mg Oral TbEC 1 tab once daily [Active]; Flonase 50 mcg/actuation Nasal spsn bp [Active]; lisinopril 2.5 mg Oral tab once daily [Active]; Xanax 0.25 mg Oral tab as needed [Active]; pantoprazole 40 mg Oral TbEC 1 tab once daily [Active]; metoprolol tartrate 50 mg Oral tab 1 tab 2 times per day [Active]; - PMHx: 13:57 Anxiety; bulging discs; GERD; Hypertension; [place]; GEOGRAPHIC TONGUE; bp - PSHx: 13:57 Left knee replacement; triple bipass; bp - Immunization history:: Adult Immunizations up to date. - Social history:: Smoking status: Patient denies any tobacco usage or history of. Screenin:27 [facility] ED Fall Risk Assessment (Adult) History of falling in the last 3 months, os including since admission No falls in past 3 months (0 pts) Confusion or Disorientation No (0 pts) Intoxicated or Sedated No (0 pts) Impaired Gait No (0 pts) Mobility Assist Device Used No (0 pt) Altered Elimination No (0 pt) Score/Fall Risk Level 0 - 2 = Low Risk. Abuse screen: Denies threats or abuse. Nutritional screening: No deficits noted. Tuberculosis screening: No symptoms or risk factors identified. Vital Signs: 13:59 BP 215 / 98; Pulse 66; Resp 16; Temp 97.5; Pulse Ox 98% ; bp ED Course: 13:46 Patient arrived in ED. mr 13:47 Hollie Pinto DO is Private Physician. mr 13:53 Romario Agudelo DO is Attending Physician. ms3 13:57 Arm band placed on. bp 14:01 Triage completed. bp 14:24 Guillermo Shipman, RN is Primary Nurse. os 14:56 Hollie Pinto DO is Referral Physician. ms3 15:27 No provider procedures requiring assistance completed. Patient did not have IV access os during this emergency room visit. Administered Medications: 14:30 Drug: GI Cocktail with - (Phenobarbital-Belladonna PO 10 ml, Maalox PO os Suspension 30 ml, Lidocaine Mucous Membrane Liquid 2 % 20 ml) Route: PO; 15:27 Follow up: Response: No adverse reaction os Outcome: 14:57 Discharge ordered by . ms3 15:28 Discharged to home ambulatory. os 15:28 Condition: improved 15:28 Discharge instructions given to patient, family, Instructed on discharge instructions, follow up and referral plans. medication usage, Demonstrated understanding of instructions, follow-up care, medications, Prescriptions given X 1. 15:28 Patient left the ED. os Signatures: Ivon Price mr ArcosRichard, RN RN bp Romario Agudelo DO DO ms3 Guillermo Shipman RN RN os
[2023-01-23 15:32] VITALS: BP 215/98; TEMP 97.5; O2SAT 98
== END 2023-01-23 15:28 | disposition home or self-care (01) ==
LOC: ER 13:43
DX: K14.1 Geographic tongue (principal); I10 Essential (primary) hypertension; Z88.0 Allergy status to penicillin; Z79.82 Long term (current) use of aspirin; Z95.1 Presence of aortocoronary bypass graft
CPT/HCPCS: 99283

== ENCOUNTER 2023-02-21 16:09 | Emergency (ER) | payer OTHER ==
--- OUTSIDE RECORDS SUMMARY | 2023-02-21 16:13 | XMS REPORT | Continuity of Care Document ---
:1945 Author Organization [facility] t Address [address] [place] [address] Care Team Providers Name Role Phone Wendy Attending Clinician Unavailable Brian Leo Attending Clinician [phone] Brian Leo Attending Clinician Unavailable Chepe Aguilera Attending Clinician Wendy Admitting Clinician Unavailable Brian Leo Admitting Clinician Unavailable Payers Payer Name Policy Type Policy Number Effective Date Expiration Date Glenn morales MEDICARE B-[place]: [id number] 2008 [place] Speech 00:00:00 [employer] [id number] INS[employer]ANCE [employer] (MEDICARE SUPPLEMENT) Problems Condition Condition [...] NSAIDS DA Active U [facility] (Non-Rl 03-26 [place] roidal 00:00: [facility]ope Anti-Inf 00 dic lamma Hosp[facility] Penicill DA Active SV [facility] ins 03-26 00:00: Orthope 00 dic Hospita l NSAIDS DA Active U DECREASED [facility] (Non-Rl KIDNEY 03-26 [place] roidal FUNCTION 00:00: Orthope Anti-Inf 00 dic lamma Hospita [facility] Penicill DA Active SV RASHES/KNOTS HC A ins 03-26 [place] 00:00: Orthope 00 dic Hospita l Penicill DA Active SV [facility] ins 11-24 [place] 00:00: Thomas 00 [facility] Penicill DA Active SV RASHES/KNOTS HC A ins 11-24 Clear 00:00: Thomas 00 [facility] Penicill DA Active SV H[facility] ins 11-16 00:00: Orthope 00 dic Hospita l Penicill DA Active SV [facility] ins 10-26 [facility] [place] PENICILL Allergy Active Kayla IN to Orthope substanc dic e Sports Medicin e penicill penicill Active Memori a ins ins l [place] Social History Smoking Status Start Date Stop Date Source Social History [facility] Medications Ordered Filled Start Stop Current Ordering Indication Dosage Frequency Signature Comments Components Source Medication Medication Date Date Medication? Clinician (SIG) Name Name Flonasrobinson Flonase No Flonase Azal ea Allergy Allergy [...] tab, PO, l Coated 16:54: Daily, # [place] Tablet 00 90 tab, 3 Refill(s) Alprazolam Yes 0.25 mg = Me moria 0.25 MG 2-20 1 tab, PO, l Oral Tablet 16:54: TID, PRN He rmann [Xanax] 00 Anxiety, # 30 tab, 0 Refill(s) Fish Oil 20180 Yes PO, 0 Memoria 2-20 Refill(s) l 16:54: [place] 00 lisinopril 20180 Yes 5 mg = 1 Mem oria 5 mg oral 2-20 tab, PO, l tablet 16:54: Daily, # [place] 00 30 tab, 0 Refill(s) pantoprazol Yes 40 mg = 1 M emoria e 40 mg 2-20 tab, PO, l oral 16:54: Daily, # [place] enteric 00 30 tab, 0 coated Refill(s) tablet hydrocortis Yes 25 mg = 1 M emoria one acetate 2-20 supp, [facility], l 25 MG 16:54: BID, # 20 [facility] Rectal 00 supp, 0 Suppository Refill(s) [Proctosol] metoprolol Yes 50 mg = 1 Me moria 50 mg oral 2-20 tab, PO, l tablet, 16:54: BID, 0 [place] extended 00 Refill(s) release Aspirin 81 2018 Yes 81 mg = 1 Me moria MG Enteric 2-20 tab, PO, l Coated 16:54: Daily, # [place] Tablet 00 90 tab, 3 Refill(s) Alprazolam 0 Yes 0.25 mg = Me moria 0.25 MG 2-20 1 tab, PO, l Oral Tablet 16:54: TID, PRN He rmann [Xanax] 00 Anxiety, # 30 tab, 0 Refill(s) Fish Oil 2018-0 Yes PO, 0 Memoria 2-20 Refill(s) l 16:54: [place] 00 lisinopril 2018-0 Yes 5 mg = 1 Mem oria 5 mg oral 2-20 tab, PO, l tablet 16:54: Daily, # [place] 00 30 tab, 0 Refill(s) pantoprazol 2018-0 Yes 40 mg = 1 M emoria e 40 mg 2-20 tab, PO, l oral 16:54: Daily, # [place] enteric 00 30 tab, 0 coated Refill(s) tablet hydrocortis 2018-0 Yes 25 mg = 1 M emoria one acetate 2-20 supp, VA, l 25 MG 16:54: BID, # 20 [place] Rectal 00 supp, 0 Suppository Refill(s) [Proctosol] metoprolol 0 Yes 50 mg = 1 Me moria 50 mg oral 2-20 tab, PO, l tablet, 16:54: BID, 0 [place] extended 00 Refill(s) release Aspirin 81 2018-0 Yes 81 mg = 1 Me moria MG Enteric 2-20 tab, PO, l Coated 16:54: Daily, # [facility] Tablet 00 90 tab, 3 Refill(s) Alprazolam 20180 Yes 0.25 mg = Me moria 0.25 MG 2-20 1 tab, PO, l Oral Tablet 16:54: TID, PRN He rmann [Xanax] 00 Anxiety, # 30 tab, 0 Refill(s) Fish Oil 2018-0 Yes PO, 0 Memoria 2-20 Refill(s) l 16:54: [place] 00 lisinopril 2018-0 Yes 5 mg = 1 Mem oria 5 mg oral 2-20 tab, PO, l tablet 16:54: Daily, # [facility] 00 30 tab, 0 Refill(s) pantoprazol 2018-0 Yes 40 mg = 1 M emoria e 40 mg 2-20 tab, PO, l oral 16:54: Daily, # [place] enteric 00 30 tab, 0 coated Refill(s) tablet hydrocortis 2018-0 Yes 25 mg = 1 M emoria one acetate 2-20 supp, VA, l 25 MG 16:54: BID, # 20 [place] Rectal 00 supp, 0 Suppository Refill(s) [Proctosol] Aspir-Low Aspir-Low No Aspir-Low Kayla 81 mg 81 mg 81 mg Orthope tablet,kia tablet,kia tablet,del dic yed release yed release ayed S ports RX by other RX by other release RX Jaci GRAHAM MD by other [place] GRAHAM doxycycline doxycycline No 1 BID doxycyclin [...] RX layed e by other MD by other MD release RX by other metoprolol metoprolol No metoprolol Kayla tartrate 25 tartrate 25 tartrate Orthope mg tablet mg tablet 25 mg dic RX by other RX by other tablet RX Sports MD GRAHAM by other Jaci bowers pantoprazol pantoprazol No pantoprazo Kayla e 40 mg e 40 mg le 40 mg Ortho pe tablet,kia tablet,kia tablet,del dic yed release yed release ayed S ports RX by other RX by other release RX Jaci GRAHAM MD by other [place] GRAHAM Plavix 75 Plavix 75 No Plavix 75 Kayla mg tablet mg tablet mg tablet Orthope RX by other RX by other RX by dic MD MD jessica Tena Vital Signs Vital Name Observation Time Observation Value Comments Source Systolic (mm Hg) 2019-06-30 16:08:00 [place] Saab Diastolic (mm Hg) 2019-06-30 16:08:00 [facility] orial [facility] Heart Rate 2019-06-30 16:08:00 [facility] Temperature Oral (F) 2019-06-30 16:08:00 98.4 F [facility] Height 2019-06-30 16:08:00 177.8 cm [facility] Weight 2019-06-30 16:08:00 [facility] BMI Calculated 2019-06-30 16:08:00 [facility] [place] BMI Calculated 2018-10-13 14:06:00 [facility] Weight 2018-10-13 14:06:00 [facility] [place] Height 2018-10-13 14:06:00 177.8 cm [facility] Temperature Oral (F) 2018-10-13 14:06:00 97.6 F [facility] [place] Systolic (mm Hg) 2018-10-13 14:06:00 [place] rial [place] Diastolic (mm Hg) 2018-10-13 14:06:00 Mem orial [place] Heart Rate 2018-10-13 14:06:00 [facility] Weight 2018-04-22 15:21:00 [facility] [place] Temperature Oral (F) 2018-04-22 15:21:00 97.9 F [facility] Heart Rate 2018-04-22 15:21:00 [facility] [place] Systolic (mm Hg) 2018-04-22 15:21:00 [place] rial [place] Diastolic (mm Hg) 2018-04-22 15:21:00 Mem [facility]rial [facility] BMI Calculated 2018-04-22 15:21:00 [facility] [place] Height 2018-04-22 15:21:00 180.34 cm [facility] BMI Calculated 2018-03-10 15:30:00 [facility] Weight 2018-03-10 15:30:00 [facility] [place] Height 2018-03-10 15:30:00 177.8 cm [facility] [place] Systolic (mm Hg) 2018-03-10 15:30:00 [place] rial [facility] Diastolic (mm Hg) 2018-03-10 15:30:00 Mem orial [place] Temperature Oral (F) 2018-03-10 15:30:00 97.4 F [facility] [place] Heart Rate 2018-03-10 15:30:00 [facility] Height 2018-02-25 14:45:00 177.8 cm [facility] Weight 2018-02-25 14:45:00 [facility] BMI Calculated 2018-02-25 14:45:00 [facility] Systolic (mm Hg) 2018-02-25 14:45:00 [place] rial [place] Diastolic (mm Hg) 2018-02-25 14:45:00 Mem orial [facility] Temperature Oral (F) 2018-02-25 14:45:00 97.6 F [facility] Heart Rate 2018-02-25 14:45:00 [facility] [place] BMI Calculated 2017-10-29 15:30:00 [facility] [place] Weight 2017-10-29 15:30:00 [facility] Systolic (mm Hg) 2017-10-29 15:30:00 [place] [facility] Diastolic (mm Hg) 2017-10-29 15:30:00 Mem orial [place] Temperature Oral (F) 2017-10-29 15:30:00 97.4 F [facility] [place] Heart Rate 2017-10-29 15:30:00 [facility] [place] Height 2017-10-29 15:30:00 180.34 cm [facility] Weight 2017-10-09 15:04:00 [facility] [place] BMI Calculated 2017-10-09 15:04:00 [facility] Height 2017-10-09 15:04:00 180.34 cm [facility] Temperature Oral (F) 2017-10-09 15:04:00 98.3 F [facility] Systolic (mm Hg) 2017-10-09 15:04:00 [place] rial [place] Diastolic (mm Hg) 2017-10-09 15:04:00 Mem orial [facility] Respitory Rate 2017-10-09 15:04:00 Memori al [place] Heart Rate 2017-10-09 15:04:00 [facility] [place] Height 2017-09-29 16:07:00 180.34 cm [facility] BMI Calculated 2017-09-29 16:07:00 [facility] [place] Weight 2017-09-29 16:07:00 [facility] Temperature Oral (F) 2017-09-29 16:07:00 97.7 F [facility] Heart Rate 2017-09-29 16:07:00 [facility] Respitory Rate 2017-09-29 16:07:00 Memori [facility] [place] Systolic (mm Hg) 2017-09-29 16:07:00 [place] rial [place] Diastolic (mm Hg) 2017-09-29 16:07:00 Mem orial [facility] BMI Calculated 2017-09-22 17:23:00 [facility] Weight 2017-09-22 17:23:00 [facility] [place] Height 2017-09-22 17:23:00 180.34 cm [facility] [place] Systolic (mm Hg) 2017-09-22 17:23:00 [place] [facility] Diastolic (mm Hg) 2017-09-22 17:23:00 Mem orial [place] Respitory Rate 2017-09-22 17:23:00 [facility] Temperature Oral (F) 2017-09-22 17:23:00 98.5 F [facility] [place] Heart Rate 2017-09-22 17:23:00 [facility] Systolic (mm Hg) 2017-09-15 16:40:00 [place] [facility] Diastolic (mm Hg) 2017-09-15 16:40:00 Mem orial [facility] Heart Rate 2017-09-15 16:40:00 [facility] Respitory Rate 2017-09-15 16:40:00 [facility] Temperature Oral (F) 2017-09-15 16:40:00 98.4 F [facility] [place] Procedures Procedure Date / Time Performed Performing Clinician [facility] robinson [id number] 2021-03-26 00:00:00 [facility] [id number] 2021-03-26 00:00:00 [facility] Anoscopy; diagnostic, 2018-04-22 [facility] [place] including collection of specimen(s) by brushing or washing, when performed (separate procedure) Hemorrhoidectomy, 2018-02-25 14:54:00 [facility] ermann internal, by rubber band ligation(s) Open heart surgery [facility] peggy Encounters Start End Encounter Admission Attending Care Care Encounter Source Date/Time Date/Time Type Type Clinicians Facility Department ID 2022-01-10 2022-01-10 Outpatient FOG_Goytia_ AOSM AOSM [id number] Kayla 03:57:00 03:57:00 Tala [id number] Ortho pe dic Sports Medicin e 2022-01-06 2022-01-06 Outpatient FOG_Goytia_ AOSM AOSM [id number] Kayla 01:03:00 01:03:00 Tala [id number] Ortho pe dic Sports Medicin e 2022-01-06 2022-01-06 Brian Neely AOSM [place] - Ortho [id number] Kayla 00:00:00 00:00:00 Linn Leo MD: 7401 FOG_Telemed dic [facility] Sports Main, Medic[place], [place] [id number] , Ph. 2022-01-06 2022-01-06 Outpatient Felipa, AOSM AOSM [id number] 00:00:00 00:00:00 Brian Neely [id number] 2021-12-31 2021-12-31 Outpatient FOG_Goytia_ AOSM AOSM [id number] Kayla 12:06:00 12:06:00 Tala [id number] Ortho pe dic Sports Medicin e 2021-12-31 2021-12-31 Outpatient FOG_Goytia_ AOSM AOSM [id number] Kayla 12:06:00 12:06:00 Tala [id number] Ortho pe dic Sports Medicin e 2021-03-26 2021-03-27 Inpatient EL Felipa, HCATO SURG [id number] [facility] 08:03:00 13:41:00 Brian [id number] [place] [facility] 2021-03-01 2021-03-01 Outpatient EL Felipa, HCATO 3DAY [id number] [facility] 09:00:00 23:00:00 Brian [id number] [place] [facility] 2021-03-01 2021-03-01 Outpatient Felipa, HCACL LABO [id number] [facility] 18:16:00 18:16:00 Brian 99 [facility] 2021-03-01 2021-03-01 Outpatient Felipa, HCAWU REFE [id number] [facility] 15:29:00 15:29:00 Brian 20 [facility] 2019-06-30 2019-07-01 Outpatient nullFlavo [facility] Multi 55 [id number] Memoria 16:30:00 05:59:59 r Specialty 14 l [facility] 2019-06-30 2019-07-01 Outpatient nullFlavo [facility] Multi 55 [id number] Memoria 16:30:00 05:59:59 r Specialty 14 l [facility] 2019-06-30 2019-06-30 Outpatient Ale [facility] [id number] 10:30:00 23:59:59 Mohummed 14 [facility] 2019-06-30 2019-06-30 Outpatient MHIE MHIE [id number] Memoria 10:30:00 10:30:00 14 [place] [place] 2019-05-05 2019-05-05 Ambulatory nullFlavo [facility] Multi [id number] Memoria 15:45:00 15:45:00 Pre-Reg r Specialty 13 luke [facility] 2019-05-05 2019-05-05 Ambulatory nullFlavo [facility] Multi 55 [id number] Memoria 15:45:00 15:45:00 Pre-Reg r Specialty 13 l [facility] 2019-05-05 2019-05-05 Outpatient Ale, MHMG MHMG [id number] 10:45:00 10:45:00 Mohummed 13 [facility] 2019-04-14 2019-04-14 Outpatient MHIE MHIE [id number] Memoria 10:30:00 10:30:00 13 luke [place] 2018-10-13 2018-10-14 Outpatient nullFlavo [facility] Multi 55 [id number] Memoria 14:30:00 04:59:59 r Specialty 12 l [facility] 2018-10-13 2018-10-14 Outpatient nullFlavo [facility] Multi 55 [id number] Memoria 14:30:00 04:59:59 r Specialty 12 luke [facility] 2018-10-13 2018-10-13 Outpatient Ale, MHMG MHMG [id number] 09:30:00 23:59:59 Mohummed 12 [facility] 2018-10-13 2018-10-13 Outpatient MHIE MHIE [id number] Memoria 09:30:00 09:30:00 12 luke [place] 2018-04-22 2018-04-23 Outpatient nullFlavo [facility] Multi 55 [id number] Memoria 16:00:00 04:59:59 r Specialty 10 luke [facility] 2018-04-22 2018-04-23 Outpatient nullFlavo [facility] Multi 55 [id number] Memoria 16:00:00 04:59:59 r Specialty 10 luke [facility] 2018-04-22 2018-04-22 Outpatient Ale, MHMG MHMG [id number] 11:00:00 23:59:59 [facility] 2018-04-22 Outpatient MHIE MHIE [id number] Memoria 11:00:00 11:00:00 10 luke [place] 2018-04-21 2018-04-21 Ambulatory nullFlavo [facility] Multi 55 [id number] Memoria 14:30:00 14:30:00 Pre-Reg r Specialty 11 l [facility] 2018-04-21 2018-04-21 Ambulatory nullFlavo [facility] Multi 55 [id number] Memoria 14:30:00 14:30:00 Pre-Reg r Specialty 11 l [facility] 2018-04-21 2018-04-21 Outpatient MHIE MHIE [id number] Memoria 09:30:00 09:30:00 11 [facility] 2018-04-21 2018-04-21 Outpatient Khani, MHMG MHMG [id number] 09:30:00 09:30:00 Mohummed Maricel [facility] 2018-03-10 2018-03-11 Outpatient nullFlavo [facility] Multi 55 [id number] Memoria 15:30:00 04:59:59 r Specialty 09 luke [facility] 2018-03-10 2018-03-11 Outpatient nullFlavo [facility] Multi 55 [id number] Memoria 15:30:00 04:59:59 r Specialty 09 luke [facility] 2018-03-10 2018-03-10 Outpatient Ale, MG MHMG [id number] 10:30:00 23:59:59 Mohummed Tucker [facility] 2018-03-10 2018-03-10 Outpatient MHIE MHIE [id number] Memoria 10:30:00 10:30:00 09 luke [place] 2018-03-01 2018-03-03 Phone nullFlavo [facility] Multi [id number] Memoria 18:30:00 04:59:59 Message r Specialty 02 luke [facility] 2018-03-01 2018-03-03 Phone nullFlavo [facility] Multi [id number] Memoria 18:30:00 04:59:59 Message r Specialty 02 luke [facility] 2018-03-01 2018-03-02 Outpatient MHMG MHMG [id number] 13:30:00 23:59:59 02 2018-02-25 2018 Outpatient nullFlavo [facility] Multi 55 [id number] Memoria 16:00:00 04:59:59 r Specialty 08 l [facility] 2018-02-25 2018 Outpatient nullFlavo [facility] Multi 55 [id number] Memoria 16:00:00 04:59:59 r Specialty 08 l [facility] 2018-02-25 2018-02-25 Outpatient Khani, MG MG [id number] 11:00:00 23:59:59 Mohummed Brendan [facility] 2018-02-25 2018-02-25 Outpatient MHIE IE [id number] Memoria 11:00:00 11:00:00 08 [facility] 2018-01-21 2018-01-21 [place] [id number] Memoria 15:45:00 15:45:00 Pre-Reg r General 07 l [facility] 2018-01-21 2018-01-21 [place] [id number] Memoria 15:45:00 15:45:00 Pre-Reg r General 07 l [facility] 2018-01-21 2018-01-21 Outpatient MHIE IE [id number] Memoria 10:45:00 10:45:00 07 [facility] 2018-01-21 2018-01-21 Outpatient Silviaani, MG MG [id number] 10:45:00 10:45:00 Mohummed Myles [facility] 2017-12-31 2018-01-01 [place] [id number] Memoria 16:00:00 04:59:59 r General 05 l [facility] 2017-12-31 2018-01-01 [place] [id number] Memoria 16:00:00 04:59:59 r General 05 l [facility] 2017-12-31 2017-12-31 Outpatient Khani, MG MG [id number] 11:00:00 23:59:59 Mohummed Gustavo [facility] 2017-12-31 2017-12-31 Outpatient MHIE IE [id number] Memoria 11:00:00 11:00:00 05 [facility] 2017-11-11 2017-11-11 [place] [id number] Memoria 20:30:00 20:30:00 Pre-Reg r General 06 l [facility] 2017-11-11 2017-11-11 Ambulatory nullFlavo MHMG [id number] Memoria 20:30:00 20:30:00 Pre-Reg r General 06 l [facility] 2017-11-11 2017-11-11 Outpatient MHIE MHIE [id number] Memoria 15:30:00 15:30:00 06 luke [place] 2017-11-11 2017-11-11 Outpatient Khani, MHMG MG [id number] 15:30:00 15:30:00 Mohummed Joseph [facility] 2017-10-29 2017-10-30 Outpatient nullFlavo MHMG [id number] Memoria 15:45:00 04:59:59 r General 03 l [facility] 2017-10-29 2017-10-30 Outpatient nullFlavo MHMG [id number] Memoria 15:45:00 04:59:59 r General 03 l [facility] 2017-10-29 2017-10-29 Outpatient Silviaani, MHMG MG [id number] 10:45:00 23:59:59 Mohummed Fidencio [facility] 2017-10-29 2017-10-29 Outpatient MHIE MHIE [id number] Memoria 10:45:00 10:45:00 03 luke [place] 2017-10-09 2017-10-10 Outpatient nullFlavo MHMG [id number] Memoria 15:00:00 04:59:59 r General 04 l [facility] 2017-10-09 2017-10-10 Outpatient nullFlavo MHMG [id number] Memoria 15:00:00 04:59:59 r General 04 l [facility] 2017-10-09 2017-10-09 Outpatient Khani, MHMG MG [id number] 10:00:00 23:59:59 Mohummed Aime [facility] 2017-10-09 2017-10-09 Outpatient MHIE MHIE [id number] Memoria 10:00:00 10:00:00 04 luke [place] 2017-10-05 2017-10-07 Phone nullFlavo MHMG [id number] Memoria 14:43:00 04:59:59 Message r General 01 l [facility] 2017-10-05 2017-10-07 Phone nullFlavo MHMG [id number] Memoria 14:43:00 04:59:59 Message r General 01 l Surgery [facility] 2017-10-05 2017-10-06 Outpatient MHMG MHMG [id number] 09:43:00 23:59:59 2017-10-02 2017-10-04 Phone nullFlavo MHMG [id number] Memoria 21:31:00 05:59:59 Message r General 00 l Surgery [facility] 2017-10-02 2017-10-04 Phone nullFlavo MHMG [id number] Memoria 21:31:00 05:59:59 Message r General 00 l [facility] 2017-10-02 2017-10-03 Outpatient MHMG MG [id number] 15:31:00 23:59:59 2017-09-29 2017-09-30 Outpatient nullFlavo MHMG [id number] Memoria 17:00:00 05:59:59 r General 01 l [facility] 2017-09-29 2017-09-30 [place] [id number] Memoria 17:00:00 05:59:59 r General 01 l [facility] 2017-09-29 2017-09-29 Outpatient Silviaani, MHMG MG [id number] 11:00:00 23:59:59 Mohummed [facility] 2017-09-29 2017-09-29 Outpatient Khani, MHMG MG [id number] 11:00:00 23:59:59 Mohummed [facility] 2017-09-29 2017-09-29 Outpatient MHIE MHIE [id number] Memoria 11:00:00 11:00:00 01 [facility] 2017-09-22 2017-09-23 Outpatient nullFlavo MHMG [id number] Memoria 17:30:00 05:59:59 r General 02 l [facility] 2017-09-22 2017-09-23 Outpatient nullFlavo MHMG [id number] Memoria 17:30:00 05:59:59 r General 02 l [facility] 2017-09-22 2017-09-22 Outpatient Silviaani, MHMG MG [id number] 11:30:00 23:59:59 Mohummed 02 [facility] 2017-09-22 2017-09-22 Outpatient TOSHA GIVENS [id number] Memoria 11:30:00 11:30:00 02 l [facility] 2017-09-15 2017-09-16 Outpatient nullFlavo [id number] Memoria 16:30:00 05:59:59 r General 00 l Surgery [facility] 2017-09-15 2017-09-16 Outpatient nullFlavo [id number] Memoria 16:30:00 05:59:59 r General 00 l Surgery [facility] 2017-09-15 2017-09-15 Outpatient Ale, [id number] 10:30:00 23:59:59 Mohummed [facility] 2017-09-15 2017-09-15 Outpatient TOSHA GIVENS [id number] Memoria 10:30:00 10:30:00 00 l [place] Results Test Description Test Time Test Comments Results Result Comments Source GLUBED 2021-03-28 09:59:00 Test Item Value Reference Range Interpretation Comme nts GLUBED (test code = GLUBED) 200 mg/dL 60-125 H BASIC METABOLIC [id number] 06:54:00 Test Item Value Reference Range Interpretation [...] RATE (test code = GFR) mL/mi n/1.73 [id number] Range:Healthy Adults >90 mL/min/1.73 m2 For Chronic Kidney Disease: Stage II Mild Decrease i n GFR 60-90 Stage III Moderate Decrea se in GFR 30-59 St age IV Severe Decre ase in GFR 15-29 St age V Kidney Failur e <15 CREATININE (test code 1.35 mg/dL 0.55-1.30 H = CREAT) CALCIUM (test code = 8.5 mg/dL 8.2-10.1 N CA) HGB [id number] 06:10:00 Test Item Value Reference Range Interpretation Comments HEMOGLOBIN (test code = HGB) 13.0 g/dL 12-16 N HEMATOCRIT (test code = HCT) 39.2 % 37-47 N SPECIMEN COMMENT: POD #[id number] 06:04:00 Test Item Value Reference Range Interpretation Comments GLUBED (test code = GLUBED) 146 mg/dL 60-125 H [id number] 16:37:00 Test Item Value Reference Range Interpretation [...] be considered for these patients.DONE A T: [facility] [address] [facility], [place], [place] [address] GLYCOSYLATED HEMOGLOBIN (HA1C)2021-03-01 18:48:00 Test [...] be considered for these patients. COMPREHENSIVE METABOLIC [id number] 16:19:00 Test Item Value Reference Range Interpretation [...] RATE (test code = GFR) mL/mi n/1.73 [id number] Range:Healthy Adults >90 mL/min/1.73 m2 For Chronic Kidney Disease: Stage II Mild Decrease i n GFR 60-90 Stage III Moderate Decrea se in GFR 30-59 S tage IV Severe Decre ase in GFR 15-29 [...] TOTAL (test code = ALKP) CBC W/AUTO [id number] 15:25:00 Test Item Value Reference Range Interpretation [...] % 0-0 N code = NRBC) PROTHROMBIN [id number] 15:24:00 Test Item Value Reference Range Interpretation [...] Patient is on Heparin Drip? NOTHROMBOPLASTIN TIME [id number] 15:24:00 Test Item Value Reference Range Interpretation Comments PTT ACTIVATED (test code = APTT) 31.5 secs 24.9-37.0 N IS PATIENT ON ANTICOAGULANTS ? YLIST ANTICOAGULANT/ANTI PLT MEDICATION : AspirinHas Lab been notified if Patient is on Heparin Drip? NO- XR FLUORO NDL 2018-11-25 11:55:00 Patient Name: DOM LEWIS Unit No: [id number] EXAMS: CPT CODE: [id number] XR FLUORO NDL 77206 FLUOROSCOPICALLY GUIDED RIGHT PLANTAR FASCIA STEROID INJECTION [...] well. 0.5 minutes of fluoroscopy time was usedon this exam. at 1155 Reported and signed by: Vilma Robb MD CC: Gold Blevins MD; Azar Donovan MD Technologist: SUZANNE DUGAN RT(R); Renetta Petit RT.(R) Transcribed D/ (7047) [id number] [facility] NAME: DOM LEWIS [address] [facility] PHYS: Gold Esposito Luis Miguel : 1945 AGE:73 SEX: M [place] [address] LOC: Y.RAD PHONE #: [phone] EXAM DATE: 11/24/2018 STATUS: DEP CLI FAX #: [phone] RAD #: D/C DT PAGE 1 Signed Report Patient Name: DOM LEWIS Unit No: [id number] EXAMS: CPT CODE: [id number] XR FLUORO NDL 89324 (Continued) Orig Print D/T: S: 11/25/2018 (7241) [facility] NAME: DOM LEWIS [address] [facility] PHYS: Gold Esposito : 1945 AGE: 73 SEX: M [place] [address] : Y.RAD PHONE #: [phone] EXAM DATE: 11/24/2018 STATUS: DEP CLI FAX #: [phone] RAD #: D/C DT PAGE 2 Signed Report- XR FLUORO [id number] 11:55:00 Patient Name: DOM LEWIS Unit No: [id number] EXAMS: CPT CODE: [id number] XR FLUORO NDL 19828 FLUOROSCOPICALLY GUIDED RIGHT PLANTAR FASCIA STEROID INJECTION [...] into the left plantar fascia under fluoroscopic controlusing sterile technique. 2 mL of Kenalog 40 mg/ml and 2 mL of Lidocaine are instilled into the proximal plantar fascia. The patient tolerated the procedure well. 0.5 minutes of fluoroscopy time was used on this exam. at 1155 Reported and signed by: Vilma Robb MD CC: Gold Blevins MD; Azar Donovan MD Technologist: SUZANNE DUGAN RT(R); RT Maikol.(R) Transcribed D/ (0053) MicheleGVG [facility] NAME: DOM LEWIS [address] [facility] PHYS: Gold Esposito : 1945 AGE: 73 SEX: M [place] [address] LOC: Y.RAD PHONE #: [phone] EXAM DATE: 11/24/2018 STATUS: DEP CLI FAX #: [phone] RAD #: D/C DT PAGE 1 Signed Report Patient Name: DOM LEWIS Unit No: [id number] EXAMS: CPT CODE: [id number] XR FLUORO NDL [id number] (Continued) Orig Print D/T: S: 11/25/2018 (5578) [facility] NAME: DOM LEWIS [address] [facility] PHYS: VERONICA Mendoza Gold Blevins : 1945 AGE: 73 SEX: M [place] [address] : Y.RAD PHONE #: [phone] EXAM DATE: 11/24/2018 STATUS: DEP CLI FAX #: [phone] RAD #: D/C DT PAGE 2 Signed ReportURINALYSIS COMPLETE 2018-11-16 12:43:00 [...] code = BACU) RARE /HPF NONE PROTHROMBIN [id number] 12:38:00 Test Item Value Reference Range Interpretation [...] BLOOD, PT every other day NTHROMBOPLASTIN TIME [id number] 12:38:00 Test Item Value Reference Range Interpretation Comments PTT ACTIVATED (test code = APTT) 30.6 secs 24.9-37.0 N IS PATIENT ON ANTICOAGULANTS ? YLIST ANTICOAGULANT/ANTI PLT MEDICATION : AspirinHas Lab been notified if Patient is on Heparin Drip? NOIf Yes, order CBC, OCCULT BLOOD, PT every other day NCOMPREHENSIVE METABOLIC [id number] 12:29:00 Test Item Value Reference Range Interpretation [...] RATE (test code = GFR) mL/mi n/1.73 [id number] Range:Healthy Adults >90 mL/min/1.73 m2 For Chronic [...] TOTAL (test code = ALKP) CBC W/AUTO [id number] 11:57:00 Test Item Value Reference Range Interpretation [...] (test NORMAL code = PLTMR) COMPREHENSIVE METABOLIC [id number] 11:30:00 Test Item Value Reference Range Interpretation [...] RATE (test code = GFR) mL/mi n/1.73 [id number] Range:Healthy Adults >90 mL/min/1.73 m2 For Chronic [...] N TOTAL (test code = ALKP) PROTHROMBIN [id number] 11:23:00 Test Item Value Reference Range Interpretation [...] BLOOD, PT every other day NTHROMBOPLASTIN TIME [id number] 11:23:00 Test Item Value Reference Range Interpretation Comments PTT ACTIVATED (test code = APTT) 30.9 secs 24.9-37.0 N IS PATIENT ON ANTICOAGULANTS ? YLIST ANTICOAGULANT/ANTI PLT MEDICATION : AspirinHas Lab been notified if Patient is on Heparin Drip? NOIf Yes, order CBC, OCCULT BLOOD, PT every other day NURINALYSIS [id number] 11:19:00 Test Item Value Reference Range Interpretation [...] = BACU) NONE /HPF NONE CBC W/AUTO [id number] 11:06:00 Test Item Value Reference Range Interpretation [...] Notes Date/Time Note Provider Source 2021-03-27 09:59:00-00:00 [facility] ([facility]) Clinical Note REPORT#:[id number] REPORT STATUS: Signed DATE:03/27/21 TIME: 958 PATIENT: DOM LEWIS UNIT #: [id number] ROOM/BED: Y.309-A : 43 AGE: 76 SEX: M ATTEND: Cornell Leo MD ADM AUTHOR: Patrick La MD * ALL edits or amendments must be made on the el ectronic/computer document * Clinical Note Note: [facility] Patrick murcia M.D. (cell text [phone]) Assessment/Plan 1.) Anemia of acute blood loss- [...] air 03/26 2220 Nasal 3 cannula 03/26 1951 97.2 80 18 175/79 119 94 Nasal [...] Labs/X-ray: Laboratory Tests: 03/27 03/27 03/26 0551 8539 1625 Chemistry Sodium (136 - 145 mmol/L) [...] 39.2 Patrick Luevano M.D. at 1237 RPT #:[id number] END OF REPORT 2021-03-27 08:47:00-00:00 [facility] ([facility]) Clinical Note REPORT#:[id number] REPORT STATUS: Signed DATE:03/27/21 TIME: 0847 PATIENT: DOM LEWIS UNIT #: [id number] [facility] AGE: 76 SEX: M ATTEND: Cornell Leo MD ADM AUTHOR: Brian Leo MD * ALL edits or amendments must be made on the el [employer]/computer document * Clinical Note Note: POD# 1 left knee Joint Arthroplasty Patient well, reports pain is mild-moderate AF VSS Exam: dressing dry/intact Moves toes DF/PF Sensory unchanged A/P: Mobilize with physical Therapy DVT prophylaxis ongoing Following labs Remove coverlet, do not recover, patient may juancho wer Discharge planning Electronically Signed by Brian Leo MD on at 0847 RPT #:[id number] END OF REPORT 2021-03-27 08:45:00-00:00 [facility] ([facility]) Discharge Summary REPORT#:[id number] REPORT STATUS: Signed DATE:03/27/21 TIME: 844 PATIENT: DOM LEWIS UNIT #: [id number] ROOM/BED: Y.309-A : 43 AGE: 76 SEX: M ATTEND: Cornell Leo MD ADM AUTHOR: Brian Leo MD * ALL edits or amendments must be made on the el [employer]/computer document * General Information Discharge date: 03/27/21 [...] mobilization with therapy, and a stable hemodyna chang status. At discharge, the patient was comfortabl [...] undergo PT for gait training, mobilization , axpge-hz-fsoasy, and strengthening. Patient was i nformed to that they need to arrange for therapy as quickly as possible. The imp ortance of early advancement of ffmqn-zo-serwpg with home exercises, and physical therapy was stresse d to the patient. Follow-up Appointment: Patient instructe luke to arrange appointment for an office visit [...] Brian Leo MD on at 0846 RPT #:[id number] END OF REPORT 2021-03-27 07:36:00-00:00 [facility] ([facility]) Pain Management Progress Note REPORT#:[id number] REPORT STATUS: Signed DATE:03/27/21 TIME: 07 PATIENT: DOM LEWIS UNIT #: [id number] ROOM/BED: 309-A : 43 AGE: 76 SEX: M ATTEND: Cornell Leo MD ADM AUTHOR: Jocelyne Lai * ALL edits or amendments must be made on the [employer]/computer document * Subjective Chief Complaint: L KNEE PAIN S/P TKA Comments: Last Documented: Result Date Time Pulse Ox 95 03/27 07 B/P 162/88 03/27 07 B/P Mean 113.0 03/27 07 O2 Delivery Room air 03/27 07 Temp 36.0 03/27 07 Pulse 61 03/27 0712 Resp 18 03/27 07 O2 Flow Rate 3 03/26 2220 FiO2 32 03/26 1700 History: PMH: GERD, CAD-AK, STENTS x 3, EX-SMOKER POD: 1 MD who placed block: DR. HUFF Type of block: AC S/S Activity status: PT SITTING UP IN BED WATCHING TV. Pain: STATES PAIN IS TOLERABLE. Physical Exam: VAS: 5 LOS: 1 Resp Quality: 1 Side Effects: NONE PT APPEARS COMFORTABLE AT THIS TIME. MOTOR MVMT AND STRENGTH INTACT TO LLE. Plan: BLOCK FOLLOW UP at 0737 RPT #:[id number] END OF REPORT 2021-03-26 18:00:00-00:00 [facility] ([facility]) Clinical Note REPORT#:[id number] REPORT STATUS: Signed DATE:03/26/21 TIME: 1800 PATIENT: DOM LEWIS UNIT #: [id number] ROOM/BED: [facility] : 43 AGE: 76 SEX: M ATTEND: Valentín Leo MD ADM AUTHOR: Patrick La MD * ALL edits or amendments must be made on the el [employer]/computer document * Clinical Note Note: [facility] Patrick murcia MD (cell text [phone]) Internal Medicine Consult at request of : Dr Laura in [facility] Chief Complaint: left knee pain HPI: 76yo [...] in 2014, huerta ry artery disease (s/p AK/CABG x 3 in 2014), carotid artery disease, [...] x 20 yrs. Quit 1975 FHx: .No sig nificant hx of DVT/PE. Alcohol: few beers daily Drugs: none Lives: with spouse Vitals: Vital Signs: Date Time Temp Pulse Resp B/P B/P Pulse O2 O2 F low FiO2 Mean Ox Delivery Rate 03/26 1700 98 Nasal 3 32 cannula 03/26 1539 97.3 76 18 166/84 111.4 94 Nasal cannula 03/26 1535 Nasal 3 cannula 03/26 1310 99 Nasal 3 32 cannula 08/31 1308 97.9 60 14 185/96 125.4 100 [...] - pain assessment with tool and followup mehdi price [id number] - offered discussion o n advanced care plan and patient declined to address issue at this time. at 2052 RPT #:[id number] END OF REPORT 2021-03-26 11:09:00-00:00 [facility] ([facility]) Operative Note - Full REPORT#:[id number] REPORT STATUS: Signed DATE:03/26/21 TIME: 1109 PATIENT: DOM LEWIS UNIT #: [id number] ROOM/BED: [place] [address] : 43 AGE: 76 SEX: M ATTEND: Cornell Leo MD ADM AUTHOR: Brian Leo MD * ALL edits or amendments must be made on the [employer]/computer document * Operative Report Start date: 03/26/21 Start time: 0000 Pre-procedure diagnosis: L KNEE OA, R KNEE OA Post-procedure diagnosis: SAME Procedures performed: L TKA, R KNEE CORTISONE INJECTION Technique/Procedure: R KNEE Cortisone injection OPERATIVE PROCEDURE IN DETAIL The patient was identified in the [facility] area, and all questions and concerns were answered. The patient verbally conf irmed the site and side of the surgery and marking of the site was done. The patient was brought to [facility] operating room and, after adequate anesthesia was obtained was moved to the OR table in th e supine position. A surgical time-out was performed to identify correct patient, surgi kirti site and surgery. The affected joint was visualized. The standard anterolateral recess at the joint line was palpated. The area was prepped wi anti-septic prep. Under sterile technique 1 mL [...] and lateral condyles were removed. Then t he femoral sizer was used to measure the [...] compressive dressing was applied . 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 In addition marianain vilma an assistant surveyor shortens operative times which decrea ses expenses and improves outcomes. I am not part of any residency or fellowship training programs and therefore require the help of the assistant surveyor listed above for this surgery. IMPLANTS Depuy Sigma 5 Fem, 4Tib, 10mm ALTRX, 41 mm Oval patella Primary Surgeon: FELIPA Antisqueak Chalker(s): SHEELA PAC Anesthesia: regional anesthesia, spinal anesthet ic Operative findings: OA Complications: none Estimated blood loss in ml's: 50 Specimens removed/altered: none Implant(s): DEPUY Electronically Signed by Brian Leo MD on at [address] [place] [address] #:[id number] END OF REPORT
--- NOTE | 2023-02-21 16:55 | EDPHYS ---
Physician Documentation [facility] Name: London Lewis Age: 77 yrs Sex: Male : 1945 Arrival Date: 02/21/2023 Time: 16:09 Bed 19 Private MD: ED Physician Romario Agudelo HPI: 02/21 17:06 This 77 yrs old Male presents to ER via Ambulatory with complaints of High Blood ms3 Pressure. 17:06 77-year-old male with past medical history of anxiety, bulging disc, geographic tongue, ms3 GERD, hypertension presents for elevated blood pressure. Patient states his blood pressure was 180/106. At 7:30 AM this morning he took 50 metoprolol and 0.25 mg Xanax. Patient states he then later took lisinopril 2.5 mg. Patient states he is recently been under a lot of stress to see lost his brother last week and his cousin also. Patient denies fevers, chills, nausea, vomiting, chest pain, shortness of breath, headache.. Historical: - Allergies: 16:16 PENICILLINS; ll1 - PMHx: 16:16 Anxiety; bulging discs; GEOGRAPHIC TONGUE; GERD; Hypertension; SC; ll1 - PSHx: 16:16 Left knee replacement; triple bipass; ll1 - Immunization history:: Adult Immunizations up to date. - Social history:: Smoking status: Patient denies any tobacco usage or history of. ROS: 17:06 Constitutional: Negative for fever, and chills. Cardiovascular: Negative for chest ms3 pain, and palpitations. Respiratory: Negative for shortness of breath, cough, wheezing, and pleuritic chest pain, Back: Negative for injury and pain, MS/Extremity: Negative for injury and deformity, Skin: Negative for injury, rash, and discoloration, Neuro: Negative for headache, weakness, numbness, tingling. 17:06 All other systems are negative. Exam: 17:06 Constitutional: This is a well developed, well nourished patient who is awake, alert, ms3 and in no acute distress. Head/Face: Normocephalic, atraumatic. Neck: Trachea midline, no cervical lymphadenopathy. Supple, full range of motion without nuchal rigidity, or vertebral point tenderness. No Meningismus. Chest/axilla: Normal chest wall appearance and motion. Nontender with no deformity. Cardiovascular: Regular rate and rhythm with a normal S1 and S2. No gallops, murmurs, or rubs. Normal PMI, no JVD. No pulse deficits. Respiratory: Lungs have equal breath sounds bilaterally, clear to auscultation and percussion. No rales, rhonchi or wheezes noted. No increased work of breathing, no retractions or nasal flaring. Abdomen/GI: Soft, non-tender, with normal bowel sounds. No distension or tympany. No guarding or rebound. No evidence of tenderness throughout. Skin: Warm, dry with normal turgor. Normal color with no rashes, no lesions, and no evidence of cellulitis. MS/ Extremity: Pulses equal, no cyanosis. Neurovascular intact. Full, normal range of motion. Neuro: Awake and alert, GCS 15, oriented to person, place, time, and situation. Cranial nerves II-XII grossly intact. Motor strength 5/5 in all extremities. Sensory grossly intact. Cerebellar exam normal. Normal gait. Vital Signs: 16:16 BP 192 / 93; Pulse 71; Resp 16; Temp 97.6; Pulse Ox 100% on R/A; Pain 0/10; ll1 17:16 BP 186 / 88; Pulse 74; Resp 16; Pulse Ox 100% on R/A; Pain 0/10; ld1 16:16 Pain Scale: Adult ll1 17:16 Pain Scale: Adult ld1 MDM: 16:54 Patient medically screened. ms3 17:06 Differential diagnosis: hypertensive crisis, Geographic tounge. Data reviewed: vital ms3 signs, nurses notes. Historians other than the Patient: Spouse/Significant Other: Patient's . Counseling: I had a detailed discussion with the patient and/or guardian regarding: the historical points, exam findings, and any diagnostic results supporting the discharge/admit diagnosis, the need for outpatient follow up, to return to the emergency department if symptoms worsen or persist or if there are any questions or concerns that arise at home. Special discussion: I discussed with the patient/guardian in detail that at this point there is no indication for admission to the hospital. It is understood, however, that if the symptoms persist or worsen the patient needs to return immediately for re-evaluation. ED course: Discussed blood pressure medications with patient and his . Patient will start taking 2.5 mg lisinopril every morning. Patient to hold lisinopril if systolic blood pressure less than 130. Patient to follow-up with Dr. Neves in 2 to 3 days. Patient and his understand and agree with plan. All questions were answered. Return precautions discussed include worsening symptoms, or any other concerns.. Administered Medications: No medications were administered Disposition Summary: 02/21/23 16:55 Discharge Ordered Location: Home ms3 Condition: Fair ms3 Diagnosis - Essential (primary) hypertension ms3 - Geographic tongue ms3 Followup: ms3 - With: Devin Neves MD - When: 2 - 3 days - Reason: Recheck today's complaints Discharge Instructions: - Discharge Summary Sheet ms3 - Glossitis ms3 - Hypertension, Adult ms3 Forms: - Medication Reconciliation Form ms3 - Thank You Letter ms3 - Antibiotic Education ms3 - Prescription Opioid Use ms3 - Patient Portal Instructions ms3 Signatures: Efra Elias RN RN ll1 Romario Agudelo DO DO ms3
--- NOTE | 2023-02-21 16:55 | ER ---
Nurse's Notes [facility] Name: London Lewis Age: 77 yrs Sex: Male : 1945 Arrival Date: 02/21/2023 Time: 16:09 Bed 19 Private MD: Diagnosis: Essential (primary) hypertension;Geographic tongue Presentation: 02/21 16:16 Chief complaint: Patient states: BP higher than usual since last night. Took extra BP ll1 meds and Xanax, no relief so far. Lots of stress lately, multiple deaths in the family. Coronavirus screen: Client denies travel out of the [place] in the last 14 days. At this time, the client does not indicate any symptoms associated with coronavirus-19. Ebola Screen: Patient denies travel to an Ebola-affected area in the 21 days before illness onset. Initial Sepsis Screen: Does the patient meet any 2 criteria? No. Patient's initial sepsis screen is negative. Does the patient have a suspected source of infection? No. Patient's initial sepsis screen is negative. Risk Assessment: Do you want to hurt yourself or someone else? Patient reports no desire to harm self or others. Onset of symptoms was February 21, 2023. 16:16 Method Of Arrival: Ambulatory ll1 16:16 Acuity: ROBERT 2 ll1 Triage Assessment: 16:18 General: Appears uncomfortable, Behavior is calm, cooperative, appropriate for age. ll1 General: Reports high BP. Pain: Denies pain. Neuro: No deficits noted. Cardiovascular: Reports nausea, high BP. Historical: - Allergies: 16:16 PENICILLINS; ll1 - PMHx: 16:16 Anxiety; bulging discs; GEOGRAPHIC TONGUE; GERD; Hypertension; [place]; ll1 - PSHx: 16:16 Left knee replacement; triple bipass; ll1 - Immunization history:: Adult Immunizations up to date. - Social history:: Smoking status: Patient denies any tobacco usage or history of. Screenin:16 [facility] ED Fall Risk Assessment (Adult) History of falling in the last 3 months, ld1 including since admission No falls in past 3 months (0 pts). Abuse screen: Denies threats or abuse. Denies injuries from another. Nutritional screening: No deficits noted. Tuberculosis screening: No symptoms or risk factors identified. Assessment: 17:16 Reassessment: Patient appears in no apparent distress at this time. No changes from ld1 previously documented assessment. Patient and/or family updated on plan of care and expected duration. Pain level reassessed. Patient is alert, oriented x 3, equal unlabored respirations, skin warm/dry/pink. See triage assessment. Vital Signs: 16:16 BP 192 / 93; Pulse 71; Resp 16; Temp 97.6; Pulse Ox 100% on R/A; Pain 0/10; ll1 17:16 BP 186 / 88; Pulse 74; Resp 16; Pulse Ox 100% on R/A; Pain 0/10; ld1 16:16 Pain Scale: Adult ll1 17:16 Pain Scale: Adult ld1 ED Course: 16:13 Patient arrived in ED. kj1 16:13 Romario Agudelo DO is Attending Physician. ms3 16:18 Triage completed. ll1 16:18 Arm band placed on. ll1 16:46 Patient placed in an exam room, on a stretcher. ll1 16:54 Devin Neves MD is Referral Physician. ms3 17:16 Jenny Agudelo, RN is Primary Nurse. ld1 17:16 Patient has correct armband on for positive identification. Placed in gown. Bed in low ld1 position. Call light in reach. Side rails up X2. teletypesetter monitor on. Pulse ox on. NIBP on. Door closed. Noise minimized. Warm blanket given. 17:16 No provider procedures requiring assistance completed. Patient did not have IV access ld1 during this emergency room visit. Administered Medications: No medications were administered Medication: 17:16 VIS not applicable for this client. ld1 Outcome: 16:55 Discharge ordered by . ms3 17:16 Discharged to home ambulatory. ld1 17:16 Condition: stable 17:16 Discharge instructions given to patient, Instructed on discharge instructions, follow up and referral plans. Demonstrated understanding of instructions, follow-up care. 17:17 Patient left the ED. ld1 Signatures: Trudi Mchugh kj1 Efra Elias, RN RN ll1 Romario Agudelo DO DO ms3 Jenny Agudelo, MARKO RN ld1 Corrections: (The following items were deleted from the chart) 16:20 16:16 Pulse 71bpm; Resp 16bpm; Pulse Ox 96%; Temp 97.6F; ll1 ll1 16:22 16:16 Chief complaint: Patient states: BP higher than usual today. Took extra BP meds ll1 and xanax. Lots of stress lately. 1 16:46 16:23 Patient placed in an exam room, on a stretcher, [facility]
[2023-02-21 17:26] VITALS: TEMP 97.6; O2SAT 100
[2023-02-21 17:27] VITALS: BP 186/88
== END 2023-02-21 17:17 | disposition home or self-care (01) ==
LOC: ER 16:09
DX: I10 Essential (primary) hypertension (principal); K14.1 Geographic tongue; Z88.0 Allergy status to penicillin; Z95.1 Presence of aortocoronary bypass graft
CPT/HCPCS: 99284

== ENCOUNTER 2023-02-27 10:42 | Emergency (ER) | payer OTHER ==
--- OUTSIDE RECORDS SUMMARY | 2023-02-27 10:47 | XMS REPORT | Continuity of Care Document ---
:1945 Author Organization [facility] t Address [address] [facility]. [address] [place] [address] Care Team Providers Name Role Phone Wendy Attending Clinician Unavailable Brian Leo Attending Clinician [phone] Brian Leo Attending Clinician Unavailable Chepe Aguilera Attending Clinician Wendy Admitting Clinician Unavailable Brian Leo Admitting Clinician Unavailable Payers Payer Name Policy Type Policy Number Effective Date Expiration Date Glenn morales MEDICARE B-[place]: [id number] 2008 [employer] 00:00:00 [employer] [id number] INS[employer]ANCE [employer] (MEDICARE SUPPLEMENT) Problems Condition Condition Condition Status Onset Resolution Last Treating Co mments Source Name Details Category Date Date Treatment Clinician Date 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 6-13 Orthope knee Knee 00:00: dic 00 Sports Medicin e 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 8 Or thope knee joint Knee Joint 00:00: di c 00 Sports Medicin e Pain of Pain of Problem Active Kayla left ankle Left Ankle 8-13 Or thope joint Joint 00:00: dic 00 Sports Medicin e Contractur Contractur Problem Active 2019-0 A zalea e of e of 3-18 [...] Memoria (disorder) (disorder) d 01:00:54 l Resolved [place] Problem 07/03/2019 Medical Group History of History [...] NSAIDS DA Active U [facility] (Non-Rl 03-26 [place] roidal 00:00: Orthope Anti-Inf 00 dic [facility] Penicill DA Active SV [facility] ins 03-26 00:00: Orthope 00 dic Hospita l NSAIDS DA Active U DECREASED [facility] (Non-Rl KIDNEY 03-26 [place] roidal FUNCTION 00:00: Orthope Anti-Inf 00 dic lamma Hospita [facility] Penicill DA Active SV RASHES/KNOTS HC A ins 03-26 00:00: Orthope 00 dic Hospita l Penicill DA Active SV [facility] ins 11-24 Clear 00:00: [place] 00 [facility] Penicill DA Active SV RASHES/KNOTS HC A ins 11-24 Clear 00:00: [place] 00 [facility] Penicill DA Active SV [facility] ins 11-16 [place] 00:00: Orthope 00 dic Hospita l Penicill DA Active SV [facility] ins 10-26 [facility] [place] PENICILL Allergy Active Kayla IN to Orthope substanc dic e Sports Medicin e penicill penicill Active Memori a ins ins l [place] Social History Smoking Status Start Date Stop Date Source Social History [facility] Medications Ordered Filled Start Stop Current Ordering Indication Dosage Frequency Signature Comments Components Source Medication Medication Date Date Medication? Clinician (SIG) Name Name Anastasiya Flonase No Flonase Azal ea Allergy Allergy 11-24 Allergy Orthop e Relief 50 Relief 50 00:00: Relief 50 dic mcg/actuati mcg/actuati 00 mcg/actuat Sports on nasal on nasal ion nasal Me dicin spray,suspe spray,suspe spray,susp e nsion RX by nsion RX by ension RX other MD lopez MD by jessica GRAHAM lisinopril lisinopril No lisinopril Kayla 5 mg tablet 5 mg tablet 5-01 5 mg O rthope RX by other RX by other 00:00: tablet RX belia GRAHAM MD 00 by other Nicole bowers Xanax 0.25 Xanax 0.25 No Xanax 0.25 Kayla mg tablet mg tablet 5-01 mg tablet Orthope RX by other RX by other 00:00: RX by belia GRAHAM MD 00 other MD Nicole bowers Voltaren 1 Voltaren 1 No Voltaren 1 [...] pain for pain needed for pain metoprolol 2018 Yes 50 mg = 1 Me moria 50 mg oral 2-20 tab, PO, l tablet, 16:54: BID, 0 [place] extended 00 Refill(s) release Aspirin 81 20180 Yes 81 mg = 1 Me moria MG Enteric 2-20 tab, PO, l Coated 16:54: Daily, # [place] Tablet 00 90 tab, 3 Refill(s) Alprazolam Yes 0.25 mg = Me moria 0.25 MG 2-20 1 tab, PO, l Oral Tablet 16:54: TID, PRN He rmann [Xanax] 00 Anxiety, # 30 tab, 0 Refill(s) Fish Oil [id number] Yes PO, 0 Memoria 2-20 Refill(s) l 16:54: [place] 00 lisinopril Yes 5 mg = 1 Mem oria 5 mg oral 2-20 tab, PO, l tablet 16:54: Daily, # [facility] 00 30 tab, 0 Refill(s) pantoprazol Yes 40 mg = 1 M emoria e 40 mg 2-20 tab, PO, l oral 16:54: Daily, # [place] enteric 00 30 tab, 0 coated Refill(s) tablet hydrocortis 0 Yes 25 mg = 1 M emoria one acetate 2-20 supp, TN, l 25 MG 16:54: BID, # 20 [facility] Rectal 00 supp, 0 Suppository Refill(s) [Proctosol] metoprolol Yes 50 mg = 1 Me moria 50 mg oral 2-20 tab, PO, l tablet, 16:54: BID, 0 [place] extended 00 Refill(s) release Aspirin 81 2018 Yes 81 mg = 1 Me moria MG Enteric 2-20 tab, PO, l Coated 16:54: Daily, # [place] Tablet 00 90 tab, 3 Refill(s) Alprazolam 2018 Yes 0.25 mg = Me moria 0.25 MG 2-20 1 tab, PO, l Oral Tablet 16:54: TID, PRN He rmann [Xanax] 00 Anxiety, # 30 tab, 0 Refill(s) Fish Oil 0 Yes PO, 0 Memoria 2-20 Refill(s) l 16:54: [place] 00 lisinopril 2018-0 Yes 5 mg = [...] 1 M emoria one acetate 2-20 supp, TN, l 25 MG 16:54: BID, # 20 [facility] Rectal 00 supp, 0 Suppository Refill(s) [Proctosol] metoprolol 0 Yes 50 mg = 1 Me moria 50 mg oral 2-20 tab, PO, l tablet, 16:54: BID, 0 [place] extended 00 Refill(s) release Aspirin 81 2018-0 Yes 81 mg = 1 Me moria MG Enteric 2-20 tab, PO, l Coated 16:54: Daily, # [facility] Tablet 00 90 tab, 3 Refill(s) Alprazolam 20180 Yes 0.25 mg = Me moria 0.25 MG 2-20 1 tab, PO, l Oral Tablet 16:54: TID, PRN Art salasann [Xanax] 00 Anxiety, # 30 tab, 0 Refill(s) Fish Oil 2018-0 Yes PO, 0 Memoria 2-20 Refill(s) l 16:54: [place] 00 lisinopril 2018-0 Yes 5 mg = 1 Mem oria 5 mg oral 2-20 tab, PO, l tablet 16:54: Daily, # [place] 00 30 tab, 0 Refill(s) pantoprazol 2018-0 Yes 40 mg = 1 M emoria e 40 mg 2-20 tab, PO, l oral 16:54: Daily, # [facility] enteric 00 30 tab, 0 coated Refill(s) tablet hydrocortis 2017-0 Yes 25 mg = 1 M emoria one acetate 2-20 supp, TN, l 25 MG 16:54: BID, # 20 [facility] Rectal 00 supp, 0 Suppository Refill(s) [Proctosol] metoprolol 2018-0 Yes 50 mg = 1 Me moria 50 mg oral 2-20 tab, PO, l tablet, 16:54: BID, 0 [place] extended 00 Refill(s) release Aspirin 81 2018-0 [...] tab, PO, l tablet 16:54: Daily, # [place] 00 30 tab, 0 Refill(s) pantoprazol 0 Yes 40 mg = 1 M emoria e 40 mg 2-20 tab, PO, l oral 16:54: Daily, # [facility] enteric 00 30 tab, 0 coated Refill(s) tablet hydrocortis 20180 Yes 25 mg = 1 M emoria one acetate 2-20 supp, TN, l 25 MG 16:54: BID, # 20 [facility] Rectal 00 supp, 0 Suppository Refill(s) [Proctosol] Aspir-Low Aspir-Low No Aspir-Low Kayla 81 mg 81 mg 81 mg Orthope tablet,kia tablet,kia tablet,del dic yed release yed release ayed S ports RX by other RX by other release RX Medicin MD GRAHAM by other e doxycycline doxycycline No 1 BID doxycyclin Kayla [...] by other MD release RX by other MD metoprolol metoprolol No metoprolol Kayla tartrate 25 tartrate 25 tartrate Orthope mg tablet mg tablet 25 mg dic RX by other RX by other tablet RX Nicole GRAHAM MD by other Jaci bowers pantoprazol pantoprazol No pantoprazo Kayla e 40 mg e 40 mg le 40 mg Ortho pe tablet,kia tablet,kia tablet,del dic yed release yed release ayed S ports RX by other RX by other release RX Jaci GRAHAM MD by other e Plavix 75 Plavix 75 No Plavix 75 Kayla mg tablet mg tablet mg tablet Orthope RX by other RX by other RX by belia Tena Vital Signs Vital Name Observation Time Observation Value Comments Source Systolic (mm Hg) 2019-06-30 16:08:00 [place] rial [place] Diastolic (mm Hg) 2019-06-30 16:08:00 Mem orial [place] Heart Rate 2019-06-30 16:08:00 [facility] Temperature Oral (F) 2019-06-30 16:08:00 98.4 F [facility] [place] Height 2019-06-30 16:08:00 177.8 cm [facility] [place] Weight 2019-06-30 16:08:00 [facility] [place] BMI Calculated 2019-06-30 16:08:00 Memori al [facility] Height 2018-10-13 14:06:00 177.8 cm [facility] [place] Temperature Oral (F) 2018-10-13 14:06:00 97.6 F [facility] Systolic (mm Hg) 2018-10-13 14:06:00 [place] rial [place] Diastolic (mm Hg) 2018-10-13 14:06:00 Mem orial [facility] Heart Rate 2018-10-13 14:06:00 [facility] BMI Calculated 2018-10-13 14:06:00 Memori [facility] Weight 2018-10-13 14:06:00 [facility] BMI Calculated 2018-04-22 15:21:00 Memori al [facility] Height 2018-04-22 15:21:00 180.34 cm [facility] Weight 2018-04-22 15:21:00 [facility] Temperature Oral (F) 2018-04-22 15:21:00 97.9 F [facility] [place] Heart Rate 2018-04-22 15:21:00 [facility] [place] Systolic (mm Hg) 2018-04-22 15:21:00 [place] rial [place] Diastolic (mm Hg) 2018-04-22 15:21:00 Mem orial [place] BMI Calculated 2018-03-10 15:30:00 Memori [facility] Weight 2018-03-10 15:30:00 [facility] [place] Height 2018-03-10 15:30:00 177.8 cm [facility] Systolic (mm Hg) 2018-03-10 15:30:00 [place] [facility] Diastolic (mm Hg) 2018-03-10 15:30:00 Mem orial [facility] Temperature Oral (F) 2018-03-10 15:30:00 97.4 F [facility] Heart Rate 2018-03-10 15:30:00 [facility] [place] Height 2018-02-25 14:45:00 177.8 cm [facility] Weight 2018-02-25 14:45:00 [facility] BMI Calculated 2018-02-25 14:45:00 Memori [facility] Systolic (mm Hg) 2018-02-25 14:45:00 [place] rial [place] Diastolic (mm Hg) 2018-02-25 14:45:00 Mem orial [place] Temperature Oral (F) 2018-02-25 14:45:00 97.6 F [facility] Heart Rate 2018-02-25 14:45:00 [facility] BMI Calculated 2017-10-29 15:30:00 Memori al [place] Weight 2017-10-29 15:30:00 [facility] Systolic (mm Hg) 2017-10-29 15:30:00 [place] rial [place] Diastolic (mm Hg) 2017-10-29 15:30:00 Mem orial [facility] Temperature Oral (F) 2017-10-29 15:30:00 97.4 F [facility] Heart Rate 2017-10-29 15:30:00 [facility] Height 2017-10-29 15:30:00 180.34 cm [facility] [place] Weight 2017-10-09 15:04:00 [facility] [place] BMI Calculated 2017-10-09 15:04:00 Memori al [facility] Height 2017-10-09 15:04:00 180.34 cm [facility] [place] Temperature Oral (F) 2017-10-09 15:04:00 98.3 F [facility] Systolic (mm Hg) 2017-10-09 15:04:00 [place] rial [place] Diastolic (mm Hg) 2017-10-09 15:04:00 Mem orial [facility] Respitory Rate 2017-10-09 15:04:00 Memori al [facility] Heart Rate 2017-10-09 15:04:00 [facility] Height 2017-09-29 16:07:00 180.34 cm [facility] BMI Calculated 2017-09-29 16:07:00 Memori al [place] Weight 2017-09-29 16:07:00 [facility] [place] Temperature Oral (F) 2017-09-29 16:07:00 97.7 F [facility] [place] Heart Rate 2017-09-29 16:07:00 [facility] [place] Respitory Rate 2017-09-29 16:07:00 Mem[facility] Systolic (mm Hg) 2017-09-29 16:07:00 [place] rial [place] Diastolic (mm Hg) 2017-09-29 16:07:00 Mem orial [place] BMI Calculated 2017-09-22 17:23:00 Memori al [place] Weight 2017-09-22 17:23:00 [facility] [place] Height 2017-09-22 17:23:00 180.34 cm [facility] [place] Systolic (mm Hg) 2017-09-22 17:23:00 [place] rial [place] Diastolic (mm Hg) 2017-09-22 17:23:00 Mem orial [facility] Respitory Rate 2017-09-22 17:23:00 Memori [facility] Temperature Oral (F) 2017-09-22 17:23:00 98.5 F [facility] [place] Heart Rate 2017-09-22 17:23:00 [facility] Systolic (mm Hg) 2017-09-15 16:40:00 [place] rial [place] Diastolic (mm Hg) 2017-09-15 16:40:00 Mem orial [place] Heart Rate 2017-09-15 16:40:00 [facility] Respitory Rate 2017-09-15 16:40:00 Mem[facility] Temperature Oral (F) 2017-09-15 16:40:00 98.4 F [facility] Procedures Procedure Date / Time Performed Performing Clinician Sourc e [id number] 2021-03-26 00:00:00 [facility] [id number] 2021-03-26 00:00:00 [facility] Anoscopy; diagnostic, 2018-04-22 19:01:00 Elvira Garcia including collection of specimen(s) by brushing or washing, when performed (separate procedure) Hemorrhoidectomy, 2018-02-25 14:54:00 [facility] internal, by rubber band ligation(s) Open heart surgery [facility] Start End Encounter Admission Attending Care Care Encounter Source Date/Time Date/Time Type Type Clinicians Facility Department ID 2022-01-10 2022-01-10 Outpatient FOG_Goytia_ AOSM AOSM [id number] Kayla 03:57:00 03:57:00 Tala [id number] Ortho pe dic Sports Medicin e 2022-01-06 2022-01-06 Outpatient FOG_Goytia_ AOSM AOSM [id number] Kayla 01:03:00 01:03:00 Tala [id number] Ortho pe dic Sports Medicin e 2022-01-06 2022-01-06 Brian Neely AOSM [facility] Ortho [id number] Kayla 00:00:00 00:00:00 Linn Leo MD: [id number] FOG_Telemed dic [facility], Medicin [place], [facility] [address] , Ph. 2022-01-06 2022-01-06 Outpatient Felipa, AOSM AOSM [id number] 00:00:00 00:00:00 Brian Neely [id number] 2021-12-31 2021-12-31 Outpatient FOG_Goytia_ AOSM AOSM [id number] Kayla 12:06:00 12:06:00 Tala [id number] Ortho pe dic Sports Medicin e 2021-12-31 2021-12-31 Outpatient FOG_Goytia_ AOSM AOSM [id number] Kayla 12:06:00 12:06:00 Tala [id number] Ortho pe dic Sports Medicin e 2021-03-26 2021-03-27 Inpatient EL Felipa, HCATO SURG [id number] [facility] 08:03:00 13:41:00 Brian [id number] [facility] 2021-03-01 2021-03-01 Outpatient EL Felipa, HCATO 3DAY [id number] [facility] 09:00:00 23:00:00 Brian [id number] [facility] 2021-03-01 2021-03-01 Outpatient Felipa, HCACL LABO [id number] [facility] 18:16:00 18:16:00 Brian 99 [facility] 2021-03-01 2021-03-01 Outpatient Felipa, HCAWU REFE [id number] [facility] 15:29:00 15:29:00 Brian 20 [facility] 2019-06-30 2019-07-01 Outpatient nullFlavo [facility] Multi 55 [id number] Memoria 16:30:00 05:59:59 [facility] 2019-07-01 Outpatient nullFlavo [facility] Multi 55 [id number] Memoria 16:30:00 05:59:59 r Specialty 14 luke [facility] 2019-06-30 2019-06-30 [facility] [id number] 10:30:00 23:59:59 [facility] 2019-06-30 Outpatient MHIE ALEXIE [id number] Memoria 10:30:00 10:30:00 14 luke Saab 2019-05-05 2019-05-05 Ambulatory nullFlavo [facility] Multi 55 [id number] Memoria 15:45:00 15:45:00 Pre-Reg r Specialty [facility] 2019-05-05 2019-05-05 Ambulatory nullFlavo [facility] Multi 55 [id number] Memoria 15:45:00 15:45:00 Pre-Reg r Specialty 13 luke [facility] 2019-05-05 2019-05-05 [facility] [id number] 10:45:00 10:45:00 Mohumdaniel Frances 2019-04-14 2019-04-14 Outpatient MHIE MHIE [id number] Memoria 10:30:00 10:30:00 13 luke [place] 2018-10-13 2018-10-14 Outpatient nullFlavo [facility] Multi 55 [id number] Memoria 14:30:00 04:59:59 r Specialty 12 l [facility] 2018-10-13 2018-10-14 Outpatient nullFlavo [facility] Multi 55 [id number] Memoria 14:30:00 04:59:59 r Specialty 12 [facility] 2018-10-13 2018-10-13 Outpatient Ale MG MG [id number] 09:30:00 23:59:59 Mohummed [facility] 2018-10[facility]13 2018-10-13 Outpatient MHIE MHIE [id number] Memoria 09:30:00 09:30:00 12 luke [place] 2018-04-22 2018-04-23 Outpatient nullFlavo [facility] Multi 55 [id number] Memoria 16:00:00 04:59:59 r Specialty 10 luke [facility] 2018-04-22 2018-04-23 Outpatient nullFlavo [facility] Multi 55 [id number] Memoria 16:00:00 04:59:59 r Specialty 10 luke [facility] 2018-04-22 2018-04-22 [facility] [id number] 11:00:00 23:59:59 Mohummed [facility] 2018-04-22 2018-04-22 Outpatient MHIE MHIE [id number] Memoria 11:00:00 11:00:00 10 luke [place] 2018-04-21 2018-04-21 Ambulatory nullFlavo [facility] Multi 55 [id number] Memoria 14:30:00 14:30:00 Pre-Reg r Specialty 11 luke [facility] 2018-04-21 2018-04-21 Ambulatory nullFlavo [facility] Multi 55 [id number] Memoria 14:30:00 14:30:00 Pre-Reg r Specialty 11 luke [facility] 2018-04-21 2018-04-21 Outpatient MHIE MHIE [id number] Memoria 09:30:00 09:30:00 11 luke [place] 2018-04-21 2018-04-21 [facility] [id number] 09:30:00 09:30:00 Mohummed 11 [facility] 2018-03-10 2018-03-11 Outpatient nullFlavo [facility] Multi 55 [id number] Memoria 15:30:00 04:59:59 r Specialty 09 l [facility] 2018-03-10 2018-03-11 Outpatient nullFlavo [facility] Multi 55 [id number] Memoria 15:30:00 04:59:59 r Specialty 09 l [facility] 2018-03-10 2018-03-10 Outpatient Khani, MHMG MH[facility] [id number] 10:30:00 23:59:59 Mohummed Tucker [facility] 2018-03-10 2018-03-10 Outpatient MHIE MHIE [id number] Memoria 10:30:00 10:30:00 09 [facility] 2018-03-01 2018-03-03 Phone nullFlavo [facility] Multi [id number] Memoria 18:30:00 04:59:59 Message r Specialty 02 l [facility] 2018-03-01 2018-03-03 Phone nullFlavo [facility] Multi [id number] Memoria 18:30:00 04:59:59 Message r Specialty 02 l [facility] 2018-03-01 2018-03-02 Outpatient MHMG MHMG [id number] 13:30:00 23:59:59 02 2018-02-25 2018 Outpatient nullFlavo [facility] Multi 55 [id number] Memoria 16:00:00 04:59:59 r Specialty 08 l [facility] 2018-02-25 2018 Outpatient nullFlavo [facility] Multi 55 [id number] Memoria 16:00:00 04:59:59 r Specialty 08 [facility] 2018-02-25 2018-02-25 Outpatient Khani, MHMG MH[facility] [id number] 11:00:00 23:59:59 [facility] B[facility] 2018-02-25 2018-02-25 Outpatient MHIE MHIE [id number] Memoria 11:00:00 11:00:[address] [place] [address] 2018-01-21 2018-01-21 Ambulatory nullFlavo [facility] [id number] Memoria 15:45:00 15:45:00 Pre-Reg r General 07 [facility] 2018-01-21 2018-01-21 Ambulatory nullFlavo [facility] [id number] Memoria 15:45:00 15:45:00 Pre-Reg r General 07 l Surgery [facility] 2018-01-21 2018-01-21 Outpatient ALEXIE ALEXIE [id number] Memoria 10:45:00 10:45:00 07 luke [place] 2018-01-21 2018-01-21 Outpatient Ale MG [id number] 10:45:00 10:45:00 Mohummed Myles [facility] 2017-12-31 2018-01-01 [place] [id number] Memoria 16:00:00 04:59:59 r General 05 l Surgery [facility] 2017-12-31 2018-01-01 [place] [id number] Memoria 16:00:00 04:59:59 r General 05 l Surgery [facility] 2017-12-31 2017-12-31 Outpatient Ale MG MG [id number] 11:00:00 23:59:59 Mohummed Gustavo [facility] 2017-12-31 2017-12-31 Outpatient ALEXIE IE [id number] Memoria 11:00:00 11:00:00 05 luke [place] 2017-11-11 2017-11-11 [place] [id number] Memoria 20:30:00 20:30:00 Pre-Reg r General 06 l Surgery [facility] 2017-11-11 2017-11-11 [place] [id number] Memoria 20:30:00 20:30:00 Pre-Reg r General 06 l Surgery [facility] 2017-11-11 2017-11-11 Outpatient ALEXIE IE [id number] Memoria 15:30:00 15:30:00 06 [facility] 2017-11-11 2017-11-11 Outpatient Ale, MG MG [id number] 15:30:00 15:30:00 Mohummed Joseph [facility] 2017-10-29 2017-10-30 [place] [id number] Memoria 15:45:00 04:59:59 r General 03 l Surgery [facility] 2017-10-29 2017-10-30 [place] [id number] Memoria 15:45:00 04:59:59 r General 03 l Surgery [facility] 2017-10-29 2017-10-29 Outpatient Khani, MHMG MG [id number] 10:45:00 23:59:59 Mohummed Fidencio [facility] 2017-10-29 2017-10-29 Outpatient MHIE MHIE [id number] Memoria 10:45:00 10:45:00 03 [facility] 2017-10-09 2017-10-10 Outpatient nullFlavo [facility]MG [id number] Memoria 15:00:00 04:59:59 r General 04 l Surgery [facility] 2017-10-09 2017-10-10 Outpatient nullFlavo [facility]MG [id number] Memoria 15:00:00 04:59:59 r General 04 l [facility] 2017-10-09 2017-10-09 Outpatient Silviaani, MHMG MG [id number] 10:00:00 23:59:59 Mohummed Aime [facility] 2017-10-09 2017-10-09 Outpatient MHIE MHIE [id number] Memoria 10:00:00 10:00:00 04 [facility] 2017-10-05 2017-10-07 Phone nullFlavo MG [id number] Memoria 14:43:00 04:59:59 Message r General 01 l [facility] 2017-10-05 2017-10-07 Phone nullFlavo MG [id number] Memoria 14:43:00 04:59:59 Message r General 01 l [facility] 2017-10-05 2017-10-06 Outpatient MHMG MG [id number] 09:43:00 23:59:59 2017-10-02 2017-10-04 Phone nullFlavo MHMG [id number] Memoria 21:31:00 05:59:59 Message r General 00 l Surgery [facility] 2017-10-02 2017-10-04 Phone nullFlavo MHMG [id number] Memoria 21:31:00 05:59:59 Message r General 00 l [facility] 2017-10-02 2017-10-03 Outpatient MHMG MHMG [id number] 15:31:00 23:59:59 2017-09-29 2017-09-30 Outpatient nullFlavo [facility] [id number] Memoria 17:00:00 05:59:59 r General 01 l [facility] 2017-09-29 2017-09-30 [place] [id number] Memoria 17:00:00 05:59:59 r General 01 l [facility] 2017-09-29 2017-09-29 Outpatient Ale, MG MG [id number] 11:00:00 23:59:59 Mohummed [facility] 2017-09-29 2017-09-29 Outpatient Ale, MG MG [id number] 11:00:00 23:59:59 Mohummed [facility] 2017-09-29 2017-09-29 Outpatient ALEXIE IE [id number] Memoria 11:00:00 11:00:00 01 [facility] 2017-09-22 2017-09-23 [place] [id number] Memoria 17:30:00 05:59:59 r General 02 l [facility] 2017-09-22 2017-09-23 [place] [id number] Memoria 17:30:00 05:59:59 r General 02 l [facility] 2017-09-22 2017-09-22 Outpatient Ale, MG MG [id number] 11:30:00 23:59:59 Mohummed [facility] 2017-09-22 2017-09-22 Outpatient ALEXIE IE [id number] Memoria 11:30:00 11:30:00 02 [facility] 2017-09-15 2017-09-16 [place] [id number] Memoria 16:30:00 05:59:59 r General 00 l [facility] 2017-09-15 2017-09-16 [place] [id number] Memoria 16:30:00 05:59:59 r General 00 l [facility] 2017-09-15 2017-09-15 Outpatient Ale, MG MG [id number] 10:30:00 23:59:59 Mohummed [facility] 2017-09-15 2017-09-15 Outpatient MHIE IE [id number] Memoria 10:30:00 10:30:00 00 l [facility] Results Test Description Test Time Test Comments Results Result Comments Source GLUBED 2021-03-28 09:59:00 Test Item Value Reference Range Interpretation Comme nts GLUBED (test code = GLUBED) 200 mg/dL 60-125 H BASIC METABOLIC [id number] 06:54:00 Test Item Value Reference Range Interpretation [...] RATE (test code = GFR) mL/mi n/1.73 [id number] Range:Healthy Adults >90 mL/min/1.73 m2 For Chronic Kidney Disease: Stage II Mild Decrease i n GFR 60-90 Stage III Moderate Decrea se in GFR 30-59 St age IV Severe Decre ase in GFR 15-29 St age V Kidney Failur e <15 CREATININE (test code 1.35 mg/dL 0.55-1.30 H = CREAT) CALCIUM (test code = 8.5 mg/dL 8.2-10.1 N CA) HGB [id number] 06:10:00 Test Item Value Reference Range Interpretation Comments HEMOGLOBIN (test code = HGB) 13.0 g/dL 12-16 N HEMATOCRIT (test code = HCT) 39.2 % 37-47 N SPECIMEN COMMENT: POD #[id number] 06:04:00 Test Item Value Reference Range Interpretation Comments GLUBED (test code = GLUBED) 146 mg/dL 60-125 H [id number] 16:37:00 Test Item Value Reference Range Interpretation [...] be considered for these patients.DONE A T: [facility] [address] [facility], [place], [place] [address] GLYCOSYLATED HEMOGLOBIN (HA1C)2021-03-01 18:48:00 [...] be considered for these patients. COMPREHENSIVE METABOLIC [id number] 16:19:00 Test Item Value Reference Range Interpretation [...] RATE (test code = GFR) mL/mi n/1.73 [id number] Range:Healthy Adults >90 mL/min/1.73 m2 For Chronic [...] TOTAL (test code = ALKP) CBC W/AUTO [id number] 15:25:00 Test Item Value Reference Range Interpretation [...] % 0-0 N code = NRBC) PROTHROMBIN [id number] 15:24:00 Test Item Value Reference Range Interpretation [...] Patient is on Heparin Drip? NOTHROMBOPLASTIN TIME [id number] 15:24:00 Test Item Value Reference Range Interpretation Comments PTT ACTIVATED (test code = APTT) 31.5 secs 24.9-37.0 N IS PATIENT ON ANTICOAGULANTS ? YLIST ANTICOAGULANT/ANTI PLT MEDICATION : AspirinHas Lab been notified if Patient is on Heparin Drip? NO- XR FLUORO NDL 2018-11-25 11:55:00 Patient Name: DOM LEWIS Unit No: [id number] EXAMS: CPT CODE: [id number] XR FLUORO NDL 16249 FLUOROSCOPICALLY GUIDED RIGHT PLANTAR FASCIA STEROID INJECTION [...] PLANTAR FASCIA STEROID INJECTION COMMENT: After informed consentwas obtained a 25-gauge needle is inserted into [...] MD; Azar Donovan MD Technologist: SUZANNE GARCIA(R); RT Maikol.(R) Transcribed D/ (7517) [id number] [facility] NAME: DOM LEWIS [facility] [facility] [facility] PHYS: Gold Esposito : 1945 AGE:73 SEX: M [place], [place] [address] LOC: Y.RAD PHONE #: [phone] EXAM DATE: 11/24/2018 STATUS: DEP CLI FAX #: [phone] RAD #: D/C DT PAGE 1 Signed Report Patient Name: DOM LEWIS Unit No: [id number] EXAMS: CPT CODE: [id number] XR FLUORO NDL 14600 (Continued) Orig Print D/T: S: 11/25/2018 (1159) [facility] NAME: DOM LEWIS [address] [facility] PHYS: Gold Esposito : 1945 AGE: 73 SEX: M [place], [place] [address] LOC: Y.RAD PHONE #: [phone] EXAM DATE: 11/24/2018 STATUS: DEP CLI FAX #: [phone] RAD #: D/C DT PAGE 2 Signed Report- XR FLUORO [id number] 11:55:00 Patient Name: DOM LEWIS Unit No: [id number] EXAMS: CPT CODE: [id number] XR FLUORO NDL 47428 FLU OROSCOPICALLY GUIDED RIGHT PLANTAR FASCIA STEROID INJECTION COMMENT: [...] Donovan MD Technologist: SUZANNE DUGAN RT(R); Renetta Damaso, RT.(R) Transcribed D/ (3949) MicheleGVG [facility] NAME: DOM LEWIS [address] [facility] PHYS: Gold Esposito : 1945 AGE: 73 SEX: M [place] [address] LOC: Y.RAD PHONE #: [phone] EXAM DATE: 11/24/2018 STATUS: DEP CLI FAX #: [phone] RAD #: D/C DT PAGE 1 Signed Report Patient Name: DOM LEWIS Unit No: [id number] EXAMS: CPT CODE: [id number] XR FLUORO NDL 70108 (Continued) Orig Print D/T: S: 11/25/2018 (9241) [facility] NAME: DOM LEWIS [address] [facility] PHYS: Gold Esposito : 1945 AGE: 73 SEX: M [place] [address] LOC: Y.RAD PHONE #: [phone] EXAM DATE: 11/24/2018 STATUS: DEP CLI FAX #: [phone] RAD #: D/C DT PAGE 2 Signed [...] code = BACU) RARE /HPF NONE PROTHROMBIN [id number] 12:38:00 Test Item Value Reference Range Interpretation [...] BLOOD, PT every other day NTHROMBOPLASTIN TIME [id number] 12:38:00 Test Item Value Reference Range Interpretation Comments PTT ACTIVATED (test code = APTT) 30.6 secs 24.9-37.0 N IS PATIENT ON ANTICOAGULANTS ? YLIST ANTICOAGULANT/ANTI PLT MEDICATION : AspirinHas Lab been notified if Patient is on Heparin Drip? NOIf Yes, order CBC, OCCULT BLOOD, PT every other day NCOMPREHENSIVE METABOLIC [id number] 12:29:00 Test Item Value Reference Range Interpretation [...] RATE (test code = GFR) mL/mi n/1.73 d2Gtkktwzlu Range:Healthy Adults >90 mL/min/1.73 m2 For Chronic Kidney Disease: Stage II Mild Decrease i n GFR 60-90 Stag e III Moderate Decrease in GFR 30-59 Stage [...] TOTAL (test code = ALKP) CBC W/AUTO [id number] 11:57:00 Test Item Value Reference Range Interpretation [...] (test NORMAL code = PLTMR) COMPREHENSIVE METABOLIC [id number] 11:30:00 Test Item Value Reference Range Interpretation [...] RATE (test code = GFR) mL/mi n/1.73 b3Rinjuuukz Range:Healthy Adults >90 mL/min/1.73 m2 For Chronic [...] N TOTAL (test code = ALKP) PROTHROMBIN [id number] 11:23:00 Test Item Value Reference Range Interpretation [...] BLOOD, PT every other day NTHROMBOPLASTIN TIME [id number] 11:23:00 Test Item Value Reference Range Interpretation Comments PTT ACTIVATED (test code = APTT) 30.9 secs 24.9-37.0 N IS PATIENT ON ANTICOAGULANTS ? YLIST ANTICOAGULANT/ANTI PLT MEDICATION : AspirinHas Lab been notified if Patient is on Heparin Drip? NOIf Yes, order CBC, OCCULT BLOOD, PT every other day NURINALYSIS [id number] 11:19:00 Test Item Value Reference Range Interpretation [...] = BACU) NONE /HPF NONE CBC W/AUTO [id number] 11:06:00 Test Item Value Reference Range Interpretation [...] Notes Date/Time Note Provider Source 2021-03-27 09:59:00-00:00 [facility] ([facility]) Clinical Note REPORT#:[id number] REPORT STATUS: Signed DATE:03/27/21 TIME: 958 PATIENT: DOM LEWIS UNIT #: [id number] ROOM/BED: [address] : 43 AGE: 76 SEX: M ATTEND: Cornell Leo MD ADM AUTHOR: Patrick La MD * ALL edits or amendments must be made on the el [employer]/computer document * Clinical Note Note: [facility] Patrick murcia M.D. (cell text [phone]) Assessment/Plan 1.) Anemia of acute blood loss- [...] low FiO2 Mean Ox Delivery Rate 03/27 712 96.8 61 18 162/88 113.0 95 Room [...] Other: Labs/X-ray: Laboratory Tests: 03/27 03/27 03/26 0562 3390 1625 Chemistry Sodium (136 - 145 mmol/L) [...] 39.2 Patrick Luevano M.D. at 1237 RPT #:[id number] END OF REPORT 2021-03-27 08:47:00-00:00 [facility] ([facility]) Clinical Note REPORT#:[id number] REPORT STATUS: Signed DATE:03/27/21 TIME: 846 PATIENT: DOM LEWIS UNIT #: [id number] ROOM/BED: [address] : 43 AGE: 76 SEX: M ATTEND: Cornell Leo MD ADM AUTHOR: Brian Leo MD * ALL edits or amendments must be made on the [employer] document * Clinical Note Note: POD# 1 left knee Joint Arthroplasty Patient well, reports pain is mild-moderate AF VSS Exam: dressing dry/intact Moves toes DF/PF Sensory unchanged A/P: Mobilize with physical Therapy DVT prophylaxis ongoing Following labs Remove coverlet, do not recover, patient may juancho wer Discharge planning Electronically Signed by Brian Leo MD on at 0847 RPT #:[id number] END OF REPORT 2021-03-27 08:45:00-00:00 [facility] ([facility]) Discharge Summary REPORT#:[id number] REPORT STATUS: Signed DATE:03/27/21 TIME: 844 PATIENT: DOM LEWIS UNIT #: [id number] ROOM/BED: [address] : 43 AGE: 76 SEX: M ATTEND: Valentín Leo MD ADM AUTHOR: Brian Leo MD * ALL edits or amendments must be made on the [employer] document * General Information Discharge date: 03/27/21 Hospital course: Discharge Diagnosis: Left Knee Degenerative Dise ase Procedure: Left Knee Arthroplasty Hospital Course and Findings The patient underwent the pr ocedure without incident. Findings were significant for degenerative disease of the knee. The stephanieen t was hemodynamically and medically monitored during [...] undergo PT for gait training, mobilization , aeyvb-fr-mqwttl, and strengthening. Patient was i nformed to that they need to arrange for therapy as quickly as possible. The imp ortance of early advancement of sqsbq-wf-qnxqxj with home exercises, and physical therapy was [...] Brian Leo MD on at 0846 RPT #:[id number] END OF REPORT 2021-03-27 07:36:00-00:00 [facility] ([facility]) Pain Management Progress Note REPORT#:[id number] REPORT STATUS: Signed DATE:03/27/21 TIME: 735 PATIENT: DOM LEWIS UNIT #: [id number] ROOM/BED: [address] : 43 AGE: 76 SEX: M ATTEND: Cornell Leo MD ADM AUTHOR: Jocelyne Lai * ALL edits or amendments must be made on the el [employer]/computer document * Subjective Chief Complaint: L KNEE PAIN S/P TKA Comments: Last Documented: Result Date Time Pulse Ox 95 03/27 712 B/P 162/88 03/27 712 B/P Mean 113.0 03/27 712 O2 Delivery Room air 03/27 712 Temp 36.0 03/27 712 Pulse 61 03/27 712 Resp 18 03/27 712 O2 Flow Rate 3 03/26 2220 FiO2 32 03/26 1700 History: PMH: GERD, CAD-NC, STENTS x 3, EX-SMOKER POD: 1 MD who placed block: DR. HUFF Type of block: AC S/S Activity status: PT SITTING UP IN BED WATCHING TV. Pain: STATES PAIN IS TOLERABLE. Physical Exam: VAS: 5 LOS: 1 Resp Quality: 1 Side Effects: NONE PT APPEARS COMFORTABLE AT THIS TIME. MOTOR MVMT AND STRENGTH INTACT TO LLE. Plan: BLOCK FOLLOW UP at 0737 RPT #:[id number] END OF REPORT 2021-03-26 18:00:00-00:00 [facility] ([facility]) Clinical Note REPORT#:[id number] REPORT STATUS: Signed DATE:03/26/21 TIME: 1800 PATIENT: DOM LEWIS UNIT #: [id number] ROOM/BED: [address] : 43 AGE: 76 SEX: M ATTEND: Cornell Leo MD ADM AUTHOR: Patrick La MD * ALL edits or amendments must be made on the el [employer]/computer document * Clinical Note Note: [facility] Patrick murcia MD (cell text [phone]) Internal Medicine Consult at request of : Dr Laura in [place] Chief Complaint: left knee pain HPI: 76yo [...] controlled), hypert ension, paroxysmal atrial fibrillation in 2015, huerta ry artery disease (s/p NC/CABG x 3 in 2015), carotid artery disease, anxiety, childhood asthma, osteo [...] pain assessment with tool and followup p [facility] [id number] - offered discussion o n advanced care plan and patient declined to address issue at this time. at 2052 RPT #:[id number] END OF REPORT 2021-03-26 11:09:00-00:00 [facility] ([facility]) Operative Note - Full REPORT#:[id number] REPORT STATUS: Signed DATE:03/26/21 TIME: 1109 PATIENT: DOM LEWIS UNIT #: [id number] ROOM/BED: [place] [address] : 43 AGE: 76 SEX: M ATTEND: Cornell Leo MD ADM AUTHOR: Brian Leo MD * ALL edits or amendments must be made on the el [employer]/computer document * Operative Report Start date: 03/26/21 Start time: 0000 Pre-procedure diagnosis: L KNEE OA, R KNEE OA Post-procedure diagnosis: SAME Procedures performed: L TKA, R KNEE CORTISONE INJECTION Technique/Procedure: R KNEE Cortisone injection OPERATIVE PROCEDURE IN DETAIL The patient was identified in the [facility] area, and all questions and concerns were answered. The patient verbally conf irmed the site and side of the surgery and marking of the site was done. The patient was brought to [facility] operating room and, after adequate anesthesia was [...] compressive dressing was applied . 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 In addition marianain vilma an retail loan originator assistant shortens operative times which decrea ses expenses and improves outcomes. I am not part of any residency or fellowship training programs and therefore require the help of the retail loan originator assistant listed above for this surgery. IMPLANTS Depuy Sigma 5 Fem, 4Tib, 10mm ALTRX, 41 mm Oval patella Primary Surgeon: FELIPA Patient Care Associate(s): SHEELA PAC Anesthesia: regional anesthesia, spinal anesthet ic Operative findings: OA Complications: none Estimated blood loss in ml's: 50 Specimens removed/altered: none Implant(s): DEPUY Electronically Signed by Brian Leo MD on at 1111 RPT #:[id number] END OF REPORT
[2023-02-27] MEDS ORDERED: lisinopriL 10 MG TAB ONE (13:28)
[2023-02-27] MEDS ORDERED: ALPRAZOLAM 0.25 MG TABLET ONE (13:53)
--- NOTE | 2023-02-27 15:38 | EDPHYS ---
Physician Documentation [facility] Name: London Lewis Age: 78 yrs Sex: Male : 1945 Arrival Date: 02/27/2023 Time: 10:42 Bed 20 Private MD: ED Physician Philippe Bella HPI: 02/27 14:33 This 78 yrs old Male presents to ER via Ambulatory with complaints of High Blood kdr Pressure, Mouth Burn. 14:34 Patient presents to the ED complaining of burning to his mouth, throat, and nose. More kdr concerning Vinh is his labile blood pressure which waxes and wanes from well-controlled to poorly controlled. Patient has been under considerable stress recently due to the fact that 6 family members have in the last few months 1 of which was his son. Patient states that his day starts out fine he takes his medications as directed (metoprolol 50 mg twice daily, lisinopril 5 mg (one half tab) twice daily.) The patient only takes the lisinopril intermittently when he feels the pressure is elevated. The patient only takes the lisinopril when his blood pressure feels elevated. The patient will also take Xanax as needed. He has had not had any available to him recently. Patient is otherwise nontoxic and nonacute appearing on initial presentation. Onset: The symptoms/episode began/occurred gradually, at an unknown time. Severity of symptoms: At their worst the symptoms were mild moderate just prior to arrival, in the emergency department the symptoms have improved markedly, The patient feels asymptomatic but his blood pressure is elevated.. The patient has experienced similar episodes in the past, several times, today's symptoms are similar. Patient was not able to get into the new PCP for 10 days. Patient will be following up with Dr. Neves in the near future. Historical: - Allergies: 11:05 PENICILLINS; ss - Home Meds: 11:05 aspirin 81 mg Oral TbEC 1 tab once daily [Active]; Flonase 50 mcg/actuation Nasal spsn ss [Active]; lisinopril 2.5 mg Oral tab once daily [Active]; metoprolol tartrate 50 mg Oral tab 1 tab 2 times per day [Active]; pantoprazole 40 mg Oral TbEC 1 tab once daily [Active]; Xanax 0.25 mg Oral tab as needed [Active]; 11:10 montelukast 10 mg oral tablet daily [Active]; eh3 - PMHx: 11:05 Anxiety; bulging discs; GEOGRAPHIC TONGUE; GERD; Hypertension; VT; ss - PSHx: 11:05 Left knee replacement; triple bipass; ss - Immunization history:: Adult Immunizations up to date. - Social history:: Smoking status: unknown. ROS: 14:34 Constitutional: Negative for fever, chills, and weight loss, Eyes: Negative for injury, kdr pain, redness, and discharge, ENT: Negative for injury, pain, and discharge, Neck: Negative for injury, pain, and swelling, Cardiovascular: Negative for chest pain, palpitations, and edema, Respiratory: Negative for shortness of breath, cough, wheezing, and pleuritic chest pain, Abdomen/GI: Negative for abdominal pain, nausea, vomiting, diarrhea, and constipation, Back: Negative for injury and pain, : Negative for injury, bleeding, discharge, and swelling, MS/Extremity: Negative for injury and deformity, Skin: Negative for injury, rash, and discoloration, Neuro: Negative for headache, weakness, numbness, tingling, and seizure activity. Psych: Negative for depression, anxiety, suicide ideation, homicidal ideation, and hallucinations, Allergy/Immunology: Negative for hives, rash, and allergies, Endocrine: Negative for neck swelling, polydipsia, polyuria, polyphagia, and marked weight changes, Hematologic/Lymphatic: Negative for swollen nodes, abnormal bleeding, and unusual bruising. 14:34 Psych: Positive for anxiety, Slightly anxious. Exam: 14:34 Constitutional: This is a well developed, well nourished patient who is awake, alert, kdr and in no acute distress. Head/Face: Normocephalic, atraumatic. Eyes: Pupils equal round and reactive to light, extra-ocular motions intact. Lids and lashes normal. Conjunctiva and sclera are non-icteric and not injected. Cornea within normal limits. Periorbital areas with no swelling, redness, or edema. ENT: Nares patent. No nasal discharge, no septal abnormalities noted. Tympanic membranes are normal and external auditory canals are clear. Oropharynx with no redness, swelling, or masses, exudates, or evidence of obstruction, uvula midline. Mucous membranes moist. Patient had very mild erythematous changes in his posterior pharynx and mucosal areas of his nostrils. Neck: Trachea midline, no thyromegaly or masses palpated, and no cervical lymphadenopathy. Supple, full range of motion without nuchal rigidity, or vertebral point tenderness. No Meningismus. Chest/axilla: Normal chest wall appearance and motion. Nontender with no deformity. No lesions are appreciated. Cardiovascular: Regular rate and rhythm with a normal S1 and S2. No gallops, murmurs, or rubs. Normal PMI, no JVD. No pulse deficits. Respiratory: Lungs have equal breath sounds bilaterally, clear to auscultation and percussion. No rales, rhonchi or wheezes noted. No increased work of breathing, no retractions or nasal flaring. Abdomen/GI: Soft, non-tender, with normal bowel sounds. No distension or tympany. No guarding or rebound. No evidence of tenderness throughout. Back: No spinal tenderness. No costovertebral tenderness. Full range of motion. Skin: Warm, dry with normal turgor. Normal color with no rashes, no lesions, and no evidence of cellulitis. MS/ Extremity: Pulses equal, no cyanosis. Neurovascular intact. Full, normal range of motion. Neuro: Awake and alert, GCS 15, oriented to person, place, time, and situation. Cranial nerves II-XII grossly intact. Motor strength 5/5 in all extremities. Sensory grossly intact. Cerebellar exam normal. Normal gait. Psych: Awake, alert, with orientation to person, place and time. Behavior, mood, and affect are within normal limits. Vital Signs: 11:04 Pulse 57; Resp 16; Pulse Ox 96% on R/A; Weight 93.44 kg; Height 5 ft. 10 in. ; Pain ss 5/10; 11:05 BP 190 / 85; Temp 97.8(O); ss 11:10 BP 190 / 100; Pulse 55; Resp 18; Pulse Ox 96% on R/A; eh3 12:00 Pulse 49; Resp 18; Pulse Ox 96% on R/A; eh3 12:25 BP 210 / 100 RA (man/); eh3 12:27 BP 216 / 100 LA (man/); eh3 13:00 BP 201 / 93; Pulse 55; Resp 16; Pulse Ox 99% on R/A; eh3 13:30 BP 188 / 77; eh3 14:30 BP 154 / 71; Pulse 48; Resp 20; Pulse Ox 95% on R/A; eh3 15:00 BP 143 / 76; Pulse 49; Resp 17; Pulse Ox 96% on R/A; eh3 11:04 Body Mass Index 29.56 (93.44 kg, 177.8 cm) ss 11:04 Pain Scale: Adult ss MDM: 15:38 Patient medically screened. kdr Administered Medications: 13:23 Drug: Lisinopril PO 10 mg Route: PO; 3 14:30 Follow up: Response: Blood pressure is lowered 3 13:50 Drug: ALPRAZolam PO Tablet 0.5 mg Route: PO; eh3 15:00 Follow up: Response: No adverse reaction; Anxiety decreased 3 Disposition Summary: 02/27/23 15:38 Discharge Ordered Location: Home kdr Problem: an acute exacerbation kdr Symptoms: have improved kdr Condition: Stable kdr Diagnosis - Hypertensive heart disease without heart failure - Poorly controlled kdr - Anxiety disorder, unspecified kdr Followup: kdr - With: Devin Neves MD - When: 2 - 3 days - Reason: If symptoms return, Further diagnostic work-up, Recheck today's complaints, Continuance of care, Re-evaluation by your physician Discharge Instructions: - Discharge Summary Sheet kdr - Hypertension, Adult, Qoam-wk-Jvog kdr - Generalized Anxiety Disorder, Adult kdr Forms: - Medication Reconciliation Form kdr - Thank You Letter kdr - Prescription Opioid Use kdr - Patient Portal Instructions kdr Prescriptions: - Xanax 0.5 mg Oral Tablet - take 1 tablet by ORAL route every 12 hours As needed As needed for anxiety; 10 kdr tablet; Refills: 0, Product Selection Permitted - Lisinopril 5 mg Oral Tablet - take 1 tablet by ORAL route every 12 hours; 20 tablet; Refills: 0, Product kdr Selection Permitted Signatures: Philippe Bella MD MD kdr Fatou Cortes RN RN Abby Toure RN RN 3
--- NOTE | 2023-02-27 15:38 | ER ---
Nurse's Notes [facility] Name: London Lewis Age: 78 yrs Sex: Male : 1945 Arrival Date: 02/27/2023 Time: 10:42 Bed 20 Private MD: Diagnosis: Hypertensive heart disease without heart failure-Poorly controlled;Anxiety disorder, unspecified Presentation: 02/27 11:04 Chief complaint: Patient states: "My blood pressure is reading high at home 202/101 and ss I want the doctor to look at my mouth. I was here the other day and Dr. Agudelo looked at it and let me go home.". Coronavirus screen: Client denies travel out of the [place] in the last 14 days. Ebola Screen: Patient denies exposure to infectious person. Patient denies travel to an Ebola-affected area in the 21 days before illness onset. Initial Sepsis Screen: Does the patient meet any 2 criteria? No. Patient's initial sepsis screen is negative. Does the patient have a suspected source of infection? No. Patient's initial sepsis screen is negative. Risk Assessment: Do you want to hurt yourself or someone else? Patient reports no desire to harm self or others. Onset of symptoms is unknown. 11:04 Method Of Arrival: Ambulatory ss 11:04 Acuity: ROBERT 3 ss Triage Assessment: 11:10 General: Appears in no apparent distress. comfortable, Behavior is cooperative, eh3 appropriate for age, anxious. Respiratory: Airway is patent Respiratory effort is even, unlabored. Injury Description: burning mouth, no lesions noted. Historical: - Allergies: 11:05 PENICILLINS; ss - Home Meds: 11:05 aspirin 81 mg Oral TbEC 1 tab once daily [Active]; Flonase 50 mcg/actuation Nasal spsn [Active]; lisinopril 2.5 mg Oral tab once daily [Active]; metoprolol tartrate 50 mg Oral tab 1 tab 2 times per day [Active]; pantoprazole 40 mg Oral TbEC 1 tab once daily [Active]; Xanax 0.25 mg Oral tab as needed [Active]; 11:10 montelukast 10 mg oral tablet daily [Active]; eh3 - PMHx: 11:05 Anxiety; bulging discs; GEOGRAPHIC TONGUE; GERD; Hypertension; TX; ss - PSHx: 11:05 Left knee replacement; triple bipass; ss - Immunization history:: Adult Immunizations up to date. - Social history:: Smoking status: unknown. Screenin:10 [facility] Fall Risk Assessment (Adult) Score/Fall Risk Level 0 - 2 = Low Risk. Abuse eh3 screen: Denies threats or abuse. Denies injuries from another. Nutritional screening: No deficits noted. Tuberculosis screening: No symptoms or risk factors identified. Assessment: 11:10 General: Appears in no apparent distress. uncomfortable, Behavior is cooperative, eh3 appropriate for age, anxious. Pain: Complains of pain in mouth. Neuro: Level of Consciousness is awake, alert, obeys commands, Oriented to person, place, time, situation. Cardiovascular: Capillary refill < 3 seconds Patient's skin is warm and dry. Respiratory: Airway is patent Respiratory effort is even, unlabored, Respiratory pattern is regular, symmetrical. GI: Abdomen is round non-distended. Derm: Skin is pink, warm \\T\\ dry. Musculoskeletal: Circulation, motion, and sensation intact. 12:00 Reassessment: Patient appears in no apparent distress at this time. Patient and/or eh3 family updated on plan of care and expected duration. Pain level reassessed. Patient is alert, oriented x 3, equal unlabored respirations, skin warm/dry/pink. 13:00 Reassessment: Patient appears in no apparent distress at this time. Patient and/or eh3 family updated on plan of care and expected duration. Pain level reassessed. Patient is alert, oriented x 3, equal unlabored respirations, skin warm/dry/pink. 14:00 Reassessment: Patient appears in no apparent distress at this time. Patient and/or eh3 family updated on plan of care and expected duration. Pain level reassessed. Patient is alert, oriented x 3, equal unlabored respirations, skin warm/dry/pink. 15:00 Reassessment: Patient appears in no apparent distress at this time. Patient and/or eh3 family updated on plan of care and expected duration. Pain level reassessed. Patient is alert, oriented x 3, equal unlabored respirations, skin warm/dry/pink. Vital Signs: 11:04 Pulse 57; Resp 16; Pulse Ox 96% on R/A; Weight 93.44 kg; Height 5 ft. 10 in. ; Pain ss 5/10; 11:05 BP 190 / 85; Temp 97.8(O); ss 11:10 BP 190 / 100; Pulse 55; Resp 18; Pulse Ox 96% on R/A; eh3 12:00 Pulse 49; Resp 18; Pulse Ox 96% on R/A; eh3 12:25 BP 210 / 100 RA (man/); eh3 12:27 BP 216 / 100 LA (man/); eh3 13:00 BP 201 / 93; Pulse 55; Resp 16; Pulse Ox 99% on R/A; eh3 13:30 BP 188 / 77; eh3 14:30 BP 154 / 71; Pulse 48; Resp 20; Pulse Ox 95% on R/A; eh3 15:00 BP 143 / 76; Pulse 49; Resp 17; Pulse Ox 96% on R/A; eh3 11:04 Body Mass Index 29.56 (93.44 kg, 177.8 cm) ss 11:04 Pain Scale: Adult ss ED Course: 10:46 Patient arrived in ED. im 10:48 Philippe Bella MD is Attending Physician. kdr 11:05 Triage completed. ss 11:05 Arm band placed on right wrist. ss 11:10 Abby Toure RN is Primary Nurse. eh3 11:10 Patient has correct armband on for positive identification. Bed in low position. Call eh3 light in reach. Side rails up X2. Adult w/ patient. Provided Education on: Use of call vega. Client placed on continuous cardiac and pulse oximetry monitoring. NIBP monitoring applied. 15:37 Devin Neves MD is Referral Physician. kdr 15:44 No provider procedures requiring assistance completed. Patient did not have IV access eh3 during this emergency room visit. Administered Medications: 13:23 Drug: Lisinopril PO 10 mg Route: PO; eh3 14:30 Follow up: Response: Blood pressure is lowered eh3 13:50 Drug: ALPRAZolam PO Tablet 0.5 mg Route: PO; eh3 15:00 Follow up: Response: No adverse reaction; Anxiety decreased eh3 Medication: 15:44 VIS not applicable for this client. eh3 Outcome: 15:38 Discharge ordered by MD. kdr 15:44 Discharged to home ambulatory, with significant other. eh3 15:44 Condition: stable 15:44 Discharge instructions given to patient, significant other, Instructed on discharge instructions, follow up and referral plans. medication usage, Demonstrated understanding of instructions, follow-up care, medications, Prescriptions given X 2. 15:48 Patient left the ED. [facility] Signatures: Philippe Bella MD MD [facility] Fatou Cortes RN RN Abby Toure RN RN [facility] Beatriz Dumas Corrections: (The following items were deleted from the chart) 15:15 14:00 BP 154 / 71; Pulse 48bpm; Resp 20bpm; Pulse Ox 95% RA; [place] [id number] 15:15 14:30 BP 143 / 76; Pulse 49bpm; Resp 17bpm; Pulse Ox 96% RA; [place] [id number]
[2023-02-27 16:00] VITALS: TEMP 97.8
[2023-02-27 16:12] VITALS: BP 143/76; O2SAT 96
== END 2023-02-27 15:48 | disposition home or self-care (01) ==
LOC: ER 10:42
DX: I11.9 Hypertensive heart disease without heart failure (principal); F41.9 Anxiety disorder, unspecified; I10 Essential (primary) hypertension; Z95.1 Presence of aortocoronary bypass graft; Z79.82 Long term (current) use of aspirin; Z88.0 Allergy status to penicillin
CPT/HCPCS: 99284

== ENCOUNTER 2023-02-28 19:19 | Emergency (ER) | payer OTHER ==
--- OUTSIDE RECORDS SUMMARY | 2023-02-28 19:24 | XMS REPORT | Continuity of Care Document ---
:1945 Author Organization [facility] t Address [address] [facility] [place] [address] Care Team Providers Name Role Phone Wendy Attending Clinician Unavailable Brian Leo Attending Clinician [phone] Brian Leo Attending Clinician Unavailable Chepe Aguilera Attending Clinician Wendy Admitting Clinician Unavailable Brian Leo Admitting Clinician Unavailable Payers Payer Name Policy Type Policy Number Effective Date Expiration Date Glenn morales MEDICARE B-[place]: [id number] 2008 [employer] 00:00:00 [employer] [id number] [employer] (MEDICARE SUPPLEMENT) Problems Condition Condition [...] Memoria (disorder) (disorder) d 01:00:54 l Resolved Jeannette Problem 07/03/2019 Medical Group History of History [...] NSAIDS DA Active U [facility] ([facility]-Rl 03-26 [place] [facility] 00:[facility]: [facility] Anti-Inf 00 [facility] Penicill DA Active SV [facility] ins 03-26 00:00: Orthope 00 dic Hospita l NSAIDS DA Active U DECREASED [facility] (Non-Rl KIDNEY 03-26 [place] [facility]idal FUNCTION 00:00: Orthope Anti-Inf 00 dic [facility]amma [facility] Penicill DA Active SV [facility] ins 03-26 00:00: Orthope 00 dic Hospita l Penicill DA Active SV [facility] ins 11-24 Clear 00:00: Thomas [address] [facility] Penicill DA Active SV [facility] HC A ins 11-24 Clear 00:00: Thomas [address] [facility] Penicill DA Active SV [facility] ins 11-16 [place] 00:00: Orthope 00 dic [facility]osp[facility] Penicill DA Active SV [facility] ins 10-26 [facility] [place] PENICILL Allergy Active Kayla [place] to Orthope substanc dic e Sports Medicin e penicill penicill Active Memori a ins ins l Jeannette Social History Smoking Status Start Date Stop Date Source Social History [facility] Medications Ordered Filled Start Stop Current [...] tab, PO, l tablet, 16:54: BID, 0 Jeannette extended 00 Refill(s) release Aspirin 81 20180 Yes 81 mg = 1 Me moria MG Enteric 2-20 tab, PO, l Coated 16:54: Daily, # Jeannette Tablet 00 90 tab, 3 Refill(s) Alprazolam Yes 0.25 mg = Me moria 0.25 MG 2-20 1 tab, PO, l Oral Tablet 16:54: TID, PRN He rmann [Xanax] 00 Anxiety, # 30 tab, 0 Refill(s) Fish Oil 20180 Yes PO, 0 Memoria 2-20 Refill(s) l 16:54: Jeannette 00 lisinopril Yes 5 mg = 1 Mem oria 5 mg oral 2-20 tab, PO, l tablet 16:54: Daily, # [facility] 00 30 tab, 0 Refill(s) pantoprazol Yes 40 mg = 1 M emoria e 40 mg 2-20 tab, PO, l oral 16:54: Daily, # Jeannette enteric 00 30 tab, 0 coated Refill(s) tablet hydrocortis 0 Yes 25 mg = 1 M emoria one acetate 2-20 supp, CA, l 25 MG 16:54: BID, # 20 [facility] Rectal 00 supp, 0 Suppository Refill(s) [Proctosol] metoprolol Yes 50 mg = 1 Me moria 50 mg oral 2-20 tab, PO, l tablet, 16:54: BID, 0 Jeannette extended 00 Refill(s) release Aspirin 81 2018 Yes 81 mg = 1 Me moria MG Enteric 2-20 tab, PO, l Coated 16:54: Daily, # Jeannette Tablet 00 90 tab, 3 Refill(s) Alprazolam 2018 Yes 0.25 mg = Me moria 0.25 MG 2-20 1 tab, PO, l Oral Tablet 16:54: TID, PRN He rmann [Xanax] 00 Anxiety, # 30 tab, 0 Refill(s) Fish Oil 0 Yes PO, 0 Memoria 2-20 Refill(s) l 16:54: Jeannette 00 lisinopril 2018-0 Yes 5 mg = [...] 1 M emoria one acetate 2-20 supp, CA, l 25 MG 16:54: BID, # 20 [facility] Rectal 00 supp, 0 Suppository Refill(s) [Proctosol] metoprolol 0 Yes 50 mg = 1 Me moria 50 mg oral 2-20 tab, PO, l tablet, 16:54: BID, 0 Jeannette extended 00 Refill(s) release Aspirin 81 2018-0 [...] PO, 0 Memoria 2-20 Refill(s) l 16:54: Jeannette 00 lisinopril 2018-0 Yes 5 mg = 1 Mem oria 5 mg oral 2-20 tab, PO, l tablet 16:54: Daily, # Jeannette 00 30 tab, 0 Refill(s) pantoprazol 2018-0 Yes 40 mg = 1 M emoria e 40 mg 2-20 tab, PO, l oral 16:54: Daily, # [facility] enteric 00 30 tab, 0 coated Refill(s) tablet hydrocortis 2017-0 Yes 25 mg = 1 M emoria one acetate 2-20 supp, CA, l 25 MG 16:54: BID, # 20 [facility] Rectal 00 supp, 0 Suppository Refill(s) [Proctosol] metoprolol 2018-0 Yes 50 mg = 1 Me moria 50 mg oral 2-20 tab, PO, l tablet, 16:54: BID, 0 Jeannette extended 00 Refill(s) release Aspirin 81 2018-0 [...] 2-20 Refill(s) l 16:54: [facility] 00 lisinopril 0 Yes 5 mg = 1 Mem oria 5 mg oral 2-20 tab, PO, l tablet 16:54: Daily, # Jeannette 00 30 tab, 0 Refill(s) pantoprazol 20180 Yes 40 mg = 1 M emoria e 40 mg 2-20 tab, PO, l oral 16:54: Daily, # [facility] enteric 00 30 tab, 0 coated Refill(s) tablet hydrocortis 20180 Yes 25 mg = 1 M emoria one acetate 2-20 supp, CA, l 25 MG 16:54: BID, # 20 [facility] Rectal 00 supp, 0 Suppository Refill(s) [Proctosol] metoprolol 20180 Yes 50 mg = 1 Me moria 50 mg oral 2-20 tab, PO, l tablet, 16:54: BID, 0 Jeannette extended 00 Refill(s) release Aspirin 81 20180 Yes 81 mg = 1 Me moria MG Enteric 2-20 tab, PO, l Coated 16:54: Daily, # Jeannette Tablet 00 90 tab, 3 Refill(s) Alprazolam 2018-0 Yes 0.25 mg = Me moria 0.25 MG 2-20 1 tab, PO, l Oral Tablet 16:54: TID, PRN He rmann [Xanax] 00 Anxiety, # 30 tab, 0 Refill(s) Fish Oil 2018-0 Yes PO, 0 Memoria 2-20 Refill(s) l 16:54: Jeannette 00 lisinopril 2018-0 Yes 5 mg = [...] 1 M emoria one acetate 2-20 supp, CA, l 25 MG 16:54: BID, # 20 Jeannette Rectal 00 supp, 0 Suppository Refill(s) [Proctosol] [...] RX release RX layed e by other by other MD release RX by jessica GRAHAM metoprolol [...] other RX by dic MD MD jessica GRAHAM Sports Medicin e Vital Signs Vital Name Observation Time Observation Value Comments Source Systolic (mm Hg) 2019-06-30 16:08:00 [place] rial [facility] Diastolic (mm Hg) 2019-06-30 16:08:00 Mem orial [facility] Heart Rate 2019-06-30 16:08:00 [facility] Temperature Oral (F) 2019-06-30 16:08:00 98.4 F [facility] Jeannette Height 2019-06-30 16:08:00 177.8 cm [facility] Jeannette Weight 2019-06-30 16:08:00 [facility] Jeannette BMI Calculated 2019-06-30 16:08:00 Kanwal[place] al [facility] BMI Calculated 2018-10-13 14:06:00 Kanwalori al Jeannette Weight 2018-10-13 14:06:00 [facility] Jeannette Height 2018-10-13 14:06:00 177.8 cm [facility] Jeannette Temperature Oral (F) 2018-10-13 14:06:00 97.6 F [facility] Systolic (mm Hg) 2018-10-13 14:06:00 [place] rial [facility] Diastolic (mm Hg) 2018-10-13 14:06:00 Mem orial [facility] Heart Rate 2018-10-13 14:06:00 [facility] Jeannette BMI Calculated 2018-04-22 15:21:00 Elvira al Jeannette Height 2018-04-22 15:21:00 180.34 cm [facility] Jeannette Weight 2018-04-22 15:21:00 [facility] Temperature Oral (F) 2018-04-22 15:21:00 97.9 F [facility] Jeannette Heart Rate 2018-04-22 15:21:00 [facility] Systolic (mm Hg) 2018-04-22 15:21:00 [place] rial Jeannette Diastolic (mm Hg) 2018-04-22 15:21:00 Mem orial Jeannette BMI Calculated 2018-03-10 15:30:00 [place] al Jeannette Weight 2018-03-10 15:30:00 [facility] Jeannette Height 2018-03-10 15:30:00 177.8 cm [facility] Jeannette Systolic (mm Hg) 2018-03-10 15:30:00 [place] rial Jeannette Diastolic (mm Hg) 2018-03-10 15:30:00 Mem orial [facility] Temperature Oral (F) 2018-03-10 15:30:00 97.4 F [facility] Heart Rate 2018-03-10 15:30:00 [facility] Height 2018-02-25 14:45:00 177.8 cm [facility] Jeannette Weight 2018-02-25 14:45:00 [facility] BMI Calculated 2018-02-25 14:45:00 Memori al [facility] Systolic (mm Hg) 2018-02-25 14:45:00 [place] rial Jeannette Diastolic (mm Hg) 2018-02-25 14:45:00 Mem orial [facility] Temperature Oral (F) 2018-02-25 14:45:00 97.6 F [facility] Jeannette Heart Rate 2018-02-25 14:45:00 [facility] BMI Calculated 2017-10-29 15:30:00 Memori al Jeannette Weight 2017-10-29 15:30:00 [facility] Systolic (mm Hg) 2017-10-29 15:30:00 [place] rial [facility] Diastolic (mm Hg) 2017-10-29 15:30:00 Mem orial Jeannette Temperature Oral (F) 2017-10-29 15:30:00 97.4 F [facility] Heart Rate 2017-10-29 15:30:00 [facility] Height 2017-10-29 15:30:00 180.34 cm [facility] Jeannette Weight 2017-10-09 15:04:00 [facility] BMI Calculated 2017-10-09 15:04:00 Memori al Jeannette Height 2017-10-09 15:04:00 180.34 cm [facility] Jeannette Temperature Oral (F) 2017-10-09 15:04:00 98.3 F [facility] Jeannette Systolic (mm Hg) 2017-10-09 15:04:00 [place] rial Jeannette Diastolic (mm Hg) 2017-10-09 15:04:00 Mem orial Jeannette Respitory Rate 2017-10-09 15:04:00 Memori al Jeannette Heart Rate 2017-10-09 15:04:00 [facility] Jeannette Height 2017-09-29 16:07:00 180.34 cm [facility] BMI Calculated 2017-09-29 16:07:00 Memori al [facility] Weight 2017-09-29 16:07:00 [facility] Temperature Oral (F) 2017-09-29 16:07:00 97.7 F [facility] Jeannette Heart Rate 2017-09-29 16:07:00 [facility] Respitory Rate 2017-09-29 16:07:00 Memori al Jeannette Systolic (mm Hg) 2017-09-29 16:07:00 [place] rial [facility] Diastolic (mm Hg) 2017-09-29 16:07:00 Mem orial [facility] BMI Calculated 2017-09-22 17:23:00 Memori al [facility] Weight 2017-09-22 17:23:00 [facility] Height 2017-09-22 17:23:00 180.34 cm [facility] Systolic (mm Hg) 2017-09-22 17:23:00 [place] rial Jeannette Diastolic (mm Hg) 2017-09-22 17:23:00 Mem orial Jeannette Respitory Rate 2017-09-22 17:23:00 Memori al Jeannette Temperature Oral (F) 2017-09-22 17:23:00 98.5 F [facility] Heart Rate 2017-09-22 17:23:00 [facility] Jeannette Systolic (mm Hg) 2017-09-15 16:40:00 [place] rial [facility] Diastolic (mm Hg) 2017-09-15 16:40:00 Mem orial Jeannette Heart Rate 2017-09-15 16:40:00 [facility] Respitory Rate 2017-09-15 16:40:00 Memori al [facility] Temperature Oral (F) 2017-09-15 16:40:00 98.4 F [facility] Procedures Procedure Date / Time Performed Performing Clinician Patty robinson [id number] 2021-03-26 00:00:00 [facility] [id number] 2021-03-26 00:00:00 [facility] Anoscopy; diagnostic, 2018-04-22 19:01:00 Memori al [facility] including collection of specimen(s) by brushing or washing, when performed (separate procedure) Hemorrhoidectomy, 2018-02-25 14:54:00 [facility] H ermann internal, by rubber band ligation(s) [facility] Encounters Start End Encounter Admission Attending Care Care Encounter Source Date/Time Date/Time Type Type Clinicians Facility Department ID 2022-01-10 2022-01-10 Outpatient FOG_Goytia_ AOSM AOSM [id number] Kayla 03:57:00 03:57:00 Tala [id number] [facility] 2022-01-06 2022-01-06 Outpatient FOG_Goytia_ AOSM AOSM [id number] Kayla 01:03:00 01:03:00 Tala [id number] Ortho pe dic [facility] Medic[facility] e 2022-01-06 2022-01-06 Brian Neely AOSM [place] - Ortho [id number] Kayla 00:00:00 00:00:00 Linn Leo MD: [id number] FOG_Telemed dic [facility], [place] [address] , Ph. 2022-01-06 2022-01-06 Outpatient Felipa, AOSM AOSM [id number] 00:00:00 00:00:00 Brian Neely [id number] 2021-12-31 2021-12-31 Outpatient FOG_Goytia_ AOSM AOSM [id number] Kayla 12:06:00 12:06:00 Tala [id number] Ortho pe [facility] 2021-12-31 2021-12-31 Outpatient FOG_Goytia_ AOSM AOSM [id number] Kayla 12:06:00 12:06:00 Tala [id number] Ortho pe dic Sports Medicin e 2021-03-26 2021-03-27 Inpatient EL Felipa, HCATO SURG [id number] [facility] 08:03:00 13:41:00 Brian [id number] [facility] 2021-03-01 2021-03-01 Outpatient EL Felipa, HCATO 3DAY [id number] [facility] 09:00:00 23:00:00 Brian [id number] [facility] 2021-03-01 2021-03-01 Outpatient Felipa, HCACL LABO [id number] [facility] 18:16:00 18:16:00 Brian 99 [facility] 2021-03-01 2021-03-01 Outpatient Felipa, HCAWU REFE [id number] 15:29:00 15:29:[address] [facility] 2019-06-30 2019-07-01 Outpatient nullFlavo [facility] Multi 55 [id number] Memoria 16:30:00 05:59:59 r Specialty 14 l Martín Brownann 2019-06-30 2019-07-01 Outpatient nullFlavo [facility] Multi 55 [id number] Memoria 16:30:00 05:59:59 r [facility] 14 [facility] 2019-06-30 Outpatient Silviaani, MHMG MHMG [id number] 10:30:00 23:59:59 Mohummed 14 [facility] 2019-06-30 2019-06-30 Outpatient MHIE MHIE [id number] Memoria 10:30:00 10:30:00 14 luke Saab 2019-05-05 2019-05-05 Ambulatory nullFlavo [facility] Multi 55 [id number] Memoria 15:45:00 15:45:00 Pre-Reg r Specialty 13 l [facility] 2019-05-05 2019-05-05 Ambulatory nullFlavo [facility] Multi 55 [id number] Memoria 15:45:00 15:45:00 Pre-Reg r Specialty 13 l [facility] 2019-05-05 2019-05-05 Outpatient Ale, MHMG MHMG [id number] 10:45:00 10:45:00 Mohummed 13 [facility] 2019-04-14 2019-04-14 Outpatient MHIE MHIE [id number] Memoria 10:30:00 10:30:00 13 luke Jeannette 2018-10-13 2018-10-14 Outpatient nullFlavo [facility] Multi 55 [id number] Memoria 14:30:00 04:59:59 r Specialty 12 luke [facility] 2018-10-13 2018-10-14 Outpatient nullFlavo [facility] Multi 55 [id number] Memoria 14:30:00 04:59:59 r Specialty 12 l [facility] 2018-10-13 2018-10-13 Outpatient Ale, MHMG MHMG [id number] 09:30:00 23:59:59 Mohummed 12 [facility] 2018-10-13 2018-10-13 Outpatient MHIE MHIE [id number] Memoria 09:30:00 09:30:00 12 luke Jeannette 2018-04-22 2018-04-23 Outpatient nullFlavo [facility] Multi 55 [id number] Memoria 16:00:00 04:59:59 r Specialty 10 l [facility] 2018-04-22 2018-04-23 Outpatient nullFlavo [facility] Multi 55 [id number] Memoria 16:00:00 04:59:59 r Specialty 10 l [facility] 2018-04-22 2018-04-22 Outpatient Ale, MG MG [id number] 11:00:00 23:59:59 Mohummed Emilie [facility] 2018-04-22 2018-04-22 Outpatient MHIE MHIE [id number] Memoria 11:00:00 11:00:00 10 luke Jeannette 2018-04-21 2018-04-21 Ambulatory nullFlavo [facility] Multi 55 [id number] Memoria 14:30:00 14:30:00 Pre-Reg r Specialty 11 l [facility] 2018-04-21 2018-04-21 Ambulatory nullFlavo [facility] Multi 55 [id number] Memoria 14:30:00 14:30:00 Pre-Reg r Specialty 11 l [facility] 2018-04-21 2018-04-21 Outpatient MHIE MHIE [id number] Memoria 09:30:00 09:30:00 11 luke Jeannette 2018-04-21 2018-04-21 Outpatient Ale, MG MG [id number] 09:30:00 09:30:00 [facility] 2018-03-10 2018-03-11 Outpatient nullFlavo [facility] Multi 55 [id number] Memoria 15:30:00 04:59:59 r Specialty 09 luke [facility] 2018-03-10 2018-03-11 Outpatient nullFlavo [facility] Multi 55 [id number] Memoria 15:30:00 04:59:59 r Specialty 09 luke [facility] 2018-03-10 2018-03-10 Outpatient Ale, MG MG [id number] 10:30:00 23:59:59 Mohummed Tucker [facility] 2018-03-10 2018-03-10 Outpatient MHIE MHIE [id number] Memoria 10:30:00 10:30:00 09 luke [facility] 2018-03-01 2018-03-03 Phone nullFlavo MG Multi [id number] Memoria 18:30:00 04:59:59 Message r Specialty 02 l [facility] 2018-03-01 2018-03-03 Phone nullFlavo [facility] Multi [id number] Memoria 18:30:00 04:59:59 Message r Specialty 02 l [facility] 2018-03-01 2018-03-02 Outpatient MHMG MHMG [id number] 13:30:00 23:59:59 02 2018-02-25 2018 Outpatient nullFlavo [facility] Multi 55 [id number] Memoria 16:00:00 04:59:59 r Specialty 08 l [facility] 2018-02-25 2018 Outpatient nullFlavo [facility] Multi 55 [id number] Memoria 16:00:00 04:59:59 r Specialty 08 l [facility] 2018-02-25 2018-02-25 Outpatient Khani, MHMG MG [id number] 11:00:00 23:59:[address] [place] [address] 2018-02-25 2018-02-25 Outpatient MHIE MHIE [id number] Memoria 11:00:00 11:00:00 08 [facility] 2018-01-21 2018-01-21 Ambulatory nullFlavo MHMG [id number] Memoria 15:45:00 15:45:00 Pre-Reg r General 07 l [facility] 2018-01-21 2018-01-21 Ambulatory nullFlavo MHMG [id number] Memoria 15:45:00 15:45:00 Pre-Reg r General 07 l [facility] 2018-01-21 2018-01-21 Outpatient MHIE MHIE [id number] Memoria 10:45:00 10:45:[address] [place] [address] 2018-01-21 2018-01-21 Outpatient Khani, MHMG MHMG [id number] 10:45:00 10:45:[address] [place] [address] 2017-12-31 2018-01-01 Outpatient nullFlavo MHMG [id number] Memoria 16:00:00 04:59:59 r General 05 [facility] 2017-12-31 2018-01-01 Outpatient nullFlavo MHMG [id number] Memoria 16:00:00 04:59:59 r General 05 l Surgery [facility] 2017-12-31 2017-12-31 Outpatient Ale, MG MG [id number] 11:00:00 23:59:59 Mohummed Gustavo [facility] 2017-12-31 2017-12-31 Outpatient MHIE MHIE [id number] Memoria 11:00:00 11:00:00 05 [facility] 2017-11-11 2017-11-11 Ambulatory nullFlavo MHMG [id number] Memoria 20:30:00 20:30:00 Pre-Reg r General 06 l Surgery [facility] 2017-11-11 2017-11-11 Ambulatory nullFlavo MHMG [id number] Memoria 20:30:00 20:30:00 Pre-Reg r General 06 l Surgery [facility] 2017-11-11 2017-11-11 Outpatient MHIE MHIE [id number] Memoria 15:30:00 15:30:00 06 [facility] 2017-11-11 2017-11-11 Outpatient Ale, MG MG [id number] 15:30:00 15:30:00 Mohummed Joseph [facility] 2017-10-29 2017-10-30 Outpatient nullFlavo MHMG [id number] Memoria 15:45:00 04:59:59 r General 03 l [facility] 2017-10-29 2017-10-30 Outpatient nullFlavo [facility]MG [id number] Memoria 15:45:00 04:59:59 r General 03 l [facility] 2017-10-29 2017-10-29 Outpatient Ale, MG MG [id number] 10:45:00 23:59:59 Mohummed Fidencio [facility] 2017-10-29 2017-10-29 Outpatient MHIE MHIE [id number] Memoria 10:45:00 10:45:00 03 [facility] 2017-10-09 2017-10-10 Outpatient nullFlavo MHMG [id number] Memoria 15:00:00 04:59:59 r General 04 l [facility] 2017-10-09 2017-10-10 Outpatient nullFlavo [facility] [id number] Memoria 15:00:00 04:59:59 r General 04 l Surgery [facility] 2017-10-09 2017-10-09 Outpatient Khani, MHMG MHMG [id number] 10:00:00 23:59:59 [facility]med [facility] 2017-10-09 2017-10-09 Outpatient MHIE MHIE [id number] Memoria 10:00:00 10:00:00 04 [facility] 2017-10-05 2017-10-07 Phone nullFlavo MHMG [id number] Memoria 14:43:00 04:59:59 Message r General 01 l Surgery [facility] 2017-10-05 2017-10-07 Phone nullFlavo MHMG [id number] Memoria 14:43:00 04:59:59 Message r General 01 l [facility] 2017-10-05 2017-10-06 Outpatient MHMG MHMG [id number] 09:43:00 23:59:59 2017-10-02 2017-10-04 Phone nullFlavo MHMG [id number] Memoria 21:31:00 05:59:59 Message r General 00 l [facility] 2017-10-02 2017-10-04 Phone nullFlavo MHMG [id number] Memoria 21:31:00 05:59:59 Message r General 00 l [facility] 2017-10-02 2017-10-03 Outpatient MHMG MHMG [id number] 15:31:00 23:59:59 00 2017-09-29 2017-09-30 Outpatient nullFlavo [facility] [id number] Memoria 17:00:00 05:59:59 r General 01 l [facility] 2017-09-29 2017-09-30 Outpatient nullFlavo [facility] [id number] Memoria 17:00:00 05:59:59 r General 01 l [facility] 2017-09-29 2017-09-29 Outpatient Khani, MHMG MHMG [id number] 11:00:00 23:59:59 Mohummed Luis Carlos [facility] 2017-09-29 2017-09-29 Outpatient Khani, MHMG MHMG [id number] 11:00:00 23:59:59 Mohummed [facility] 2017-09-29 2017-09-29 Outpatient MHIE MHIE [id number] Memoria 11:00:00 11:00:00 01 l Jeannette 2017-09-22 2017-09-23 [place] [id number] Memoria 17:30:00 05:59:59 r General 02 l Surgery [facility] 2017-09-22 2017-09-23 [place] [id number] Memoria 17:30:00 05:59:59 r General 02 l Surgery [facility] 2017-09-22 2017-09-22 Outpatient Ale [facility] [id number] 11:30:00 23:59:59 Mohummed [facility] 2017-09-22 2017-09-22 Outpatient ALEXDOMINGA DOMINGA [id number] Memoria 11:30:00 11:30:00 02 l Jeannette 2017-09-15 2017-09-16 Outpatient nullFlavo [facility] [id number] Memoria 16:30:00 05:59:59 r General 00 l Surgery [facility] 2017-09-15 2017-09-16 Outpatient nullFlavo [facility] [id number] Memoria 16:30:00 05:59:59 r General 00 l [facility] 2017-09-15 2017-09-15 Outpatient Ale [facility] [id number] 10:30:00 23:59:59 Mohummed [facility] 2017-09-15 2017-09-15 Outpatient TOSHA GIVENS [id number] Memoria 10:30:00 10:30:00 00 luke Jeannette Results Test Description Test Time Test Comments Results Result Comments Source GLUBED 2021-03-28 09:59:00 Test Item Value Reference Range Interpretation Comme nts GLUBED (test code = GLUBED) 200 mg/dL 60-125 H BASIC METABOLIC [id number] 06:54:00 Test Item Value Reference Range Interpretation [...] RATE (test code = GFR) mL/mi n/1.73 q4Hefqejhhd Range:Healthy Adults >90 mL/min/1.73 m2 For Chronic Kidney Disease: Stage II Mild Decrease i n GFR 60-90 Stage III Moderate Decrea se in GFR 30-59 St age IV Severe Decre ase in GFR 15-29 St age V Kidney Failur e <15 CREATININE (test code 1.35 mg/dL 0.55-1.30 H = CREAT) CALCIUM (test code = 8.5 mg/dL 8.2-10.1 N CA) HGB [id number] 06:10:00 Test Item Value Reference Range Interpretation Comments HEMOGLOBIN (test code = HGB) 13.0 g/dL 12-16 N HEMATOCRIT (test code = HCT) 39.2 % 37-47 N SPECIMEN COMMENT: POD #[id number] 06:04:00 Test Item Value Reference Range Interpretation Comments GLUBED (test code = GLUBED) 146 mg/dL 60-125 H [id number] 16:37:00 Test Item Value Reference Range Interpretation [...] be considered for these patients.DONE A T: [facility] [address] [place], [place] [address] GLYCOSYLATED HEMOGLOBIN (HA1C)2021-03-01 18:48:00 Test Item Value Reference Range Interpretation Comments GLYCOSYLATED 6.7 % 4.8-5.9 H Any condition t hat shortens HEMOGLOBIN (HA1C) erythocyte survival or (test code = GLYHGB) decreas esmean erythrocyte age (e.g., tammie very from acute blood los s,hemolytic anemia) will fa lsely lower HGBA1c resultsr egardless of the method used . HGBA1c results from edgar nadyaromero HbSS, HbCC, and HbSc must be interpreted with cautiongiven th e pathological pr ocesses, including anemi a,increased red cell turnov er, transfusion req uirements, thatadversely i mpact HGBA1c as a marker of long-term glycemiccontrol . Alternative for ms of testing such as fructosaminesho uld be considered for these patients. COMPREHENSIVE METABOLIC [id number] 16:19:00 Test Item Value Reference Range Interpretation [...] RATE (test code = GFR) mL/mi n/1.73 x7Gjjnhnyyx Range:Healthy Adults >90 mL/min/1.73 m2 For Chronic [...] TOTAL (test code = ALKP) CBC W/AUTO [id number] 15:25:00 Test Item Value Reference Range Interpretation [...] % 0-0 N code = NRBC) PROTHROMBIN [id number] 15:24:00 Test Item Value Reference Range Interpretation [...] Patient is on Heparin Drip? NOTHROMBOPLASTIN TIME [id number] 15:24:00 Test Item Value Reference Range Interpretation Comments PTT ACTIVATED (test code = APTT) 31.5 secs 24.9-37.0 N IS PATIENT ON ANTICOAGULANTS ? YLIST ANTICOAGULANT/ANTI PLT MEDICATION : AspirinHas Lab been notified if Patient is on Heparin Drip? NO- XR FLUORO NDL 2018-11-25 11:55:00 Patient Name: DOM LEWIS Unit No: [id number] EXAMS: CPT CODE: [id number] XR FLUORO NDL 95258 FLUOROSCOPICALLY GUIDED RIGHT PLANTAR FASCIA STEROID INJECTION [...] fluoroscopy time was usedon this exam. at 1152 Reported and signed by: Broderick Robb MD CC: Gold Blevins MD; Azar Donovan MD Technologist: SUZANNE DUGAN RT(R); RT Maikol.(R) Transcribed D/ (6183) Abraham.GVG [facility] NAME: DOM LEWIS [address] [facility] PHYS: Gold Esposito : 1945 AGE: 73 SEX: M [place] [address] LOC: Y.RAD PHONE #: [phone] EXAM DATE: 11/24/2018 STATUS: DEP CLI FAX #: [phone] RAD #: D/C DT PAGE 1 Signed Report Patient Name: DOM LEWIS Unit No: [id number] EXAMS: CPT CODE: [id number] XR FLUORO NDL 68509 (Continued) Orig Print D/T: S: 11/25/2018 (3099) [facility] NAME: DOM LEWIS [address] [facility] PHYS: Gold Atkins : 1945 AGE: 73 SEX: M [place], [place] [address] LOC: Y.RAD PHONE #: [phone] EXAM DATE: 11/24/2018 STATUS: DEP CLI FAX #: [phone] RAD #: D/C DT PAGE 2 Signed Report- XR FLUORO [id number] 11:55:00 Patient Name: DOM LEWIS Unit No: [id number] EXAMS: CPT CODE: [id number] XR FLUORO NDL 13840 FLU OROSCOPICALLY GUIDED RIGHT PLANTAR FASCIA STEROID [...] fluoroscopy time was usedon this exam. at 1153 Reported and signed by: Broderick Robb MD CC: Gold Blevins MD; Azar Donovan MD Technologist: SUZANNE DUGAN RT(R); RT. Maikol(R) Transcribed D/ (2380) [email or web address] [facility] NAME: DOM LEWIS [address] PHYS: Gold Esposito : 1945 AGE: 73 SEX: M [place], [place] [address] LOC: Y.RAD PHONE #: [phone] EXAM DATE: 11/24/2018 STATUS: DEP CLI FAX #: [phone] RAD #: D/C DT PAGE 1 Signed Report Patient Name: DOM LEWIS Unit No: [id number] EXAMS: CPT CODE: [id number] XR FLUORO NDL 22797 (Continued) Orig Print D/T: S: 11/25/2018 (3067) [facility] NAME: DOM LEWIS [address] [facility] PHYS: VERONICA BlevinsGold : 1945 AGE: 73 SEX: M [place], [place] [address] LOC: JoanRAD PHONE #: [phone] EXAM DATE: 11/24/2018 STATUS: DEP CLI FAX #: [phone] RAD #: D/C DT PAGE 2 Signed [...] code = BACU) RARE /HPF NONE PROTHROMBIN [id number] 12:38:00 Test Item Value Reference Range Interpretation [...] BLOOD, PT every other day NTHROMBOPLASTIN TIME [id number] 12:38:00 Test Item Value Reference Range Interpretation Comments PTT ACTIVATED (test code = APTT) 30.6 secs 24.9-37.0 N IS PATIENT ON ANTICOAGULANTS ? YLIST ANTICOAGULANT/ANTI PLT MEDICATION : AspirinHas Lab been notified if Patient is on Heparin Drip? NOIf Yes, order CBC, OCCULT BLOOD, PT every other day NCOMPREHENSIVE METABOLIC [id number] 12:29:00 Test Item Value Reference Range Interpretation [...] RATE (test code = GFR) mL/mi n/1.73 [id number] Range:Healthy Adults >90 mL/min/1.73 m2 For Chronic [...] TOTAL (test code = ALKP) CBC W/AUTO [id number] 11:57:00 Test Item Value Reference Range Interpretation [...] (test NORMAL code = PLTMR) COMPREHENSIVE METABOLIC [id number] 11:30:00 Test Item Value Reference Range Interpretation [...] RATE (test code = GFR) mL/mi n/1.73 [id number] Range:Healthy Adults >90 mL/min/1.73 m2 For Chronic [...] N TOTAL (test code = ALKP) PROTHROMBIN [id number] 11:23:00 Test Item Value Reference Range Interpretation [...] BLOOD, PT every other day NTHROMBOPLASTIN TIME [id number] 11:23:00 Test Item Value Reference Range Interpretation Comments PTT ACTIVATED (test code = APTT) 30.9 secs 24.9-37.0 N IS PATIENT ON ANTICOAGULANTS ? YLIST ANTICOAGULANT/ANTI PLT MEDICATION : AspirinHas Lab been notified if Patient is on Heparin Drip? NOIf Yes, order CBC, OCCULT BLOOD, PT every other day NURINALYSIS [id number] 11:19:00 Test Item Value Reference Range Interpretation [...] = BACU) NONE /HPF NONE CBC W/AUTO [id number] 11:06:00 Test Item Value Reference Range Interpretation [...] Notes Date/Time Note Provider Source 2021-03-27 09:59:00-00:00 [facility] ([facility]) Clinical Note REPORT#:[id number] REPORT STATUS: Signed DATE:03/27/21 TIME: 958 PATIENT: DOM LEWIS UNIT #: [id number] ROOM/BED: [address] : 43 AGE: 76 SEX: M ATTEND: Cornell Leo MD ADM AUTHOR: Patrick La MD * ALL edits or amendments must be made on the [employer]/computer document * Clinical Note Note: [facility] Patrick murcia M.D. (cell text [phone]) Assessment/Plan 1.) Anemia of acute blood loss- [...] 39.2 Patrick Luevano M.D. at 1237 RPT #:[id number] END OF REPORT 2021-03-27 08:47:00-00:00 [facility] ([facility]) Clinical Note REPORT#:[id number] REPORT STATUS: Signed DATE:03/27/21 TIME: 08 PATIENT: DOM LEWIS UNIT #: [id number] ROOM/BED: [address] : 43 AGE: 76 SEX: M ATTEND: Cornell Leo MD ADM AUTHOR: Brian Leo MD * ALL edits or amendments must be made on the [employer] document * Clinical Note Note: POD# 1 left knee Joint Arthroplasty Patient well, reports pain is mild-moderate AF VSS Exam: dressing dry/intact Moves toes DF/PF Sensory unchanged A/P: Mobilize with physical Therapy DVT prophylaxis ongoing Following labs Remove coverlet, do not recover, patient may juancho wer Discharge planning Electronically Signed by Brian Leo MD on at 0847 RPT #:[id number] END OF REPORT 2021-03-27 08:45:00-00:00 [facility] ([facility]) Discharge Summary REPORT#:[id number] REPORT STATUS: Signed DATE:03/27/21 TIME: 0845 PATIENT: DOM LEWIS UNIT #: [id number] ROOM/BED: [address]309-[address] : 43 AGE: 76 SEX: M ATTEND: Cornell Leo MD ADM AUTHOR: Brian Leo MD * ALL edits or amendments must be made on the [employer] document * General Information Discharge date: 03/27/21 [...] undergo PT for gait training, mobilization , eygdz-kv-xerxlg, and strengthening. Patient was i nformed to that they need to arrange for therapy as quickly as possible. The imp ortance of early advancement of rlblc-he-crqnqi with home exercises, and physical therapy was [...] ORAL TWICE DAILY. Comments: TAKEN 729 AND 1930 Start taking the following new medications: ASPIRIN [...] Brian Leo MD on at 0846 RPT #:[id number] END OF REPORT 2021-03-27 07:36:00-00:00 [facility] ([facility]) Pain Management Progress Note REPORT#:[id number] REPORT STATUS: Signed DATE:03/27/21 TIME: 735 PATIENT: DOM LEWIS UNIT #: [id number] ROOM/BED: [address] : 43 AGE: 76 SEX: M ATTEND: Cornell Leo MD ADM AUTHOR: Jocelyne Lai * ALL edits or amendments must be made on the [employer]/computer document * Subjective Chief Complaint: L KNEE PAIN S/P TKA Comments: Last Documented: Result Date Time Pulse Ox 95 03/27 712 B/P 162/88 03/27 712 B/P Mean 113.0 03/27 07 O2 Delivery Room air 03/27 712 Temp 36.0 03/27 07 Pulse 61 03/27 0712 Resp 18 03/27 712 O2 Flow Rate 3 03/26 2220 FiO2 32 03/26 1700 History: PMH: GERD, CAD-NH, STENTS x 3, EX-SMOKER POD: 1 MD who placed block: DR. HUFF Type of block: AC S/S Activity status: PT SITTING UP IN BED WATCHING TV. Pain: STATES PAIN IS TOLERABLE. Physical Exam: VAS: 5 LOS: 1 Resp Quality: 1 Side Effects: NONE PT APPEARS COMFORTABLE AT THIS TIME. MOTOR MVMT AND STRENGTH INTACT TO LLE. Plan: BLOCK FOLLOW UP at 0737 RPT #:[id number] END OF REPORT 2021-03-26 18:00:00-00:00 [facility] ([facility]) Clinical Note REPORT#:[id number] REPORT STATUS: Signed DATE:03/26/21 TIME: 1800 PATIENT: DOM LEWIS UNIT #: [id number] ROOM/BED: [address] : 43 AGE: 76 SEX: M ATTEND: Cornell Leo MD ADM AUTHOR: Patrick La MD * ALL edits or amendments must be made on the [employer]/computer document * Clinical Note Note: [facility] Patrick murcia MD (cell text [phone]) Internal Medicine Consult at request of : Dr Laura in [facility] Chief Complaint: left knee pain HPI: [...] in 2014, huerta ry artery disease (s/p NH/CABG x 3 in 2014), carotid artery disease, [...] to address issue at this time. at 205 RPT #:[id number] END OF REPORT 2021-03-26 11:09:00-00:00 [facility] ([facility]) Operative Note - Full REPORT#:[id number] REPORT STATUS: Signed DATE:03/26/21 TIME: 1109 PATIENT: DOM LEWIS UNIT #: [id number] ROOM/BED: [place] [address] : 41 AGE: 76 SEX: M ATTEND: Valentín Leo MD ADM AUTHOR: Brian Leo MD * ALL edits or amendments must be made on the [employer]/computer document * Operative Report Start date: 03/26/21 Start time: 0000 Pre-procedure diagnosis: L KNEE OA, R KNEE OA Post-procedure diagnosis: SAME Procedures performed: L TKA, R KNEE CORTISONE INJECTION Technique/Procedure: R KNEE Cortisone injection OPERATIVE PROCEDURE IN DETAIL The patient was identified in the [facility] area, and all questions and concerns were answered. The patient verbally conf irmed the site and side of the surgery and marking of the site was done. The patient was brought to [facility] operating room and, after adequate anesthesia was obtained was moved to the OR table in e supine position. A surgical time-out was [...] and lateral condyles were removed. Then t Poxel femoral sizer was used to measure the [...] compressive dressing was applied . 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 In addition josette esparza an field research assistant shortens operative times which decrea ses expenses and improves outcomes. I am not part of any residency or fellowship training programs and therefore require the help of the field research assistant listed above for this surgery. IMPLANTS Depuy Sigma 5 Fem, 4Tib, 10mm ALTRX, 41 mm Oval patella Primary Surgeon: FELIPA Crane Helper(s): SHEELA PAC Anesthesia: regional anesthesia, spinal anesthet ic Operative findings: OA Complications: none Estimated blood loss in ml's: 50 Specimens removed/altered: none Implant(s): DEPUY Electronically Signed by Brian Leo MD on at [facility] RPT #:[id number] END OF REPORT
--- NOTE | 2023-02-28 20:31 | EDPHYS ---
Physician Documentation [facility] Name: London Lewis Age: 78 yrs Sex: Male : 1945 Arrival Date: 02/28/2023 Time: 19:19 Bed 12 Private MD: ED Physician Rakan Bailey HPI: 02/28 19:55 This 78 yrs old Male presents to ER via Ambulatory with complaints of Mouth sp4 Burn. 19:55 Home medications based on the record - aspirin 81 mg Oral TbEC 1 tab once daily; sp4 Flonase 50 mcg/actuation Nasal spsn; lisinopril 2.5 mg Oral tab once daily; metoprolol tartrate 50 mg Oral tab 1 tab 2 times per day AM; pantoprazole 40 mg Oral TbEC 1 tab once daily; Xanax 0.25 mg Oral tab as needed; montelukast 10 mg oral tablet daily;. 21:28 78-year-old male presents with complaint of elevated blood pressures at home also sp4 concern for low heart rate at home and also concern for abrasion in the right ear canal. Patient was here yesterday. Patient states that his pressure at home was 134 systolic and that his heart rate was as low as 52 bpm. Patient is here to ask several questions about his blood pressure, sore mouth, and right ear canal internal abrasion. . 21:29 Patient presented yesterday on 02/27/2023 for concern of elevated blood pressure and sp4 low heart rate and also oral sores. Patient was prescribed lisinopril 5 mg twice a day and Xanax as well.. 21:30 Prescriptions yesterday -- Prescriptions: Xanax 0.5 mg Oral Tablet take 1 tablet by sp4 ORAL route every 12 hours As needed As needed for anxiety; 10 tablet; Refills: 0; Product Selection Permitted Lisinopril 5 mg Oral Tablet take 1 tablet by ORAL route every 12 hours; 20 tablet; Refills: 0; Product Selection Permitted. Historical: - Allergies: 19:29 PENICILLINS; dd1 - PMHx: 19:29 Anxiety; GEOGRAPHIC TONGUE; bulging discs; GERD; Hypertension; MD; dd1 - PSHx: 19:29 triple bipass; Left knee replacement; dd1 - Immunization history:: Adult Immunizations up to date. - Social history:: Smoking status: Patient denies any tobacco usage or history of. - Family history:: not pertinent. ROS: 21:30 Constitutional: Negative for fever, chills, and weight loss, positive for sore tongue, sp4 right ear canal abrasion from Q-tip, elevated blood pressure at home. 21:30 All other systems are negative. sp4 Exam: 21:30 Constitutional: This is a well developed, well nourished patient who is awake, alert, sp4 and in no acute distress. Anxious appearing male. Head/Face: Normocephalic, atraumatic. Eyes: Pupils equal round and reactive to light, extra-ocular motions intact. Lids and lashes normal. Conjunctiva and sclera are not injected. Cornea within normal limits. Periorbital areas with no swelling, redness, or edema. ENT: Nares patent. No nasal discharge, no septal abnormalities noted. Tympanic membranes are normal and external auditory canals are clear. Oropharynx with no redness, swelling, or masses, exudates, or evidence of obstruction, uvula midline. Mucous membranes moist. Neck: Trachea midline, no thyromegaly or masses palpated, and no cervical lymphadenopathy. Supple, full range of motion without nuchal rigidity, or vertebral point tenderness. Chest/axilla: Normal chest wall appearance and motion. Nontender with no deformity. No lesions are appreciated. Cardiovascular: Regular rate and rhythm with a normal S1 and S2. No gallops, murmurs, or rubs. Normal PMI, no JVD. No pulse deficits. Respiratory: Lungs have equal breath sounds bilaterally, clear to auscultation and percussion. No rales, rhonchi or wheezes noted. No increased work of breathing, no retractions or nasal flaring. Abdomen/GI: Soft, non-tender, with normal bowel sounds. No distension or tympany. No guarding or rebound. No evidence of tenderness throughout. Back: No spinal tenderness. No costovertebral tenderness. Skin: Warm, dry with normal turgor. Normal color with no rashes, no lesions, and no evidence of cellulitis. MS/ Extremity: Pulses equal, no cyanosis. Neurovascular intact. Full, normal range of motion. Neuro: Awake and alert, GCS 15, oriented to person, place, time, and situation. Cranial nerves II-XII grossly intact. Motor strength 5/5 in all extremities. Sensory grossly intact. Psych: Awake, alert, with orientation to person, place and time. Positive for anxiety. Vital Signs: 19:28 BP 193 / 84; Pulse 61; Resp 16; Temp 98; Pulse Ox 95% ; dd1 20:54 BP 178 / 79; Pulse 75; Resp 18; Pulse Ox 96% ; bp MDM: 20:24 Patient medically screened. sp4 21:30 Differential diagnosis: dental abscess, pericoronitis, aphthous ulcers, sp4 gingivostomatitis, Anxiety. Data reviewed: vital signs, nurses notes, old medical records. ED course: Patient has significant anxiety about his blood pressure and on examination patient appears quite anxious which would explain his blood pressure elevation today. Patient already takes metoprolol twice a day and lisinopril p.o. at home. Patient reports blood pressures at home was 134/80. Heart rate was 52. Patient was here yesterday to obtain examine his blood pressure and he was given increased dose of his lisinopril and also some Xanax for anxiety. It appears that when patient is at home and is not under stress his blood pressure is basically normal. Patient was advised to continue regimen prescribed by his primary care physician and only his primary care physician secondary to the fact that unnecessary problems can happen when blood pressure medication is adjusted by different physicians. Patient was advised to see his primary care physician as soon as possible for blood pressure check in the office and medication adjustment by his commercial marketing specialist. . ED course: Based on exam there is small right ear canal abrasion. And there is also geographic tongue with no signs of oral cancer or oral abscess. We suspected patient is fairly anxious about his medical problems and this is the primary reason he is here. Patient was advised to continue his home Xanax as prescribed and also see his primary care physician for anxiety management.. Based on exam and history there is no other identifiable emergent medical condition that would warrant additional work-up. . Administered Medications: No medications were administered Disposition Summary: 02/28/23 20:31 Discharge Ordered Location: Home sp4 Problem: new sp4 Symptoms: have improved sp4 Condition: Stable sp4 Diagnosis - Generalized anxiety disorder sp4 - Right ear canal abrasion, sore tongue, geographic tongue, history of hypertension, sp4 anxiety about health Followup: sp4 - With: Private Physician - When: 7 - 10 days - Reason: Recheck today's complaints Discharge Instructions: - Discharge Summary Sheet sp4 - Managing Anxiety, Adult sp4 Forms: - Patient Portal Instructions sp4 Signatures: Rakan Bailey MD MD sp4 Bassem Shoemaker RN RN dd1 Corrections: (The following items were deleted from the chart) 21:32 19:55 aspirin 81 mg Oral TbEC 1 tab once daily; Flonase 50 mcg/actuation Nasal spsn; sp4 lisinopril 2.5 mg Oral tab once daily; metoprolol tartrate 50 mg Oral tab 1 tab 2 times per day AM; pantoprazole 40 mg Oral TbEC 1 tab once daily; Xanax 0.25 mg Oral tab as needed; montelukast 10 mg oral tablet daily;. sp4 21:32 21:28 78-year-old male presents with complaint of elevated blood pressures at home also sp4 concern for low heart rate at home and also concern for abrasion in the right ear canal. Patient was here yesterday.. sp4
--- NOTE | 2023-02-28 20:31 | ER ---
Nurse's Notes [facility] [place] Name: London Lewis Age: 78 yrs Sex: Male : 1945 Arrival Date: 02/28/2023 Time: 19:19 Bed 12 Private MD: Diagnosis: Generalized anxiety disorder;Right ear canal abrasion, sore tongue, geographic tongue, history of hypertension, anxiety about health Presentation: 02/28 19:28 Chief complaint: Patient states: MOUTH PAIN AND R EAR PAIN, "I JUST WANT IT CHECKED dd1 OUT". Coronavirus screen: At this time, the client does not indicate any symptoms associated with coronavirus-19. Ebola Screen: No symptoms or risks identified at this time. Initial Sepsis Screen: Does the patient meet any 2 criteria? No. Patient's initial sepsis screen is negative. Does the patient have a suspected source of infection? No. Patient's initial sepsis screen is negative. Risk Assessment: Do you want to hurt yourself or someone else? Patient reports no desire to harm self or others. Onset of symptoms was February 28, 2023. 19:28 Method Of Arrival: Ambulatory dd1 19:28 Acuity: ROBERT 4 dd1 Triage Assessment: 19:31 General: Appears in no apparent distress. Behavior is calm, cooperative, appropriate dd1 for age. Pain: Complains of pain in right ear and mouth. EENT: Reports BLEEDING FROM R EAR EARLIER TODAY, NOW RESOLVED. Neuro: No deficits noted. Cardiovascular: No deficits noted. Respiratory: Airway is patent Respiratory effort is even, unlabored. GI: No signs and/or symptoms were reported involving the gastrointestinal system. : No signs and/or symptoms were reported regarding the genitourinary system. Derm: No deficits noted. Musculoskeletal: No deficits noted. Injury Description: NONE NOTED. 20:54 Injury Description: N/A. bp Historical: - Allergies: 19:29 PENICILLINS; dd1 - PMHx: 19:29 Anxiety; GEOGRAPHIC TONGUE; bulging discs; GERD; Hypertension; MN; dd1 - PSHx: 19:29 triple bipass; Left knee replacement; dd1 - Immunization history:: Adult Immunizations up to date. - Social history:: Smoking status: Patient denies any tobacco usage or history of. - Family history:: not pertinent. Screenin:32 [facility] ED Fall Risk Assessment (Adult) History of falling in the last 3 months, dd1 including since admission No falls in past 3 months (0 pts). Abuse screen: Denies threats or abuse. Denies injuries from another. Nutritional screening: No deficits noted. Tuberculosis screening: No symptoms or risk factors identified. Assessment: 19:32 General: SEE TRIAGE NOTE. dd1 19:53 General: Appears in no apparent distress. comfortable, well groomed, well developed, pf1 Behavior is calm, cooperative, appropriate for age, quiet. Pain: Denies pain. Neuro: No deficits noted. Level of Consciousness is awake, alert, obeys commands, Oriented to person, place, time, situation. Cardiovascular: Reports since elevate BP and questions regarding taking additional Lisinopril medication as prescribed. Respiratory: No deficits noted. Airway is patent Respiratory effort is even, unlabored, Respiratory pattern is regular, symmetrical. GI: No deficits noted. No signs and/or symptoms were reported involving the gastrointestinal system. : No deficits noted. No signs and/or symptoms were reported regarding the genitourinary system. EENT: Reports right ear bloody discharge when using a q-tip to right ear after showering, also C/O raw tongue sensation x 2 weeks. Patient stated was diagnosed with Geographic tongue, has been using magic mouth wash. . Derm: No deficits noted. No signs and/or symptoms reported regarding the dermatologic system. 20:53 Reassessment: DC HOME AMBULATORY WITH FAMILY. bp Vital Signs: 19:28 BP 193 / 84; Pulse 61; Resp 16; Temp 98; Pulse Ox 95% ; dd1 20:54 BP 178 / 79; Pulse 75; Resp 18; Pulse Ox 96% ; bp ED Course: 19:27 Patient arrived in ED. im 19:29 Triage completed. dd1 19:29 Arm band placed on. dd1 19:32 Patient has correct armband on for positive identification. dd1 19:54 Rakan Bailey MD is Attending Physician. sp4 20:53 Richard Arcos, MARKO is Primary Nurse. bp 20:53 Provided Education on: N/A. bp 20:53 No provider procedures requiring assistance completed. Patient did not have IV access bp during this emergency room visit. Administered Medications: No medications were administered Medication: 19:32 VIS not applicable for this client. dd1 Outcome: 20:31 Discharge ordered by MD. lowry 20:53 Discharged to home ambulatory, with family. bp 20:53 Condition: stable 20:53 Discharge instructions given to patient, Instructed on discharge instructions, follow up and referral plans. Demonstrated understanding of instructions, follow-up care. 20:55 Patient left the ED. bp Signatures: Richard Arcos, RN RN bp Sharon Tavera RN RN pf1 Rakan Bailey MD MD sp4 Beatriz Dumas Daniel RN RN dd1
[2023-02-28 21:07] VITALS: TEMP 98
[2023-02-28 21:09] VITALS: BP 178/79; O2SAT 96
== END 2023-02-28 20:55 | disposition home or self-care (01) ==
LOC: ER 19:19
DX: F41.1 Generalized anxiety disorder (principal); S00.411A Abrasion of right ear, initial encounter; K14.1 Geographic tongue; I10 Essential (primary) hypertension; F06.4 Anxiety disorder due to known physiological condition; Z95.1 Presence of aortocoronary bypass graft; Z88.0 Allergy status to penicillin; Z79.82 Long term (current) use of aspirin
CPT/HCPCS: 99282

== ENCOUNTER 2023-03-04 13:50 | Emergency (ER) | payer OTHER ==
--- OUTSIDE RECORDS SUMMARY | 2023-03-04 14:00 | XMS REPORT | Continuity of Care Document ---
:[address] [facility] t Address [address] [facility] [address] [place] [address] Care Team Providers Name Role Phone Wendy Attending Clinician Unavailable Brian Leo Attending Clinician [phone] Brian Leo Attending Clinician Unavailable Chepe Aguilera Attending Clinician Wendy Admitting Clinician Unavailable Brian Leo Admitting Clinician Unavailable Payers Payer Name Policy Type Policy Number Effective Date Expiration Date Glenn morales MEDICARE B-[place]: [id number] 2008 tenKsolar 00:00:00 [employer] [id number] INS[employer]ANCE [employer] (MEDICARE SUPPLEMENT) Problems Condition Condition [...] NSAIDS DA Active U [facility] (Non-Rl 03-26 [place] roidal 00:00: [facility] Anti-Inf 00 dic [facility] Hosp[facility] Penicill DA Active SV [facility] ins 03-26 00:00: Orthope 00 dic Hospita l NSAIDS DA Active U DECREASED [facility] (Non-Rl KIDNEY 03-26 [place] roidal FUNCTION 00:00: Orthope Anti-Inf 00 dic lamma Hospita [facility] Penicill DA Active SV [facility] ins 03-26 [place] 00:00: Orthope 00 dic Hospita l Penicill DA Active SV [facility] ins 11-24 Clear 00:00: Thomas 00 [facility] Penicill DA Active SV [facility] HC A ins 11-24 Clear 00:00: Thomas 00 [facility] Penicill DA Active SV [facility] ins 11-16 00:00: Orthope 00 dic Hospita l Penicill DA Active SV [facility] ins 10-26 [facility] [place] PENICILL Allergy Active Kayla IN to Orthope substanc dic e Sports Medicin e penicill penicill Active Memori a ins ins l [place] Social History Smoking Status Start Date Stop Date Source Social History [facility] Medications Ordered Filled Start Stop Current [...] tab, PO, l tablet, 16:54: BID, 0 [place] extended 00 Refill(s) release Aspirin 81 2018 Yes 81 mg = 1 Me moria MG Enteric 2-20 tab, PO, l Coated 16:54: Daily, # [place] Tablet 00 90 tab, 3 Refill(s) Alprazolam Yes 0.25 mg = Me moria 0.25 MG 2-20 1 tab, PO, l Oral Tablet 16:54: TID, PRN He rmann [Xanax] 00 Anxiety, # 30 tab, 0 Refill(s) Fish Oil [id number] Yes PO, 0 Memoria 2-20 Refill(s) l 16:54: [facility] 00 lisinopril 20180 Yes 5 mg = 1 Mem oria 5 mg oral 2-20 tab, PO, l tablet 16:54: Daily, # [facility] 00 30 tab, 0 Refill(s) pantoprazol Yes 40 mg = 1 M emoria e 40 mg 2-20 tab, PO, l oral 16:54: Daily, # [place] enteric 00 30 tab, 0 coated Refill(s) tablet hydrocortis Yes 25 mg = 1 M emoria one acetate 2-20 supp, NJ, l 25 MG 16:54: BID, # 20 [place] Rectal 00 supp, 0 Suppository Refill(s) [Proctosol] metoprolol Yes 50 mg = 1 Me moria 50 mg oral 2-20 tab, PO, l tablet, 16:54: BID, 0 [place] extended 00 Refill(s) release Aspirin 81 2018 [...] PO, 0 Memoria 2-20 Refill(s) l 16:54: [place] 00 lisinopril 2018-0 Yes 5 mg = 1 Mem oria 5 mg oral 2-20 tab, PO, l tablet 16:54: Daily, # [place] 00 30 tab, 0 Refill(s) pantoprazol 2018-0 Yes 40 mg = 1 M emoria e 40 mg 2-20 tab, PO, l oral 16:54: Daily, # [facility] enteric 00 30 tab, 0 coated Refill(s) tablet hydrocortis 2018-0 Yes 25 mg = 1 M emoria one acetate 2-20 supp, NJ, l 25 MG 16:54: BID, # 20 [facility] Rectal 00 supp, 0 Suppository Refill(s) [Proctosol] metoprolol 0 Yes 50 mg = 1 Me moria 50 mg oral 2-20 tab, PO, l tablet, 16:54: BID, 0 [facility] extended 00 Refill(s) release Aspirin 81 2018-0 Yes 81 mg = 1 Me moria MG Enteric 2-20 tab, PO, l Coated 16:54: Daily, # [place] Tablet 00 90 tab, 3 Refill(s) Alprazolam [...] tab, PO, l tablet 16:54: Daily, # [place] 00 30 tab, 0 Refill(s) pantoprazol 2018-0 Yes 40 mg = 1 M emoria e 40 mg 2-20 tab, PO, l oral 16:54: Daily, # [facility] enteric 00 30 tab, 0 coated Refill(s) tablet hydrocortis 2018-0 Yes 25 mg = 1 M emoria one acetate 2-20 supp, NJ, l 25 MG 16:54: BID, # 20 [facility] Rectal 00 supp, 0 Suppository Refill(s) [Proctosol] metoprolol 2018 Yes 50 mg = 1 Me moria 50 mg oral 2-20 tab, PO, l tablet, 16:54: BID, 0 [place] extended 00 Refill(s) release Aspirin 81 2018 Yes 81 mg = 1 Me moria MG Enteric 2-20 tab, PO, l Coated 16:54: Daily, # [place] Tablet 00 90 tab, 3 Refill(s) Alprazolam Yes 0.25 mg = Me moria 0.25 MG 2-20 1 tab, PO, l Oral Tablet 16:54: TID, PRN He rmann [Xanax] 00 Anxiety, # 30 tab, 0 Refill(s) Fish Oil 20180 Yes PO, 0 Memoria 2-20 Refill(s) l 16:54: [place] 00 lisinopril 0 Yes 5 mg = 1 Mem oria 5 mg oral 2-20 tab, PO, l tablet 16:54: Daily, # [place] 00 30 tab, 0 Refill(s) pantoprazol Yes 40 mg = 1 M emoria e 40 mg 2-20 tab, PO, l oral 16:54: Daily, # [place] enteric 00 30 tab, 0 coated Refill(s) tablet hydrocortis Yes 25 mg = 1 M emoria one acetate 2-20 supp, NJ, l 25 MG 16:54: BID, # 20 [place] Rectal 00 supp, 0 Suppository Refill(s) [Proctosol] metoprolol Yes 50 mg = 1 Me moria 50 mg oral 2-20 tab, PO, l tablet, 16:54: BID, 0 [facility] extended 00 Refill(s) release Aspirin 81 2018 Yes 81 mg = 1 Me moria MG Enteric 2-20 tab, PO, l Coated 16:54: Daily, # [place] Tablet 00 90 tab, 3 Refill(s) Alprazolam 2018 Yes 0.25 mg = Me moria 0.25 MG 2-20 1 tab, PO, l Oral Tablet 16:54: TID, PRN He rmann [Xanax] 00 Anxiety, # 30 tab, 0 Refill(s) Fish Oil 2017-0 Yes PO, 0 Memoria 2-20 Refill(s) l 16:54: [facility] 00 lisinopril 2018-0 Yes 5 mg = 1 Mem oria 5 mg oral 2-20 tab, PO, l tablet 16:54: Daily, # [place] 00 30 tab, 0 Refill(s) pantoprazol 2018-0 Yes 40 mg = 1 M emoria e 40 mg 2-20 tab, PO, l oral 16:54: Daily, # [facility] enteric 00 30 tab, 0 coated Refill(s) tablet hydrocortis 2018-0 Yes 25 mg = 1 M emoria one acetate 2-20 supp, NJ, l 25 MG 16:54: BID, # 20 [place] Rectal 00 supp, 0 Suppository Refill(s) [Proctosol] metoprolol 2017-0 Yes 50 mg = 1 Me moria 50 mg oral 2-20 tab, PO, l tablet, 16:54: BID, 0 [facility] extended 00 Refill(s) release Aspirin 81 2018-0 Yes 81 mg = 1 Me moria MG Enteric 2-20 tab, PO, l Coated 16:54: Daily, # [facility] Tablet 00 90 tab, 3 Refill(s) Alprazolam 2018-0 Yes 0.25 mg = Me moria 0.25 MG 2-20 1 tab, PO, l Oral Tablet 16:54: TID, PRN Art sun [Xanax] 00 Anxiety, # 30 tab, 0 [...] 1 M emoria one acetate 2-20 supp, NJ, l 25 MG 16:54: BID, # 20 [facility] Rectal 00 supp, 0 Suppository Refill(s) [Proctosol] Aspir-Low Aspir-Low No Aspir-Low Kayla 81 mg 81 mg 81 mg Orthope tablet,kia tablet,kia tablet,del dic yed release yed release ayed S ports RX by other RX by other release RX Jaci GRAHAM MD by other e doxycycline doxycycline No 1 [...] Wilton Saab Diastolic (mm Hg) 2019-06-30 16:08:00 Kanwal Saab Heart Rate 2019-06-30 16:08:00 Sandra Saab Temperature Oral (F) 2019-06-30 16:08:00 [facility] Height 2019-06-30 16:08:00 177.8 cm [facility] Weight 2019-06-30 16:08:00 Sandra Saab BMI Calculated 2019-06-30 16:08:00 Elvira Garcia BMI Calculated 2018-10-13 14:06:00 [facility] [place] Weight 2018-10-13 14:06:00 [facility] [place] Height 2018-10-13 14:06:00 177.8 cm [facility] [place] Temperature Oral (F) 2018-10-13 14:06:00 97.6 F [facility] Systolic (mm Hg) 2018-10-13 14:06:00 Wilton rial [facility] Diastolic (mm Hg) 2018-10-13 14:06:00 Mem orial [place] Heart Rate 2018-10-13 14:06:00 [facility] [place] BMI Calculated 2018-04-22 15:21:00 Memori [facility] Height 2018-04-22 15:21:00 180.34 cm [facility] Weight 2018-04-22 15:21:00 [facility] Temperature Oral (F) 2018-04-22 15:21:00 97.9 F [facility] Heart Rate 2018-04-22 15:21:00 [facility] [place] Systolic (mm Hg) 2018-04-22 15:21:00 Wilton rial [place] Diastolic (mm Hg) 2018-04-22 15:21:00 Mem orial [place] BMI Calculated 2018-03-10 15:30:00 [facility] Weight 2018-03-10 15:30:00 [facility] [place] Height 2018-03-10 15:30:00 177.8 cm [facility] Systolic (mm Hg) 2018-03-10 15:30:00 Wilton rial [facility] Diastolic (mm Hg) 2018-03-10 15:30:00 Mem orial [place] Temperature Oral (F) 2018-03-10 15:30:00 97.4 F [facility] [place] Heart Rate 2018-03-10 15:30:00 [facility] Height 2018-02-25 14:45:00 177.8 cm [facility] Weight 2018-02-25 14:45:00 [facility] [place] BMI Calculated 2018-02-25 14:45:00 Memori al [place] Systolic (mm Hg) 2018-02-25 14:45:00 Wilton rial [place] Diastolic (mm Hg) 2018-02-25 14:45:00 Mem orial [facility] Temperature Oral (F) 2018-02-25 14:45:00 97.6 F [facility] [place] Heart Rate 2018-02-25 14:45:00 [facility] [place] BMI Calculated 2017-10-29 15:30:00 Memori [facility] Weight 2017-10-29 15:30:00 [facility] [place] Systolic (mm Hg) 2017-10-29 15:30:00 Wilton rial [facility] Diastolic (mm Hg) 2017-10-29 15:30:00 Mem orial [place] Temperature Oral (F) 2017-10-29 15:30:00 97.4 F [facility] [place] Heart Rate 2017-10-29 15:30:00 [facility] [place] Height 2017-10-29 15:30:00 180.34 cm [facility] Weight 2017-10-09 15:04:00 [facility] BMI Calculated 2017-10-09 15:04:00 Memori [facility] Height 2017-10-09 15:04:00 180.34 cm [facility] [place] Temperature Oral (F) 2017-10-09 15:04:00 98.3 F [facility] [place] Systolic (mm Hg) 2017-10-09 15:04:00 Wilton rial [facility] Diastolic (mm Hg) 2017-10-09 15:04:00 Mem orial [place] Respitory Rate 2017-10-09 15:04:00 Memori al [place] Heart Rate 2017-10-09 15:04:00 [facility] Height 2017-09-29 16:07:00 180.34 cm [facility] [place] BMI Calculated 2017-09-29 16:07:00 Memori al [place] Weight 2017-09-29 16:07:00 [facility] Temperature Oral (F) 2017-09-29 16:07:00 97.7 F [facility] [place] Heart Rate 2017-09-29 16:07:00 [facility] [place] Respitory Rate 2017-09-29 16:07:00 Memori al [place] Systolic (mm Hg) 2017-09-29 16:07:00 Wilton rial [facility] Diastolic (mm Hg) 2017-09-29 16:07:00 Mem orial [facility] BMI Calculated 2017-09-22 17:23:00 Memori al [place] Weight 2017-09-22 17:23:00 [facility] [place] Height 2017-09-22 17:23:00 180.34 cm [facility] [place] Systolic (mm Hg) 2017-09-22 17:23:00 Wilton rial [facility] Diastolic (mm Hg) 2017-09-22 17:23:00 Mem orial [place] Respitory Rate 2017-09-22 17:23:00 Mem[facility] Temperature Oral (F) 2017-09-22 17:23:00 98.5 F [facility] Heart Rate 2017-09-22 17:23:00 [facility] [place] Systolic (mm Hg) 2017-09-15 16:40:00 Wilton rial [facility] Diastolic (mm Hg) 2017-09-15 16:40:00 Mem orial [place] Heart Rate 2017-09-15 16:40:00 [facility] [place] Respitory Rate 2017-09-15 16:40:00 Memori al [facility] Temperature Oral (F) 2017-09-15 16:40:00 98.4 F [facility] [place] Procedures Procedure Date / Time Performed [id number] 2021-03-26 00:00:00 [facility] [id number] 2021-03-26 00:00:00 [facility] Anoscopy; diagnostic, 2018-04-22 19:01:00 Elvira powers [place] including collection of specimen(s) by brushing or washing, when performed (separate procedure) Hemorrhoidectomy, 2018-02-25 14:54:00 [facility] ermann internal, by rubber band ligation(s) Open heart surgery [facility] Encounters Start End Encounter Admission Attending Care Care Encounter Source Date/Time Date/Time Type Type Clinicians Facility Department ID 2022-01-10 2022-01-10 Outpatient FOG_Goytia_ AOSM AOSM [id number] Kayla 03:57:00 03:57:00 Tala [id number] Ortho pe dic [facility] e 2022-01-06 2022-01-06 Outpatient FOG_Goytia_ AOSM AOSM [id number] Kayla 01:03:00 01:03:00 Tala [id number] Ortho pe dic Sports Medicin e 2022-01-06 2022-01-06 Brian Neely AOSM [place] - Ortho [id number] Kayla 00:00:00 00:00:00 Linn Leo MD: [id number] FOG_Telemed dic [facility] Sports Main, [place] [address] , Ph. 2022-01-06 2022-01-06 Outpatient Felipa, AOSM AOSM [id number] 00:00:00 00:00:00 Brian Neely [id number] 2021-12-31 2021-12-31 Outpatient FOG_Goytia_ AOSM AOSM [id number] Kayla 12:06:00 12:06:00 Tala [id number] Ortho pe dic Sports Medicin e 2021-12-31 2021-12-31 Outpatient FOG_Goytia_ AOSM AOSM [id number] Kayla 12:06:00 12:06:00 Tala [id number] Ortho pe dic Sports Medicin e 2021-03-26 2021-03-27 Inpatient EL Felipa, HCATO SURG [id number] [facility] 08:03:00 13:41:00 Brian [id number] [place] [facility] 2021-03-01 2021-03-01 Outpatient EL Felipa, HCATO 3DAY [id number] [facility] 09:00:00 23:00:00 Brian [id number] [place] [facility] 2021-03-01 2021-03-01 Outpatient Felipa, HCACL LABO [id number] [facility] 18:16:00 18:16:00 Brian 99 [facility] 2021-03-01 2021-03-01 Outpatient Felipa, HCAWU REFE [id number] [facility] 15:29:00 15:29:00 Brian 20 [facility] 2019-06-30 2019-07-01 Outpatient nullFlavo MG Multi 55 [id number] Memoria 16:30:00 05:59:59 r Specialty 14 l [facility] 2019-06-30 2019-07-01 Outpatient nullFlavo MG Multi 55 [id number] Memoria 16:30:00 05:59:59 r Specialty 14 l [facility] 2019-06-30 2019-06-30 Outpatient Ale [facility] [id number] 10:30:00 23:59:59 Roxyumdaniel Frances 2019-06-30 2019-06-30 Outpatient MHIE MHIE [id number] Memoria 10:30:00 10:30:00 14 [facility] [place] 2019-05-05 2019-05-05 Ambulatory nullFlavo MHMG Multi 55 [id number] Memoria 15:45:00 15:45:00 Pre-Reg r Specialty 13 luke [facility] 2019-05-05 2019-05-05 Ambulatory nullFlavo [facility]MG Multi 55 [id number] Memoria 15:45:00 15:45:00 Pre-Reg r Specialty 13 luke [facility] 2019-05-05 2019-05-05 Outpatient Ale, MHMG MHMG [id number] 10:45:00 10:45:00 Mohummed 13 [facility] 2019-04-14 2019-04-14 Outpatient MHIE MHIE [id number] Memoria 10:30:00 10:30:00 13 [facility] [place] 2018-10-13 2018-10-14 Outpatient nullFlavo MHMG Multi 55 [id number] Memoria 14:30:00 04:59:59 r Specialty 12 luke [facility] 2018-10-13 2018-10-14 Outpatient nullFlavo [facility]MG Multi 55 [id number] Memoria 14:30:00 04:59:59 r Specialty 12 luke [facility] 2018-10-13 2018-10-13 Outpatient Ale, MHMG MHMG [id number] 09:30:00 23:59:[facility] 2018-10-13 2018-10-13 Outpatient MHIE MHIE [id number] Memoria 09:30:00 09:30:00 12 [facility] 2018-04-22 2018-04-23 Outpatient nullFlavo MHMG Multi 55 [id number] Memoria 16:00:00 04:59:59 r Specialty 10 luke [facility] 2018-04-22 2018-04-23 Outpatient nullFlavo [facility]MG Multi 55 [id number] Memoria 16:00:00 04:59:59 r Specialty 10 luke [facility] 2018-04-22 2018-04-22 Outpatient Ale, MHMG MHMG [id number] 11:00:00 23:59:59 Mohummed 10 [facility] 2018-04-22 2018-04-22 Outpatient MHIE MHIE [id number] Memoria 11:00:00 11:00:00 10 [facility] [place] 2018-04-21 2018-04-21 Ambulatory nullFlavo MHMG Multi 55 [id number] Memoria 14:30:00 14:30:00 Pre-Reg r Specialty 11 l [facility] 2018-04-21 2018-04-21 Ambulatory nullFlavo MHMG Multi 55 [id number] Memoria 14:30:00 14:30:00 Pre-Reg r Specialty 11 l [facility] 2018-04-21 2018-04-21 Outpatient MHIE MHIE [id number] Memoria 09:30:00 09:30:00 11 [facility] [place] 2018-04-21 2018-04-21 Outpatient Khani, MHMG MHMG [id number] 09:30:00 09:30:00 Mohummed Maricel Snellnmnusrat 2018-03-10 2018-03-11 Outpatient nullFlavo [facility]MG Multi 55 [id number] Memoria 15:30:00 04:59:59 r Specialty 09 luke [facility] 2018-03-10 2018-03-11 Outpatient nullFlavo [facility]MG Multi 55 [id number] Memoria 15:30:00 04:59:59 r Specialty 09 luke [facility] 2018-03-10 2018-03-10 Outpatient Khani, MHMG MHMG [id number] 10:30:00 23:59:59 Mohummed Tucker [facility] 2018-03-10 2018-03-10 Outpatient MHIE MHIE [id number] Memoria 10:30:00 10:30:00 09 [facility] [place] 2018-03-01 2018-03-03 Phone nullFlavo MHMG Multi [id number] Memoria 18:30:00 04:59:59 Message r Specialty 02 l [facility] 2018-03-01 2018-03-03 Phone nullFlavo MHMG Multi [id number] Memoria 18:30:00 04:59:59 Message r Specialty 02 l [facility] 2018-03-01 2018-03-02 Outpatient MHMG MHMG [id number] 13:30:00 23:59:59 2018-02-25 2018 Outpatient nullFlavo [facility]MG Multi 55 [id number] Memoria 16:00:00 04:59:59 r Specialty 08 l [facility] 2018-02-25 2018 Outpatient nullFlavo MG Multi 55 [id number] Memoria 16:00:00 04:59:59 r Specialty 08 [facility] 2018-02-25 2018-02-25 Outpatient Ale, [facility], INCMG [id number] 11:00:00 23:59:59 [facility] 2018-02-25 2018-02-25 Outpatient MHIE IE [id number] Memoria 11:00:00 11:00:00 08 [facility] 2018-01-21 2018-01-21 [place] [id number] Memoria 15:45:00 15:45:00 Pre-Reg r General 07 l Surgery [facility] 2018-01-21 2018-01-21 [place] [id number] Memoria 15:45:00 15:45:00 Pre-Reg r General 07 l [facility] 2018-01-21 2018-01-21 Outpatient MHIE IE [id number] Memoria 10:45:00 10:45:00 07 [facility] 2018-01-21 2018-01-21 Outpatient Ale, [facility], INCMG [id number] 10:45:00 10:45:00 [facility] Myles [facility] 2017-12-31 2018-01-01 [place] [id number] Memoria 16:00:00 04:59:59 r General 05 l [facility] 2017-12-31 2018-01-01 [place] [id number] Memoria 16:00:00 04:59:59 r General 05 l [facility] 2017-12-31 2017-12-31 Outpatient Ale, MG MG [id number] 11:00:00 23:59:59 [facility] Gust[facility] 2017-12-31 2017-12-31 Outpatient MHIE IE [id number] Memoria 11:00:00 11:00:00 05 [facility] 2017-11-11 2017-11-11 [place] [id number] Memoria 20:30:00 20:30:00 Pre-Reg r General 06 l [facility] 2017-11-11 2017-11-11 [place] [id number] Memoria 20:30:00 20:30:00 Pre-Reg r General 06 l [facility] 2017-11-11 2017-11-11 Outpatient MHIE ALEXIE [id number] Memoria 15:30:00 15:30:00 06 [facility] [place] 2017-11-11 2017-11-11 Outpatient Ale, MG MG [id number] 15:30:00 15:30:00 Mohummed [facility] 2017-10-29 2017-10-30 [place] [id number] Memoria 15:45:00 04:59:59 r General 03 l Surgery [facility] 2017-10-29 2017-10-30 [place] [id number] Memoria 15:45:00 04:59:59 r General 03 l [facility] 2017-10-29 2017-10-29 Outpatient ALEX AguileraMG MG [id number] 10:45:00 23:59:59 Mohummed [facility] 2017-10-29 2017-10-29 Outpatient MHIE ALEXIE [id number] Memoria 10:45:00 10:45:00 03 [facility] [place] 2017-10-09 2017-10-10 [place] [id number] Memoria 15:00:00 04:59:59 r General 04 l [facility] 2017-10-09 2017-10-10 [place] [id number] Memoria 15:00:00 04:59:59 r General 04 l [facility] 2017-10-09 2017-10-09 Outpatient Ale, MG MG [id number] 10:00:00 23:59:59 Mohummed Aime [facility] 2017-10-09 2017-10-09 Outpatient MHIE MHIE [id number] Memoria 10:00:00 10:00:00 04 [facility] [place] 2017-10-05 2017-10-07 Phone nullFlavo MG [id number] Memoria 14:43:00 04:59:59 Message r General 01 l Surgery [facility] 2017-10-05 2017-10-07 Phone nullFlavo MG [id number] Memoria 14:43:00 04:59:59 Message r General 01 l Surgery [facility] 2017-10-05 2017-10-06 Outpatient MHMG MHMG [id number] 09:43:00 23:59:59 2017-10-02 2017-10-04 Phone nullFlavo MHMG [id number] Memoria 21:31:00 05:59:59 Message r General 00 l Surgery [facility] 2017-10-02 2017-10-04 Phone nullFlavo MHMG [id number] Memoria 21:31:00 05:59:59 Message r General 00 l Surgery [facility] 2017-10-02 2017-10-03 Outpatient MHMG MHMG [id number] 15:31:00 23:59:59 00 2017-09-29 2017-09-30 Outpatient nullFlavo MHMG [id number] Memoria 17:00:00 05:59:59 r General 01 l [facility] 2017-09-29 2017-09-30 Outpatient nullFlavo MHMG [id number] Memoria 17:00:00 05:59:59 r General 01 l [facility] 2017-09-29 2017-09-29 Outpatient Khani, MHMG MHMG [id number] 11:00:00 23:59:59 Mohummed [facility] 2017-09-29 2017-09-29 Outpatient Khani, MHMG MHMG [id number] 11:00:00 23:59:59 Mohummed [facility] 2017-09-29 2017-09-29 Outpatient MHIE MHIE [id number] Memoria 11:00:00 11:00:00 01 [facility] 2017-09-22 2017-09-23 Outpatient nullFlavo MHMG [id number] Memoria 17:30:00 05:59:59 r General 02 l [facility] 2017-09-22 2017-09-23 Outpatient nullFlavo MHMG [id number] Memoria 17:30:00 05:59:59 r General 02 l [facility] 2017-09-22 2017-09-22 Outpatient Khani, MHMG MHMG [id number] 11:30:00 23:59:59 Mohummed [facility] 2017-09-22 2017-09-22 Outpatient MHIE MHIE [id number] Memoria 11:30:00 11:30:00 02 l [facility] 2017-09-15 2017-09-16 Outpatient nullFlavo [facility] [id number] Memoria 16:30:00 05:59:59 r General 00 l Surgery [facility] 2017-09-15 2017-09-16 Outpatient nullFlavo [id number] Memoria 16:30:00 05:59:59 r General 00 l Surgery [facility] 2017-09-15 2017-09-15 Outpatient Ale, [facility] [id number] 10:30:00 23:59:59 Mohummed 00 [facility] 2017-09-15 2017-09-15 Outpatient TOSHA DOMINGA [id number] Memoria 10:30:00 10:30:00 00 luke Saab Results Test Description Test Time Test Comments Results Result Comments Source GLUBED 2021-03-28 09:59:00 Test Item Value Reference Range Interpretation Comme nts GLUBED (test code = GLUBED) 200 mg/dL 60-125 H BASIC METABOLIC [id number] 06:54:00 Test Item Value Reference Range Interpretation [...] RATE (test code = GFR) mL/mi n/1.73 [id number] Range:Healthy Adults >90 mL/min/1.73 m2 For Chronic Kidney Disease: Stage II Mild Decrease i n GFR 60-90 Stage III Moderate Decrea se in GFR 30-59 St age IV Severe Decre ase in GFR 15-29 S tage V Kidney Failur e <15 CREATININE (test code 1.35 mg/dL 0.55-1.30 H = CREAT) CALCIUM (test code = 8.5 mg/dL 8.2-10.1 N CA) HGB [id number] 06:10:00 Test Item Value Reference Range Interpretation Comments HEMOGLOBIN (test code = HGB) 13.0 g/dL 12-16 N HEMATOCRIT (test code = HCT) 39.2 % 37-47 N SPECIMEN COMMENT: POD #[id number] 06:04:00 Test Item Value Reference Range Interpretation Comments GLUBED (test code = GLUBED) 146 mg/dL 60-125 H [id number] 16:37:00 Test Item Value Reference Range Interpretation [...] be considered for these patients.DONE A T: [facility] [address] [facility] [place], [place] [address] GLYCOSYLATED HEMOGLOBIN (HA1C)2021-03-01 18:48:00 [...] be considered for these patients. COMPREHENSIVE METABOLIC [id number] 16:19:00 Test Item Value Reference Range Interpretation [...] RATE (test code = GFR) mL/mi n/1.73 [id number] Range:Healthy Adults >90 mL/min/1.73 m2 For Chronic [...] TOTAL (test code = ALKP) CBC W/AUTO [id number] 15:25:00 Test Item Value Reference Range Interpretation [...] % 0-0 N code = NRBC) PROTHROMBIN [id number] 15:24:00 Test Item Value Reference Range Interpretation [...] Patient is on Heparin Drip? NOTHROMBOPLASTIN TIME [id number] 15:24:00 Test Item Value Reference Range Interpretation Comments PTT ACTIVATED (test code = APTT) 31.5 secs 24.9-37.0 N IS PATIENT ON ANTICOAGULANTS ? YLIST ANTICOAGULANT/ANTI PLT MEDICATION : AspirinHas Lab been notified if Patient is on Heparin Drip? NO- XR FLUORO NDL 2018-11-25 11:55:00 Patient Name: DOM LEWIS Unit No: [id number] EXAMS: CPT CODE: [id number] XR FLUORO NDL [id number] FLUOROSCOPICALLY GUIDED RIGHT PLANTAR FASCIA STEROID INJECTION COMMENT: After informed consent was obtained a 25- gauge needle is inserted into the right plantar [...] DUGAN RT(R); Renetta Petit RT.(R) Transcribed D/ ([id number]) MicheleGVG [facility] NAME: DOM LEWIS [address] [facility] PHYS: Gold Esposito : 1945 AGE: 73 SEX: M [place] [address] LOC: Y.RAD PHONE #: [phone] EXAM DATE: 11/24/2018 STATUS: DEP CLI FAX #: [phone] RAD #: D/C DT PAGE 1 Signed Report Patient Name: DOM LEWIS Unit No: [id number] EXAMS: CPT CODE: [id number] XR FLUORO NDL 12319 (Continued) Orig Print D/T: S: 11/25/2018 (3549) [facility] NAME: DOM LEWIS [address] [facility] PHYS: Gold Esposito : 1945 AGE: 73 SEX: M [place] [address] LOC: Y.RAD PHONE #: [phone] EXAM DATE: 11/24/2018 STATUS: DEP CLI FAX #: [phone] RAD #: D /C DT PAGE 2 Signed Report- XR FLUORO [id number] 11:55:00 Patient Name: DOM LEWIS Unit No: [id number] EXAMS: CPT CODE: [id number] XR FLUORO NDL 74538 FLUOROSCOPICALLY GUIDED RIGHT PLANTAR FASCIA STEROID INJECTION [...] SUZANNE DUGAN RT(R); RT Maikol.(R) Transcribed D/ (8452) MicheleGVG [facility] NAME: DOM LEWIS [address] [facility] PHYS: Gold Esposito : 1945 AGE: 73 SEX: M [place] [address] LOC: Y.RAD PHONE #: [phone] EXAM DATE: 11/24/2018 STATUS: DEP CLI FAX #: [phone] RAD #: D/C DT PAGE 1 Signed Report Patient Name: DOM LEWIS Unit No: [id number] EXAMS: CPT CODE: [id number] XR FLUORO NDL 26760 (Continued) Orig Print D/T: S: 11/25/2018 (0222) [facility] NAME: DOM LEWIS [address] [facility] PHYS: NEVILLEHAIR Mendoza Gold Blevins : 1945 AGE: 73 SEX: M [place] [id number] LOC: Y.RAD PHONE #: [phone] EXAM DATE: 11/24/2018 STATUS: DEP CLI FAX #: [phone] RAD #: D/C DT PAGE 2 Signed [...] code = BACU) RARE /HPF NONE PROTHROMBIN [id number] 12:38:00 Test Item Value Reference Range Interpretation [...] BLOOD, PT every other day NTHROMBOPLASTIN TIME [id number] 12:38:00 Test Item Value Reference Range Interpretation Comments PTT ACTIVATED (test code = APTT) 30.6 secs 24.9-37.0 N IS PATIENT ON ANTICOAGULANTS ? YLIST ANTICOAGULANT/ANTI PLT MEDICATION : AspirinHas Lab been notified if Patient is on Heparin Drip? NOIf Yes, order CBC, OCCULT BLOOD, PT every other day NCOMPREHENSIVE METABOLIC [id number] 12:29:00 Test Item Value Reference Range Interpretation [...] RATE (test code = GFR) mL/mi n/1.73 [id number] Range:Healthy Adults >90 mL/min/1.73 m2 For Chronic [...] TOTAL (test code = ALKP) CBC W/AUTO [id number] 11:57:00 Test Item Value Reference Range Interpretation [...] (test NORMAL code = PLTMR) COMPREHENSIVE METABOLIC [id number] 11:30:00 Test Item Value Reference Range Interpretation [...] RATE (test code = GFR) mL/mi n/1.73 [id number] Range:Healthy Adults >90 mL/min/1.73 m2 For Chronic [...] N TOTAL (test code = ALKP) PROTHROMBIN [id number] 11:23:00 Test Item Value Reference Range Interpretation Comments PROTHROMBIN TIME 12.0 secs 10.1-12.5 N PATIENT (test code = PTP) INTERNATIONAL NORMAL 1.06 <2.0 RECOMME NDED THERAPEUTIC RATIO (test code = RANGE FOR ORAL INR) ANTICOAGULANTTR EATMENT: CONDITION INRProphylaxis of venous thrombosis in 2 .0 - 3.0 high-risk medic al or surgical [...] BLOOD, PT every other day NTHROMBOPLASTIN TIME [id number] 11:23:00 Test Item Value Reference Range Interpretation Comments PTT ACTIVATED (test code = APTT) 30.9 secs 24.9-37.0 N IS PATIENT ON ANTICOAGULANTS ? YLIST ANTICOAGULANT/ANTI PLT MEDICATION : AspirinHas Lab been notified if Patient is on Heparin Drip? NOIf Yes, order CBC, OCCULT BLOOD, PT every other day NURINALYSIS [id number] 11:19:00 Test Item Value Reference Range Interpretation [...] = BACU) NONE /HPF NONE CBC W/AUTO [id number] 11:06:00 Test Item Value Reference Range Interpretation [...] Notes Date/Time Note Provider Source 2021-03-27 09:59:00-00:00 [facility] ([facility]) Clinical Note REPORT#:[id number] REPORT STATUS: Signed DATE:03/27/21 TIME: 958 PATIENT: DOM LEWIS UNIT #: [id number] [facility] AGE: 76 SEX: M ATTEND: Cornell Leo MD ADM AUTHOR: Patrick La MD * ALL edits or amendments must be made on the el ectronic/computer document * Clinical Note Note: [facility] Patrick murcia M.D. (cell text [phone]) Assessment/Plan 1.) Anemia of acute blood loss- [...] 39.2 Patrick Luevano M.D. at 1237 RPT #:[id number] END OF REPORT 2021-03-27 08:47:00-00:00 [facility] ([facility]) Clinical Note REPORT#:[id number] REPORT STATUS: Signed DATE:03/27/21 TIME: 0847 PATIENT: DOM LEWIS UNIT #: [id number] ROOM/BED: [address] : [address] AGE: 76 SEX: M ATTEND: Cornell Leo MD ADM AUTHOR: Brian Leo MD * ALL edits or amendments must be made on the OR Productivity/computer document * Clinical Note Note: POD# 1 left knee Joint Arthroplasty Patient well, reports pain is mild-moderate AF VSS Exam: dressing dry/intact Moves toes DF/PF Sensory unchanged A/P: Mobilize with physical Therapy DVT prophylaxis ongoing Following labs Remove coverlet, do not recover, patient may juancho wer Discharge planning Electronically Signed by Brian Leo MD on at 0847 RPT #:[id number] END OF REPORT 2021-03-27 08:45:00-00:00 [facility] ([facility]) Discharge Summary REPORT#:[id number] REPORT STATUS: Signed DATE:03/27/21 TIME: 844 PATIENT: DOM LEWIS UNIT #: [id number] [facility] AGE: 76 SEX: M ATTEND: Cornell Leo MD ADM AUTHOR: Brian Leo MD * ALL edits or amendments must be made on the el CNEX LABSronic/computer document * General Information Discharge date: 03/27/21 [...] undergo PT for gait training, mobilization , arxgm-dd-yzpkeh, and strengthening. Patient was i nformed to that they need to arrange for therapy as quickly as possible. The imp ortance of early advancement of dognx-tm-pcrwyf with home exercises, and physical therapy was [...] Brian Leo MD on at 0846 RPT #:[id number] END OF REPORT 2021-03-27 07:36:00-00:00 [facility] ([facility]) Pain Management Progress Note REPORT#:[id number] REPORT STATUS: Signed DATE:03/27/21 TIME: 07 PATIENT: DOM LEWIS UNIT #: [id number] ROOM[facility]BED: [facility] : [facility] AGE: 76 SEX: M ATTEND: Cornell Leo MD ADM AUTHOR: Jocelyne Lai * ALL edits or amendments must be made on the OR Productivity/Quartzy document * Subjective Chief Complaint: L KNEE PAIN S/P TKA Comments: Last Documented: Result Date Time Pulse Ox 95 03/27 712 B/P 162/88 03/27 07 B/P Mean 113.0 03/27 07 O2 Delivery Room air 03/27 07 Temp 36.0 03/27 07 Pulse 61 03/27 0712 Resp 18 03/27 07 O2 Flow Rate 3 03/26 2220 FiO2 32 03/26 1700 History: PMH: GERD, CAD-AL, STENTS x 3, EX-SMOKER POD: 1 MD who placed block: DR. HUFF Type of block: AC S/S Activity status: PT SITTING UP IN BED WATCHING TV. Pain: STATES PAIN IS TOLERABLE. Physical Exam: VAS: 5 LOS: 1 Resp Quality: 1 Side Effects: NONE PT APPEARS COMFORTABLE AT THIS TIME. MOTOR MVMT AND STRENGTH INTACT TO LLE. Plan: BLOCK FOLLOW UP at 0737 RPT #:[id number] END OF REPORT 2021-03-26 18:00:00-00:00 [facility] ([facility]) Clinical Note REPORT#:[id number] REPORT STATUS: Signed DATE:03/26/21 TIME: 1800 PATIENT: DOM LEWIS UNIT #: [id number] ROOM[facility]BED: [facility] : [address] AGE: 76 SEX: M ATTEND: Cornell Leo MD ADM AUTHOR: Patrick La MD * ALL edits or amendments must be made on the OR Productivity/computer document * Clinical Note Note: [facility] Patrick murcia MD (cell text [phone]) Internal Medicine Consult at request of : Dr Laura in [facility] Chief Complaint: left knee pain HPI: 76yo [...] in 2014, huerta ry artery disease (s/p AL/CABG x 3 in 2014), carotid artery disease, [...] Alcohol: few beers daily Drugs: none Lives: wit h spouse Vitals: Vital Signs: Date Time Temp [...] Plt 235, CHEM: Na 141, K 4.9, C r 1.14 (eGFR 62.1%), Hgb A1C 6.7%. (medium [...] Thanks! G8427 - current medications obtained and nahid velasco G8730 - pain assessment with tool and followup p dee 1126F - offered discussion o n advanced care plan and patient declined to address issue at this time. at 2052 RPT #:[id number] END OF REPORT 2021-03-26 11:09:00-00:00 [facility] ([facility]) Operative Note - Full REPORT#:[id number] REPORT STATUS: Signed DATE:03/26/21 TIME: 1108 PATIENT: DOM LEWIS UNIT #: [id number] ROOM/BED: [place] [address] : 43 AGE: 76 SEX: M ATTEND: Cornell Leo MD ADM AUTHOR: Brian Leo MD * ALL edits or amendments must be made on the OR Productivity/computer document * Operative Report Start date: 03/26/21 Start time: 0000 Pre-procedure diagnosis: L KNEE OA, R KNEE OA Post-procedure diagnosis: SAME Procedures performed: L TKA, R KNEE CORTISONE INJECTION Technique/Procedure: R KNEE Cortisone injection OPERATIVE PROCEDURE IN DETAIL The patient was identified in the [facility] area, and all questions and concerns were answered. The patient verbally conf irmed the site and side of the surgery and marking of the site was done. The patient was brought to [facility] operating room and, after adequate anesthesia [...] compressive dressing was applied . INDICATIONS FOR GAS SPECIALIST The presence of a skilled toro rgical pediatric physical therapy assistant was medically necessary to aid for [...] the procedure and not possible without an pediatric physical therapy assistant. In addition havin g an pediatric physical therapy assistant shortens operative times which decrea ses expenses and improves outcomes. I am not part of any residency or fellowship training programs and therefore require the help of the pediatric physical therapy assistant listed above for this surgery. IMPLANTS Depuy Sigma 5 Fem, 4Tib, 10mm ALTRX, 41 mm Oval patella Primary Surgeon: FELIPA Apartment Maintenance Worker(s): SHEELA PAC Anesthesia: regional anesthesia, spinal anesthet ic Operative findings: OA Complications: none Estimated blood loss in ml's: 50 Specimens removed/altered: none Implant(s): DEPUY Electronically Signed by Brian Leo MD on at [address] [place] [address] #:[id number] END OF REPORT
[2023-03-04] MEDS ORDERED: ALPRAZOLAM 0.25 MG TABLET ONE (15:37)
--- NOTE | 2023-03-04 15:55 | ER ---
Nurse's Notes [facility] Name: London Lewis Age: 78 yrs Sex: Male : 1945 Arrival Date: 03/04/2023 Time: 13:50 Bed 17 Private MD: Hollie Pinto Diagnosis: Essential (primary) hypertension;Adjustment disorder with mixed anxiety and depressed mood Presentation: 03/04 14:17 Chief complaint: Patient states: that his blood pressure has been elevated and his cm10 heart rate was 44 so he came to get checked out. Pt denies chest pain and shortness of breath. Coronavirus screen: Client denies travel out of the [place] in the last 14 days. Ebola Screen: Patient denies travel to an Ebola-affected area in the 21 days before illness onset. No symptoms or risks identified at this time. Initial Sepsis Screen: Does the patient meet any 2 criteria? No. Patient's initial sepsis screen is negative. Does the patient have a suspected source of infection? No. Patient's initial sepsis screen is negative. Risk Assessment: Do you want to hurt yourself or someone else? Patient reports no desire to harm self or others. Onset of symptoms was March 04, 2023. 14:17 Method Of Arrival: Ambulatory cm10 14:17 Acuity: ROBERT 3 cm10 Historical: - Allergies: 14:19 PENICILLINS; cm10 - PMHx: 14:19 Anxiety; bulging discs; GEOGRAPHIC TONGUE; GERD; Hypertension; [place]; cm10 - PSHx: 14:19 Left knee replacement; triple bipass; cm10 - Immunization history:: Adult Immunizations. - Social history:: Smoking status: Patient denies any tobacco usage or history of. Screenin:21 [facility] ED Fall Risk Assessment (Adult) History of falling in the last 3 months, kc6 including since admission No falls in past 3 months (0 pts) Confusion or Disorientation No (0 pts) Intoxicated or Sedated No (0 pts) Impaired Gait No (0 pts) Mobility Assist Device Used No (0 pt) Altered Elimination No (0 pt) Score/Fall Risk Level 0 - 2 = Low Risk. Abuse screen: Denies threats or abuse. Denies injuries from another. Nutritional screening: No deficits noted. Tuberculosis screening: No symptoms or risk factors identified. Assessment: 14:30 General: Appears in no apparent distress. comfortable, Behavior is cooperative, kc6 appropriate for age, anxious. Pain: Denies pain. Neuro: Level of Consciousness is awake, alert, obeys commands, Oriented to person, place, time, situation, Appropriate for age. Cardiovascular: Capillary refill < 3 seconds. Respiratory: Airway is patent Trachea midline Respiratory effort is even, unlabored, Respiratory pattern is regular, symmetrical. GI: No signs and/or symptoms were reported involving the gastrointestinal system. : No signs and/or symptoms were reported regarding the genitourinary system. EENT: No signs and/or symptoms were reported regarding the EENT system. Derm: No signs and/or symptoms reported regarding the dermatologic system. Skin is intact, is healthy with good turgor, Skin is pink, warm \T\ dry. Musculoskeletal: No signs and/or symptoms reported regarding the musculoskeletal system. Circulation, motion, and sensation intact. Capillary refill < 3 seconds, Range of motion: intact in all extremities. 15:30 Reassessment: Patient appears in no apparent distress at this time. No changes from kc6 previously documented assessment. Patient and/or family updated on plan of care and expected duration. Pain level reassessed. Patient is alert, oriented x 3, equal unlabored respirations, skin warm/dry/pink. 16:26 Reassessment: Patient appears in no apparent distress at this time. No changes from kc6 previously documented assessment. Patient and/or family updated on plan of care and expected duration. Pain level reassessed. Patient is alert, oriented x 3, equal unlabored respirations, skin warm/dry/pink. Vital Signs: 14:17 BP 209 / 92; Pulse 53; Resp 18; Temp 97.7; Pulse Ox 95% ; cm10 15:22 BP 195 / 84; Pulse 58; Resp 17 S; Pulse Ox 97% on R/A; kc6 16:04 BP 160 / 81; Pulse 56; Resp 17 S; Pulse Ox 92% on R/A; kc6 ED Course: 13:54 Patient arrived in ED. mr 13:55 Hollie Pinto DO is Private Physician. mr 13:56 Abbe Hines MD is Attending Physician. cp3 14:19 Triage completed. cm10 14:19 Arm band placed on Patient placed in an exam room, on a stretcher. cm10 15:06 Stella Brewster, RN is Primary Nurse. kc6 15:21 Patient has correct armband on for positive identification. Placed in gown. Bed in low kc6 position. Call light in reach. Side rails up X2. Adult w/ patient. 15:21 Inserted saline lock: 20 gauge in right forearm, using aseptic technique. Blood kc6 collected. Patient maintains SpO2 saturation greater than 95% on room air. 16:26 No provider procedures requiring assistance completed. IV discontinued, intact, kc6 bleeding controlled, No redness/swelling at site. Pressure dressing applied. Administered Medications: 15:29 Drug: ALPRAZolam PO Tablet 0.25 mg Route: PO; kc6 16:26 Follow up: Response: No adverse reaction; Anxiety decreased; RASS: Alert and Calm (0) kc6 Medication: 16:26 VIS not applicable for this client. kc6 Outcome: 15:54 Discharge ordered by . cp3 16:26 Discharged to home ambulatory, with significant other. kc6 16:26 Condition: improved 16:26 Discharge instructions given to patient, Instructed on discharge instructions, follow up and referral plans. Demonstrated understanding of instructions, follow-up care. 16:26 Patient left the ED. kc6 Signatures: Abbe Hines MD MD cp3 Albert, Ivon mr Stella Brewster, MARKO RN kc6 Neeta Valencia RN RN cm10
--- NOTE | 2023-03-04 15:55 | EDPHYS ---
Physician Documentation [facility] Name: London Lewis Age: 78 yrs Sex: Male : 1945 Arrival Date: 03/04/2023 Time: 13:50 Bed 17 Private MD: Hollie Pinto ED Physician Abbe Hines Historical: - Allergies: 03/04 14:19 PENICILLINS; cm10 - PMHx: 14:19 Anxiety; bulging discs; GEOGRAPHIC TONGUE; GERD; Hypertension; DC; cm10 - PSHx: 14:19 Left knee replacement; triple bipass; cm10 - Immunization history:: Adult Immunizations. - Social history:: Smoking status: Patient denies any tobacco usage or history of. Vital Signs: 14:17 BP 209 / 92; Pulse 53; Resp 18; Temp 97.7; Pulse Ox 95% ; cm10 15:22 BP 195 / 84; Pulse 58; Resp 17 S; Pulse Ox 97% on R/A; kc6 16:04 BP 160 / 81; Pulse 56; Resp 17 S; Pulse Ox 92% on R/A; kc6 MDM: 14:29 Patient medically screened. cp3 Administered Medications: 15:29 Drug: ALPRAZolam PO Tablet 0.25 mg Route: PO; kc6 16:26 Follow up: Response: No adverse reaction; Anxiety decreased; RASS: Alert and Calm (0) kc6 Disposition Summary: 03/04/23 15:54 Discharge Ordered Location: Home cp3 Problem: an acute exacerbation cp3 Symptoms: have improved cp3 Condition: Stable cp3 Diagnosis - Essential (primary) hypertension cp3 - Adjustment disorder with mixed anxiety and depressed mood cp3 Followup: cp3 - With: Private Physician - When: - Reason: If symptoms return Discharge Instructions: - Discharge Summary Sheet cp3 - Adjustment Disorder, Adult cp3 - Managing Anxiety, Adult cp3 Forms: - Medication Reconciliation Form cp3 - Thank You Letter cp3 - Antibiotic Education cp3 - Prescription Opioid Use cp3 - Patient Portal Instructions cp3 Signatures: Abbe Hines MD MD cp3 Stella Brewster RN RN kc6 Netea Valencia RN RN cm10
[2023-03-04 17:18] VITALS: TEMP 97.7
[2023-03-04 17:21] VITALS: BP 160/81; O2SAT 92
--- NOTE | 2023-03-05 14:13 | EKG ---
Test Date: 2023-03-04 Test Time: 14:51:38 Behavioral Health Director: DANTE MEASUREMENT RESULTS: Intervals: Rate: 56 UT: 174 QRSD: 106 QT: 470 QTc: 453 [place]: P: 56 UT: 174 QRS: 66 T: 75 INTERPRETIVE STATEMENTS: Sinus bradycardia ST abnormality, possible digitalis effect Abnormal ECG Compared to ECG 08/27/2021 05:12:26 Sinus rhythm no longer present ST (T wave) deviation still present Electronically Signed On 03-05-23 14:10:52 CDT by Uvaldo Alvarez
== END 2023-03-04 16:26 | disposition home or self-care (01) ==
LOC: ER 13:50
DX: I10 Essential (primary) hypertension (principal); F43.23 Adjustment disorder with mixed anxiety and depressed mood; I25.2 Old myocardial infarction; Z88.0 Allergy status to penicillin; Z95.1 Presence of aortocoronary bypass graft
CPT/HCPCS: 93005

== ENCOUNTER 2023-05-17 19:11 | Emergency (ER) | payer OTHER ==
--- OUTSIDE RECORDS SUMMARY | 2023-05-17 19:15 | XMS REPORT | Continuity of Care Document ---
:1945 Author Organization [facility] t Address [address] [facility] [address] [place] [address] Care Team Providers Name Role Phone Sandra Burrows Attending Clinician Unavailable Wendy Attending Clinician Unavailable Brian Leo Attending Clinician [phone] Brian Leo Attending Clinician Unavailable Chepe Aguilera Attending Clinician Wendy Admitting Clinician Unavailable Brian Leo Admitting Clinician Unavailable Payers Payer Name Policy Type Policy Number Effective Date Expiration Date carmen MEDIC[place]: [id number] 2008 58.com 00:00:00 [employer] [id number] INS[employer]ANCE [employer] (MEDICARE SUPPLEMENT) Problems Condition Condition [...] ) Resolved Problem 07/03/2019 Medical Group Hypertensi Problem Resolve 2019-07-03 Memoria ve Hypertensi d 01:00:54 l disorder, ve [facility] systemic disorder, arterial systemic (disorder) arterial (disorder) Resolved Problem 07/03/2019 Medical Group Simple Simple Problem Active 2019-07-03 [place] silvia obesity obesity 01:00:54 l (disorder) (disorder) He rmann Active Problem 07/03/2019 Medical Group Allergies, Adverse Reactions, Alerts Allergy Allergy Status Severity Reaction(s) Onset Inactive Treating Comm ents Source Name Type Date Date Clinician NSAIDS DA Active U [facility] (Non-Rl 03-26 [place] [facility]idal 00:00: [facility] Anti-Inf 00 [facility] Penicill DA Active SV [facility] ins 03-26 00:00: Orthope 00 dic Hospita l NSAIDS DA Active U DECREASED [facility] (Non-Rl KIDNEY 03-26 [place] roidal FUNCTION 00:00: Orthope Anti-Inf 00 dic [facility]amma [facility] Penicill DA Active SV RASHES/KNOTS [facility] ins 03-26 [place] 00:00: Orthope 00 dic Hospita l Penicill DA Active SV [facility] ins 11-24 Clear 00:00: [facility] 00 [facility] Penicill DA Active SV [facility]ES/KNOTS HC A ins 11-24 Clear 00:00: Thomas 00 [facility] Penicill DA Active SV [facility] ins 11-16 [place] 00:00: Orthope 00 dic Hospita [facility] Penicill DA Active SV [facility] ins 10-26 [facility] [place] PENICILL Allergy Active Kayla IN to Orthope substanc dic e Sports Medicin e penicill penicill Active Memori a ins ins [facility] Social History Smoking Status Start Date Stop Date Source Social History [facility] Medications Ordered Filled Start Stop Current [...] by nsion RX by ension RX other other MD by other lisinoprzachariah lisinopril No lisinopril Kayla 5 mg tablet 5 mg tablet 5-01 5 mg O rthope RX by other RX by other 00:00: tablet RX belia GRAHAM MD 00 by other Nciole bowers Xanax 0.25 Xanax 0.25 No Xanax 0.25 Kayla mg tablet mg tablet 5-01 mg tablet Orthope RX by other RX by other 00:00: RX by belia GRAHAM MD 00 jessica Tena Voltaren 1 Voltaren 1 No Voltaren [...] pain for pain needed for pain metoprolol 0 Yes 50 mg = 1 [...] 2-20 Refill(s) l 16:54: [facility] 00 lisinopril Yes 5 mg = 1 Mem oria 5 mg oral 2-20 tab, PO, l tablet 16:54: Daily, # Ollie 00 30 tab, 0 Refill(s) pantoprazol Yes 40 mg = 1 M emoria e 40 mg 2-20 tab, PO, l oral 16:54: Daily, # [facility] enteric 00 30 tab, 0 coated Refill(s) tablet hydrocortis Yes 25 mg = 1 M emoria one acetate 2-20 supp, [place], l 25 MG 16:54: BID, # 20 [facility] Rectal 00 supp, 0 Suppository Refill(s) [Proctosol] metoprolol Yes 50 mg = 1 Me moria 50 mg oral 2-20 tab, PO, l tablet, 16:54: BID, 0 Ollie extended 00 Refill(s) release Aspirin 81 Yes 81 mg = 1 Me moria MG Enteric 2-20 tab, PO, l Coated 16:54: Daily, # Ollie Tablet 00 90 tab, 3 Refill(s) Alprazolam [...] 1 M emoria one acetate 2-20 supp, [place], l 25 MG 16:54: BID, # 20 Ollie Rectal 00 supp, 0 Suppository Refill(s) [Proctosol] [...] l Oral Tablet 16:54: TID, PRN Art ann [Xanax] Anxiety, # 30 tab, 0 Refill(s) Fish Oil 2018-0 Yes PO, 0 Memoria 2-20 Refill(s) l 16:54: Ollie 00 lisinopril 2018-0 Yes 5 mg = 1 Mem oria 5 mg oral 2-20 tab, PO, l tablet 16:54: Daily, # [facility] 00 30 tab, 0 Refill(s) pantoprazol 2018-0 Yes 40 mg = 1 M emoria e 40 mg 2-20 tab, PO, l oral 16:54: Daily, # Ollie enteric 00 30 tab, 0 coated Refill(s) tablet hydrocortis 2018-0 Yes 25 mg = 1 M emoria one acetate 2-20 supp, [place], l 25 MG 16:54: BID, # 20 Ollie Rectal 00 supp, 0 Suppository Refill(s) [Proctosol] metoprolol 2018 Yes 50 mg = 1 Me moria 50 mg oral 2-20 tab, PO, l tablet, 16:54: BID, 0 [facility] extended 00 Refill(s) release Aspirin 81 20180 Yes 81 mg = 1 Me moria MG Enteric 2-20 tab, PO, l Coated 16:54: Daily, # Ollie Tablet 00 90 tab, 3 Refill(s) Alprazolam [...] tab, PO, l tablet 16:54: Daily, # Akiser 00 30 tab, 0 Refill(s) pantoprazol Yes 40 mg = 1 M emoria e 40 mg 2-20 tab, PO, l oral 16:54: Daily, # [facility] enteric 00 30 tab, 0 coated Refill(s) tablet hydrocortis 0 Yes 25 mg = 1 M emoria one acetate 2-20 supp, [place], l 25 MG 16:54: BID, # 20 [facility] Rectal 00 supp, 0 Suppository Refill(s) [Proctosol] metoprolol Yes 50 mg = 1 Me moria 50 mg oral 2-20 tab, PO, l tablet, 16:54: BID, 0 Ollie extended 00 Refill(s) release Aspirin 81 20180 [...] 1 M emoria one acetate 2-20 supp, [place], l 25 MG 16:54: BID, # 20 Ollie Rectal 00 supp, 0 Suppository Refill(s) [Proctosol] metoprolol 2018-0 Yes 50 mg = 1 Me moria 50 mg oral 2-20 tab, PO, l tablet, 16:54: BID, 0 Ollie extended 00 Refill(s) release Aspirin 81 2018-0 Yes 81 mg = 1 Me moria MG Enteric 2-20 tab, PO, l Coated 16:54: Daily, # Ollie Tablet 00 90 tab, 3 Refill(s) Alprazolam [...] tab, PO, l oral 16:54: Daily, # Ollie enteric 00 30 tab, 0 coated Refill(s) tablet hydrocortis 2018-0 Yes 25 mg = 1 M emoria one acetate 2-20 supp, [place], l 25 MG 16:54: BID, # 20 Ollie Rectal 00 supp, 0 Suppository Refill(s) [Proctosol] metoprolol 20180 Yes 50 mg = 1 Me moria 50 mg oral 2-20 tab, PO, l tablet, 16:54: BID, 0 [facility] extended 00 Refill(s) release Aspirin 81 20180 [...] PO, 0 Memoria 2-20 Refill(s) l 16:54: Ollie 00 lisinopril 20180 Yes 5 mg = 1 Mem oria 5 mg oral 2-20 tab, PO, l tablet 16:54: Daily, # Ollie 00 30 tab, 0 Refill(s) pantoprazol 0 Yes 40 mg = 1 M emoria e 40 mg 2-20 tab, PO, l oral 16:54: Daily, # [facility] enteric 00 30 tab, 0 coated Refill(s) tablet hydrocortis 0 Yes 25 mg = 1 M emoria one acetate 2-20 supp, [place], l 25 MG 16:54: BID, # 20 [facility] Rectal 00 supp, 0 Suppository Refill(s) [Proctosol] Aspir-Low Aspir-Low No Aspir-Low Kayla 81 mg 81 mg 81 mg Orthope tablet,kia tablet,kia tablet,del dic yed release yed release ayed S ports RX by other RX by other release RX Medicin MD by other e doxycycline doxycycline No [...] tablet RX Sports MD GRAHAM by other Medicin MD bowers pantoprazol pantoprazol No pantoprazo Kayla e 40 mg e 40 mg le 40 mg Ortho pe tablet,kia tablet,kia tablet,del dic yed release yed release ayed S ports RX by other RX by other release RX Medicin MD by other e Plavix 75 Plavix 75 No Plavix 75 Kayla mg tablet mg tablet mg tablet Orthope RX by other RX by other RX by belia Tena Vital Signs Vital Name Observation Time Observation Value Comments Source Systolic (mm Hg) 2019-06-30 16:08:00 [place] ninfa [facility] Diastolic (mm Hg) 2019-06-30 16:08:00 [facility] orial Ollie Heart Rate 2019-06-30 [facility]08[facility]00 [facility] Oral (F) 2019-06-30 16:08:00 98.4 F [facility] Height 2019-06-30 16:08:00 177.8 cm [facility] Weight 2019-06-30 16:08:00 [facility] BMI Calculated 2019-06-30 16:08:00 Kanwal[place] al [facility] BMI Calculated 2018-10-13 14:06:00 Elvira al Ollie Weight 2018-10-13 14:06:00 [facility] Height 2018-10-13 14:06:00 177.8 cm [facility] Temperature Oral (F) 2018-10-13 14:06:00 97.6 F [facility] Systolic (mm Hg) 2018-10-13 14:06:00 [place] rial [facility] Diastolic (mm Hg) 2018-10-13 14:06:00 Mem orial Ollie Heart Rate 2018-10-13 14:06:00 [facility] BMI Calculated 2018-04-22 15:21:00 Elvira al Ollie Height 2018-04-22 15:21:00 180.34 cm [facility] Weight 2018-04-22 15:21:00 [facility] Temperature Oral (F) 2018-04-22 15:21:00 97.9 F [facility] Heart Rate 2018-04-22 15:21:00 [facility] Systolic (mm Hg) 2018-04-22 15:21:00 [place] rial Ollie Diastolic (mm Hg) 2018-04-22 15:21:00 Mem orial [facility] BMI Calculated 2018-03-10 15:30:00 Memori al Ollie Weight 2018-03-10 15:30:00 [facility] Height 2018-03-10 15:30:00 177.8 cm [facility] Systolic (mm Hg) 2018-03-10 15:30:00 [place] rial [facility] Diastolic (mm Hg) 2018-03-10 15:30:00 Mem orial Ollie Temperature Oral (F) 2018-03-10 15:30:00 97.4 F [facility] Heart Rate 2018-03-10 15:30:00 [facility] Height 2018-02-25 14:45:00 177.8 cm [facility] Weight 2018-02-25 14:45:00 [facility] BMI Calculated 2018-02-25 14:45:00 Memori al [place]ie Systolic (mm Hg) 2018-02-25 14:45:00 [place] rial Ollie Diastolic (mm Hg) 2018-02-25 14:45:00 Mem orial Ollie Temperature Oral (F) 2018-02-25 14:45:00 97.6 F [facility] Heart Rate 2018-02-25 14:45:00 [facility] BMI Calculated 2017-10-29 15:30:00 Memori al [place] Weight 2017-10-29 15:30:00 [facility] Systolic (mm Hg) 2017-10-29 15:30:00 [place] rial Ollie Diastolic (mm Hg) 2017-10-29 15:30:00 Mem orial [facility] Temperature Oral (F) 2017-10-29 15:30:00 97.4 F [facility] Heart Rate 2017-10-29 15:30:00 [facility] Height 2017-10-29 15:30:00 180.34 cm [facility] Weight 2017-10-09 15:04:00 [facility] BMI Calculated 2017-10-09 15:04:00 Memori al [facility] Height 2017-10-09 15:04:00 180.34 cm [facility] Temperature Oral (F) 2017-10-09 15:04:00 98.3 F [facility] Systolic (mm Hg) 2017-10-09 15:04:00 [place] rial [facility] Diastolic (mm Hg) 2017-10-09 15:04:00 Mem orial Ollie Respitory Rate 2017-10-09 15:04:00 Memori al O[place]ie Heart Rate 2017-10-09 15:04:00 [facility] Height 2017-09-29 16:07:00 180.34 cm [facility] BMI Calculated 2017-09-29 16:07:00 Memori al Ollie Weight 2017-09-29 16:07:00 [facility] Temperature Oral (F) 2017-09-29 16:07:00 97.7 F [facility] Heart Rate 2017-09-29 16:07:00 [facility] Respitory Rate 2017-09-29 16:07:00 Memori al [facility] Systolic (mm Hg) 2017-09-29 16:07:00 [place] rial Ollie Diastolic (mm Hg) 2017-09-29 16:07:00 Mem orial Ollie BMI Calculated 2017-09-22 17:23:00 Memori al Ollie Weight 2017-09-22 17:23:00 [facility] Height 2017-09-22 17:23:00 180.34 cm [facility] Systolic (mm Hg) 2017-09-22 17:23:00 [place] rial Ollie Diastolic (mm Hg) 2017-09-22 17:23:00 Mem orial [facility] Respitory Rate 2017-09-22 17:23:00 Memori al [facility] Temperature Oral (F) 2017-09-22 17:23:00 98.5 F [facility] Heart Rate 2017-09-22 17:23:00 [facility] Systolic (mm Hg) 2017-09-15 16:40:00 [place] rial Ollie Diastolic (mm Hg) 2017-09-15 16:40:00 Mem orial Ollie Heart Rate 2017-09-15 16:40:00 [facility] Respitory Rate 2017-09-15 16:40:00 Memori al [facility] Temperature Oral (F) 2017-09-15 16:40:00 98.4 F [facility] Procedures Procedure Date / Time Performed Performing Clinician David bowers [id number] 2021-03-26 00:00:00 [facility] [id number] 2021-03-26 00:00:00 [facility] Anoscopy; diagnostic, 2018-04-22 19:01:00 Elvira Garcia including collection of specimen(s) by brushing or washing, when performed (separate procedure) Hemorrhoidectomy, 2018-02-25 14:54:00 [facility] internal, by rubber band ligation(s) Open heart surgery [facility] Encounters Start End Encounter Admission Attending Care Care Encounter Source Date/Time Date/Time Type Type Clinicians Facility Department ID 2023-04-07 Outpatient Saragadam, STLMLC STLC [id number] Common 15:45:00 Sandra [id number] [facility] 2023-04-06 [place] STLMLC STLMLC [id number] Common 07:44:00 Sandra [id number] [facility] 2023-03-26 Outpatient Saragadam, STLMLC STLMLC [id number] Common 11:01:00 Sandra [id number] [facility] 2023-03-25 Outpatient Saragadam, STLMLC STLC [id number] Common 11:03:00 Sandra [id number] [facility] 2022-01-10 2022-01-10 Outpatient FOG_Goytia_ AOSM AOSM [id number] Kayla 03:57:00 03:57:00 Tala [id number] [facility] 2022-01-06 2022-01-06 Outpatient FOG_Goytia_ AOSM AOSM [id number] Kayla 01:03:00 01:03:00 Tala [id number] Ortho pe dic [facility] 2022-01-06 2022-01-06 Brian Neely AOSM [place] - Ortho [id number] Kayla 00:00:00 00:00:00 Linn Leo MD: [id number] FOG_Telemed dic [facility] Sports [facility], [place] [address] , Ph. 2022-01-06 2022-01-06 Outpatient Felipa, AOSM AOSM [id number] 00:00:00 00:00:00 Brian Neely [id number] 2021-12-31 2021-12-31 Outpatient FOG_Goytia_ AOSM AOSM [id number] Kayla 12:06:00 12:06:00 Tala [id number] Ortho pe dic [facility] 2021-12-31 2021-12-31 Outpatient FOG_Goytia_ AOSM AOSM [id number] Kayla 12:06:00 12:06:00 Tala [id number] Ortho pe dic Sports Medicin e 2021-03-26 2021-03-27 Inpatient EL Felipa, HCATO SURG [id number] [facility] 08:03:00 13:41:00 Brian [id number] [place] [facility] 2021-03-01 2021-03-01 Outpatient EL Felipa, HCATO 3DAY [id number] [facility] 09:00:00 23:00:00 Brian [id number] [place] [facility] 2021-03-01 2021-03-01 Outpatient Felipa, HCACL LABO [id number] [facility] 18:16:00 18:16:00 Brian 99 [facility] 2021-03-01 2021-03-01 Outpatient Felipa, HCAWU REFE [id number] [facility] 15:29:00 15:29:00 Brian 20 [facility] 2019-06-30 2019-07-01 Outpatient nullFlavo [facility] Multi 55 [id number] Memoria 16:30:00 05:59:59 r Specialty 14 l [facility] 2019-06-30 2019-07-01 Outpatient nullFlavo [facility] Multi 55 [id number] Memoria 16:30:00 05:59:59 r Specialty 14 l [facility] 2019-06-30 2019-06-30 Outpatient Ale [facility] [id number] 10:30:00 23:59:59 Mohumdaniel Frances 2019-06-30 2019-06-30 Outpatient MHIE MHIE [id number] Memoria 10:30:00 10:30:00 14 [facility] Ollie 2019-05-05 2019-05-05 Ambulatory nullFlavo [facility] Multi 55 [id number] Memoria 15:45:00 15:45:00 Pre-Reg r Specialty 13 luke [facility] 2019-05-05 2019-05-05 Ambulatory nullFlavo [facility] Multi 55 [id number] Memoria 15:45:00 15:45:00 Pre-Reg r Specialty 13 luke [facility] 2019-05-05 2019-05-05 Outpatient Silviaani, MHMG MHMG [id number] 10:45:00 10:45:00 Mohummed 13 [facility] 2019-04-14 2019-04-14 Outpatient MHIE MHIE [id number] Memoria 10:30:00 10:30:00 13 luke Ollie 2018-10-13 2018-10-14 Outpatient nullFlavo [facility] Multi 55 [id number] Memoria 14:30:00 04:59:59 r Specialty 12 luke [facility] 2018-10-13 2018-10-14 Outpatient nullFlavo [facility] Multi 55 [id number] Memoria 14:30:00 04:59:59 r Specialty 12 luke [facility] 2018-10-13 2018-10-13 Outpatient Ale, MHMG MHMG [id number] 09:30:00 [facility]59[facility] 2018-10-13 2018-10-13 Outpatient MHIE MHIE [id number] Memoria 09:30:00 09:30:[address] [facility] 2018-04-22 2018-04-23 Outpatient nullFlavo [facility] Multi 55 [id number] Memoria 16:00:00 04:59:59 r Specialty 10 luke [facility] 2018-04-22 2018-04-23 Outpatient nullFlavo [facility] Multi 55 [id number] Memoria 16:00:00 04:59:59 r Specialty 10 luke [facility] 2018-04-22 2018-04-22 Outpatient Silviaani, MHMG MHMG [id number] 11:00:00 23:59:59 [facility] 2018-04-22 Outpatient MHIE MHIE [id number] Memoria 11:00:00 11:00:00 10 [facility] 2018-04-21 2018-04-21 Ambulatory nullFlavo [facility] Multi 55 [id number] Memoria 14:30:00 14:30:00 Pre-Reg r Specialty 11 l [facility] 2018-04-21 2018-04-21 Ambulatory nullFlavo [facility] Multi 55 [id number] Memoria 14:30:00 14:30:00 Pre-Reg r Specialty 11 l [facility] 2018-04-21 2018-04-21 Outpatient MHIE MHIE [id number] Memoria 09:30:00 09:30:00 11 [facility] 2018-04-21 2018-04-21 Outpatient Khani, MHMG MHMG [id number] 09:30:00 09:30:00 Mohummed Maricel [facility] 2018-03-10 2018-03-11 Outpatient nullFlavo [facility] Multi 55 [id number] Memoria 15:30:00 04:59:59 r Specialty 09 luke [facility] 2018-03-10 2018-03-11 Outpatient nullFlavo [facility] Multi 55 [id number] Memoria 15:30:00 04:59:59 r Specialty 09 luke [facility] 2018-03-10 2018-03-10 Outpatient Khani, MHMG MHMG [id number] 10:30:00 23:59:59 Mohummed Tucker [facility] 2018-03-10 2018-03-10 Outpatient MHIE MHIE [id number] Memoria 10:30:00 10:30:00 09 [facility] 2018-03-01 2018-03-03 Phone nullFlavo [facility] Multi [id number] Memoria 18:30:00 04:59:59 Message r Specialty 02 luke [facility] 2018-03-01 2018-03-03 Phone nullFlavo [facility] Multi [id number] Memoria 18:30:00 04:59:59 Message r Specialty 02 l [facility] 2018-03-01 2018-03-02 Outpatient MHMG MHMG [id number] 13:30:00 23:59:59 02 2018-02-25 2018 Outpatient nullFlavo [facility] Multi 55 [id number] Memoria 16:00:00 04:59:59 r Specialty 08 luke [facility] 2018-02-25 2018 Outpatient nullFlavo [facility] Multi 55 [id number] Memoria 16:00:00 04:59:59 r Specialty 08 [facility] 2018-02-25 2018-02-25 Outpatient Ale, MG MG [id number] 11:00:00 23:59:59 Mohummed Brendan [facility] 2018-02-25 2018-02-25 Outpatient MHIE IE [id number] Memoria 11:00:00 11:00:[address] [facility] 2018-01-21 2018-01-21 [place] [id number] Memoria 15:45:00 15:45:00 Pre-Reg r General 07 l [facility] 2018-01-21 2018-01-21 [place] [id number] Memoria 15:45:00 15:45:00 Pre-Reg r General 07 l [facility] 2018-01-21 2018-01-21 Outpatient MHIE IE [id number] Memoria 10:45:00 10:45:[address] [facility] 2018-01-21 2018-01-21 [facility] [id number] 10:45:00 10:45:00 Mohummed Myles [facility] 2017-12-31 2018-01-01 [place] [id number] Memoria 16:00:00 04:59:59 r General 05 l [facility] 2017-12-31 2018-01-01 [place] [id number] Memoria 16:00:00 04:59:59 r General 05 l [facility] 2017-12-31 2017-12-31 Outpatient Ale, MG MG [id number] 11:00:00 23:59:59 Mohummed Gustavo [facility] 2017-12-31 2017-12-31 Outpatient MHIE IE [id number] Memoria 11:00:00 11:00:[address] [facility] 2017-11-11 2017-11-11 [place] [id number] Memoria 20:30:00 20:30:00 Pre-Reg r General 06 l [facility] 2017-11-11 2017-11-11 [place] [id number] Memoria 20:30:00 20:30:00 Pre-Reg r General 06 l [facility] 2017-11-11 2017-11-11 Outpatient MHIE IE [id number] Memoria 15:30:00 15:30:[address] [facility] 2017-11-11 2017-11-11 Outpatient Ale MG MG [id number] 15:30:00 15:30:00 Mohummed [facility] 2017-10-29 2017-10-30 [place] [id number] Memoria 15:45:00 04:59:59 r General 03 l [facility] 2017-10-29 2017-10-30 [place] [id number] Memoria 15:45:00 04:59:59 r General 03 l [facility] 2017-10-29 2017-10-29 Outpatient Ale MG MG [id number] 10:45:00 23:59:59 Mohummed [facility] 2017-10-29 2017-10-29 Outpatient MHDOMINGA JOHNSONIE [id number] Memoria 10:45:00 10:45:00 03 [facility] 2017-10-09 2017-10-10 [place] [id number] Memoria 15:00:00 04:59:59 r General 04 l [facility] 2017-10-09 2017-10-10 [place] [id number] Memoria 15:00:00 04:59:59 r General 04 l [facility] 2017-10-09 2017-10-09 Outpatient Ale, MG MG [id number] 10:00:00 23:59:59 Mohummed Aime [facility] 2017-10-09 2017-10-09 Outpatient MHIE IE [id number] Memoria 10:00:00 10:00:00 04 [facility] 2017-10-05 2017-10-07 Phone nullFlavo MG [id number] Memoria 14:43:00 04:59:59 Message r General 01 l [facility] 2017-10-05 2017-10-07 Phone nullFlavo MG [id number] Memoria 14:43:00 04:59:59 Message r General 01 l Surgery [facility] 2017-10-05 2017-10-06 Outpatient MHMG MHMG [id number] 09:43:00 23:59:59 2017-10-02 2017-10-04 Phone nullFlavo MHMG [id number] Memoria 21:31:00 05:59:59 Message r General 00 l Surgery [facility] 2017-10-02 2017-10-04 Phone nullFlavo MHMG [id number] Memoria 21:31:00 05:59:59 Message r General 00 l Surgery [facility] 2017-10-02 2017-10-03 Outpatient MHMG MHMG [id number] 15:31:00 23:59:59 00 2017-09-29 2017-09-30 Outpatient nullFlavo [facility]MG [id number] Memoria 17:00:00 05:59:59 r General 01 l [facility] 2017-09-29 2017-09-30 Outpatient nullFlavo MHMG [id number] Memoria 17:00:00 05:59:59 r General 01 l [facility] 2017-09-29 2017-09-29 Outpatient Khani, MHMG MHMG [id number] 11:00:00 23:59:59 Mohummed [facility] 2017-09-29 2017-09-29 Outpatient Khani, MHMG MHMG [id number] 11:00:00 23:59:59 Mohummed [facility] 2017-09-29 2017-09-29 Outpatient MHIE MHIE [id number] Memoria 11:00:00 11:00:[address] [facility] 2017-09-22 2017-09-23 Outpatient nullFlavo MHMG [id number] Memoria 17:30:00 05:59:59 r General 02 l [facility] 2017-09-22 2017-09-23 Outpatient nullFlavo MHMG [id number] Memoria 17:30:00 05:59:59 r General 02 l [facility] 2017-09-22 2017-09-22 Outpatient Khani, MHMG MHMG [id number] 11:30:00 23:59:59 Mohummed [facility] 2017-09-22 2017-09-22 Outpatient MHIE MHIE [id number] Memoria 11:30:00 11:30:00 02 [facility] 2017-09-15 2017-09-16 Outpatient nullFlavo [id number] Memoria 16:30:00 05:59:59 r General 00 l Surgery [facility] 2017-09-15 2017-09-16 Outpatient nullFlavo [id number] Memoria 16:30:00 05:59:59 r General 00 l Surgery [facility] 2017-09-15 2017-09-15 Outpatient Ale, [facility] [id number] 10:30:00 23:59:59 Mohummed 00 [facility] 2017-09-15 2017-09-15 Outpatient TOSHA DOMINGA [id number] Memoria 10:30:00 10:30:00 00 [facility] Results Test Description Test Time Test Comments Results Result Comments Source GLUBED 2021-03-28 09:59:00 Test Item Value Reference Range Interpretation Comme nts GLUBED (test code = GLUBED) 200 mg/dL 60-125 H BASIC METABOLIC [id number] 06:54:00 Test Item Value Reference Range Interpretation [...] RATE (test code = GFR) mL/mi n/1.73 [id number] Range:Healthy Adults >90 mL/min/1.73 m2 For Chronic Kidney Disease: Stage II Mild Decrease i n GFR 60-90 Stage III Moderate Decrea se in GFR 30-59 St age IV Severe Decre ase in GFR 15-29 St age V Kidney Failur e <15 CREATININE (test code 1.35 mg/dL 0.55-1.30 H = CREAT) CALCIUM (test code = 8.5 mg/dL 8.2-10.1 N CA) HGB [id number] 06:10:00 Test Item Value Reference Range Interpretation Comments HEMOGLOBIN (test code = HGB) 13.0 g/dL 12-16 N HEMATOCRIT (test code = HCT) 39.2 % 37-47 N SPECIMEN COMMENT: POD #[id number] 06:04:00 Test Item Value Reference Range Interpretation Comments GLUBED (test code = GLUBED) 146 mg/dL 60-125 H [id number] 16:37:00 Test Item Value Reference Range Interpretation [...] patients.DONE A T: [facility] [id number] [facility] [place], [place] [address] GLYCOSYLATED HEMOGLOBIN (HA1C)2021-03-01 18:48:00 [...] be considered for these patients. COMPREHENSIVE METABOLIC [id number] 16:19:00 Test Item Value Reference Range Interpretation [...] RATE (test code = GFR) mL/mi n/1.73 [id number] Range:Healthy Adults >90 mL/min/1.73 m2 For Chronic [...] TOTAL (test code = ALKP) CBC W/AUTO [id number] 15:25:00 Test Item Value Reference Range Interpretation [...] % 0-0 N code = NRBC) PROTHROMBIN [id number] 15:24:00 Test Item Value Reference Range Interpretation [...] Patient is on Heparin Drip? NOTHROMBOPLASTIN TIME [id number] 15:24:00 Test Item Value Reference Range Interpretation Comments PTT ACTIVATED (test code = APTT) 31.5 secs 24.9-37.0 N IS PATIENT ON ANTICOAGULANTS ? YLIST ANTICOAGULANT/ANTI PLT MEDICATION : AspirinHas Lab been notified if Patient is on Heparin Drip? NO- XR FLUORO NDL 2018-11-25 11:55:00 Patient Name: DOM JUÁREZ Unit No: [id number] EXAMS: CPT CODE: [id number] XR FLUORO NDL [id number] FLUOROSCOPICALLY GUIDED RIGHT PLANTAR FASCIA STEROID INJECTION [...] DUGAN RT(R); Renetta Petit RT.(R) Transcribed D/ (5514) tKENNEDYGVG [facility] NAME: DOM JUÁREZ [address] [facility] PHYS: Gold Esposito : 1945 AGE:73 SEX: M [place] [address] LOC: Y.RAD PHONE #: [phone] EXAM DATE: 11/24/2018 STATUS: DEP CLI FAX #: [phone] RAD #: D/C DT PAGE 1 Signed Report Patient Name: DOM JUÁREZ Unit No: [id number] EXAMS: CPT CODE: [id number] XR FLUORO NDL [id number] (Continued) Orig Print D/T: S: 11/25/2018 (1789) [facility] NAME: DOM JUÁREZ [address] [facility] PHYS: Gold Esposito : 1945 AGE: 73 SEX: M [place] [id number] LOC: Y.RAD PHONE #: [phone] EXAM DATE: 11/24/2018 STATUS: DEP CLI FAX #: [phone] RAD #: D/CDT PAGE 2 Signed Report- XR FLUORO [id number] 11:55:00 Patient Name: DOM JUÁREZ Unit No: [id number] EXAMS: CPT CODE: [id number] XR FLUORO NDL [id number] FL UOROSCOPICALLY GUIDED RIGHT PLANTAR FASCIA STEROID INJECTION COMMENT: [...] SUZANNE DUGAN RT(R); RT Maikol.(R) Transcribed D/ (8727) MicheleGV[facility] NAME: DOM JUÁREZ [address] [facility] PHYS: Gold Esposito : 1945 AGE:73 SEX: M [place] [address] LOC: Y.RAD PHONE #: [phone] EXAM DATE: 11/24/2018 STATUS: DEP CLI FAX #: [phone] RAD #: D/C DT PAGE 1 Signed Report Patient Name: DOM JUÁREZ Unit No: [id number] EXAMS: CPT CODE: [id number] XR FLUORO NDL [id number] (Continued) Orig Print D/T: S: 11/25/2018 (1346) [facility] NAME: DOM UJÁREZ [address] [facility] PHYS: NEVILLEHAIR Mendoza Gold Blevins : 1945 AGE: 73 SEX: M [place] [phone] LOC: Y.RAD PHONE #: [phone] EXAM DATE: 11/24/2018 STATUS: DEP CLI FAX #: [phone] RAD #: D/CDT PAGE 2 Signed ReportURINALYSIS [...] code = BACU) RARE /HPF NONE PROTHROMBIN [id number] 12:38:00 Test Item Value Reference Range Interpretation [...] BLOOD, PT every other day NTHROMBOPLASTIN TIME [id number] 12:38:00 Test Item Value Reference Range Interpretation Comments PTT ACTIVATED (test code = APTT) 30.6 secs 24.9-37.0 N IS PATIENT ON ANTICOAGULANTS ? YLIST ANTICOAGULANT/ANTI PLT MEDICATION : AspirinHas Lab been notified if Patient is on Heparin Drip? NOIf Yes, order CBC, OCCULT BLOOD, PT every other day NCOMPREHENSIVE METABOLIC [id number] 12:29:00 Test Item Value Reference Range Interpretation [...] RATE (test code = GFR) mL/mi n/1.73 [id number] Range:Healthy Adults >90 mL/min/1.73 m2 For Chronic [...] TOTAL (test code = ALKP) CBC W/AUTO [id number] 11:57:00 Test Item Value Reference Range Interpretation [...] (test NORMAL code = PLTMR) COMPREHENSIVE METABOLIC [id number] 11:30:00 Test Item Value Reference Range Interpretation [...] RATE (test code = GFR) mL/mi n/1.73 [id number] Range:Healthy Adults >90 mL/min/1.73 m2 For Chronic [...] N TOTAL (test code = ALKP) PROTHROMBIN [id number] 11:23:00 Test Item Value Reference Range Interpretation [...] BLOOD, PT every other day NTHROMBOPLASTIN TIME [id number] 11:23:00 Test Item Value Reference Range Interpretation Comments PTT ACTIVATED (test code = APTT) 30.9 secs 24.9-37.0 N IS PATIENT ON ANTICOAGULANTS ? YLIST ANTICOAGULANT/ANTI PLT MEDICATION : AspirinHas Lab been notified if Patient is on Heparin Drip? NOIf Yes, order CBC, OCCULT BLOOD, PT every other day NURINALYSIS [id number] 11:19:00 Test Item Value Reference Range Interpretation [...] = BACU) NONE /HPF NONE CBC W/AUTO [id number] 11:06:00 Test Item Value Reference Range Interpretation [...]
--- NOTE | 2023-05-17 20:22 | RAD REPORT ---
EXAM DESCRIPTION: US - Extremity Venous Uni Ltd - 05/17/2023 8:09 pm CLINICAL HISTORY: Swelling COMPARISON: None. TECHNIQUE: Real-time sonographic evaluation of the left lower extremity deep venous system was perfo rmed. FINDINGS: Normal compressibility, flow augmentation, phasic flow and spontaneous flow is identified in the left lower extremity deep venous system. No intraluminal filling defects seen. IMPRESSION: No DVT in the left lower extremity.
--- NOTE | 2023-05-17 20:27 | ER ---
Nurse's Notes [facility] Name: London Lewis Age: 78 yrs Sex: Male : 1945 Arrival Date: 05/17/2023 Time: 19:11 Bed 5 Private MD: Diagnosis: Localized swelling, mass and lump, unspecified Presentation: 05/17 19:23 Chief complaint: Patient states: he would like to get a swollen area checked out on his ap3 left lower extremity. patient states he noticed it this afternoon. patient denies pain. patient also states that he took his medication this afternoon and felt like it had "a hard time going down" patient has been able to successfully drink water since, and is swallowing secretions. Coronavirus screen: At this time, the client does not indicate any symptoms associated with coronavirus-19. Ebola Screen: No symptoms or risks identified at this time. Initial Sepsis Screen: Does the patient meet any 2 criteria? No. Patient's initial sepsis screen is negative. Does the patient have a suspected source of infection? No. Patient's initial sepsis screen is negative. Risk Assessment: Do you want to hurt yourself or someone else? Patient reports no desire to harm self or others. Onset of symptoms was May 17, 2023. 19:23 Method Of Arrival: Ambulatory ap3 19:23 Acuity: ROBERT 3 ap3 Triage Assessment: 19:26 General: Appears in no apparent distress. Behavior is calm, cooperative, appropriate ap3 for age. Pain: Denies pain. Neuro: Level of Consciousness is awake, alert, obeys commands, Oriented to person, place, time, situation, Appropriate for age. Cardiovascular: Patient's skin is warm and dry. Respiratory: Airway is patent Respiratory effort is even, unlabored, Respiratory pattern is regular, symmetrical. Derm: swollen area in left lower extremity. Musculoskeletal:. Historical: - Allergies: 19:25 PENICILLINS; ap3 - Home Meds: 20:41 aspirin 81 mg Oral TbEC 1 tab once daily [Active]; la4 - PMHx: 19:25 Anxiety; bulging discs; GEOGRAPHIC TONGUE; GERD; Hypertension; [place]; ap3 - PSHx: 19:25 Left knee replacement; triple bipass; ap3 - Immunization history:: Client reports receiving the 2nd dose of the Covid vaccine. - Social history:: Smoking status: Patient denies any tobacco usage or history of. Screenin:26 [facility] ED Fall Risk Assessment (Adult) History of falling in the last 3 months, ap3 including since admission No falls in past 3 months (0 pts). Abuse screen: Denies threats or abuse. Nutritional screening: No deficits noted. Tuberculosis screening: No symptoms or risk factors identified. Assessment: 20:35 General: Appears in no apparent distress. Behavior is calm, cooperative, appropriate la4 for age. Pain: Complains of pain in left knee. Neuro: No deficits noted. Sauer Agitation-Sedation Scale (RASS): 0 - Alert and Calm. Cardiovascular: No deficits noted. Respiratory: No deficits noted. GI: No deficits noted. Musculoskeletal: Reports pain in left knee since chronic pain after total knee replacement. Vital Signs: 19:23 BP 176 / 96; Pulse 63; Resp 17; Temp 98.6; Pulse Ox 100% ; Weight 92.53 kg; Pain 0/10; ap3 20:39 BP 156 / 78; Pulse 88; Resp 20; Pulse Ox 97% on R/A; la4 19:23 Pain Scale: Adult ap3 [place] Coma Score: 20:39 Eye Response: spontaneous(4). Motor Response: obeys commands(6). Verbal Response: la4 oriented(5). Total: 15. ED Course: 19:14 Patient arrived in ED. jj6 19:16 Romario Agudelo DO is Attending Physician. ms3 19:25 Triage completed. ap3 19:27 Arm band placed on right wrist. ap3 19:41 Amber Parr, RN is Primary Nurse. nw1 20:10 US Extremity Venous Unilateral Ltd In Process Unspecified. EDMS 20:40 No provider procedures requiring assistance completed. Patient did not have IV access la4 during this emergency room visit. 20:41 Patient has correct armband on for positive identification. Provided Education on: la4 discharge instructions. Administered Medications: No medications were administered Medication: 20:41 VIS not applicable for this client. la4 Outcome: 20:27 Discharge ordered by . ms3 20:40 Discharged to home ambulatory, la4 20:40 Condition: stable 20:40 Discharge instructions given to patient, family, Instructed on discharge instructions, follow up and referral plans. Demonstrated understanding of instructions, follow-up care, 20:45 Patient left the ED. la4 Signatures: Dispatcher [employer] Sadie Howe, RN RN ap3 Romario Agudelo DO DO ms3 Janet Quan jj6 Jeanne Jennings RN RN la4 Amber Parr RN RN nw1
--- NOTE | 2023-05-17 20:27 | EDPHYS ---
Physician Documentation [facility] Name: London Lewis Age: 78 yrs Sex: Male : 1945 Arrival Date: 05/17/2023 Time: 19:11 Bed 5 Private MD: ED Physician Romario Agudelo HPI: 05/17 19:41 This 78 yrs old Male presents to ER via Ambulatory with complaints of Suspicious spot ms3 on leg, Difficulty Swallowing. 19:41 78-year-old male with past medical history of anxiety, bulging disc, geographic tongue, ms3 GERD, hypertension, myocardial infarction, coronary artery disease presents for left leg area of swelling that he noted at 5 PM. Patient denies pain. Patient denies any alleviating or inciting factors.. Historical: - Allergies: 19:25 PENICILLINS; ap3 - Home Meds: 20:41 aspirin 81 mg Oral TbEC 1 tab once daily [Active]; la4 - PMHx: 19:25 Anxiety; bulging discs; GEOGRAPHIC TONGUE; GERD; Hypertension; [place]; ap3 - PSHx: 19:25 Left knee replacement; triple bipass; ap3 - Immunization history:: Client reports receiving the 2nd dose of the Covid vaccine. - Social history:: Smoking status: Patient denies any tobacco usage or history of. ROS: 19:41 Constitutional: Negative for fever, and chills. Neck: Negative for injury, pain, and ms3 swelling, Cardiovascular: Negative for chest pain, and palpitations. Respiratory: Negative for shortness of breath, cough, wheezing, and pleuritic chest pain, Abdomen/GI: Negative for abdominal pain, nausea, vomiting, diarrhea, and constipation, 19:41 MS/extremity: Positive for Lump on left leg, Exam: 19:41 Constitutional: This is a well developed, well nourished patient who is awake, alert, ms3 and in no acute distress. Head/Face: Normocephalic, atraumatic. Neck: Trachea midline, no cervical lymphadenopathy. Supple, full range of motion without nuchal rigidity, or vertebral point tenderness. No Meningismus. Chest/axilla: Normal chest wall appearance and motion. Nontender with no deformity. Cardiovascular: Regular rate and rhythm with a normal S1 and S2. No gallops, murmurs, or rubs. Normal PMI, no JVD. No pulse deficits. Respiratory: Lungs have equal breath sounds bilaterally, clear to auscultation and percussion. No rales, rhonchi or wheezes noted. No increased work of breathing, no retractions or nasal flaring. Abdomen/GI: Soft, non-tender, with normal bowel sounds. No distension or tympany. No guarding or rebound. No evidence of tenderness throughout. 19:41 Musculoskeletal/extremity: Extremities: noted in the left leg: Localized area of swelling on lower calf of left leg, Vital Signs: 19:23 BP 176 / 96; Pulse 63; Resp 17; Temp 98.6; Pulse Ox 100% ; Weight 92.53 kg; Pain 0/10; ap3 20:39 BP 156 / 78; Pulse 88; Resp 20; Pulse Ox 97% on R/A; la4 19:23 Pain Scale: Adult ap3 [place] Coma Score: 20:39 Eye Response: spontaneous(4). Motor Response: obeys commands(6). Verbal Response: la4 oriented(5). Total: 15. MDM: 19:34 Patient medically screened. ms3 19:41 Differential diagnosis: DVT versus lipoma versus cellulitis. Data reviewed: vital ms3 signs, nurses notes, radiologic studies, and as a result, I will discharge patient. Historians other than the Patient: Spouse/Significant Other: Patient's . Counseling: I had a detailed discussion with the patient and/or guardian regarding the historical points, exam findings, and any diagnostic results supporting the discharge/admit diagnosis, radiology results, the need for outpatient follow up, to return to the emergency department if symptoms worsen or persist or if there are any questions or concerns that arise at home. ED course: Discussed negative DVT ultrasound with patient and his . Patient to follow-up with primary care physician in 2 to 3 days. Patient understands and agrees with plan. All questions were answered. Return precautions discussed include worsening symptoms, or any other concerns. 05/17 19:34 Order name: US Extremity Venous Unilateral Ltd; Complete Time: 20:23 ms3 Administered Medications: No medications were administered Disposition Summary: 05/17/23 20:27 Discharge Ordered Notes: Location: Home ms3 Condition: Stable ms3 Diagnosis - Localized swelling, mass and lump, unspecified ms3 Followup: ms3 - With: Private Physician - When: 2 - 3 days - Reason: Recheck today's complaints Forms: - Medication Reconciliation Form ms3 - Thank You Letter ms3 - Antibiotic Education ms3 - Prescription Opioid Use ms3 - Patient Portal Instructions ms3 - Leadership Thank You Letter ms3 Signatures: Dispatcher [employer] Sadie Howe RN RN ap3 Romario Agudelo DO DO ms3 Jeanne Jennings RN RN la4
== END 2023-05-17 20:45 | disposition home or self-care (01) ==
LOC: ER 19:11
DX: R22.42 Localized swelling, mass and lump, left lower limb (principal); Z96.652 Presence of left artificial knee joint; Z88.0 Allergy status to penicillin
CPT/HCPCS: 93971; 99282

== ENCOUNTER 2023-07-05 09:48 | Emergency (ER) | payer OTHER ==
--- NOTE | 2023-07-05 11:04 | ER ---
Nurse's Notes [facility] Name: London Lewis Age: 78 yrs Sex: Male : 1945 Arrival Date: 07/05/2023 Time: 09:48 Bed 11 Private MD: Diagnosis: Geographic tongue Presentation: 07/05 10:01 Chief complaint: Patient states: my tongue started burning last night, he had some iw chili last night , it is still burning this morning, my tongue was kind of raw , years ago I was diagnosed with geographic tongue and I was diagnosed with thrush, it has been raw since then. Coronavirus screen: At this time, the client does not indicate any symptoms associated with coronavirus-19. Ebola Screen: Patient negative for fever greater than or equal to 101.5 degrees Fahrenheit, and additional compatible Ebola Virus Disease symptoms Patient denies exposure to infectious person. Patient denies travel to an Ebola-affected area in the 21 days before illness onset. No symptoms or risks identified at this time. Initial Sepsis Screen: Does the patient meet any 2 criteria? No. Patient's initial sepsis screen is negative. Does the patient have a suspected source of infection? No. Patient's initial sepsis screen is negative. Risk Assessment: Do you want to hurt yourself or someone else? Patient reports no desire to harm self or others. Onset of symptoms was July 05, 2023. 10:01 Method Of Arrival: Ambulatory iw 10:01 Acuity: ROBERT 4 iw Triage Assessment: 11:00 General: Appears in no apparent distress. Behavior is calm, cooperative. iw Historical: - Allergies: 10:03 PENICILLINS; iw 10:03 Flomax; iw - PMHx: 10:03 bulging discs; GEOGRAPHIC TONGUE; Hypertension; Anxiety; GERD; [place]; iw - PSHx: 10:03 Left knee replacement; triple bipass; iw Screenin:[address] [facility] ED Fall Risk Assessment (Adult) Score/Fall Risk Level 0 - 2 = Low Risk. Abuse iw screen: Denies threats or abuse. Denies injuries from another. Nutritional screening: No deficits noted. Tuberculosis screening: No symptoms or risk factors identified. Assessment: 10:50 General: Appears in no apparent distress. Behavior is calm, cooperative. Pain: iw Complains of pain in tongue. Neuro: Level of Consciousness is awake, alert, obeys commands, Oriented to person, place, time, situation, Moves all extremities. Full function. Cardiovascular: Patient's skin is warm and dry. Respiratory: Airway is patent Respiratory effort is even, unlabored, Respiratory pattern is regular. Derm: Skin is intact, is healthy with good turgor. Vital Signs: 10:01 BP 153 / 85; Pulse 59; Resp 16; Temp 97.6; Pulse Ox 98% on R/A; Weight 92.53 kg; Height iw 5 ft. 10 in. ; 10:01 Body Mass Index 29.27 (92.53 kg, 177.8 cm) iw ED Course: 09:51 Patient arrived in ED. mg5 09:59 Natividad Fuentes PA-C is PHCP. sb4 09:59 Romario Agudelo DO is Attending Physician. sb4 10:03 Triage completed. iw 10:04 Arm band placed on. iw 10:50 Patient has correct armband on for positive identification. Provided Education on: . iw 11:11 No provider procedures requiring assistance completed. Patient did not have IV access iw during this emergency room visit. 11:13 Steph Parr, RN is Primary Nurse. iw Administered Medications: No medications were administered Medication: 10:50 VIS not applicable for this client. iw Outcome: 11:03 Discharge ordered by MD. ms3 11:12 Discharged to home ambulatory, with family, iw 11:12 Condition: good 11:12 Discharge instructions given to patient, Instructed on discharge instructions, follow up and referral plans. Demonstrated understanding of instructions, follow-up care, 11:13 Patient left the ED. iw Signatures: Steph Parr RN RN iw Romario Agudelo DO DO ms3 Natividad Fuentes PA-C PA-C sb4 Roz Chavez mg5 Corrections: (The following items were deleted from the chart) 10:03 10:01 BP 153 / 85; Pulse 59bpm; Resp 16bpm; Pulse Ox 98% RA; Temp 97.6F; iw iw
[2023-07-05 11:19] VITALS: BP 153/85; TEMP 97.6; O2SAT 98
--- NOTE | 2023-07-06 11:13 | EDPHYS ---
Physician Documentation [facility] Name: London Lewis Age: 78 yrs Sex: Male : 1945 Arrival Date: 07/05/2023 Time: 09:48 Bed 11 Private MD: ED Physician Romario Agudelo HPI: 07/05 11:03 This 78 yrs old Male presents to ER via Ambulatory with complaints of Tounge/Mouth ms3 Problem. 11:03 78-year-old male with past medical history of geographic tongue, hypertension, anxiety, ms3 GERD, MS presents to the emergency department for tongue pain that began yesterday after eating chili. Patient denies any alleviating or inciting factors. Patient states his symptoms have improved from yesterday. Patient states he has seen a dentist and ENT for symptoms without resolution.. Historical: - Allergies: 10:03 PENICILLINS; iw 10:03 Flomax; iw - PMHx: 10:03 bulging discs; GEOGRAPHIC TONGUE; Hypertension; Anxiety; GERD; [place]; iw - PSHx: 10:03 Left knee replacement; triple bipass; iw ROS: 11:03 Constitutional: Negative for fever, and chills. ms3 11:03 Cardiovascular: Negative for chest pain, and palpitations. Respiratory: Negative for shortness of breath, cough, wheezing, and pleuritic chest pain, Abdomen/GI: Negative for abdominal pain, nausea, vomiting, diarrhea, and constipation, 11:03 ENT: Positive for Tongue pain, 11:03 All other systems are negative, Exam: 11:03 Constitutional: This is a well developed, well nourished patient who is awake, alert, ms3 and in no acute distress. 11:03 Cardiovascular: Regular rate and rhythm with a normal S1 and S2. No gallops, murmurs, or rubs. Normal PMI, no JVD. No pulse deficits. Respiratory: Lungs have equal breath sounds bilaterally, clear to auscultation and percussion. No rales, rhonchi or wheezes noted. No increased work of breathing, no retractions or nasal flaring. Abdomen/GI: Soft, non-tender, with normal bowel sounds. No distension or tympany. No guarding or rebound. No evidence of tenderness throughout. 11:03 ENT: Mouth: Tongue: is normal, is moist, tender, Vital Signs: 10:01 BP 153 / 85; Pulse 59; Resp 16; Temp 97.6; Pulse Ox 98% on R/A; Weight 92.53 kg; Height iw 5 ft. 10 in. ; 10:01 Body Mass Index 29.27 (92.53 kg, 177.8 cm) iw MDM: 10:04 Patient medically screened. sb4 11:03 Differential Diagnosis Geographic tongue versus glossitis. Data reviewed: vital signs, ms3 nurses notes, and as a result, I will discharge patient. Care significantly affected by the following chronic conditions: Hypertension. Counseling: I had a detailed discussion with the patient and/or guardian regarding the historical points, exam findings, and any diagnostic results supporting the discharge/admit diagnosis, the need for outpatient follow up, to return to the emergency department if symptoms worsen or persist or if there are any questions or concerns that arise at home. ED course: Discussed physical exam findings with patient. Patient to follow-up with her primary care physician in 2 to 3 days. Patient understands and agrees with plan. All questions were answered. Return precautions discussed include worsening symptoms, or any other concern. Administered Medications: No medications were administered Disposition: 20:19 Chart complete. ms3 Disposition Summary: 07/05/23 11:03 Discharge Ordered Notes: Location: Home ms3 Condition: Stable ms3 Diagnosis - Geographic tongue ms3 Followup: ms3 - With: Private Physician - When: 2 - 3 days - Reason: Recheck today's complaints Discharge Instructions: - Discharge Summary Sheet ms3 - Glossitis ms3 Forms: - Medication Reconciliation Form ms3 - Thank You Letter ms3 - Antibiotic Education ms3 - Prescription Opioid Use ms3 - Patient Portal Instructions ms3 - Leadership Thank You Letter ms3 Signatures: Steph Parr, RN RN iw Romario Agudelo DO DO ms3 Natividad Fuentes PAGeorge PARejiC sb4 Corrections: (The following items were deleted from the chart) 19:58 19:57 This 78 yrs old Male presents to ER via Ambulatory with complaints of ms3 Tounge/Mouth Problem. ms3
== END 2023-07-05 11:13 | disposition home or self-care (01) ==
LOC: ER 09:48
DX: K14.1 Geographic tongue (principal); K14.6 Glossodynia; I10 Essential (primary) hypertension; F41.9 Anxiety disorder, unspecified; Z88.0 Allergy status to penicillin; Z88.8 Allergy status to other drugs, medicaments and biological substances
CPT/HCPCS: 99282

== ENCOUNTER → 2023-08-04 | Emergency (ER) | payer OTHER ==
--- NOTE | 2023-08-04 14:39 | ER ---
Nurse's Notes [facility] Name: London Lewis Age: 78 yrs Sex: Male : 1945 Arrival Date: 08/04/2023 Time: 13:58 Bed IW4 Private MD: Diagnosis: Pruritis Presentation: 08/04 14:19 Chief complaint: Patient states: Has had itching since getting Bactrim. R ankle feels ll1 "loose" and wants to roll easily since yesterday. Coronavirus screen: Client denies travel out of the [place] in the last 14 days. At this time, the client does not indicate any symptoms associated with coronavirus-19. Ebola Screen: Patient denies travel to an Ebola-affected area in the 21 days before illness onset. Initial Sepsis Screen: Does the patient meet any 2 criteria? No. Patient's initial sepsis screen is negative. Does the patient have a suspected source of infection? No. Patient's initial sepsis screen is negative. Risk Assessment: Do you want to hurt yourself or someone else? Patient reports no desire to harm self or others. Onset of symptoms was August 03, 2023. 14:19 Method Of Arrival: Ambulatory ll1 14:19 Acuity: ROBERT 4 ll1 Triage Assessment: 14:20 General: Appears in no apparent distress. Behavior is calm, cooperative, appropriate iw for age. Pain: Denies pain. Derm: Reports itching. Musculoskeletal: Circulation, motion, and sensation intact. Capillary refill < 3 seconds, Reports weakness in R ankle. Historical: - Allergies: 14:18 Flomax; ll1 14:18 PENICILLINS; ll1 14:18 Bactrim; ll1 - PMHx: 14:18 Anxiety; bulging discs; GEOGRAPHIC TONGUE; GERD; Hypertension; [place]; ll1 - PSHx: 14:18 Left knee replacement; triple bipass; ll1 - Immunization history:: Adult Immunizations up to date. - Social history:: Smoking status: Patient denies any tobacco usage or history of. Assessment: 14:42 Reassessment: No changes from previously documented assessment. Patient and/or family iw updated on plan of care and expected duration. Pain level reassessed. Vital Signs: 14:19 BP 169 / 94; Pulse 57; Resp 17; Temp 97.4; Pulse Ox 100% ; Pain 0/10; ll1 14:19 Pain Scale: Adult ll1 ED Course: 14:02 Patient arrived in ED. kj1 14:18 Arm band placed on. ll1 14:20 Romario Agudelo DO is Attending Physician. ms3 14:23 Triage completed. ll1 Administered Medications: No medications were administered Outcome: 14:38 Discharge ordered by MD. ms3 14:42 Discharged to home ambulatory, iw 14:42 Condition: stable 14:42 Discharge instructions given to patient, family, Instructed on discharge instructions, follow up and referral plans. Demonstrated understanding of instructions, follow-up care, 14:46 Patient left the ED. ll1 Signatures: Steph Parr, RN RN Trudi March kj1 Efra Elias, MARKO RN ll1 Romario Agudelo DO DO ms3
--- NOTE | 2023-08-04 14:39 | EDPHYS ---
Physician Documentation [facility] Name: London Lewis Age: 78 yrs Sex: Male : 1945 Arrival Date: 08/04/2023 Time: 13:58 Bed IW4 Private MD: ED Physician Romario Agudelo HPI: 08/04 14:38 This 78 yrs old Male presents to ER via Ambulatory with complaints of Itching. ms3 14:38 78-year-old male with past medical history of anxiety, bulging disc, geographic tongue, ms3 GERD, hypertension, myocardial infarction presents to the emergency department for back itching that has been intermittent for the last 3 to 4 weeks. Patient states he followed up with director operations and was given a cream. Patient states the cream is not working. Patient attempted to follow-up with dermatology and was told his physician has the flu.. Historical: - Allergies: 14:18 Flomax; ll1 14:18 PENICILLINS; ll1 14:18 Bactrim; ll1 - PMHx: 14:18 Anxiety; bulging discs; GEOGRAPHIC TONGUE; GERD; Hypertension; [place]; ll1 - PSHx: 14:18 Left knee replacement; triple bipass; ll1 - Immunization history:: Adult Immunizations up to date. - Social history:: Smoking status: Patient denies any tobacco usage or history of. ROS: 14:38 Constitutional: Negative for fever, and chills. Neck: Negative for injury, pain, and ms3 swelling, Cardiovascular: Negative for chest pain, and palpitations. Respiratory: Negative for shortness of breath, cough, wheezing, and pleuritic chest pain, Abdomen/GI: Negative for abdominal pain, nausea, vomiting, diarrhea, and constipation, 14:38 Skin: Positive for Itching, 14:38 All other systems are negative, Exam: 14:38 Constitutional: This is a well developed, well nourished patient who is awake, alert, ms3 and in no acute distress. Head/Face: Normocephalic, atraumatic. Neck: Trachea midline, no cervical lymphadenopathy. Supple, full range of motion without nuchal rigidity, or vertebral point tenderness. No Meningismus. Chest/axilla: Normal chest wall appearance and motion. Nontender with no deformity. Cardiovascular: Regular rate and rhythm with a normal S1 and S2. No gallops, murmurs, or rubs. Normal PMI, no JVD. No pulse deficits. Respiratory: Lungs have equal breath sounds bilaterally, clear to auscultation and percussion. No rales, rhonchi or wheezes noted. No increased work of breathing, no retractions or nasal flaring. Abdomen/GI: Soft, non-tender, with normal bowel sounds. No distension or tympany. No guarding or rebound. No evidence of tenderness throughout. 14:38 Skin: Warm, dry with normal turgor. Normal color with no rashes, no lesions, and no evidence of cellulitis. MS/ Extremity: Pulses equal, no cyanosis. Neurovascular intact. Full, normal range of motion. Vital Signs: 14:19 BP 169 / 94; Pulse 57; Resp 17; Temp 97.4; Pulse Ox 100% ; Pain 0/10; ll1 14:19 Pain Scale: Adult ll1 MDM: 14:38 Patient medically screened. ms3 14:38 Differential diagnosis: allergic reaction, Idiopathic pruritus. Data reviewed: vital ms3 signs, nurses notes, and as a result, I will discharge patient. Historians other than the Patient: Spouse/Significant Other: Patient's . Care significantly affected by the following chronic conditions: Hypertension. Counseling: I had a detailed discussion with the patient and/or guardian regarding the historical points, exam findings, and any diagnostic results supporting the discharge/admit diagnosis, the need for outpatient follow up, to return to the emergency department if symptoms worsen or persist or if there are any questions or concerns that arise at home. Special discussion: I discussed with the patient/guardian in detail that at this point there is no indication for admission to the hospital. It is understood, however, that if the symptoms persist or worsen the patient needs to return immediately for re-evaluation. ED course: Discussed Atarax prescription with patient patient declines as he does not wish to take pills as he has reactions to medications. Patient wishes for cream. Recommended [id number] Benadryl cream. Patient to follow-up with his director operations. Patient understands agrees with plan. All questions were answered. Return precautions discussed include worsening symptoms, or any other concern. Administered Medications: No medications were administered Disposition Summary: 08/04/23 14:38 Discharge Ordered Notes: Location: Home ms3 Condition: Stable ms3 Diagnosis - Pruritis ms3 Followup: ms3 - With: Private Physician - When: 2 - 3 days - Reason: Recheck today's complaints Discharge Instructions: - Discharge Summary Sheet ms3 - Pruritus ms3 Forms: - Medication Reconciliation Form ms3 - Thank You Letter ms3 - Antibiotic Education ms3 - Prescription Opioid Use ms3 - Patient Portal Instructions ms3 - Leadership Thank You Letter ms3 Signatures: Efra Elias RN RN ll1 Romario Agudelo DO DO ms3
[2023-08-04 15:45] VITALS: BP 169/94; TEMP 97.4; O2SAT 100
== END ==
LOC: ER 13:58
DX: L29.9 Pruritus, unspecified (principal); Z88.0 Allergy status to penicillin; Z88.1 Allergy status to other antibiotic agents; Z88.8 Allergy status to other drugs, medicaments and biological substances
CPT/HCPCS: 99282

== ENCOUNTER → 2023-08-26 | Emergency (ER) | payer OTHER ==
--- NOTE | 2023-08-26 16:27 | RAD REPORT ---
EXAM DESCRIPTION: USExtremity Venous Uni Ltd08/26/2023 3:20 pm CLINICAL HISTORY: left leg pain COMPARISON: 2022 FINDINGS: Left common femoral, superficial femoral, greater saphenous, popliteal and posterior tibi al veins are compressible and demonstrate augmentation. Doppler demonstrates good flow. Grayscale, color and spectral analysis performed on all vessels IMPRESSION: No evidence of deep venous thrombosis involving the left lower extremity.
--- NOTE | 2023-08-26 16:28 | EDPHYS ---
Physician Documentation [facility] Name: London Lewis Age: 78 yrs Sex: Male : 1945 Arrival Date: 08/26/2023 Time: 14:40 Bed IW2 Private MD: ED Physician Marlon Fofana HPI: 08/26 15:06 This 78 yrs old Male presents to ER via Ambulatory with complaints of Leg Pain. kb 15:06 Patient is a 78-year-old male who presents for pain to the medial aspect of left thigh. kb Denies injury or trauma. Pain increased with ambulation.. Historical: - Allergies: 14:48 Bactrim; bp 14:48 Flomax; bp 14:48 PENICILLINS; bp - Home Meds: 14:48 lisinopril 2.5 mg Oral tab once daily [Active]; bp - PMHx: 14:48 Anxiety; bulging discs; [place]; GEOGRAPHIC TONGUE; GERD; Hypertension; bp - PSHx: 14:48 Left knee replacement; triple bipass; bp - Immunization history:: Adult Immunizations up to date. - Social history:: Smoking status: Patient denies any tobacco usage or history of. ROS: 15:05 Constitutional: Negative for fever, chills, and weight loss, kb 15:05 MS/extremity: Positive for pain, of the medial aspect of left thigh, 15:05 All other systems are negative, Exam: 15:05 Constitutional: This is a well developed, well nourished patient who is awake, alert, kb and in no acute distress. Head/Face: Normocephalic, atraumatic. ENT: Moist Mucous membranes Cardiovascular: Regular rate Respiratory: Respirations even and unlabored. No increased work of breathing. Talking in full sentences Abdomen/GI: Soft, non-tender. No distention Skin: Warm, dry with normal turgor. Normal color. MS/ Extremity: Pulses equal, no cyanosis. Neurovascular intact. Full, normal range of motion. Neuro: Awake and alert, GCS 15, oriented to person, place, time, and situation. Moves all extremities. Normal gait. Vital Signs: 14:46 BP 174 / 87; Pulse 58; Resp 16; Temp 98; Pulse Ox 99% ; bp MDM: 14:43 Patient medically screened. kb 15:05 Data reviewed: vital signs, nurses notes. kb 15:05 Differential diagnosis: tendonitis, strain, dvt. kb 16:27 Counseling: I had a detailed discussion with the patient and/or guardian regarding the kb historical points, exam findings, and any diagnostic results supporting the discharge/admit diagnosis, radiology results, the need for outpatient follow up, a family practitioner, to return to the emergency department if symptoms worsen or persist or if there are any questions or concerns that arise at home. 08/26 14:50 Order name: US Extremity Venous Unilateral Ltd; Complete Time: 16:27 kb Administered Medications: No medications were administered Disposition: 17:18 Co-signature as Attending Physician, Marlon Fofana MD I reviewed the patient's care rn provided by the Advanced Practice Provider and agree with the diagnosis and treatment plan. Disposition Summary: 08/26/23 16:28 Discharge Ordered Notes: Location: Home kb Condition: Stable kb Diagnosis - Pain in left leg kb Followup: kb - With: Emergency Department - When: As needed - Reason: Worsening of condition Followup: kb - With: Private Physician - When: 2 - 3 days - Reason: Recheck today's complaints, Continuance of care, Re-evaluation by your physician Discharge Instructions: - Discharge Summary Sheet kb - Musculoskeletal Pain kb - Muscle Strain, [id number] kb Forms: - Medication Reconciliation Form kb - Thank You Letter kb - Antibiotic Education kb - Prescription Opioid Use kb - Patient Portal Instructions kb - Leadership Thank You Letter kb Signatures: Dispatcher [employer] Ida Naejra, FIELD RING ASSEMBLER-C FIELD RING ASSEMBLER-Marlon Zamorano MD MD rn Peltier, Brian RN RN bp
--- NOTE | 2023-08-26 16:28 | ER ---
Nurse's Notes [facility] Name: London Lewis Age: 78 yrs Sex: Male : 1945 Arrival Date: 08/26/2023 Time: 14:40 Bed IW2 Private MD: Diagnosis: Pain in left leg Presentation: 08/26 14:46 Chief complaint: Patient states: "I NEED TO HAVE MY LEG CHECKED OUT. PAIN WITH bp PALPATION. Coronavirus screen: At this time, the client does not indicate any symptoms associated with coronavirus-19. Ebola Screen: No symptoms or risks identified at this time. Initial Sepsis Screen: Does the patient meet any 2 criteria? No. Patient's initial sepsis screen is negative. Does the patient have a suspected source of infection? No. Patient's initial sepsis screen is negative. Risk Assessment: Do you want to hurt yourself or someone else? Patient reports no desire to harm self or others. Onset of symptoms is unknown. 14:46 Method Of Arrival: Ambulatory bp 14:46 Acuity: ROBERT 3 bp Triage Assessment: 14:48 General: Appears in no apparent distress. comfortable, Behavior is calm, cooperative, bp appropriate for age. Pain: Complains of pain in medial aspect of left thigh. Historical: - Allergies: 14:48 Bactrim; bp 14:48 Flomax; bp 14:48 PENICILLINS; bp - Home Meds: 14:48 lisinopril 2.5 mg Oral tab once daily [Active]; bp - PMHx: 14:48 Anxiety; bulging discs; [place]; GEOGRAPHIC TONGUE; GERD; Hypertension; bp - PSHx: 14:48 Left knee replacement; triple bipass; bp - Immunization history:: Adult Immunizations up to date. - Social history:: Smoking status: Patient denies any tobacco usage or history of. Screenin:34 [facility] ED Fall Risk Assessment (Adult) Score/Fall Risk Level 0 - 2 = Low Risk ll1 Oriented to surroundings, Maintained a safe environment, Educated pt \\T\\ family on fall prevention, incl call for assistance when getting out of bed, Hourly rounding (assess needs \\T\\ fall precautionary measures) done. Abuse screen: Denies threats or abuse. Nutritional screening: No deficits noted. Tuberculosis screening: No symptoms or risk factors identified. Assessment: 16:34 Reassessment: No changes from previously documented assessment. Patient and/or family ll1 updated on plan of care and expected duration. Pain level reassessed. Vital Signs: 14:46 BP 174 / 87; Pulse 58; Resp 16; Temp 98; Pulse Ox 99% ; bp ED Course: 14:41 Patient arrived in ED. rg4 14:43 Ida Mchugh FNP-C is [facility]. kb 14:43 Marlon Fofana MD is Attending Physician. kb 14:48 Triage completed. bp 14:48 Arm band placed on. bp 15:21 US Extremity Venous Unilateral Ltd In Process Unspecified. EDMS 16:33 Efra Elias, RN is Primary Nurse. ll1 16:34 Patient has correct armband on for positive identification. Provided Education on: n/a. ll1 16:34 No provider procedures requiring assistance completed. Patient did not have IV access ll1 during this emergency room visit. Administered Medications: No medications were administered Medication: 16:34 VIS not applicable for this client. ll1 Outcome: 16:28 Discharge ordered by MD. kb 16:34 Discharged to home ambulatory, ll1 16:34 Condition: stable 16:34 Discharge instructions given to patient, Instructed on discharge instructions, follow up and referral plans. Demonstrated understanding of instructions, follow-up care, 16:34 Patient left the ED. ll1 Signatures: Dispatcher [employer] EDWI Ida Mchugh FNP-C FNP-Ckb Garcia, Rubi rg4 Richard Arcos, RN RN Efra Artis, RN RN ll1
[2023-08-26 18:42] VITALS: BP 174/87; TEMP 98; O2SAT 99
== END ==
LOC: ER 14:40
DX: M79.605 Pain in left leg (principal); Z96.652 Presence of left artificial knee joint; Z88.0 Allergy status to penicillin; Z88.1 Allergy status to other antibiotic agents; Z88.8 Allergy status to other drugs, medicaments and biological substances; Z95.1 Presence of aortocoronary bypass graft
CPT/HCPCS: 93971

== ENCOUNTER → 2023-09-19 | Emergency (ER) | payer OTHER ==
[~2023-09-19] MED LIST: IBUPROFEN 200 MG TAB PO ONE
--- NOTE | 2023-09-19 09:27 | RAD REPORT ---
EXAM DESCRIPTION: US - Extremity Venous Uni Ltd - 09/19/2023 9:10 am CLINICAL HISTORY: Pain COMPARISON: None. TECHNIQUE: Real-time sonographic evaluation of the right lower extremity deep venous system was perf ormed. FINDINGS: Normal compressibility, flow augmentation, phasic flow and spontaneous flow is identified in the right lower extremity deep venous system. No intraluminal filling defects seen. IMPRESSION: No DVT in the right lower extremity.
--- NOTE | 2023-09-19 10:13 | ER ---
Nurse's Notes [facility] Name: London Lewis Age: 78 yrs Sex: Male : 1945 Arrival Date: 09/19/2023 Time: 07:42 Bed 11 Private MD: Diagnosis: Nasal congestion;Acute right lower limb pain;SARS-associated coronavirus as the cause of diseases classified elsewhere Presentation: 09/19 08:06 Chief complaint: Right hip pain that radiates to right thigh and knee x 9 days. vc1 Recently seen by Dr. Jasmine, told it was sciatica, RICE not helping. Coronavirus screen: At this time, the client does not indicate any symptoms associated with coronavirus-19. Ebola Screen: No symptoms or risks identified at this time. Initial Sepsis Screen: Does the patient meet any 2 criteria? No. Patient's initial sepsis screen is negative. Does the patient have a suspected source of infection? No. Patient's initial sepsis screen is negative. Risk Assessment: Do you want to hurt yourself or someone else? Patient reports no desire to harm self or others. Onset of symptoms was September 10, 2023. 08:06 Method Of Arrival: Wheelchair vc1 08:06 Acuity: ROBERT 3 vc1 Triage Assessment: 08:26 General: Appears in no apparent distress. Behavior is calm, cooperative. Pain: Pain vc1 currently is 8 out of 10 on a pain scale. Neuro: Level of Consciousness is awake, alert, obeys commands, Oriented to person, place, time, situation. Cardiovascular: Patient's skin is warm and dry. Respiratory: Respiratory effort is even, unlabored, Respiratory pattern is regular, symmetrical. Historical: - Allergies: 08:25 Bactrim; vc1 08:25 Flomax; vc1 08:25 PENICILLINS; vc1 - PMHx: 08:25 bulging discs; GEOGRAPHIC TONGUE; Anxiety; GERD; Hypertension; [place]; vc1 - PSHx: 08:25 Left knee replacement; triple bipass; vc1 - Immunization history:: Adult Immunizations up to date. - Social history:: Smoking status: Patient denies any tobacco usage or history of. Screenin:37 [facility] ED Fall Risk Assessment (Adult) History of falling in the last 3 months, cp4 including since admission No falls in past 3 months (0 pts) Confusion or Disorientation No (0 pts) Intoxicated or Sedated No (0 pts) Impaired Gait No (0 pts) Mobility Assist Device Used No (0 pt) Altered Elimination No (0 pt) Score/Fall Risk Level 0 - 2 = Low Risk Oriented to surroundings, Maintained a safe environment, Educated pt \T\ family on fall prevention, incl call for assistance when getting out of bed, Assessed \T\ reinforced patient's understanding of fall precautions, Provided non-skid footwear, Hourly rounding (assess needs \T\ fall precautionary measures) done. Abuse screen: Denies threats or abuse. Nutritional screening: No deficits noted. Tuberculosis screening: No symptoms or risk factors identified. Assessment: 08:37 General: Appears in no apparent distress. Behavior is calm, cooperative, appropriate cp4 for age. Pain: Denies pain. Musculoskeletal: Reports pain in left leg. Vital Signs: 08:06 BP 156 / 76; Pulse 84; Resp 16; Temp 97.8; Pulse Ox 98% on R/A; Weight 92.53 kg; Height vc1 5 ft. 10 in. ; Pain 8/10; 10:23 BP 117 / 79; Pulse 81; Resp 18; Pulse Ox 100% ; cp4 08:06 Body Mass Index 29.27 (92.53 kg, 177.8 cm) vc1 08:06 Pain Scale: Adult vc1 ED Course: 07:43 Patient arrived in ED. rg4 07:50 Philippe Bella MD is Attending Physician. kdr 08:15 Stacey Magdaleno is Primary Nurse. cp4 08:25 Triage completed. vc1 08:26 Arm band placed on. vc1 08:37 Bed in low position. Call light in reach. Side rails up X 1. cp4 09:12 US Extremity Venous Unilateral Ltd In Process Unspecified. EDMS 10:23 Provided Education on: covid and leg pain. cp4 10:23 No provider procedures requiring assistance completed. Patient did not have IV access cp4 during this emergency room visit. Administered Medications: 08:35 Not Given (Patient Refused): [id number] mg PO once cp4 Medication: 08:37 VIS not applicable for this client. cp4 Outcome: 10:13 Discharge ordered by . kdr 10:23 Discharged to home via wheelchair, cp4 10:23 Condition: stable 10:23 Discharge instructions given to patient, Instructed on discharge instructions, follow up and referral plans. Demonstrated understanding of instructions, follow-up care, 10:25 Patient left the ED. cp4 Signatures: Dispatcher [employer] Philippe Sarmiento MD MD kdr Garcia, Rubi rg4 Mary Kay Rodriguez RN RN vc1 Stacey Magdaleno cp4
--- NOTE | 2023-09-19 10:14 | EDPHYS ---
Physician Documentation [facility] Name: London Lewis Age: 78 yrs Sex: Male : 1945 Arrival Date: 09/19/2023 Time: 07:42 Bed 11 Private MD: ED Physician Philippe Bella HPI: 09/19 09:01 This 78 yrs old Male presents to ER via Wheelchair with complaints of Leg Pain. kdr 09:01 The patient presents with pain, that is acute. The complaints affect the right leg. kdr Context: The problem was sustained at home, resulted from an unknown cause, the patient can fully bear weight, the patient is able to ambulate, with mild difficulty. Onset: The symptoms/episode began/occurred gradually, 10 day(s) ago. Associated signs and symptoms: The patient has no apparent associated signs or symptoms. Treatment prior to arrival includes: no previous treatment. Severity of symptoms: At their worst the symptoms were mild, in the emergency department the symptoms are unchanged. The patient has experienced similar episodes in the past, a few times. The patient has been recently seen by a physician: Dr. Jasmine. 09:[address] Jasmine about a week ago and he had been given leg exercises. Patient kdr otherwise does not appear in any acute distress. Historical: - Allergies: 08:25 Bactrim; vc1 08:25 Flomax; vc1 08:25 PENICILLINS; vc1 - PMHx: 08:25 bulging discs; GEOGRAPHIC TONGUE; Anxiety; GERD; Hypertension; [place]; vc1 - PSHx: 08:25 Left knee replacement; triple bipass; vc1 - Immunization history:: Adult Immunizations up to date. - Social history:: Smoking status: Patient denies any tobacco usage or history of. ROS: 09:01 Constitutional: Negative for fever, chills, and weight loss, Eyes: Negative for injury, kdr pain, redness, and discharge, Neck: Negative for injury, pain, and swelling, 09:01 MS/extremity: Positive for pain, of the right calf, right Achilles, right quadriceps and right knee, Negative for pain, Exam: 09:01 Constitutional: This is a well developed, well nourished patient who is awake, alert, kdr and in no acute distress. Head/Face: Normocephalic, atraumatic. Eyes: Pupils equal round and reactive to light, extra-ocular motions intact. Lids and lashes normal. Conjunctiva and sclera are non-icteric and not injected. Cornea within normal limits. Periorbital areas with no swelling, redness, or edema. Neck: Trachea midline, no thyromegaly or masses palpated, and no cervical lymphadenopathy. Supple, full range of motion without nuchal rigidity, or vertebral point tenderness. No Meningismus. Chest/axilla: Normal chest wall appearance and motion. Nontender with no deformity. No lesions are appreciated. Cardiovascular: Regular rate and rhythm with a normal S1 and S2. No gallops, murmurs, or rubs. Normal PMI, no JVD. No pulse deficits. Respiratory: Lungs have equal breath sounds bilaterally, clear to auscultation and percussion. No rales, rhonchi or wheezes noted. No increased work of breathing, no retractions or nasal flaring. Abdomen/GI: Soft, non-tender, with normal bowel sounds. No distension or tympany. No guarding or rebound. No evidence of tenderness throughout. Back: No spinal tenderness. No costovertebral tenderness. Full range of motion. Skin: Warm, dry with normal turgor. Normal color with no rashes, no lesions, and no evidence of cellulitis. MS/ Extremity: Pulses equal, no cyanosis. Neurovascular intact. Full, normal range of motion. Neuro: Awake and alert, GCS 15, oriented to person, place, time, and situation. Cranial nerves II-XII grossly intact. Motor strength 5/5 in all extremities. Sensory grossly intact. Cerebellar exam normal. Normal gait. Psych: Awake, alert, with orientation to person, place and time. Behavior, mood, and affect are within normal limits. Vital Signs: 08:06 BP 156 / 76; Pulse 84; Resp 16; Temp 97.8; Pulse Ox 98% on R/A; Weight 92.53 kg; Height vc1 5 ft. 10 in. ; Pain 8/10; 10:23 BP 117 / 79; Pulse 81; Resp 18; Pulse Ox 100% ; cp4 08:06 Body Mass Index 29.27 (92.53 kg, 177.8 cm) vc1 08:06 Pain Scale: Adult vc1 MDM: 10:13 Patient medically screened. kdr 10:15 Data reviewed: vital signs, nurses notes. ED course: Since patient was unable to define kdr onset of symptoms and his symptoms were mild at best, patient did not warrant prescriptive management of his current illness. He was advised to obtain [id number]-[id number] cold remedies as needed.. 09/19 08:19 Order name: Strep kdr 09/19 08:19 Order name: COVID-19 SARS RT PCR; Complete Time: 09:55 kdr 09/19 09:39 Order name: Throat Culture EDMS 09/19 08:19 Order name: US Extremity Venous Unilateral Ltd; Complete Time: 09:31 kdr Administered Medications: 08:35 Not Given (Patient Refused): [id number] mg PO once cp4 Disposition Summary: 09/19/23 10:13 Discharge Ordered Notes: Location: Home kdr Problem: chronic kdr Symptoms: are unchanged kdr Condition: Stable kdr Diagnosis - Nasal congestion kdr - Acute right lower limb pain kdr - SARS-associated coronavirus as the cause of diseases classified elsewhere kdr Followup: kdr - With: Private Physician - When: 2 - 3 days - Reason: If symptoms return, Further diagnostic work-up, Recheck today's complaints, Continuance of care, Re-evaluation by your physician Discharge Instructions: - Discharge Summary Sheet kdr - Leg Cramps kdr - How to Protect Yourself and Others - [facility] (09/20/2021) kdr - 10 Things You Can Do to Manage Your COVID-19 Symptoms at Home - [facility] (02/08/2021) kdr - Viral Illness, Adult kdr - COVID-19: Quarantine and Isolation - [facility] (10/23/2021) kdr Forms: - Medication Reconciliation Form kdr - Thank You Letter kdr - Patient Portal Instructions kdr - Leadership Thank You Letter kdr Signatures: Dispatcher [employer] [facility] Philippe Bella MD MD kdr Mary Kay Rodriguez RN RN Stacey Kirby cp4
[2023-09-19 10:52] VITALS: BP 117/79; TEMP 97.8; O2SAT 100
== END ==
LOC: ER 07:42
DX: U07.1 COVID-19 (principal); M79.661 Pain in right lower leg; Z95.1 Presence of aortocoronary bypass graft; Z88.0 Allergy status to penicillin; Z88.1 Allergy status to other antibiotic agents; Z88.8 Allergy status to other drugs, medicaments and biological substances
CPT/HCPCS: 87070; 87081; 87635; 93971; 99282

== ENCOUNTER → 2023-09-22 | Emergency (ER) | payer OTHER ==
[2023-09-22 11:43] LABS: SARS-CoV-2 Antigen Rapid Res Positive (Negative)
--- NOTE | 2023-09-22 12:26 | EDPHYS ---
Physician Documentation [facility] Name: London Lewis Age: 78 yrs Sex: Male : 1945 Arrival Date: 09/22/2023 Time: 11:01 Bed IW1 Private MD: ED Physician Marlon Fofana HPI: 09/22 12:21 This 78 yrs old Male presents to ER via Wheelchair with complaints of Mouth Problem, rn Tongue problem, Sore Throat. 12:21 The patient presents with sore throat, decreased taste. The problem is located in the rn mouth. Onset: The symptoms/episode began/occurred 1 week(s) ago. Duration: The symptoms are continuous. Modifying factors: The symptoms are alleviated by nothing, the symptoms are aggravated by food. Associated signs and symptoms: Pertinent positives: Decreased taste and sore throat. Severity of symptoms: At their worst the symptoms were mild, in the emergency department the symptoms are unchanged. The patient has not experienced similar symptoms in the past. Patient reports diagnosed with COVID this week. Returns today due to decreased taste and funny feeling on his tongue. No shortness of breath. No trouble swallowing. Patient would like to be retested for COVID because he has family coming in and he would like to know if he needs to push them back. No chest pain.. Historical: - Allergies: 11:12 Bactrim; as6 11:12 Flomax; as6 11:12 PENICILLINS; as6 - PMHx: 11:12 Anxiety; bulging discs; GEOGRAPHIC TONGUE; GERD; Hypertension; [place]; as6 - PSHx: 11:12 Left knee replacement; triple bipass; as6 - Immunization history:: Adult Immunizations up to date. - Social history:: Smoking status: Patient denies any tobacco usage or history of. - Family history:: not pertinent. - Hospitalizations: : No recent hospitalization is reported. ROS: 12:21 Constitutional: Negative for fever, chills, and weight loss, ENT: Positive for rn decreased taste and sore throat Cardiovascular: Negative for chest pain, palpitations, and edema, Respiratory: Negative for shortness of breath, wheezing, and pleuritic chest pain, Abdomen/GI: Negative for abdominal pain, nausea, vomiting, diarrhea, and constipation, MS/Extremity: Negative for injury and deformity, Skin: Negative for injury, rash, and discoloration, Neuro: Negative for headache, weakness, numbness, tingling, and seizure, Exam: 12:21 Constitutional: This is a well developed, well nourished patient who is awake, alert, rn and in no acute distress. Head/Face: Normocephalic, atraumatic. ENT: Mild pharyngeal erythema, uvula midline, no evidence of peritonsillar abscess. No lesions/ulcerations/petechiae noted intraorally. Cardiovascular: Regular rate and rhythm. No pulse deficits. Respiratory: No increased work of breathing, no retractions or nasal flaring. Vital Signs: 11:10 BP 131 / 81; Pulse 64; Resp 18 S; Temp 98.1(TE); Pulse Ox 98% on R/A; as6 11:13 Weight 92.53 kg; Height 5 ft. 10 in. (R); as6 11:13 Body Mass Index 29.27 (92.53 kg, 177.8 cm) as6 MDM: 11:07 Patient medically screened. rn 12:21 Differential diagnosis: COVID, decreased taste due to COVID or viral infection, rn pharyngitis, geographic tongue. Data reviewed: vital signs, nurses notes, lab test result(s), and as a result, I will discharge patient. Counseling: I had a detailed discussion with the patient and/or guardian regarding the historical points, exam findings, and any diagnostic results supporting the discharge/admit diagnosis, lab results, the need for outpatient follow up, to return to the emergency department if symptoms worsen or persist or if there are any questions or concerns that arise at home. Special discussion: I discussed with the patient/guardian in detail that at this point there is no indication for admission to the hospital. It is understood, however, that if the symptoms persist or worsen the patient needs to return immediately for re-evaluation. 09/22 11:18 Order name: SARS RAPID; Complete Time: : as6 Administered Medications: No medications were administered Disposition Summary: 09/22/23 12:25 Discharge Ordered Notes: Location: Home rn Problem: new rn Symptoms: have improved rn Condition: Stable rn Diagnosis - SARS-associated coronavirus as the cause of diseases classified elsewhere rn - Unspecified disturbances of smell and taste rn Followup: rn - With: Private Physician - When: As needed - Reason: Recheck today's complaints, Re-evaluation by your physician Discharge Instructions: - Discharge Summary Sheet rn - COVID-19 rn - 10 Things You Can Do to Manage Your COVID-19 Symptoms at Home - [facility] [place] (02/08/2021) rn - Viral Illness, Adult rn Forms: - Medication Reconciliation Form rn - Thank You Letter rn - Antibiotic rn post partum - Prescription Opioid Use rn - Patient Portal Instructions rn - Leadership Thank You Letter rn Signatures: Dispatcher [employer] Marlon Martinez MD MD rn Slawson, Ashby, RN RN as6
--- NOTE | 2023-09-22 12:26 | ER ---
Nurse's Notes [facility] Name: London Lewis Age: 78 yrs Sex: Male : 1945 Arrival Date: 09/22/2023 Time: 11:01 Bed IW1 Private MD: Diagnosis: SARS-associated coronavirus as the cause of diseases classified elsewhere;Unspecified disturbances of smell and taste Presentation: 09/22 11:10 Chief complaint: Patient states: "I have COVID and I want to get retested while I'm as6 here but my mouth, throat, and tongue hurt and feel like they are on fire and I can't taste my food". Coronavirus screen: At this time, the client does not indicate any symptoms associated with coronavirus-19. Ebola Screen: No symptoms or risks identified at this time. Initial Sepsis Screen: Does the patient meet any 2 criteria? No. Patient's initial sepsis screen is negative. Does the patient have a suspected source of infection? No. Patient's initial sepsis screen is negative. Risk Assessment: Do you want to hurt yourself or someone else? Patient reports no desire to harm self or others. Onset of symptoms was September 22, 2023. 11:10 Method Of Arrival: Wheelchair as6 11:10 Acuity: ROBERT 4 as6 Triage Assessment: 11:13 General: Appears in no apparent distress. Behavior is calm, cooperative. Pain: as6 Complains of pain in mouth. Historical: - Allergies: 11:12 Bactrim; as6 11:12 Flomax; as6 11:12 PENICILLINS; as6 - PMHx: 11:12 Anxiety; bulging discs; GEOGRAPHIC TONGUE; GERD; Hypertension; [place]; as6 - PSHx: 11:12 Left knee replacement; triple bipass; as6 - Immunization history:: Adult Immunizations up to date. - Social history:: Smoking status: Patient denies any tobacco usage or history of. - Family history:: not pertinent. - Hospitalizations: : No recent hospitalization is reported. Screenin:31 [facility] [place] ED Fall Risk Assessment (Adult) Score/Fall Risk Level 0 - 2 = Low Risk. Abuse as6 screen: Denies threats or abuse. Denies injuries from another. Nutritional screening: No deficits noted. Tuberculosis screening: No symptoms or risk factors identified. Assessment: 12:31 Reassessment: Patient appears in no apparent distress at this time. Patient and/or as6 family updated on plan of care and expected duration. Pain level reassessed. Patient is alert, oriented x 3, equal unlabored respirations, skin warm/dry/pink. Vital Signs: 11:10 BP 131 / 81; Pulse 64; Resp 18 S; Temp 98.1(TE); Pulse Ox 98% on R/A; as6 11:13 Weight 92.53 kg; Height 5 ft. 10 in. (R); as6 11:13 Body Mass Index 29.27 (92.53 kg, 177.8 cm) as6 ED Course: 11:06 Patient arrived in ED. mg5 11:07 Marlon Fofana MD is Attending Physician. rn 11:12 Triage completed. as6 11:12 Arm band placed on. as6 11:25 SARS RAPID Sent. as6 12:30 No provider procedures requiring assistance completed. Patient did not have IV access as6 during this emergency room visit. 12:31 Bed in low position. Call light in reach. Provided Education on: follow up, COVID as6 precautions . Administered Medications: No medications were administered Medication: 12:31 VIS not applicable for this client. as6 Outcome: 12:25 Discharge ordered by . rn 12:30 Discharged to home via wheelchair, with significant other, as6 12:30 Condition: stable 12:30 Discharge instructions given to patient, Instructed on discharge instructions, follow up and referral plans. Demonstrated understanding of instructions, follow-up care, :31 Patient left the ED. as6 Signatures: Marlon Fofana MD MD rn Slawson, Ashby, RN RN as Roz Chavez mg5
[2023-09-22 12:57] VITALS: BP 131/81; TEMP 98.1; O2SAT 98
== END ==
LOC: ER 11:01
DX: U07.1 COVID-19 (principal); I10 Essential (primary) hypertension; Z88.0 Allergy status to penicillin; Z88.1 Allergy status to other antibiotic agents; Z88.8 Allergy status to other drugs, medicaments and biological substances
CPT/HCPCS: 36415; 87811

== ENCOUNTER 2024-03-17 14:00 | Emergency (ER) | payer OTHER ==
--- NOTE | 2024-03-17 15:04 | ER ---
Nurse's Notes [facility] Name: London Lewis Age: 79 yrs Sex: Male : 1945 Arrival Date: 03/17/2024 Time: 14:00 Bed 18 Private MD: Diagnosis: Cough Presentation: 03/17 14:06 Chief complaint: Patient states: Pt states coughing up phlegm for years and needs dd2 someone to look at him. Pt states taking Robitussin and it's burning his tongue. Coronavirus screen: At this time, the client does not indicate any symptoms associated with coronavirus-19. Ebola Screen: No symptoms or risks identified at this time. Initial Sepsis Screen:. Initial Sepsis Screen: Does the patient meet any 2 criteria? No. Patient's initial sepsis screen is negative. Does the patient have a suspected source of infection? No. Patient's initial sepsis screen is negative. Risk Assessment: Do you want to hurt yourself or someone else? Patient reports no desire to harm self or others. Onset of symptoms is unknown. 14:06 Method Of Arrival: Ambulatory dd2 14:06 Acuity: ROBERT 4 dd2 Triage Assessment: 14:13 General: Appears in no apparent distress. Behavior is calm, cooperative. Pain: dd2 Complains of pain in shoulders. Historical: - Allergies: 14:13 Bactrim; dd2 14:13 Flomax; dd2 14:13 PENICILLINS; dd2 - PMHx: 14:13 Anxiety; bulging discs; GEOGRAPHIC TONGUE; GERD; Hypertension; [place]; dd2 - PSHx: 14:13 Left knee replacement; triple bipass; dd2 - Immunization history:: Adult Immunizations up to date. - Infectious Disease History:: Denies. - Social history:: Smoking status: Patient denies any tobacco usage or history of. Screenin:15 [facility] ED Fall Risk Assessment (Adult) History of falling in the last 3 months, ar6 including since admission No falls in past 3 months (0 pts) Confusion or Disorientation No (0 pts) Intoxicated or Sedated No (0 pts) Impaired Gait No (0 pts) Mobility Assist Device Used No (0 pt) Altered Elimination No (0 pt) Score/Fall Risk Level 0 - 2 = Low Risk Oriented to surroundings, Maintained a safe environment, Educated pt \T\ family on fall prevention, incl call for assistance when getting out of bed, Assessed \T\ reinforced patient's understanding of fall precautions, Hourly rounding (assess needs \T\ fall precautionary measures) done. Abuse screen: Denies threats or abuse. Denies injuries from another. Nutritional screening: No deficits noted. Tuberculosis screening: No symptoms or risk factors identified. Assessment: 14:15 General: Appears in no apparent distress. comfortable, Behavior is calm, cooperative, ar6 appropriate for age. Pain: Complains of pain in posterior chest. Neuro: Level of Consciousness is awake, alert, obeys commands, Oriented to person, place, time, situation. Cardiovascular: Denies chest pain, Capillary refill < 3 seconds. Respiratory: Reports cough that is productive, pt. reports thick mucous that has been continuous for months, seen by PCP x3, Urgent Care, and has appointment with ENT, Dr. Guillen. GI: Abdomen is round non-distended, Bowel sounds present X 4 quads. Patient currently denies abdominal pain. : Denies urinary frequency, urgency. EENT: Oral mucosa is moist. Denies pain when swallowing. Derm: Skin is intact, is healthy with good turgor, Skin is dry, Skin is pink, warm \T\ dry. Musculoskeletal: No signs and/or symptoms reported regarding the musculoskeletal system. Vital Signs: 14:06 BP 164 / 84; Pulse 68; Resp 15; Temp 97.2; Pulse Ox 99% ; dd2 14:15 BP 117 / 80; Pulse 63; Resp 18; Temp 98.1; Pulse Ox 100% ; ar6 15:05 BP 122 / 82; Pulse 77; Resp 18; Pulse Ox 100% on NC; ar6 ED Course: 14:05 Patient arrived in ED. mg5 14:07 Andrés Salaazr MD is Attending Physician. ec2 14:13 Triage completed. dd2 14:13 Arm band placed on right wrist. Patient placed in an exam room, on a stretcher, on dd2 pulse oximetry, Patient notified of wait time. 14:15 No apparent distress. Awaiting ED provider evaluation. ar6 14:15 Patient has correct armband on for positive identification. Placed in gown. Bed in low ar6 position. Call light in reach. Side rails up X 1. Pulse ox on. NIBP on. Door closed. Noise minimized. Lights dimmed. Warm blanket given. Pillow given. 14:15 No provider procedures requiring assistance completed. ar6 14:25 Neelam Nevarez, RN is Primary Nurse. ar6 14:54 Provided Education on: medications. ar6 14:54 IV discontinued, intact, bleeding controlled, No redness/swelling at site. Pressure ar6 dressing applied. Administered Medications: No medications were administered Medication: 14:15 VIS not applicable for this client. ar6 Outcome: 14:54 Discharged to home ambulatory, ar6 14:54 Condition: good 14:54 Discharge instructions given to patient, family, Instructed on discharge instructions, follow up and referral plans. medication usage, Demonstrated understanding of instructions, follow-up care, medications, Prescriptions given X 2, 15:03 Discharge ordered by . ec2 15:18 Patient left the ED. ar6 Signatures: Roz Chavez mg5 Andrés Salazar MD MD ec2 Neelam Nevarez, RN RN ar6 JORGE PADILLA RN RN dd2
--- NOTE | 2024-03-17 15:04 | EDPHYS ---
Physician Documentation [facility] Name: London Lewis Age: 79 yrs Sex: Male : 1945 Arrival Date: 03/17/2024 Time: 14:00 Bed 18 Private MD: ED Physician Andrés Salazar HPI: 03/17 14:59 This 79 yrs old Male presents to ER via Ambulatory with complaints of Cough. ec2 14:59 Patient arrives today for a longstanding cough ongoing for at least multiple months. ec2 Has been on Flonase and Singulair and Zyrtec and states that these medications are helping. Reports he has a lot of postnasal drip at night. No fevers or chills, no nausea or vomiting.. Historical: - Allergies: 14:13 Bactrim; dd2 14:13 Flomax; dd2 14:13 PENICILLINS; dd2 - PMHx: 14:13 Anxiety; bulging discs; GEOGRAPHIC TONGUE; GERD; Hypertension; [place]; dd2 - PSHx: 14:13 Left knee replacement; triple bipass; dd2 - Immunization history:: Adult Immunizations up to date. - Infectious Disease History:: Denies. - Social history:: Smoking status: Patient denies any tobacco usage or history of. ROS: 14:59 Constitutional: as per hpi ec2 Exam: 14:59 Constitutional: GEN: NAD Head: atraumatic Eyes: EOMI Ears: External ears are ec2 normal. CV: regular rate LUNGS: no respiratory distress, no wheezes, no rales, no rhonchi ABD: non-distended SKIN: no evidence of rashes MSK: no evidence of trauma Vital Signs: 14:06 BP 164 / 84; Pulse 68; Resp 15; Temp 97.2; Pulse Ox 99% ; dd2 14:15 BP 117 / 80; Pulse 63; Resp 18; Temp 98.1; Pulse Ox 100% ; ar6 15:05 BP 122 / 82; Pulse 77; Resp 18; Pulse Ox 100% on NC; ar6 MDM: 14:30 Patient medically screened. ec2 14:59 Data reviewed: vital signs. ED course: Patient arrives today for a chronic cough with ec2 an examination that shows a reassuring cardiopulmonary examination. Suspect possible sinusitis, start the patient on low-dose steroids and have patient follow-up outpatient. Has appoint with ENT tomorrow. Doubt pneumonia given lack of focal pulmonary sounds. Additionally lack of systemic signs and symptoms. Will discharge home. Return precautions given.. Administered Medications: No medications were administered Disposition Summary: 03/17/24 15:03 Discharge Ordered Notes: Location: Home ec2 Condition: Stable ec2 Diagnosis - Cough ec2 Followup: ec2 - With: Private Physician - When: - Reason: Re-evaluation by your physician Discharge Instructions: - Discharge Summary Sheet ec2 - Cough, Adult ec2 Forms: - Medication Reconciliation Form ec2 - Antibiotic Education ec2 - Prescription Opioid Use ec2 - Patient Portal Instructions ec2 - Leadership Thank You Letter ec2 Prescriptions: - Prednisone 20 mg Oral Tablet - take 1 tablet ORAL route once daily for 5 days; 5 tablet; Refills: 0, Product ec2 Selection Permitted Signatures: Dispatcher [employer] EDAndrés Cronin MD MD ec2 JORGE PADILLA RN RN dd2 Corrections: (The following items were deleted from the chart) 14:31 14:30 Chest Single View+[email or web address] ordered. EDNV EDMS
[2024-03-17 15:40] VITALS: TEMP 98.1; O2SAT 100
[2024-03-17 15:41] VITALS: BP 122/82
== END 2024-03-17 15:18 | disposition home or self-care (01) ==
LOC: ER 14:00
DX: R05.9 Cough, unspecified (principal); I10 Essential (primary) hypertension; K21.9 Gastro-esophageal reflux disease without esophagitis; I25.2 Old myocardial infarction; Z95.1 Presence of aortocoronary bypass graft; Z88.0 Allergy status to penicillin; Z88.8 Allergy status to other drugs, medicaments and biological substances
CPT/HCPCS: 99283